=== PATIENT | female | born 1955 | race Caucasian/White ===

== ENCOUNTER → 2016-12-09 | Outpatient (REF) | payer MEDICARE, BC ==
[~2016-12-09] MED LIST: /FEXO18TA PO; ASPI81TA83 OR; ATARAX OR; ATIV0.5T OR; CIPR25SS OR; COLA100C2 OR; DRISDOL PO; FLEXERIL PO; KLON0.5T PO; LISI10TA4 OR; MELOPOW PO; MIRALEX; MIRALEX OR; OMEP20TA7 OR; SULFA TOP; Savella OR; TOPI100T OR; TRAM50TA2 OR; TRAM50TA2 PO; TRAZ100T PO; VITA500C PO; VITAMIN D50000 UNT OR; ZOLO50TA PO; [UNRECOGNIZED DRUG - OTHER] TOP; [UNRECOGNIZED DRUG - OTHER] TOP; dulcolax; pristiq; savella
[2016-12-10 11:16] LABS: BASO # 0.1 K/mm3 (0.0-0.2); BASO % 1.3 % (0.0-1.0); EOS # 0.1 K/mm3 (0.0-0.50); EOS % 1.5 % (0.0-3.0); LARGE UNSTAINED CELL # 0.1 K/mm3 (0.0-0.4); LARGE UNSTAINED CELL % 1.4 % (0.0-4.0); LYMPH # 1.3 K/mm3 (1.5-4.5); LYMPH % 20.2 % (24.0-44.0); MEAN CORPUSCULAR HEMOGLOBIN 29.4 pg (27.0-33.0); MEAN CORPUSCULAR HGB CONC 33.6 g/dl (32.0-36.5); MEAN CORPUSCULAR VOLUME 87.6 fl (80.0-96.0); MONO # 0.3 K/mm3 (0.0-0.8); MONO % 5.5 % (0.0-5.0); NEUTROPHILS # 4.3 K/mm3 (1.8-7.7); NEUTROPHILS % 70.2 % (36.0-66.0); PLATELET COUNT, AUTOMATED 147 k/mm3 (150-450); RED CELL DISTRIBUTION WIDTH 14.6 % (11.5-14.5); WHITE BLOOD COUNT 6.2 K/mm3 (4.0-10.0)
[2016-12-10 11:33] LABS: FOLATE > 24.0 NG/ML (>5.4); VITAMIN B12 LEVEL 574 PG/ML (247-911)
[2016-12-10 11:40] LABS: ALBUMIN 3.9 GM/DL (3.2-5.2); ALBUMIN/GLOBULIN RATIO 1.39 (1.00-1.93); ALKALINE PHOSPHATASE 45 U/L (45-117); ALT/SGPT 17 U/L (12-78); ANION GAP 3 MEQ/L (8-16); AST/SGOT 17 U/L (15-37); BILIRUBIN,TOTAL 0.4 MG/DL (0.2-1.0); BLOOD UREA NITROGEN 16 MG/DL (7-18); CALCIUM LEVEL 9.3 MG/DL (8.8-10.2); CARBON DIOXIDE LEVEL 29 MEQ/L (21-32); CHLORIDE LEVEL 105 MEQ/L (98-107); CHOLESTEROL LEVEL 266 MG/DL (<200); CREATININE FOR GFR 0.96 MG/DL (0.55-1.02); GLOMERULAR FILTRATION RATE > 60.0 (>45); GLUCOSE, FASTING 74 MG/DL (80-110); SODIUM LEVEL 137 MEQ/L (136-145); TOTAL PROTEIN 6.7 GM/DL (6.4-8.2); TRIGLYCERIDES LEVEL 334 MG/DL (<150)
== END ==
LOC: M SFHCCLAY 15:28
PROVIDERS: ATTEND Family Medicine
DX: D64.9 Anemia, unspecified (principal); E78.2 Mixed hyperlipidemia; E03.9 Hypothyroidism, unspecified
CPT/HCPCS: 80053; 80061; 82607; 82746; 83540; 84443; 85025; G0463

== ENCOUNTER → 2016-12-16 | Outpatient (REF) | payer MEDICARE, BC ==
[2016-12-16 14:39] LABS: TOTAL PROTEIN 6.9 GM/DL (6.4-8.2)
[2016-12-16 14:55] LABS: VITAMIN B12 LEVEL 652 PG/ML (247-911)
[2016-12-16 14:56] LABS: FOLATE > 24.0 NG/ML (>5.4)
[2016-12-20 12:55] LABS: ALBUMIN % 60.7 % (55.8-66.1)
[2016-12-20 12:56] LABS: ALBUMIN 4.19 GM/DL (3.29-5.55); GAMMA GLOBULIN % 16.3 % (11.1-18.8)
== END ==
LOC: M LABNEURO 10:58
PROVIDERS: ATTEND Psychiatry & Neurology Neurology
DX: E03.9 Hypothyroidism, unspecified (principal); Z13.88 Encounter for screening for disorder due to exposure to contaminants; Z13.0 Encounter for screening for diseases of the blood and blood-forming organs and certain disorders involving the immune mechanism; G62.9 Polyneuropathy, unspecified; Z79.899 Other long term (current) drug therapy; T56.894A Toxic effect of other metals, undetermined, initial encounter

== ENCOUNTER 2017-01-27 14:19 | Outpatient (CLI) | payer MEDICARE, BC ==
[~2017-01-27 14:19] MED LIST changes: +methylPREDNISolone 1,000 MG, VIAL MATE ADAPTER 1 EACH in D5W 250 ML IV ONE
[2017-01-27] MEDS ORDERED: D 50CAP PO (15:08)
[2017-01-27] MEDS ORDERED: LEVO50TA5 PO (15:08)
[2017-01-27] MEDS ORDERED: FISH1000 PO (15:08)
[2017-01-27] MEDS ORDERED: CENTTAB47 PO (15:09)
== END 2017-01-27 16:49 | disposition home or self-care (01) ==
LOC: M INFU 14:19
PROVIDERS: ATTEND Psychiatry & Neurology Neurology
DX: G35 Multiple sclerosis (principal); Z79.899 Other long term (current) drug therapy; M54.2 Cervicalgia; G89.29 Other chronic pain; F33.9 Major depressive disorder, recurrent, unspecified; F41.9 Anxiety disorder, unspecified; G47.00 Insomnia, unspecified
CPT/HCPCS: 96365; 96366; J2930

== ENCOUNTER 2017-01-28 13:50 | Outpatient (CLI) | payer MEDICARE, BC ==
[~2017-01-28 13:50] MED LIST changes: +CENTTAB47 PO; +D 50CAP PO; +FISH1000 PO; +LEVO50TA5 PO
== END 2017-01-28 15:55 | disposition home or self-care (01) ==
LOC: M INFU 13:50
PROVIDERS: ATTEND Psychiatry & Neurology Neurology
DX: G35 Multiple sclerosis (principal); Z79.899 Other long term (current) drug therapy; Z91.041 Radiographic dye allergy status
CPT/HCPCS: 96365; 96366; J2930

== ENCOUNTER 2017-01-29 12:29 | Outpatient (CLI) | payer MEDICARE, BC ==
[~2017-01-29 12:29] MED LIST changes: -methylPREDNISolone 1,000 MG, VIAL MATE ADAPTER 1 EACH in D5W 250 ML IV ONE
[2017-01-29] MEDS ORDERED: methylPREDNISolone 1,000 MG, VIAL MATE ADAPTER 1 EACH in D5W 250 ML IV ONE (13:00)
[2017-01-29 13:10] VITALS: BP 154/70
[2017-01-29] MEDS ORDERED: SLF 3 ML SYR IV PRN (13:30)
[2017-01-29] MEDS ORDERED: SLF 3 ML SYR IV SCH (14:00)
== END 2017-01-29 14:45 | disposition home or self-care (01) ==
LOC: M INFU 12:29 → M PED 12:50 → M INFU 14:45
PROVIDERS: ATTEND Psychiatry & Neurology Neurology
DX: G35 Multiple sclerosis (principal); Z79.899 Other long term (current) drug therapy; Z91.041 Radiographic dye allergy status; Z88.8 Allergy status to other drugs, medicaments and biological substances
CPT/HCPCS: 96374; J2930

== ENCOUNTER 2017-01-30 12:03 | Outpatient (CLI) | payer MEDICARE, BC ==
[2017-01-30 12:25] VITALS: BP 152/70
[2017-01-30] MEDS ORDERED: SLF 3 ML SYR IV PRN (12:45)
[2017-01-30] MEDS ORDERED: methylPREDNISolone 1,000 MG, VIAL MATE ADAPTER 1 EACH in D5W 250 ML IV ONE (13:00)
[2017-01-30] MEDS ORDERED: SLF 3 ML SYR IV SCH (14:00)
[2017-01-30 14:10] VITALS: BP 138/64
== END 2017-01-30 14:10 | disposition home or self-care (01) ==
LOC: M INFU 12:03 → M PED 12:07 → M INFU 14:10
PROVIDERS: ATTEND Psychiatry & Neurology Neurology
DX: G35 Multiple sclerosis (principal); Z79.899 Other long term (current) drug therapy; Z88.8 Allergy status to other drugs, medicaments and biological substances; Z91.041 Radiographic dye allergy status
CPT/HCPCS: 96365; J2930

== ENCOUNTER 2017-01-31 12:41 | Outpatient (CLI) | payer MEDICARE, BC ==
[~2017-01-31] VITALS: Ht 167.6 cm; Wt 71.4 kg
[~2017-01-31 12:41] MED LIST changes: +methylPREDNISolone 1,000 MG, VIAL MATE ADAPTER 1 EACH in D5W 250 ML IV ONE
== END 2017-01-31 14:30 | disposition home or self-care (01) ==
LOC: M INFU 12:41
PROVIDERS: ATTEND Psychiatry & Neurology Neurology
DX: G35 Multiple sclerosis (principal); Z79.899 Other long term (current) drug therapy; Z91.041 Radiographic dye allergy status
CPT/HCPCS: 96365; J2930

== ENCOUNTER → 2017-02-07 | Outpatient (REF) | payer MEDICARE, BC ==
[~2017-02-07] MED LIST changes: -methylPREDNISolone 1,000 MG, VIAL MATE ADAPTER 1 EACH in D5W 250 ML IV ONE
[2017-02-07 20:27] LABS: IMMUNOGLOBULIN A 67.1 MG/DL (70-400); IMMUNOGLOBULIN G 986 MG/DL (681-1648); IMMUNOGLOBULIN M 112 MG/DL (40-230); TOTAL PROTEIN 7.3 GM/DL (6.4-8.2)
[2017-02-09 11:36] LABS: ALBUMIN 4.35 GM/DL (3.29-5.55); ALBUMIN % 59.6 % (55.8-66.1); GAMMA GLOBULIN % 15.2 % (11.1-18.8)
[2017-02-10 00:08] LABS: BETA 2 MICROGLOBULIN 1.9 mg/L (0.6-2.4); FREE KAPPA LIGHT CHAINS SERUM 14.5 mg/L (3.3-19.4); FREE LAMBDA LIGHT CHAINS SERUM 15.7 mg/L (5.7-26.3); KAPPA/LAMBDA RATIO SERUM 0.92 (0.26-1.65)
== END ==
LOC: M LAB REF 13:33
PROVIDERS: ATTEND Internal Medicine Medical Oncology
DX: D47.2 Monoclonal gammopathy (principal)

== ENCOUNTER → 2017-04-11 | Outpatient (REF) | payer MEDICARE, BC ==
[2017-04-11 14:07] LABS: INR 1.14
[2017-04-11 15:08] LABS: COLLAGEN ADP > 300 SECONDS (56-103)
== END ==
LOC: M LAB REF 13:47
PROVIDERS: ATTEND Internal Medicine Medical Oncology
DX: D47.2 Monoclonal gammopathy (principal)

== ENCOUNTER → 2017-04-20 | Outpatient (REF) | payer MEDICARE, BC ==
[2017-04-20 18:02] LABS: COLLAGEN ADP 228 SECONDS (56-103)
== END ==
LOC: M LAB REF 13:28
PROVIDERS: ATTEND Internal Medicine Medical Oncology
DX: D47.2 Monoclonal gammopathy (principal)

== ENCOUNTER → 2017-05-03 | Outpatient (REF) | payer MEDICARE, BC ==
[2017-05-03 10:19] LABS: INR 1.07
[2017-05-03 10:31] LABS: COLLAGEN ADP > 300 SECONDS (56-103)
== END ==
LOC: M LAB REF 08:38
PROVIDERS: ATTEND Internal Medicine Medical Oncology
DX: D47.2 Monoclonal gammopathy (principal)

== ENCOUNTER → 2017-05-04 | Outpatient (REF) | payer MEDICARE, BC ==
[2017-05-10 10:13] LABS: COAGULATION FACTOR XI ACTIVITY 77 % (60-150); F8 ACTIVITY FOR F8 PANEL 91 % (57-163); F8 ACTIVITY vWB FOR F8 PANEL 86 % (50-200); F8 ANTIGEN FOR F8 PANEL 115 % (50-200); INTERPRETATION: Note (.)
== END ==
LOC: M LAB REF 12:44
PROVIDERS: ATTEND Internal Medicine Medical Oncology
DX: D68.0 Von Willebrand disease (principal)

== ENCOUNTER → 2017-09-20 | Outpatient (CLI) | payer MEDICARE, BC | LOC: M CLY 15:16 | DX: M25.551 Pain in right hip (principal); M77.8 Other enthesopathies, not elsewhere classified | CPT/HCPCS: 73502; G0463 ==

== ENCOUNTER → 2018-04-10 | Outpatient (REF) | payer MEDICARE, BC ==
[2018-04-11 12:08] LABS: ALBUMIN 3.7 GM/DL (3.2-5.2); ALBUMIN/GLOBULIN RATIO 1.12 (1.00-1.93); ALKALINE PHOSPHATASE 49 U/L (45-117); ALT/SGPT 18 U/L (12-78); ANION GAP 7 MEQ/L (8-16); AST/SGOT 17 U/L (7-37); BILIRUBIN,TOTAL 0.6 MG/DL (0.2-1.0); BLOOD UREA NITROGEN 14 MG/DL (7-18); CALCIUM LEVEL 9.3 MG/DL (8.8-10.2); CARBON DIOXIDE LEVEL 31 MEQ/L (21-32); CHLORIDE LEVEL 104 MEQ/L (98-107); CHOLESTEROL LEVEL 226 MG/DL (<200); CHOLESTEROL RISK RATIO 4.185 (<5); CREATININE FOR GFR 1.28 MG/DL (0.55-1.30); GLOMERULAR FILTRATION RATE 44.7 (>45); GLUCOSE, FASTING 94 MG/DL (70-100); HDL CHOLESTEROL 54 MG/DL (>40); LDL CHOLESTEROL 127.2 MG/DL (<100); NON-HDL-C 172 MG/DL; SODIUM LEVEL 142 MEQ/L (136-145); THYROID STIMULATING HORMONE 0.532 uIU/ML (0.358-3.740); TRIGLYCERIDES LEVEL 224 MG/DL (<150)
== END ==
LOC: M SFHCCLAY 14:19
DX: E78.2 Mixed hyperlipidemia (principal); E03.9 Hypothyroidism, unspecified
CPT/HCPCS: 84443

== ENCOUNTER 2018-08-28 15:58 | Inpatient (IN) | payer OTHER, MEDICARE, BC ==
[~2018-08-28] VITALS: Ht 167.6 cm; Wt 79.2 kg
[2018-08-28 17:11] LABS: HEMATOCRIT 42.6 % (36.0-47.0); HEMOGLOBIN 14.3 g/dl (12.0-15.5); MEAN CORPUSCULAR HEMOGLOBIN 29.9 pg (27.0-33.0); MEAN CORPUSCULAR HGB CONC 33.6 g/dl (32.0-36.5); MEAN CORPUSCULAR VOLUME 89.1 fl (80.0-96.0); PLATELET COUNT, AUTOMATED 111 10^3/uL (150-450); RED BLOOD COUNT 4.78 10^6/uL (4.00-5.40); WHITE BLOOD COUNT 5.1 10^3/uL (4.0-10.0)
[2018-08-28 17:27] LABS: AMPHETAMINES LEVEL URINE NEGATIVE (NEGATIVE); BARBITURATES URINE NEGATIVE (NEGATIVE); BENZODIAZEPINES URINE NEGATIVE (NEGATIVE); CANNABINOIDS URINE NEGATIVE (NEGATIVE); COCAINE METABOLITE URINE NEGATIVE (NEGATIVE); METHADONE URINE NEGATIVE (NEGATIVE); OPIATES URINE NEGATIVE (NEGATIVE); PHENCYCLIDINE URINE NEGATIVE (NEGATIVE)
[2018-08-28 18:02] LABS: ACETAMINOPHEN LEVEL < 2.0 UG/ML (10.0-30.0); ALBUMIN 4.2 GM/DL (3.2-5.2); ALT/SGPT 22 U/L (12-78); BILIRUBIN,DIRECT 0.2 MG/DL (0.0-0.2); BILIRUBIN,TOTAL 0.7 MG/DL (0.2-1.0); BLOOD UREA NITROGEN 16 MG/DL (7-18); CALCIUM LEVEL 9.5 MG/DL (8.8-10.2); CARBON DIOXIDE LEVEL 31 MEQ/L (21-32); CHLORIDE LEVEL 102 MEQ/L (98-107); CREATININE FOR GFR 1.26 MG/DL (0.55-1.30); ETHYL ALCOHOL (ETHANOL) < 0.003 % (0.000-0.010); GLOMERULAR FILTRATION RATE 45.5 (>45); GLUCOSE, FASTING 94 MG/DL (70-100); POTASSIUM SERUM 4.7 MEQ/L (3.5-5.1); SALICYLATE LEVEL < 1.7 MG/DL (5.0-30.0); SODIUM LEVEL 139 MEQ/L (136-145); THYROID STIMULATING HORMONE 0.845 uIU/ML (0.358-3.740); TOTAL PROTEIN 7.7 GM/DL (6.4-8.2)
[2018-08-28] MEDS ORDERED: BUSP10TA PO (18:40)
[2018-08-28] MEDS ORDERED: ACTI1TAB PO (18:40)
[2018-08-28] MEDS ORDERED: LEVO50TA5 PO (18:40)
[2018-08-28] MEDS ORDERED: PROP10TA56 PO (18:40)
[2018-08-28] MEDS ORDERED: VIIB10TA PO (18:40)
[2018-08-28] MEDS ORDERED: SPIR-10 PO (18:40)
[2018-08-28] MEDS ORDERED: BUPR150T3 PO (18:40)
[2018-08-28] MEDS ORDERED: [UNRECOGNIZED DRUG - CODE] PO (18:40)
[2018-08-28] MEDS ORDERED: TARTCAP PO (18:44)
[2018-08-28] MEDS ORDERED: [UNRECOGNIZED DRUG - OTHER] PO (18:44)
[2018-08-28] MEDS ORDERED: VITA500055 PO (18:44)
[2018-08-28] MEDS ORDERED: COPA1INJ SC (18:44)
[2018-08-28] MEDS ORDERED: MAALOX 30 ML SUSP *UDC PO PRN (19:15)
[2018-08-28] MEDS ORDERED: MOM 30ML SUSPENSION UDC PO PRN (19:15)
[2018-08-29 00:30] VITALS: BP 164/67
[2018-08-29 06:42] VITALS: BP 114/56
[2018-08-29] MEDS: SERTRALINE 100 MG TAB PO SCH (09:49)
[2018-08-29] MEDS: buPROPion **XL** TABLET 150MG (WELLBUTRIN XL) PO SCH (09:49)
[2018-08-29] MEDS: LEVOTHYROXINE 50MCG TABLET (0.05MG) PO SCH (09:49)
[2018-08-29] MEDS: busPIRone 10 MG TAB PO SCH ×2 (09:49→20:58)
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
[2018-08-29 18:00] VITALS: BP 143/66
[2018-08-29] MEDS: traZODone 50 MG TAB PO PRN (20:58)
[2018-08-29] MEDS: PRAZOSIN 1 MG CAP PO SCH (20:59)
[2018-08-30] MEDS: LEVOTHYROXINE 50MCG TABLET (0.05MG) PO SCH (06:30)
[2018-08-30 07:00] VITALS: BP 102/51
[2018-08-30] MEDS: busPIRone 10 MG TAB PO SCH ×2 (09:17→21:08)
[2018-08-30] MEDS: SERTRALINE 100 MG TAB PO SCH (09:17)
[2018-08-30] MEDS: buPROPion **XL** TABLET 150MG (WELLBUTRIN XL) PO SCH (09:17)
[2018-08-30] MEDS: ACETAMINOPHEN TAB 650MG DOSE (2X325MG) PO PRN ×2 (09:20→16:25)
--- NOTE | 2018-08-30 11:53 | MHIPNPDOC ---
[facility] Progress Note Progress Note DATE OF SERVICE: 08/30/18 HISTORY: The patient has history of major depressive disorder, post traumatic stress disorder (PTSD). She was admitted to [facility] in 2010. She moved to [place] with her . Two years back, she came back and started getting her treatment at [facility]. Her medication was changed very frequently. She reports on Zoloft she was stable. For some reason, her doctor changed her medication to Viibryd. Since then, she has been decompensating. She reports her sleep and appetite are poor. Her energy level is poor. She has some visual and auditory hallucinations which are minimal only for the last two days. She reported it to the police that people are coming to her house and sitting in her bed. The police watched her home and they said there was nothing. The patient came with a friend seeking help. She denies any history of manic episodes. She denied any history of drug or alcohol use. VITAL SIGNS: See below. NEW TEST RESULTS: See below. CURRENT MEDICATIONS: See below. MENTAL STATUS EXAMINATION: She is casually dressed. Personal hygiene is good. Psychomotor activity is mildly retarded. Made good eye contact. Speech rate, rhythm and volume are good. Mood is depressed, anxious. Thought process linear, goal directed. Thought content: Currently denies any delusions or any suicidal or homicidal ideas. She is alert, oriented to time, place, person and situation. Her memory, immediate, remote and recent are good. Insight and judgment are fair. DIAGNOSES: Major depressive disorder. Post traumatic stress disorder. ASSESSMENT:Pt seen and states continues to endorse occasional anxiety, worse when around a lot of people. Calls herself an anxious person. Discussed use of wellbutrin and risk of worsened anxiety and agrees to stop it. States she's tolerating zoloft and finding it beneficial for mood and anxiety. finding buspar, prazosin, and trazodone beneficial for anxiety and sleep. States she slept well last night. Feels she is tolerating her medications and they're beneficial. She is attending groups and finding them helpful. She denies insomnia, SI/HI, hallucinations, delusions. Pt feels safe here. MANAGEMENT PLAN: Continue current treatment. Start inderal 10mg tid prn anxiety Medications: Buspirone 10 mg BID Prazosin 2 mg QHS Sertraline 100 mg DAILY Trazodone 50 mg QHSP PRN PO INSOMNIA TIME SPENT: 30 minutes. Vital Signs Vital Signs Date Time Temp Pulse Resp B/P (MAP) Pulse Ox O2 Delivery O2 Flow Rate FiO2 08/30/18 07:00 96.1 78 16 102/51 (68) 08/29/18 00:30 98 Room Air Current Medications Current Medications Acetaminophen (Tylenol Tab) 650 mg Q6HP PRN PO HEADACHE or DISCOMFORT Last administered on 08/30/18 09:20; Start 08/28/18 at 19:15 Al Hydrox/Mg Hydrox/Simethicone (Mylanta) 30 ml Q4HP PRN PO HEARTBURN/INDIGESTION; Start 08/28/18 at 19:15 Bupropion HCl (Wellbutrin Xl) 150 mg DAILY PO Last administered on 08/30/18 09:17; Start 08/29/18 at 09:00 Buspirone HCl (Buspar) 10 mg BID PO Last administered on 08/30/18 09:17; Start 08/29/18 at 09:00 Home Med (Med Rec Complete!) ASDIRECTED XX ; Start 08/28/18 at 18:45; Stop 08/28/18 at 18:46; Status DC Levothyroxine Sodium (Synthroid) 50 mcg DAILY@06 PO Last administered on 08/30/18 06:30; Start 08/29/18 at 06:00 Magnesium Hydroxide (Milk Of Magnesia) 30 ml DAILYPRN PRN PO CONSTIPATION; Start 08/28/18 at 19:15 Prazosin HCl (Minipress) 2 mg QHS PO Last administered on 08/29/18 20:59; Start 08/29/18 at 21:00 Sertraline HCl (Zoloft) 100 mg DAILY PO Last administered on 08/30/18 09:17; Start 08/29/18 at 09:00 Trazodone HCl (Desyrel) 50 mg QHSP PRN PO INSOMNIA Last administered on 08/29/18 20:58; Start 08/28/18 at 19:15 Allergies Coded Allergies: Contrast Media (Verified Allergy, Intermediate, hives, 06/26/12) Rosuvastatin (Verified Allergy, Unknown, leg cramps, 01/29/17) AZALIA NOE DO Aug 30, 2018 11:53 am
--- NOTE | 2018-08-30 15:56 | HPE ---
DATE OF ADMISSION: 08/28/2018 HISTORY OF PRESENT ILLNESS: Please refer to psychiatric history and evaluation for further details on this admission. This examination and history is intended for medical issues, which may need treatment, followup or consultation on this 63-year-old female. PRIMARY CARE PROVIDER: Dr. Tom ALLERGIES: CONTRAST MEDIA, ROSUVASTATIN. PAST MEDICAL HISTORY: Depression, anxiety, posttraumatic stress disorder (PTSD), skin cancer removed from her arms and treated, migraine headaches. December 2017 she was diagnosed with multiple sclerosis, she follows with Dr. Oliva in [place], [place]. She takes Copaxone three times a week intramuscularly. PAST SURGICAL HISTORY: Cholecystectomy, hysterectomy, tonsillectomy. In December 2015 she had a bowel resection. FAMILY HISTORY: History of Down's syndrome. SOCIAL HISTORY: She is retired. She does not smoke cigarettes. She drinks occasionally one to two drinks per week. She does not use recreational drugs. LABORATORY STUDIES: Electrolytes are normal. BUN 16, creatinine 1.26. CK-MB 0.2, total CK 26, troponin is less than 0.04. HOME MEDICATIONS: - Tylenol 650 mg by mouth every 6 hours as needed for headache - bupropion 150 mg by mouth daily - BuSpar 10 mg by mouth twice a day - Synthroid 50 mcg by mouth daily - prazosin HCL 10 mg by mouth at night - sertraline 100 mg by mouth daily - trazodone 50 mg by mouth at night as needed for sleep - Copaxone one three times a week REVIEW OF SYSTEMS: Ten systems review was done and she is feeling fairly well. She had no complaints. PHYSICAL EXAMINATION: GENERAL: 63-year-old cooperative female in no acute distress. Height 66 inches, weight 79.2 kg, Body Mass Index (BMI) 28.2. The patient is alert and oriented times three. HEENT: Pupils are equal and reactive to light. Extraocular muscles intact. Sclerae clear. Conjunctivae normal. No facial asymmetry. Pharynx, gums and tongue pink and moist. Tongue is midline. NECK: Supple without lymphadenopathy, thyromegaly or goiter. Carotids are 2+ without bruit. CHEST: Clear to auscultation without wheeze or retraction. HEART: Regular. ABDOMEN: Benign. Bowel sounds positive. GENITOURINARY/RECTAL: Not done. EXTREMITIES: Equal strength, full range of motion. No clubbing, cyanosis, and edema. Peripheral pulses equal and palpable bilaterally. SKIN: Warm and dry. IMPRESSION/PLAN: 1. Psychiatric plan per psychiatry. 2. Multiple sclerosis. Her sister will bring in her Copaxone and then we will order it. No other acute medical issues.
[2018-08-30] MEDS: PROPRANOLOL 10 MG TAB PO SCH ×2 (16:25→21:08)
[2018-08-30 18:00] VITALS: BP 146/76
[2018-08-30] MEDS: PRAZOSIN 1 MG CAP PO SCH (21:09)
[2018-08-31] MEDS: LEVOTHYROXINE 50MCG TABLET (0.05MG) PO SCH (06:11)
[2018-08-31 06:23] VITALS: BP 112/52
[2018-08-31] MEDS: PROPRANOLOL 10 MG TAB PO SCH ×3 (09:00→20:53)
[2018-08-31] MEDS ORDERED: COPAXONE 40 MG/ML SC SCH (09:00)
[2018-08-31] MEDS: busPIRone 10 MG TAB PO SCH ×2 (09:15→20:52)
[2018-08-31] MEDS: buPROPion **XL** TABLET 150MG (WELLBUTRIN XL) PO SCH (09:15)
[2018-08-31] MEDS: SERTRALINE 100 MG TAB PO SCH (09:15)
--- NOTE | 2018-08-31 09:37 | MHIPNPDOC ---
[facility] Progress Note Progress Note DATE OF SERVICE: 08/31/18 HISTORY: The patient has history of major depressive disorder, post traumatic stress disorder (PTSD). She was admitted to [facility] in 2010. She moved to [place] with her . Two years back, she came back and started getting her treatment at [facility]. Her medication was changed very frequently. She reports on Zoloft she was stable. For some reason, her doctor changed her medication to Viibryd. Since then, she has been decompensating. She reports her sleep and appetite are poor. Her energy level is poor. She has some visual and auditory hallucinations which are minimal only for the last two days. She reported it to the police that people are coming to her house and sitting in her bed. The police watched her home and they said there was nothing. The patient came with a friend seeking help. She denies any history of manic episodes. She denied any history of drug or alcohol use. VITAL SIGNS: See below. NEW TEST RESULTS: See below. CURRENT MEDICATIONS: See below. MENTAL STATUS EXAMINATION: She is casually dressed. Personal hygiene is good. Psychomotor activity is improved and average. Made good eye contact. Speech rate, rhythm and volume are good. Mood is "better... less anxious." Affect is congruent, euthymic, and bright. Thought process linear, goal directed. Thought content: Currently denies any delusions or any suicidal or homicidal ideas. She is alert, oriented to time, place, person and situation. Her memory, immediate, remote and recent are good. Insight and judgment are fair. DIAGNOSES: Major depressive disorder. Post traumatic stress disorder. ASSESSMENT:Pt seen and states her anxiety is improved with the start of inderal that she took twice yesterday, tolerated, and found beneficial. States she's tolerating zoloft and finding it beneficial for mood and anxiety. Finding buspar, prazosin, and trazodone beneficial for anxiety and sleep. States she slept well last night. Feels she is tolerating her medications and they're beneficial. She is attending groups and finding them helpful. She denies insomnia, SI/HI, hallucinations, delusions. Pt feels safe here. MANAGEMENT PLAN: Continue current treatment. Medications: Buspirone 10 mg BID Prazosin 2 mg QHS Sertraline 100 mg DAILY Trazodone 50 mg QHSP PRN PO INSOMNIA inderal 10mg tid prn anxiety TIME SPENT: 30 minutes. Vital Signs Vital Signs Date Time Temp Pulse Resp B/P (MAP) Pulse Ox O2 Delivery O2 Flow Rate FiO2 08/31/18 09:00 67 115/54 08/31/18 06:23 98.8 14 Room Air 08/30/18 18:00 98 Current Medications Current Medications Acetaminophen (Tylenol Tab) 650 mg Q6HP PRN PO HEADACHE or DISCOMFORT Last administered on 08/30/18 16:25; Start 08/28/18 at 19:15 Al Hydrox/Mg Hydrox/Simethicone (Mylanta) 30 ml Q4HP PRN PO HEARTBURN/INDIGESTION; Start 08/28/18 at 19:15 Bupropion HCl (Wellbutrin Xl) 150 mg DAILY PO Last administered on 08/31/18 09:15; Start 08/29/18 at 09:00 Buspirone HCl (Buspar) 10 mg BID PO Last administered on 08/31/18 09:15; Start 08/29/18 at 09:00 Home Med (Med Rec Complete!) ASDIRECTED XX ; Start 08/28/18 at 18:45; Stop 08/28/18 at 18:46; Status DC Levothyroxine Sodium (Synthroid) 50 mcg DAILY@06 PO Last administered on 08/31/18 06:11; Start 08/29/18 at 06:00 Magnesium Hydroxide (Milk Of Magnesia) 30 ml DAILYPRN PRN PO CONSTIPATION; Start 08/28/18 at 19:15 Prazosin HCl (Minipress) 2 mg QHS PO Last administered on 08/30/18 21:09; Start 08/29/18 at 21:00 Propranolol HCl (Inderal) 10 mg TID PO Last administered on 08/30/18 21:08; Start 08/30/18 at 16:00 Sertraline HCl (Zoloft) 100 mg DAILY PO Last administered on 08/31/18 09:15; Start 08/29/18 at 09:00 Trazodone HCl (Desyrel) 50 mg QHSP PRN PO INSOMNIA Last administered on 08/29/18 20:58; Start 08/28/18 at 19:15 Allergies Coded Allergies: Contrast Media (Verified Allergy, Intermediate, hives, 06/26/12) Rosuvastatin (Verified Allergy, Unknown, leg cramps, 01/29/17) AZALIA NOE DO Aug 31, 2018 09:37
[2018-08-31 18:00] VITALS: BP 140/60
[2018-08-31] MEDS: PRAZOSIN 1 MG CAP PO SCH (20:53)
[2018-08-31] MEDS: traZODone 50 MG TAB PO PRN (21:25)
[2018-09-01] MEDS: LEVOTHYROXINE 50MCG TABLET (0.05MG) PO SCH (06:07)
[2018-09-01 06:19] VITALS: BP 107/54
[2018-09-01] MEDS: SERTRALINE 100 MG TAB PO SCH (08:39)
[2018-09-01] MEDS: busPIRone 10 MG TAB PO SCH (08:39)
[2018-09-01 08:40] VITALS: BP 135/58
[2018-09-01] MEDS: PROPRANOLOL 10 MG TAB PO SCH (08:40)
--- NOTE | 2018-09-01 08:52 | MHDSPDOC ---
[facility] Discharge Summary Discharge Summary DATE OF ADMISSION: Aug 28, 2018 at 19:08 DATE OF DISCHARGE: Sep 01, 2018 DISCHARGE DIAGNOSES: Major depressive disorder. Post traumatic stress disorder. REASON FOR ADMISSION: The patient has history of major depressive disorder, post traumatic stress disorder (PTSD). She was admitted to [facility] in 2010. She moved to [place] with her . Two years back, she came back and started getting her treatment at [facility]. Her medication was changed very frequently. She reports on Zoloft she was stable. For some reason, her doctor changed her medication to Viibryd. Since then, she has been decompensating. She reports her sleep and appetite are poor. Her energy level is poor. She has some visual and auditory hallucinations which are minimal only for the last two days. She reported it to the police that people are coming to her house and sitting in her bed. The police watched her home and they said there was nothing. The patient came with a friend seeking help. She denies any history of manic episodes. She denied any history of drug or alcohol use. CONSULTANTS INVOLVED: none TREATMENT AND PROGRESS ON THE UNIT : Pt was admitted to [facility], seen for psychiatric assessment and her outpatient wellbutrin xl was discontinued due to side effect of anxiety and she was continued on her zoloft increased to 100mg daily for mood and anxiety. She was continued on her buspar 10mg bid for anxiety. She was started on inderal 10mg tid for anxiety and prazosin 2mg qhs for nightmares/ptsd. She was provided trazodone 50mg qhs prn insomnia. Pt found her medications beneficial and tolerated them well. She attended groups daily during her stay. Her symptoms improved with treatment. On day of discharge she denied depression, anxiety, insomnia, SI/HI, hallucinations, delusions. She was discharged home with follow-up at [facility]. She felt safe for discharge. DISCHARGE ASSESSMENT: Pt seen and states her mood is improved to good and that her anxiety is greatly improved. States that inderal has been very beneficial for her anxiety and she's tolerating it well. States she's tolerating zoloft and finding it beneficial for mood and anxiety. Finding buspar, prazosin, and trazodone beneficial for anxiety and sleep. States she slept well last night. Feels she is tolerating her medications and they're beneficial. She is attending groups and finding them helpful. She denies depression, anxiety, insomnia, SI/HI, hallucinations, delusions. Pt feels safe to be discharged home. MENTAL STATUS EXAMINATION ON DISCHARGE: She is casually dressed. Personal hygiene is good. Psychomotor activity are average. Made good eye contact. Speech rate, rhythm and volume are good. Mood is "good" Affect is congruent, euthymic, and bright. Thought process linear, goal directed. Thought content: Currently denies any delusions or any suicidal or homicidal ideas. She is alert, oriented to time, place, person and situation. Her memory, immediate, remote and recent are good. Insight and judgment are good. MEDICATIONS ON DISCHARGE: Buspirone 10 mg BID Prazosin 2 mg QHS Sertraline 100 mg DAILY Trazodone 50 mg QHSP PRN PO INSOMNIA inderal 10mg tid prn anxiety PLAN/FOLLOWUP ARRANGEMENTS: d/c home with follow-up at [facility]. The amount of time spent in the coordination of care for this patient was approximately 30 minutes. Vital Signs/I&Os Vital Signs Date Time Temp Pulse Resp B/P (MAP) Pulse Ox O2 Delivery O2 Flow Rate FiO2 09/01/18 08:40 85 135/58 09/01/18 06:19 98.9 16 Room Air 08/30/18 18:00 98 Medications Scheduled (Viibryd) 10 Mg Tab, 10 MG PO DAILY, (Reported) (Quazepam) 15 Mg Tab, 7.5 MG PO QHS, (Reported) (Tart Romano Advanced) 1 Cap Cap, 1 CAP PO QHS, (Reported) Bupropion Hcl (Bupropion HCl Xl) 150 Mg Tab, 150 MG PO QAM, (Reported) Buspirone HCl (Buspirone HCl) 10 Mg Tab, 20 MG PO BID, (Reported) Cholecalciferol (Vitamin D3) 5,000 Unit Tab, 5,000 UNIT PO DAILY, (Reported) Glatiramer Acetate (Copaxone) 40 Mg/Ml Inj, 40 MG SC 3XW, (Reported) TAKES ON TUESDAY, TUESDAY AND TUESDAY Levothyroxine Sodium (Synthroid) 50 Mcg Tab, 50 MCG PO DAILY, (Reported) Spironolactone (Spironolactone) 25 Mg Tab, 25 MG PO DAILY, (Reported) [activite vitamins] , 2 TAB PO DAILY, (Reported) Scheduled PRN Propranolol HCl (Propranolol HCl) 10 Mg Tab, 5 MG PO DAILY PRN for ANXIETY, (Reported) Allergies Coded Allergies: Contrast Media (Verified Allergy, Intermediate, hives, 06/26/12) Rosuvastatin (Verified Allergy, Unknown, leg cramps, 01/29/17) AZALIA NOE DO Sep 01, 2018 08:52
[2018-09-01] MEDS ORDERED: PROP10TAB PO (08:57)
[2018-09-01] MEDS ORDERED: TRAZO50TA PO (08:57)
[2018-09-01] MEDS ORDERED: BUSP10TA PO (08:57)
[2018-09-01] MEDS ORDERED: MINI1CAP PO (08:57)
[2018-09-01] MEDS ORDERED: SERT-138 PO (08:57)
[2018-09-04] MEDS ORDERED: COPAXONE 40 MG/ML SC SCH (09:00)
== END 2018-09-01 12:30 | disposition home or self-care (01) | DRG 754 ==
LOC: M ED 15:58 → M ED INP 19:08 → M PSY 08-29 00:30
PROVIDERS: ADMIT Psychiatry & Neurology Psychiatry; ATTEND Psychiatry & Neurology Psychiatry
DX: F32.9 Major depressive disorder, single episode, unspecified (principal); G35 Multiple sclerosis; F43.10 Post-traumatic stress disorder, unspecified; Z79.899 Other long term (current) drug therapy; Z88.8 Allergy status to other drugs, medicaments and biological substances; Z91.041 Radiographic dye allergy status; G43.909 Migraine, unspecified, not intractable, without status migrainosus

== ENCOUNTER 2018-10-04 10:38 | Day surgery (SDC) | payer MEDICARE, BC ==
[~2018-10-04] VITALS: Ht 167.6 cm; Wt 70.8 kg
[~2018-10-04 10:38] MED LIST changes: +ACETAMINOPHEN 325 MG TAB PO PRN; +ACTI1TAB PO; +BUPR150T3 PO; +BUSP10TA PO; +COPA1INJ SC; +MINI1CAP PO; +PHENYLEPHRINE HCL 10 % OPHTH. SOL 5ML OD PRN; +PROP10TA56 PO; +PROP10TAB PO; +SERT-138 PO; +SPIR-10 PO; +TARTCAP PO; +TRAZO50TA PO; +VIIB10TA PO; +VITA500055 PO; +[UNRECOGNIZED DRUG - CODE] PO; +[UNRECOGNIZED DRUG - OTHER] PO
[2018-10-04] MEDS ORDERED: CYCLOPENTOLATE 2% OPHTH SOLN 2ML BTL As Ordered ONE (11:02)
[2018-10-04] MEDS ORDERED: TROPICAMIDE 1% OPHTH SOLN 2ML As Ordered ONE (11:02)
[2018-10-04] MEDS ORDERED: PHENYLEPHRINE 2.5% OPHTH SOL 2ML As Ordered ONE (11:02)
[2018-10-04] MEDS ORDERED: OFLOXACIN 0.3 % (OCUFLOX) OPTH SOL 5ML As Ordered ONE (11:02)
[2018-10-04] MEDS: OFLOXACIN 0.3 % (OCUFLOX) OPTH SOL 5ML OD ONE (11:30)
[2018-10-04] MEDS: PHENYLEPHRINE 2.5% OPHTH SOL 2ML OD ONE (11:30)
[2018-10-04] MEDS: CYCLOPENTOLATE 2% OPHTH SOLN 2ML BTL OD ONE (11:30)
[2018-10-04] MEDS: TROPICAMIDE 1% OPHTH SOLN 2ML OD ONE (11:30)
[2018-10-04] MEDS: LIDOCAINE 3.5 % 1ML OPHTH TOPICAL GEL OU ONE (11:30)
[2018-10-04] MEDS ORDERED: MIDAZOLAM INJ 2 MG/2 ML VIAL (J2250) As Ordered ONE (12:32)
[2018-10-04] MEDS ORDERED: fentaNYL 100 MCG/2 ML INJECTION (J3010) As Ordered ONE (12:32)
[2018-10-04] MEDS: POVIDONE-IODINE 5% OPHTH PREP SOL 30ML As Ordered ONE (12:55)
[2018-10-04] MEDS: LIDOCAINE 1% SDV 5 ML VIAL As Ordered ONE (12:58)
[2018-10-04] MEDS: BSS with VANC/TOB/EPI for EYE CASES IR ONE (13:00)
[2018-10-04] MEDS: HEALON DUET PRO(HEALON 10MG/ML 0.55ML & HEALON ENDOCOAT 30MG/ML 0.85ML) As Ordered ONE ×2 (13:06→13:07)
[2018-10-04] MEDS: MOXIFLOXACIN IN BSS 0.25MG/0.25ML INTRACAMERAL INJ (OR EYE ONLY)(J2280) As Ordered ONE (13:07)
[2018-10-04] MEDS: TRIAMCINOLONE PRES FR 40 MG/ML 1ML(TRIESENCE)(OR EYE ONLY)(J3300 PER 1MG) As Ordered ONE (13:07)
[2018-10-04] MEDS ORDERED: TRIMETHOBENZAMIDE 300 MG CAP PO PRN (13:30)
[2018-10-04] MEDS: AcetaZOLAMIDE 500 MG ER CAP PO ONE (13:35)
[2018-10-04 13:45] VITALS: BP 123/75
--- NOTE | 2018-10-04 16:24 | RO ---
DATE OF PROCEDURE: 10/04/2018 PREPROCEDURE DIAGNOSIS: Cataract of right eye. POSTPROCEDURE DIAGNOSIS: Cataract of right eye. PROCEDURE: Femtosecond laser and phacoemulsification of the intraocular lens with lens implantation right eye with the help of Optiwave refractory analysis (ORA). Intraocular lens power used was [id number], 16 diopter. SURGEON: Xenia Gale MD STREET DEPARTMENT DISPATCHER: None. ANESTHESIA: Local IV standby. FINDINGS: Cataract of right eye. COMPLICATIONS: None. DESCRIPTION OF PROCEDURE: The patient was brought to the operating room and laid in supine position. A lid speculum was placed, and patient was brought under the femtosecond laser. After the satisfactory placement of the patient interface, primary incision, secondary incision, and arcuate incisions with lens fragmentation was done without any complication per plan. The patients interface was then removed and lid speculum removed. Patient was placed under the microscope. The eye was prepped and draped in a sterile fashion for ophthalmic surgery. Lid speculum was placed. The secondary incision was opened, and EndoCoat was injected into the anterior chamber. The temporal clear corneal incision was then opened and capsulorrhexis removed, followed by hydrodissection. This was followed by phacoemulsification of the lens within the capsular bag. Cortical material was then aspirated, and Healon was injected into the capsular bag. Intraocular lens was then placed. Excess Healon was aspirated. Wound was hydrated. The lid speculum was removed, and patient was returned to the recovery room in stable condition. ADDENDUM: After the cortical cleanup, Healon was placed in the capsular bag in the anterior chamber. The pressure was checked. It was noted to be adequate. Multiple ORA calculations were then reviewed and intraocular lens power chosen.
== END 2018-10-04 13:45 | disposition home or self-care (01) ==
LOC: M SDC 10:38
PROVIDERS: ATTEND Ophthalmology
DX: H26.9 Unspecified cataract (principal); E03.9 Hypothyroidism, unspecified; I10 Essential (primary) hypertension; E78.2 Mixed hyperlipidemia; F41.9 Anxiety disorder, unspecified; G35 Multiple sclerosis; K59.00 Constipation, unspecified; D47.2 Monoclonal gammopathy; M12.9 Arthropathy, unspecified; F33.0 Major depressive disorder, recurrent, mild; R06.83 Snoring; R26.89 Other abnormalities of gait and mobility; F52.31 Female orgasmic disorder; Z91.041 Radiographic dye allergy status; Z88.8 Allergy status to other drugs, medicaments and biological substances; Z79.899 Other long term (current) drug therapy; Z85.820 Personal history of malignant melanoma of skin; Z90.710 Acquired absence of both cervix and uterus; Z78.0 Asymptomatic menopausal state; Z96.642 Presence of left artificial hip joint; Z98.42 Cataract extraction status, left eye
CPT/HCPCS: 66984; 92015; J2250; J2280; J3010; J3300; V2788

== ENCOUNTER → 2018-10-26 | Outpatient (REF) | payer MEDICARE, BC ==
[~2018-10-26] MED LIST changes: -ACETAMINOPHEN 325 MG TAB PO PRN; -PHENYLEPHRINE HCL 10 % OPHTH. SOL 5ML OD PRN
[2018-10-27 11:52] LABS: BASO # 0.1 10^3/uL (0.0-0.2); EOS % 0.2 % (0.0-3.0); HEMATOCRIT 38.3 % (36.0-47.0); HEMOGLOBIN 12.4 g/dl (12.0-15.5); LYMPH # 1.2 10^3/uL (1.5-4.5); LYMPH % 19.6 % (24.0-44.0); MEAN CORPUSCULAR HEMOGLOBIN 30.2 pg (27.0-33.0); MEAN CORPUSCULAR HGB CONC 32.4 g/dl (32.0-36.5); MEAN CORPUSCULAR VOLUME 93.2 fl (80.0-96.0); MONO # 0.4 10^3/uL (0.0-0.8); MONO % 6.9 % (0.0-5.0); NEUTROPHILS # 4.5 10^3/uL (1.8-7.7); NEUTROPHILS % 72.1 % (36.0-66.0); RED BLOOD COUNT 4.11 10^6/uL (4.00-5.40); WHITE BLOOD COUNT 6.2 10^3/uL (4.0-10.0)
[2018-10-27 12:35] LABS: PLATELET COUNT, AUTOMATED 84 10^3/uL (150-450)
[2018-10-27 12:52] LABS: THYROID STIMULATING HORMONE 1.23 uIU/ML (0.358-3.740)
[2018-10-27 13:07] LABS: FOLATE 23.2 NG/ML (>5.4)
== END ==
LOC: M SFHCCLAY 13:58
PROVIDERS: ATTEND Family Medicine
DX: D64.9 Anemia, unspecified (principal); E03.9 Hypothyroidism, unspecified
CPT/HCPCS: 82746; 83540; 84443; 85025; 85049; 85055; G0463

== ENCOUNTER → 2018-12-08 | Outpatient (REF) | payer MEDICARE, BC, OTHER ==
[~2018-12-08] MED LIST changes: +PROP10TA55 PO; -PROP10TAB PO
[2018-12-08 18:37] LABS: CALCIUM LEVEL 9.6 MG/DL (8.8-10.2); CREATININE FOR GFR 1.26 MG/DL (0.55-1.30); GLOMERULAR FILTRATION RATE 45.5 (>45); POTASSIUM SERUM 4.5 MEQ/L (3.5-5.1)
== END ==
LOC: M LABDRAWC 17:14
PROVIDERS: ATTEND Student in an Organized Health Care Education/Training Program
DX: G35 Multiple sclerosis (principal)

== ENCOUNTER → 2019-01-04 | Outpatient (REF) | payer MEDICARE, BC ==
[~2019-01-04] MED LIST changes: +CHOL50002 PO; +GABA-845 PO; +PRED20TA PO
[2019-01-04 16:59] LABS: BASO # 0.1 10^3/uL (0.0-0.2); BASO % 0.9 % (0.0-1.0); EOS % 0.2 % (0.0-3.0); HEMATOCRIT 37.4 % (36.0-47.0); HEMOGLOBIN 12.2 g/dl (12.0-15.5); LYMPH # 0.8 10^3/uL (1.5-4.5); LYMPH % 15.5 % (24.0-44.0); MEAN CORPUSCULAR HEMOGLOBIN 30.7 pg (27.0-33.0); MEAN CORPUSCULAR HGB CONC 32.6 g/dl (32.0-36.5); MONO # 0.4 10^3/uL (0.0-0.8); MONO % 7.6 % (0.0-5.0); NEUTROPHILS % 75.6 % (36.0-66.0); RED BLOOD COUNT 3.98 10^6/uL (4.00-5.40); WHITE BLOOD COUNT 5.3 10^3/uL (4.0-10.0)
[2019-01-04 17:04] LABS: PLATELET COUNT, AUTOMATED 82 10^3/uL (150-450)
== END ==
LOC: M SFHCCLAY 13:29
PROVIDERS: ATTEND Family Medicine
DX: D69.6 Thrombocytopenia, unspecified (principal)

== ENCOUNTER 2019-01-15 07:38 | Day surgery (SDC) | payer MEDICARE, BC ==
[~2019-01-15] VITALS: Ht 167.6 cm; Wt 68.0 kg
[~2019-01-15 07:38] MED LIST changes: +BSS with VANC/TOB/EPI for EYE CASES IR ONE; +CYCLOPENTOLATE 2% OPHTH SOLN 2ML BTL OD ONE; +HEALON DUET PRO(HEALON 10MG/ML 0.55ML & HEALON ENDOCOAT 30MG/ML 0.85ML) As Ordered ONE; +LIDOCAINE 1% SDV 5 ML VIAL As Ordered ONE; +LIDOCAINE 3.5 % 1ML OPHTH TOPICAL GEL OU ONE; +MIDAZOLAM INJ 2 MG/2 ML VIAL (J2250) As Ordered ONE; +MOXIFLOXACIN IN BSS 0.25MG/0.25ML INTRACAMERAL INJ (OR EYE ONLY)(J2280) As Ordered ONE; +OFLOXACIN 0.3 % (OCUFLOX) OPTH SOL 5ML OD ONE; +PHENYLEPHRINE 2.5% OPHTH SOL 2ML OD ONE; +PHENYLEPHRINE HCL 10 % OPHTH. SOL 5ML OD PRN; +POVIDONE-IODINE 5% OPHTH PREP SOL 30ML As Ordered ONE; +TRIAMCINOLONE PRES FR 40 MG/ML 1ML(TRIESENCE)(OR EYE ONLY)(J3300 PER 1MG) As Ordered ONE; +TROPICAMIDE 1% OPHTH SOLN 2ML OD ONE
[2019-01-15] MEDS ORDERED: LIDOCAINE 2% W/EPIN INJ 20ML **PRES FREE As Ordered ONE (10:22)
[2019-01-15] MEDS ORDERED: fentaNYL 100 MCG/2 ML INJECTION (J3010) As Ordered ONE (10:29)
[2019-01-15] MEDS ORDERED: HEALON DUET PRO(HEALON 10MG/ML 0.55ML & HEALON ENDOCOAT 30MG/ML 0.85ML) As Ordered ONE (10:32)
[2019-01-15] MEDS ORDERED: ACETYLCHOLINE OPHTH SOLN 1% 2ML (MIOCHOL-E) As Ordered ONE (10:51)
--- NOTE | 2019-01-15 11:15 | RO ---
DATE OF PROCEDURE: 01/15/2019 PREPROCEDURE DIAGNOSIS: Blurry vision. POSTPROCEDURE DIAGNOSIS: Blurry vision. PROCEDURE: Intraocular lens exchange, IOL power used was [id number] 15.5 along with Optiwave refractory analysis (ORA). SURGEON: Dr. Xenia Gale. POLITICAL RESEARCHER: None. ANESTHESIA: COMPLICATIONS: None. DESCRIPTION OF PROCEDURE: Patient was brought to the operating room and laid supine. The eye was prepped and draped in a sterile fashion for ophthalmic surgery. Following this, a lid speculum was placed. A sideport incision was made and EndoCoat was injected into the anterior chamber. A temporal clear corneal incision was made with a 2.5 rigid keratome. The incision was extended slightly by 0.1 mm. Following this, the Healon was placed in the capsular bag in and around the intraocular lens to tease it out of the bag and the previous adhesions slowly released. Once the lens was prolapsed into the anterior chamber, lens cutters were used from two separate incisions to cut the lens into two equal parts, which were then cut further to free the lens particles from the temporal clear corneal incision. Healon was then placed in the capsular bag. Images were taken and calculation reviewed on ORA. IOL power chosen and then implanted following which excess viscoelastic was aspirated. Wound was hydrated, Miochol was injected, intracameral moxifloxacin was given and sub-Tenon injection of triamcinolone was also given. At the end of the case, discharge instructions were given and the patient was returned to the recovery room in stable condition.
[2019-01-15 11:30] VITALS: BP 115/71
== END 2019-01-15 11:50 | disposition home or self-care (01) ==
LOC: M SDC 07:38
PROVIDERS: ATTEND Ophthalmology
DX: H25.9 Unspecified age-related cataract (principal); I10 Essential (primary) hypertension; E03.9 Hypothyroidism, unspecified; G35 Multiple sclerosis; F32.9 Major depressive disorder, single episode, unspecified; F41.9 Anxiety disorder, unspecified; Z85.038 Personal history of other malignant neoplasm of large intestine; Z79.52 Long term (current) use of systemic steroids; Z79.899 Other long term (current) drug therapy; Z88.8 Allergy status to other drugs, medicaments and biological substances; Z91.041 Radiographic dye allergy status
CPT/HCPCS: 66984; J2250; J2280; J3010; J3300; V2632

== ENCOUNTER 2019-01-31 15:30 | Day surgery (SDC) | payer MEDICARE, BC ==
[~2019-01-31] VITALS: Ht 165.1 cm; Wt 69.9 kg
[~2019-01-31 15:30] MED LIST changes: -BSS with VANC/TOB/EPI for EYE CASES IR ONE; -CYCLOPENTOLATE 2% OPHTH SOLN 2ML BTL OD ONE; -HEALON DUET PRO(HEALON 10MG/ML 0.55ML & HEALON ENDOCOAT 30MG/ML 0.85ML) As Ordered ONE; -LIDOCAINE 1% SDV 5 ML VIAL As Ordered ONE; +LIDOCAINE 1% SDV INJ 30 ML VIAL As Ordered ONE; -LIDOCAINE 3.5 % 1ML OPHTH TOPICAL GEL OU ONE; -MIDAZOLAM INJ 2 MG/2 ML VIAL (J2250) As Ordered ONE; -MOXIFLOXACIN IN BSS 0.25MG/0.25ML INTRACAMERAL INJ (OR EYE ONLY)(J2280) As Ordered ONE; -OFLOXACIN 0.3 % (OCUFLOX) OPTH SOL 5ML OD ONE; -PHENYLEPHRINE 2.5% OPHTH SOL 2ML OD ONE; -PHENYLEPHRINE HCL 10 % OPHTH. SOL 5ML OD PRN; -POVIDONE-IODINE 5% OPHTH PREP SOL 30ML As Ordered ONE; +TRAZ1TAB10 PO; -TRAZO50TA PO; -TRIAMCINOLONE PRES FR 40 MG/ML 1ML(TRIESENCE)(OR EYE ONLY)(J3300 PER 1MG) As Ordered ONE; -TROPICAMIDE 1% OPHTH SOLN 2ML OD ONE
[2019-01-31] MEDS ORDERED: PROPOFOL 200 MG/20 ML VIAL As Ordered ONE (15:53)
[2019-01-31] MEDS ORDERED: MIDAZOLAM INJ 2 MG/2 ML VIAL (J2250) As Ordered ONE (15:53)
[2019-01-31] MEDS ORDERED: LIDOCAINE 2% INJ 100 MG/5 ML SDV (FOR ANES.) As Ordered ONE (15:54)
[2019-01-31] MEDS ORDERED: fentaNYL 100 MCG/2 ML INJECTION (J3010) As Ordered ONE (15:54)
[2019-01-31] MEDS ORDERED: KETOROLAC 60 MG/2 ML VIAL (J1885) As Ordered ONE (16:33)
[2019-01-31] MEDS ORDERED: ONDANSETRON 4MG/2ML VIAL (J2405) As Ordered ONE (16:33)
[2019-01-31 17:25] VITALS: BP 127/60
[2019-01-31] MEDS ORDERED: fentaNYL 100 MCG/2 ML INJECTION (J3010) IV PRN (17:45)
[2019-01-31] MEDS ORDERED: ONDANSETRON 4MG/2ML VIAL (J2405) IV PRN (17:45)
[2019-01-31] MEDS ORDERED: LR 1,000 ML IV SCH (17:45)
[2019-01-31] MEDS ORDERED: PERCOCET 5MG/325MG TAB PO PRN (17:45)
--- NOTE | 2019-01-31 18:25 | RO ---
DATE OF PROCEDURE: 01/31/2019 PREOPERATIVE DIAGNOSES 1. Depleted implantable loop recorder. 2. Noncardiogenic syncope. POSTOPERATIVE DIAGNOSIS 1. Depleted implantable loop recorder. 2. Noncardiogenic syncope. PROCEDURE: Explantation of implantable loop recorder. SURGEON: Claude Bobo MD ANESTHESIOLOGIST: Dr. Darden TYPE OF ANESTHESIA: Monitored local anesthesia. In light of the patient's prior psychiatric history and severe anxiety performed in the operating room. CLINICAL SUMMARY: This 63-year-old , retired resident of [place] was referred to my cardiology service because of a history of palpitations, dizziness and recurrent collapse. Other significant medical health includes multiple sclerosis, hypothyroidism, anxiety and depression. In light of recurrent collapses the patient had an implantable loop recorder placed in 2013. Recent noninvasive cardiac testing showed normal appearing heart size and pulmonary vasculature radiographically. EKG showed sinus bradycardia at 53 bpm on low-dose propranolol, otherwise normal tracing. Treadmill December 18, 2018 performed because of chest discomfort and dyspnea showed fairly good exercise tolerance limited by dyspnea and leg fatigue with no chest pain, EKG change or arrhythmia. Holter monitor December 20, 2018 performed because of palpitations and dizziness showed underlying sinus rhythm with physiological rates and no significant bradyarrhythmia or tachyarrhythmia. Eight symptomatic diary entries including palpitations, shortness of breath, dizziness and falling down did not correlate with any rhythm change; sinus with rates 47 - 61 bpm. Echocardiogram January 18, 2019 showed normal left ventricular size, wall thickness and wall motion. Her left atrium was moderately dilated with a degree of impaired LV diastolic function and only slightly elevated mean left atrial pressure. Right heart chamber sizes and pulmonary arterial pressure was normal. Normal aortic root dimensions. Moderate aortic valvular sclerosis with moderate insufficiency with mild mitral annular calcification and moderate insufficiency. No pericardial effusion. At this point, in light of her recent Holter monitor findings and the absence of significant arrhythmia recorded on her recorder implanted 2013, instead of replacing her loop recorder it was elected to remove this. On examination, she appears healthy and well developed, lying comfortably on the examination table. Heart rate 56 beats per minute, blood pressure 120/50 sitting with 142/58 supine, respiratory rate 16, BMI 24.5. Normal oral moisture. No central cyanosis. Trachea midline. Thyroid not enlarged. Jugular veins at the level of the sternal angle. Normal chest configuration and expansion with implanted loop recorder just on the left parasternal region at the level of the mid sternum. Good air entry over both lung chavez with no abnormal adventitious sounds. Apical impulse normal in position with normal S1, slightly accentuated S2. Normal respiratory splitting with S4 gallop. Has a systolic murmur grade 3/6 at the apex radiating toward the left axilla and left sternal border but not to the base. No diastolic murmur. Normal carotid upstrokes and volume. Abdomen is soft. Peripheral pulses were symmetrical and normal. No dependent edema. EKG as mentioned sinus bradycardia at 53 bpm but was within normal limits. No sign of cardiac chamber enlargement, prior infarction, pre-excitation or prolonged QT interval. Blood work January 04, 2019 showed a hemoglobin of 12.2. Normal white blood cell count and low platelet count as previously documented of 82,000. Chemistry December 08, 2018 showed electrolyte balance with BUN 20, creatinine 1.26, random glucose 87. DESCRIPTION OF PROCEDURE With the patient in the fasting state having received Ancef 2 grams IV premedication and having signed informed consent, she was taken to the operating theater. Numerous skin electrodes were applied to facilitate continuous echocardiographic monitoring. The left parasternal region, the site of her implantable loop recorder was prepped and draped in the usual fashion. The skin over one end of her loop recorder was infiltrated with 1% Xylocaine and a 2 cm incision was made over the same site. Careful dissection was then performed down to the level of the recorder. This was removed using a Sofia clamp without difficulty. Because of the location of the incision and slight gaping the subcutaneous tissues were approximated using a running chromic suture and the skin was closed with piero. A Telfa dressing was placed with Op-Site and the patient was returned to the recovery room in good condition. No apparent complications. Estimated blood loss less than 1 mL. L. She will be able to be discharged home once she is in advanced recovery. FINAL DIAGNOSIS 1. Depleted implantable loop recorder. 2. Recurrent near syncope / syncope due to orthostatic hypotension not cardiac arrhythmia. 3. Essential hypertension / hypertensive heart disease (benign without heart failure). 4. 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 DISCHARGE MEDICATIONS AND RECOMMENDATIONS: The patient was requested to continue with her modest salt intake restriction. Activity was to be as tolerated. We have requested that she avoid getting her incision wet and leave her current dressing in place until she is seen in our office for a wound check and staple removal March 10 at 02:15 p.m. She was to resume her customary medications including and Propranolol 10 mg by mouth three times a day, prazosin 1 - 2 mg at bedtime for nightmares, spirolactone 25 mg daily, Ativan 0.5 mg by mouth three times a day as needed anxiety, trazodone 50 mg by mouth at bedtime, gabapentin 400 mg by mouth three times a day, levothyroxine 50 mcg daily, Zoloft 150 mg daily, Copaxone 40 mg/mL subcu three times weekly, vitamin D3 5,000 units daily, BuSpar 10 mg by mouth twice a day. She has been encouraged to contact us promptly for any abnormal erythema, swelling or discharge. [facility]
== END 2019-01-31 17:42 | disposition home or self-care (01) ==
LOC: M SDC 15:30
PROVIDERS: ATTEND Internal Medicine Cardiovascular Disease
DX: Z45.89 Encounter for adjustment and management of other implanted devices (principal); R55 Syncope and collapse; I10 Essential (primary) hypertension; E03.9 Hypothyroidism, unspecified; Z79.899 Other long term (current) drug therapy
CPT/HCPCS: 33286; J0690; J1885; J2250; J2405; J3010

== ENCOUNTER → 2019-02-15 | Outpatient (CLI) | payer MEDICARE, BC ==
[~2019-02-15] MED LIST changes: -LIDOCAINE 1% SDV INJ 30 ML VIAL As Ordered ONE
--- NOTE | 2019-02-15 17:12 | REP ---
Right hip two views: Comparison is 09/20/2017. Mineralization is normal. There is no joint space narrowing. There is minimal osteophytic formation of the femoral head compatible with early osteoarthritis. This is unchanged. There is no femoral head flattening or deformity. There are no calcifications or foreign bodies. Impression: Minimal osteoarthritis. No interval change. Electronically Signed by Gato Jensen MD 02/15/2019 05:04 P
--- NOTE | 2019-02-15 17:38 | REP ---
Lumbar spine series: Five views. History: Lumbar back pain right hip pain. Comparison lumbar spine radiographs April 11, 2012. Findings: There are clips in right upper quadrant of the abdomen. A prosthetic left hip has been installed. Lumbar vertebral body heights are preserved. There is narrowing of the L3-4 L2-3 and L4-5 disc spaces with anterior osteophyte formation. The L4-5 disc space is a little more narrowed than it was in 2012. There is a subtle 3 mm degenerative grade 1 spondylolisthesis at the L4-5 on today's radiographs as a new finding. Moderate osteoarthritic facet disease is seen bilaterally at 4-5 and to some degree at 5-1. Alignment is otherwise normal. Sacrum and SI joints are intact. Psoas margins are symmetric. Impression: Progressive degenerative disc changes at L4-5 as above with grade 1 3 mm degenerative L4-5 spondylolisthesis.
== END ==
LOC: M CLY 16:03
PROVIDERS: ATTEND Family Medicine
DX: M51.36 Other intervertebral disc degeneration, lumbar region (principal); M43.16 Spondylolisthesis, lumbar region; M16.11 Unilateral primary osteoarthritis, right hip; M54.31 Sciatica, right side; M25.551 Pain in right hip
CPT/HCPCS: 72110; 73502; G0463

== ENCOUNTER → 2019-03-26 | Outpatient (CLI) | payer MEDICARE, BC ==
--- NOTE | 2019-04-03 15:45 | REPMRS ---
Patient History The patient states she has not had a clinical breast exam in over a year. Patient is postmenopausal, has history of other cancer at age 49, and is nulliparous. No known family history of cancer. No Hormone Replacement Therapy 3D TOMOSYNTHESIS WAS PERFORMED. The [facility] lifetime risk for breast cancer is 6.1%. Digital Woman Screen Mammo: March 26, 2019 - Exam #: [id number] Bilateral CC and MLO view(s) were taken. Technologist: Annika Espinoza, Technologist Prior study comparison: 2015, bilateral digital mammo screening bilat, performed at [facility]. FINDINGS: The breast tissue is heterogeneously dense. This may lower the sensitivity of mammography. There has been no change in the appearance of the mammogram from the prior studies. There is a moderate amount of residual fibroglandular tissue which is fairly symmetric. There is no interval development of dominant mass, areas of architectural distortion, or clustered microcalcification typical of malignancy. Assessment: BI-RADS/ACR category 1 mammogram. Negative Mammogram. Recommendation Routine screening mammogram in 1 year (for women over age 40). This mammogram was interpreted with the aid of an FDA-approved computer-aided dectection system. Electronically Signed By: Gato Koehler MD 04/03/19 [id number]
== END ==
LOC: M WHC 15:22
PROVIDERS: ATTEND Family Medicine
DX: Z12.31 Encounter for screening mammogram for malignant neoplasm of breast (principal)

== ENCOUNTER → 2019-10-02 | Outpatient (REF) | payer MEDICARE, BC ==
[2019-10-02 18:14] LABS: ALBUMIN 3.7 GM/DL (3.2-5.2); BILIRUBIN,TOTAL 0.3 MG/DL (0.2-1.0); CALCIUM LEVEL 9.3 MG/DL (8.8-10.2); CREATININE FOR GFR 1.3 MG/DL (0.55-1.30); GLOMERULAR FILTRATION RATE 43.8 (>45); POTASSIUM SERUM 3.7 MEQ/L (3.5-5.1); TOTAL PROTEIN 6.7 GM/DL (6.4-8.2)
[2019-10-02 18:29] LABS: BASO # 0.1 10^3/uL (0.0-0.2); BASO % 1.4 % (0.0-1.0); EOS % 0.2 % (0.0-3.0); HEMATOCRIT 38.8 % (36.0-47.0); HEMOGLOBIN 12.5 g/dl (12.0-15.5); LYMPH # 1.2 10^3/uL (1.5-5.0); LYMPH % 25.2 % (24.0-44.0); MEAN CORPUSCULAR HEMOGLOBIN 29.8 pg (27.0-33.0); MEAN CORPUSCULAR HGB CONC 32.2 g/dl (32.0-36.5); MEAN CORPUSCULAR VOLUME 92.4 fl (80.0-96.0); MONO # 0.5 10^3/uL (0.0-0.8); MONO % 9.3 % (0.0-5.0); NEUTROPHILS # 3.1 10^3/uL (1.5-8.5); NEUTROPHILS % 63.5 % (36.0-66.0); PLATELET COUNT, AUTOMATED 101 10^3/uL (150-450); WHITE BLOOD COUNT 4.9 10^3/uL (4.0-10.0)
== END ==
LOC: M LABDRAWC 17:28
PROVIDERS: ATTEND Physician Assistant Medical
DX: Z01.419 Encounter for gynecological examination (general) (routine) without abnormal findings (principal); R90.82 White matter disease, unspecified; Z12.31 Encounter for screening mammogram for malignant neoplasm of breast; N95.9 Unspecified menopausal and perimenopausal disorder; Z12.12 Encounter for screening for malignant neoplasm of rectum
CPT/HCPCS: 36415; 77080; 80053; 82270; 85025; 86480; G0101

== ENCOUNTER → 2019-10-02 | Outpatient (CLI) | payer MEDICARE, BC | LOC: M WHC 13:30 | PROVIDERS: ATTEND Nurse Practitioner Family | DX: Z12.31 Encounter for screening mammogram for malignant neoplasm of breast (principal); N95.9 Unspecified menopausal and perimenopausal disorder ==

== ENCOUNTER → 2020-02-08 | Outpatient (REF) | payer MEDICARE, BC, OTHER ==
[2020-02-08 16:30] LABS: BASO # 0.1 10^3/uL (0.0-0.2); BASO % 1.5 % (0.0-1.0); EOS % 0.3 % (0.0-3.0); HEMOGLOBIN 11.6 g/dl (12.0-15.5); LYMPH % 29.9 % (24.0-44.0); MEAN CORPUSCULAR HEMOGLOBIN 28.4 pg (27.0-33.0); MEAN CORPUSCULAR HGB CONC 32.2 g/dl (32.0-36.5); MEAN CORPUSCULAR VOLUME 88.2 fl (80.0-96.0); MONO # 0.4 10^3/uL (0.0-0.8); RED BLOOD COUNT 4.08 10^6/uL (4.00-5.40); WHITE BLOOD COUNT 3.4 10^3/uL (4.0-10.0)
[2020-02-08 16:33] LABS: ALBUMIN 3.4 GM/DL (3.2-5.2); BILIRUBIN,DIRECT 0.1 MG/DL (0.0-0.2); BILIRUBIN,TOTAL 0.6 MG/DL (0.2-1.0); TOTAL PROTEIN 6.7 GM/DL (6.4-8.2)
[2020-02-08 17:15] LABS: PLATELET COUNT, AUTOMATED 91 10^3/uL (150-450)
== END ==
LOC: M LABDRAWC 16:08
PROVIDERS: ATTEND Student in an Organized Health Care Education/Training Program
DX: G35 Multiple sclerosis (principal); D69.6 Thrombocytopenia, unspecified

== ENCOUNTER → 2020-03-11 | Outpatient (CLI) | payer MEDICARE, BC ==
[~2020-03-11] MED LIST changes: +AUBA14TA PO; +BUSP15TA47 PO; +SERT-141 PO; +TRAM1CAP15 PO
--- NOTE | 2020-03-12 03:17 | REP ---
REASON: Anterior knee pain. There is tricompartmental marginal osteophytosis. There is a smoothly marginated well-corticated triangular shaped ossific density seen lateral to the lateral facet, possibly a minimal bipartite patella versus old healed injury. There is no acute fracture, dislocation, or subluxation. IMPRESSION: Chronic changes. Electronically Signed by Leland Bloom DO 03/12/2020 12:40 P
== END ==
LOC: M CLY 15:54
PROVIDERS: ATTEND Family Medicine
DX: M25.762 Osteophyte, left knee (principal); M25.562 Pain in left knee; G35 Multiple sclerosis; D69.6 Thrombocytopenia, unspecified; E03.9 Hypothyroidism, unspecified
CPT/HCPCS: 73564; 80053; 84443; 85025; 85049; 85055; G0463

== ENCOUNTER → 2020-03-11 | Outpatient (REF) | payer MEDICARE, BC ==
[~2020-03-11] MED LIST changes: -AUBA14TA PO; -BUSP15TA47 PO; -SERT-141 PO; -TRAM1CAP15 PO
[2020-03-12 12:15] LABS: BASO # 0.1 10^3/uL (0.0-0.2); BASO % 1.5 % (0.0-1.0); EOS % 0.5 % (0.0-3.0); HEMATOCRIT 36.1 % (36.0-47.0); HEMOGLOBIN 11.5 g/dl (12.0-15.5); LYMPH # 1.1 10^3/uL (1.5-5.0); LYMPH % 26.8 % (24.0-44.0); MEAN CORPUSCULAR HEMOGLOBIN 28.7 pg (27.0-33.0); MEAN CORPUSCULAR HGB CONC 31.9 g/dl (32.0-36.5); MONO # 0.3 10^3/uL (0.0-0.8); MONO % 7.8 % (0.0-5.0); NEUTROPHILS # 2.5 10^3/uL (1.5-8.5); NEUTROPHILS % 63.1 % (36.0-66.0); RED BLOOD COUNT 4.01 10^6/uL (4.00-5.40)
[2020-03-12 12:41] LABS: PLATELET COUNT, AUTOMATED 81 10^3/uL (150-450)
[2020-03-12 12:49] LABS: ALBUMIN 3.4 GM/DL (3.2-5.2); BILIRUBIN,TOTAL 0.5 MG/DL (0.2-1.0); CALCIUM LEVEL 8.9 MG/DL (8.8-10.2); CREATININE FOR GFR 1.47 MG/DL (0.55-1.30); POTASSIUM SERUM 4.4 MEQ/L (3.5-5.1); THYROID STIMULATING HORMONE 0.616 uIU/ML (0.358-3.740); TOTAL PROTEIN 6.6 GM/DL (6.4-8.2)
== END ==
LOC: M SFHCCLAY 15:38
PROVIDERS: ATTEND Family Medicine
DX: G35 Multiple sclerosis (principal); D69.6 Thrombocytopenia, unspecified; E03.9 Hypothyroidism, unspecified

== ENCOUNTER → 2020-04-26 | Outpatient (CLI) | payer MEDICARE, BC ==
[~2020-04-26] MED LIST changes: +AUBA14TA PO; +BUSP15TA47 PO; +SERT-141 PO; +TRAM1CAP15 PO
== END ==
LOC: M LABSMTC 10:56
PROVIDERS: ATTEND Anesthesiology
DX: Z01.812 Encounter for preprocedural laboratory examination (principal); Z20.828 Contact with and (suspected) exposure to other viral communicable diseases
CPT/HCPCS: C9803; U0003

== ENCOUNTER 2020-05-01 09:45 | Day surgery (SDC) | payer MEDICARE, BC ==
[~2020-05-01] VITALS: Ht 167.6 cm; Wt 68.0 kg
[~2020-05-01 09:45] MED LIST changes: +ACETAMINOPHEN 325 MG TAB PO PRN; +OFLOXACIN 0.3 % (OCUFLOX) OPTH SOL 5ML OD ONE; +PROPARACAINE 0.5% OPHTH SOL 15ML OD ONE
[2020-05-01] MEDS ORDERED: PILOCARPINE 1% OPHTH SOLN 15 ML OD SCH (11:00)
[2020-05-01] MEDS ORDERED: DUOVISC (0.50ML VISCOAT/0.55ML PROVISC) OPHTH KIT As Ordered ONE (11:30)
[2020-05-01] MEDS ORDERED: BALANCED SALT IRRIGATION SOLUTION 500ML BAG (FOR OR EYE MACHINE) As Ordered ONE (11:30)
[2020-05-01] MEDS ORDERED: LIDOCAINE 1% MDV 20ML VIAL As Ordered ONE (11:30)
[2020-05-01] MEDS ORDERED: TRYPAN BLUE 0.06 % 2.25 ML OPHTH SYR (VISIONBLUE) As Ordered ONE (11:30)
[2020-05-01] MEDS ORDERED: POVIDONE-IODINE 5% OPHTH PREP SOL 30ML As Ordered ONE ×2 (11:30→11:57)
[2020-05-01] MEDS ORDERED: ACETYLCHOLINE OPHTH SOLN 1% 2ML (MIOCHOL-E) As Ordered ONE (11:30)
[2020-05-01] MEDS ORDERED: fentaNYL 250 MCG/5 ML INJECTION (J3010) As Ordered ONE (11:57)
[2020-05-01] MEDS ORDERED: MIDAZOLAM INJ 2MG/2ML VIAL (J2250 PER 1MG) As Ordered ONE (11:57)
[2020-05-01] MEDS ORDERED: ACETAMINOPHEN 325 MG TAB As Ordered ONE (13:46)
[2020-05-01] MEDS ORDERED: acetaZOLAMIDE 500 MG ER CAP As Ordered ONE (13:48)
[2020-05-01] MEDS ORDERED: acetaZOLAMIDE 500 MG ER CAP PO ONE (14:15)
[2020-05-01] MEDS ORDERED: TRIMETHOBENZAMIDE 300 MG CAP PO PRN (14:15)
[2020-05-01] MEDS ORDERED: TOBRADEX OPHTH OINT 3.5 GM As Ordered ONE (14:27)
[2020-05-01 14:40] VITALS: BP 111/51
[2020-05-01] MEDS ORDERED: TOBRAMYCIN 0.3% OPHTH OINT 3.5 GM XX ONE (14:45)
[2020-05-01] MEDS ORDERED: TOBRADEX OPHTH OINT 3.5 GM XX ONE (15:00)
[2020-05-01] MEDS ORDERED: PROPARACAINE 0.5% OPHTH SOL 15ML OD PRN (15:15)
== END 2020-05-01 14:50 | disposition home or self-care (01) ==
LOC: M SDC 09:45
PROVIDERS: ATTEND Ophthalmology
DX: H18.51 Endothelial corneal dystrophy (principal); Z88.8 Allergy status to other drugs, medicaments and biological substances; Z91.041 Radiographic dye allergy status; J45.909 Unspecified asthma, uncomplicated; I10 Essential (primary) hypertension; E03.9 Hypothyroidism, unspecified; Z79.899 Other long term (current) drug therapy; Z85.038 Personal history of other malignant neoplasm of large intestine; F41.9 Anxiety disorder, unspecified
CPT/HCPCS: 65756; 65757; 87070; 87075; 87102; 87205; 88302; J2250; J3010; V2785

== ENCOUNTER → 2020-05-13 | Outpatient (REF) | payer MEDICARE, BC ==
[~2020-05-13] MED LIST changes: -ACETAMINOPHEN 325 MG TAB PO PRN; -OFLOXACIN 0.3 % (OCUFLOX) OPTH SOL 5ML OD ONE; -PROPARACAINE 0.5% OPHTH SOL 15ML OD ONE
[2020-05-13 17:55] LABS: BASO # 0.1 10^3/uL (0.0-0.2); BASO % 1.4 % (0.0-1.0); EOS % 1.1 % (0.0-3.0); HEMATOCRIT 35.8 % (36.0-47.0); HEMOGLOBIN 11.5 g/dl (12.0-15.5); LYMPH % 27.5 % (24.0-44.0); MEAN CORPUSCULAR HEMOGLOBIN 29.4 pg (27.0-33.0); MEAN CORPUSCULAR HGB CONC 32.1 g/dl (32.0-36.5); MEAN CORPUSCULAR VOLUME 91.6 fl (80.0-96.0); MONO # 0.3 10^3/uL (0.0-0.8); MONO % 9.2 % (0.0-5.0); NEUTROPHILS # 2.2 10^3/uL (1.5-8.5); NEUTROPHILS % 60.5 % (36.0-66.0); RED BLOOD COUNT 3.91 10^6/uL (4.00-5.40); WHITE BLOOD COUNT 3.6 10^3/uL (4.0-10.0)
[2020-05-13 17:58] LABS: ALBUMIN 3.6 GM/DL (3.2-5.2); BILIRUBIN,DIRECT 0.1 MG/DL (0.0-0.2); BILIRUBIN,TOTAL 0.6 MG/DL (0.2-1.0); PLATELET COUNT, AUTOMATED 87 10^3/uL (150-450); TOTAL PROTEIN 6.9 GM/DL (6.4-8.2)
== END ==
LOC: M LABDRAWC 16:40
PROVIDERS: ATTEND Student in an Organized Health Care Education/Training Program
DX: G35 Multiple sclerosis (principal)

== ENCOUNTER → 2020-06-16 | Outpatient (REF) | payer MEDICARE, BC, OTHER ==
[2020-06-16 16:30] LABS: BASO # 0.1 10^3/uL (0.0-0.2); BASO % 1.3 % (0.0-1.0); EOS # 0.1 10^3/uL (0.0-0.5); EOS % 1.6 % (0.0-3.0); HEMATOCRIT 37.6 % (36.0-47.0); HEMOGLOBIN 11.8 g/dl (12.0-15.5); LYMPH # 0.9 10^3/uL (1.5-5.0); LYMPH % 24.9 % (24.0-44.0); MEAN CORPUSCULAR HEMOGLOBIN 28.6 pg (27.0-33.0); MEAN CORPUSCULAR HGB CONC 31.4 g/dl (32.0-36.5); MONO # 0.4 10^3/uL (0.0-0.8); MONO % 11.8 % (0.0-5.0); NEUTROPHILS # 2.3 10^3/uL (1.5-8.5); NEUTROPHILS % 60.1 % (36.0-66.0); RED BLOOD COUNT 4.13 10^6/uL (4.00-5.40); WHITE BLOOD COUNT 3.7 10^3/uL (4.0-10.0)
[2020-06-16 16:32] LABS: ALBUMIN 3.6 GM/DL (3.2-5.2); BILIRUBIN,DIRECT 0.1 MG/DL (0.0-0.2); BILIRUBIN,TOTAL 0.7 MG/DL (0.2-1.0)
[2020-06-16 16:37] LABS: PLATELET COUNT, AUTOMATED 98 10^3/uL (150-450)
== END ==
LOC: M LABDRAWC 15:51
PROVIDERS: ATTEND Student in an Organized Health Care Education/Training Program
DX: G35 Multiple sclerosis (principal); Z23 Encounter for immunization
CPT/HCPCS: 36415; 80076; 85025; 85049; 85055; 90682; 90732; G0008; G0009; G0463

== ENCOUNTER → 2020-08-14 | Outpatient (REF) | payer MEDICARE, BC, OTHER ==
[2020-08-14 17:50] LABS: CALCIUM LEVEL 8.7 MG/DL (8.8-10.2); CREATININE FOR GFR 1.37 MG/DL (0.55-1.30); GLOMERULAR FILTRATION RATE 41.1 (>45); POTASSIUM SERUM 4.1 MEQ/L (3.5-5.1)
== END ==
LOC: M LABDRAWC 15:50
DX: G35 Multiple sclerosis (principal); F33.1 Major depressive disorder, recurrent, moderate; F41.1 Generalized anxiety disorder; F43.10 Post-traumatic stress disorder, unspecified; Z62.810 Personal history of physical and sexual abuse in childhood

== ENCOUNTER → 2020-09-09 | Outpatient (CLI) | payer MEDICARE, BC ==
[~2020-09-09] MED LIST changes: -BUPR150T3 PO; +BUPR150T4 PO; +PROHANCE 279.3MG/ML 5ML VIAL As Ordered ONE
--- NOTE | 2020-09-09 15:10 | REPVR ---
PROCEDURE INFORMATION: Exam: MR Head Without and With Contrast Exam date and time: 09/09/2020 2:04 PM Age: 65 years old Clinical indication: Condition or disease; Multiple sclerosis; Additional info: Ms TECHNIQUE: Imaging protocol: MR of the head without and with intravenous contrast. 3D rendering (Not supervised by radiologist): MIP and/or 3D reconstructed images were created by the technologist. Contrast material: PROHANCE; Contrast volume: 7 ml; Contrast route: INTRAVENOUS (IV); COMPARISON: No relevant prior studies available. FINDINGS: Brain: Small area of right parietal cortical true diffusion restriction. A punctate focus of true diffusion restriction in the posterior right gutierrez radiata white matter. There is no correlative enhancement. The brain demonstrates [id number] generalized volume loss. The T2 weighted imaging demonstrates T2 hyperintense lesions in deep white matter some of which appeared elongated in morphology and perivenular distribution in keeping with the provided history of multiple sclerosis. There are callosal and pericallosal deep white matter lesions. Several deep white matter lesions are associated with T1 hypointensity in keeping with severe focal gliosis. There are focal areas of occipital pole cortical gliosis bilaterally, perhaps the sequelae of remote ischemia. No abnormal enhancement. Cerebral ventricles: Mildly enlarged in keeping with volume loss. Bones/joints: Unremarkable. Paranasal sinuses: Retention cyst or polyp in the left maxillary sinus. Mastoid air cells: Normal as visualized. No mastoid effusion. Orbits: Prior right lens surgery. Soft tissues: Unremarkable. IMPRESSION: 1. Small area of right parietal cortical diffusion restriction more likely represents an area of acute infarction rather than active demyelination. 2. A punctate, subacute infarct is likely in the posterior right gutierrez radiata. A focus of active demyelination is in the differential diagnosis. Electronically signed by: Annika Brooke On 09/09/2020 15:10:40 PM
== END ==
LOC: M RAD 12:50
PROVIDERS: ATTEND Student in an Organized Health Care Education/Training Program
DX: G35 Multiple sclerosis (principal)
CPT/HCPCS: 70553; A9576

== ENCOUNTER → 2020-09-17 | Outpatient (REF) | payer MEDICARE, BC ==
[~2020-09-17] MED LIST changes: -PROHANCE 279.3MG/ML 5ML VIAL As Ordered ONE
[2020-09-17 16:49] LABS: CHOLESTEROL RISK RATIO 5.659 (<5)
== END ==
LOC: M SFHCCLAY 11:32
PROVIDERS: ATTEND Family Medicine
DX: E78.5 Hyperlipidemia, unspecified (principal)

== ENCOUNTER → 2020-09-17 | Outpatient (REF) | payer MEDICARE, BC ==
[2020-09-17 16:17] LABS: APPEARANCE, URINE CLEAR (CLEAR); BACTERIA, URINE AUTO NEGATIVE (NEGATIVE); BILIRUBIN, URINE AUTO NEGATIVE (NEGATIVE); BLOOD, URINE BLOOD NEGATIVE (NEGATIVE); COLOR, URINE YELLOW (YELLOW); GLUCOSE, URINE (UA) AUTO NEGATIVE (NEGATIVE); KETONE, URINE AUTO NEGATIVE (NEGATIVE); LEUKOCYTE ESTERASE, URINE AUTO NEGATIVE (NEGATIVE); MUCUS, URINE SMALL (NEGATIVE); NITRITE, URINE AUTO NEGATIVE (NEGATIVE); PROTEIN, URINE AUTO NEGATIVE (NEGATIVE); RBC, URINE AUTO 0 /HPF (0-3); SPECIFIC GRAVITY URINE AUTO 1.009 (1.002-1.035); SQUAMOUS EPITHELIAL CELL UR AU 0 /HPF (0-6); UROBILINOGEN, URINE AUTO 0.2 mg/dL (0.0-2.0); WBC, URINE AUTO 1 /HPF (0-3)
[2020-09-17 16:18] LABS: BASO # 0.1 10^3/uL (0.0-0.2); BASO % 1.9 % (0.0-1.0); EOS % 0.7 % (0.0-3.0); HEMATOCRIT 37.9 % (36.0-47.0); HEMOGLOBIN 12.3 g/dl (12.0-15.5); LYMPH # 1.1 10^3/uL (1.5-5.0); LYMPH % 26.7 % (24.0-44.0); MEAN CORPUSCULAR HEMOGLOBIN 28.9 pg (27.0-33.0); MEAN CORPUSCULAR HGB CONC 32.5 g/dl (32.0-36.5); MONO # 0.5 10^3/uL (0.0-0.8); MONO % 11.5 % (0.0-5.0); NEUTROPHILS # 2.5 10^3/uL (1.5-8.5); RED BLOOD COUNT 4.26 10^6/uL (4.00-5.40); WHITE BLOOD COUNT 4.2 10^3/uL (4.0-10.0)
[2020-09-17 16:19] LABS: PLATELET COUNT, AUTOMATED 92 10^3/uL (150-450)
[2020-09-17 16:55] LABS: ALBUMIN 3.6 GM/DL (3.2-5.2); BILIRUBIN,TOTAL 0.7 MG/DL (0.2-1.0); CALCIUM LEVEL 9.6 MG/DL (8.8-10.2); CREATININE FOR GFR 1.49 MG/DL (0.55-1.30); GLOMERULAR FILTRATION RATE 37.3 (>45); THYROID STIMULATING HORMONE 0.452 uIU/ML (0.358-3.740); TOTAL PROTEIN 6.6 GM/DL (6.4-8.2)
== END ==
LOC: M LABDRAWC 15:53
PROVIDERS: ATTEND Nurse Practitioner Adult Health
DX: G35 Multiple sclerosis (principal); E78.5 Hyperlipidemia, unspecified; Z79.899 Other long term (current) drug therapy

== ENCOUNTER → 2020-09-22 | Outpatient (CLI) | payer MEDICARE, BC | LOC: M RAD 10:07 | PROVIDERS: ATTEND Family Medicine | DX: Z86.73 Personal history of transient ischemic attack (TIA), and cerebral infarction without residual deficits (principal); Z53.9 Procedure and treatment not carried out, unspecified reason ==

== ENCOUNTER → 2020-09-26 | Outpatient (CLI) | payer MEDICARE, BC ==
[~2020-09-26] MED LIST changes: +ISOVUE-370 76% 100ML VIAL As Ordered ONE
--- NOTE | 2020-09-26 11:11 | REPVR ---
PROCEDURE INFORMATION: Exam: CT Angiography Neck With Contrast Exam date and time: 09/26/2020 10:31 AM Age: 65 years old Clinical indication: Condition or disease; Cerebrovascular disease; Additional info: HX of CVA TECHNIQUE: Imaging protocol: Computed tomography angiography of the neck with intravenous contrast. 3D rendering (Not supervised by radiologist): MIP and/or 3D reconstructed images were created by the technologist. Radiation optimization: All CT scans at this facility use at least one of these dose optimization techniques: automated exposure control; mA and/or kV adjustment per patient size (includes targeted exams where dose is matched to clinical indication); or iterative reconstruction. Contrast material: ISOVUE 370; Contrast volume: 75 ml; Contrast route: INTRAVENOUS (IV); COMPARISON: MRI-Brain W/O FOLL BY WITH 09/09/2020 1:09:31 PM FINDINGS: Right common carotid artery: No stenosis. No dissection or occlusion. Right internal carotid artery: Trace right carotid bulb calcified atherosclerosis does not contribute to stenosis. Right external carotid artery: No occlusion or stenosis of the origin. Right vertebral artery: The right vertebral artery is developmentally hypoplastic. Patent. Left common carotid artery: Trace distal left common carotid artery noncalcified plaque does not contribute to stenosis. Left internal carotid artery: Proximal left ICA noncalcified and calcified plaque causing mild, approximate 10% stenosis. Left external carotid artery: No occlusion or stenosis of the origin. Left vertebral artery: The left vertebral artery is dominant. Patent. Orbital cavity: Prior right lens surgery. Paranasal sinuses: Mild polypoid mucosal disease in the inferior left maxillary sinus. Bones/joints: No acute fracture. [id number] cervical degenerative disc disease. Soft tissues: Normal. No significant soft tissue swelling. IMPRESSION: 1. No acute vascular findings in the neck. 2. 0% right ICA stenosis. 3. Mild, 10% left ICA stenosis. 4. The vertebral arteries are patent without stenoses. REFERENCES: NASCET CRITERIA. The degree of internal carotid artery stenosis is based on NASCET criteria. Normal is no stenosis. Mild is less than 50% stenosis. Moderate is 50-69% stenosis. Severe is 70% to 99% stenosis. Total occlusion is no detectable patent lumen. Electronically signed by: Annika Brooke On 09/26/2020 11:10:43 AM
== END ==
LOC: M RAD 09:40
PROVIDERS: ATTEND Family Medicine
DX: Z86.73 Personal history of transient ischemic attack (TIA), and cerebral infarction without residual deficits (principal)
CPT/HCPCS: 70498; Q9967

== ENCOUNTER → 2020-10-03 | Outpatient (CLI) | payer MEDICARE, BC ==
[~2020-10-03] MED LIST changes: -ISOVUE-370 76% 100ML VIAL As Ordered ONE
--- NOTE | 2020-10-03 15:12 | REPMRS ---
Patient History The patient states she had a clinical breast exam in September 2020. No known family history of cancer. No Hormone Replacement Therapy Digital Woman Screen Mammo: October 03, 2020 - Exam #: [id number] Bilateral CC and MLO view(s) were taken. Technologist: Josselyn Rodriguez, Technologist Prior study comparison: March 26, 2019, bilateral digital woman screen mammo performed at [facility]. 2014, bilateral digital mammo screening bilat, performed at [facility]. FINDINGS: The breast tissue is heterogeneously dense. This may lower the sensitivity of mammography. The Volpara volumetric breast density category is: C. There is a moderate amount of heterogeneously dense fibroglandular tissue which is fairly symmetric. There is no interval development of dominant mass, architectural distortion, or grouped microcalcification typical of malignancy. There has been no change in the appearance of the mammogram from the prior studies. 3-D tomosynthesis shows no additional findings. Assessment: BI-RADS/ACR category 1 mammogram. Negative Mammogram. Recommendation Routine screening mammogram of both breasts in 1 year (for women over age 40). This patient's [facility] Lifetime Breast Cancer RIsk is estimated at 5.6 %. This mammogram was interpreted with the aid of an FDA-approved computer-aided dectection system. Electronically Signed By: Edward Almanza MD 10/03/20 0503
== END ==
LOC: M WHC 13:20
PROVIDERS: ATTEND Nurse Practitioner Family
DX: Z01.419 Encounter for gynecological examination (general) (routine) without abnormal findings (principal); Z12.31 Encounter for screening mammogram for malignant neoplasm of breast
CPT/HCPCS: 77063; 77067; G0101

== ENCOUNTER → 2020-10-10 | Outpatient (CLI) | payer MEDICARE, BC | LOC: M LABSMTC 12:32 | PROVIDERS: ATTEND Anesthesiology | DX: Z01.812 Encounter for preprocedural laboratory examination (principal); Z20.822 Contact with and (suspected) exposure to COVID-19 ==

== ENCOUNTER 2020-10-15 12:46 | Day surgery (SDC) | payer MEDICARE, BC ==
[~2020-10-15] VITALS: Ht 167.6 cm; Wt 67.1 kg
[~2020-10-15 12:46] MED LIST changes: +NS 1,000 ML IV ONE
--- OUTSIDE RECORDS SUMMARY | 2020-10-15 12:51 | CCD ---
Author Author Teo Dave MD [facility] Organization Teo Dave MD [facility] Address [address] [address] Phone Care Team Providers Care Operations/Dispatch Name Role Phone Lindsaykira DO Markos Angelica PP [phone] Florin Mcnulty DO Unavailable [phone] Reason for Referral No Reason for Referral Recorded Problems Includes: Active, inactive, and resolved Problems All Visits Onset Date - Time Resolved Date - Time Provider Co ndition Status Corneal Transplant Status 05/06/2020 - 12:00AM Florin Mcnulty DO Active Conjunctivitis Chronic Allergic 01/14/2020 - 12:00AM Esperanza Mcnulty DO Active Note: of both eyes Posterior Capsule Opacification Eccentric Capsule Righ t Eye 08/28/2019 - 12:00AM 08/05/2020 - 2:04PM Florin Mcnulty DO Resolved 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 - 12:00AM Florin Mcnulty DO Inactive 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/2019 - 12:00AM Florin Mcnulty DO Active Corneal Dystrophy Endothelial Fuchs' 08/28/2019 - 12:00AM Florin Mcnulty DO Active Pseudophakia 08/28/2019 - 12:00AM Florin Mcnulty DO Active Borderline Glaucoma Ocular Hypertension Both Eyes 08/28/2019 - 1 2:00AM Florin Mcnulty DO Active Adhesions of Iris Posterior Synechiae 08/28/2019 - 12:00AM Floirn Mcnulty DO Active Cataract Senile Nuclear 08/28/2019 - 12:00AM Florin shepherd DO Active Dry Eye Syndrome 08/28/2019 - 12:00AM Florin carpenter DO Active Vitreous Disorders Degeneration 08/28/2019 - 12:00KEISHA Mcnulty DO Active Plan of Treatment Future Appointments Date Time Location Provider 4 Month Follow-Up 12/11/2020 1:10PM Teo INIGUEZ C Florin Mcnulty DO Assessments Includes: Assessments for all patient encounters Findings Encounter Date Corneal transplant status 2 Week Follow-Up with Florin peck DO 08/05/2020 Pseudophakia 2 Week Follow-Up with Florin Mcnulty DO 08/05/2020 Posterior capsule opacification of eccentric capsule i n the right eye Yag Laser Capsulotomy - Global: 90 DAY POST OP with Florin Mcnulty DO 07/18/2020 Corneal transplant status PACHYMETRY with Florin Mcnulty DO 06/23/2020 Posterior capsule opacification of eccentric capsule i n the right eye PACHYMETRY with Florin Mcnulty DO 06/23/2020 Pseudophakia PACHYMETRY with Florinjavi Mcnulty DO Squamous blepharitis right upper eyelid , right lower eyelid, left upper eyelid and left lower eyelid PACHYMETRY with Florin Mcnulty DO 06/23/2020 Corneal transplant status 2 Week Follow-Up with Florin peck DO 05/23/2020 Corneal transplant status 1 Week Post OP with Florin peterson DO 05/09/2020 Corneal transplant status 1 Day Post OP with Florin Suarez in DO 05/02/2020 Fuchs' endothelial corneal dystrophy Yag Laser Periphe ral Iridotomy - Global 10 DAY POST OP with Florin Mcnulty DO 04/28/2020 Fuchs' endothelial corneal dystrophy 1 WK PREOP FOR JORDAN RGERY with Florin Mcnulty DO 04/24/2020 Endothelial corneal dystrophy of both eyes 5 Month Fo llow-Up with Florin Mcnulty DO 01/14/2020 Other chronic allergic conjunctivitis of both eyes 5 Month Follow-Up with Florin Mcnulty DO 01/14/2020 Bilateral myopia 2 Week Follow-Up with Florin Mcnulty DO 09/14/2019 Borderline glaucoma ocular hypertension in both eyes 2 Week Follow-Up with Florin Mcnulty DO 09/14/2019 Fuchs' endothelial corneal dystrophy 2 Week Follow-Up with Esperanza Mcnulty DO 09/14/2019 Adhesions of the posterior synechiae of the iris NEW P ATIENT WITH REFERRAL with Florin Mcnulty DO 08/28/2019 Benign neoplasm of left choroid NEW PATIENT WITH REFER RAL with Florin Mcnulty DO 08/28/2019 Borderline glaucoma ocular hypertension in both eyes N EW PATIENT WITH REFERRAL with Florin Mcnulty DO 08/28/2019 Dry eye syndrome NEW PATIENT WITH REFERRAL with Florin shepherd DO 08/28/2019 Fuchs' endothelial corneal dystrophy NEW PATIENT WITH REFERRAL with Florin Mcnulty DO 08/28/2019 Nuclear senile cataract NEW PATIENT WITH REFERRAL with Dimitris Mcnulty DO 08/28/2019 Posterior capsule opacification of eccentric capsule i n the right eye NEW PATIENT WITH REFERRAL with Florin Mcnulty DO 08/28/2019 Pseudophakia NEW PATIENT WITH REFERRAL with Florin shepherd DO 08/28/2019 Vitreous degeneration NEW PATIENT WITH REFERRAL with Florin Mcnulty DO 08/28/2019 Instructions Instructions not supported for this document typeNo Instructions Recorded Medical Equipment - Implanted Devices Includes: Current and historical DevicesNo Medical Equipment Recorded Medications Includes: Current and historical Medications Current Medications (continue as prescribed) Pred Forte 1% Ophthalmic Suspension 04/24/2020 Prov ider: Florin Mcnulty DO Diagnosis: Endothelial corneal dystrophy Day after surgery remove patch start one drop four times a day in the right eye Pazeo 0.7% Ophthalmic Solution 01/14/2020 Provider: Florin Mcnulty DO Diagnosis: Other chronic allerg ic conjunctivitis One drop in each eye in the morning Propanolol 10 mg Oral Tablet 08/28/2019 Provider: Diagnosis: LORazepam 0.5 MG Oral Tablet 08/28/2019 Provider: Diagnosis: Oxybutynin 5 mg Oral Tablet 08/28/2019 Provider: Diagnosis: Prazosin HCl 2 MG Oral Capsule 08/28/2019 Provider: Diagnosis: Spironolactone 100 MG Oral Tablet 08/28/2019 Provid er: Diagnosis: Buspar 15 MG Oral Tablet 08/28/2019 Provider: Diagnosis: Zoloft 150 MG Oral Tablet 08/28/2019 Provider: Diagnosis: Trazadone 50 mg Oral Tablet 08/28/2019 Provider: Diagnosis: Tramadol 50 mg Oral Tablet 08/28/2019 Provider: Diagnosis: Levothyroxine Sodium 50 MCG Oral Capsule 08/28/2019 Provider: Diagnosis: Past Medications on file Besivance 0.6% Ophthalmic Suspension 04/24/2020 - 05/09/2020 Provider: Florin Mcnulty DO Diagnosis: Endothelial corneal dystrophy Day after surgery remove patch start one drop three times a day in the right eye Alphagan P 0.1% Ophthalmic Solution 12/19/2019 - 05/23/2020 Provider: Florin Mcnulty DO Diagnosis: One drop twice a day in both eyes Johnie 128 5% Ophthalmic Ointment 10/29/2019 - 05/23/2020 Prov ider: Florin Mcnulty DO Diagnosis: Endothelial corneal dystrophy Apply thin bead to the right eye twice a day Alphagan P 0.1% Ophthalmic Solution 08/28/2019 - 12/19/2019 Provider: Diagnosis: Medications Administered Includes: Administered Medications in patient's chartNo Administered Medications Recorded Vital Signs Includes: Vital Signs from 10/14/2019 through 10/14/2020No Vital Signs Recorded For Specified Dates Results Includes: Results from 10/14/2019 through 10/14/2020No Results Recorded For Specified Dates History of Present Illness History of Present Illness not supported for this document typeNo History of Present Illness Recorded Social History Description Last Updated No tobacco use 08/05/2020 Smoking status : Never smoker 08/05/2020 Alcohol use 2 to 3 a week 08/28/2019 Using marijuana 1 to 2 joints a month 08/28/2019 Procedures and Surgical History Includes: Procedures from 10/14/2019 through 10/14/2020 Procedures Code Diagnosis Performing Provider Service Location Service Date Yag Laser Capulotomy (Right Side) 70334 Other secondary cataract, right eye, Presence of intraocular lens Florin Hoskins MD [facility] 07/18/2020 Laser Iridotomy (Right Side) 44332 Endothelial corneal dystrophy Florin Hoskins MD [facility] 04/28/2020 Intermediate Eye Exam Established Patient 31520 Endoth elial corneal dystrophy Florin Hoskins MD [facility] 04/24/2020 Intermediate Eye Exam Established Patient 73239 Endoth elial corneal dystrophy Florin Hoskins MD [facility] 01/14/2020 Surgical History Last Updated History of discission of secondary membr anous cataract of right eye by laser by Dr. Mcnulty on 07/18/2020 08/05/2020 History of extracapsular cataract extrac tion Right Eye September 2018, Lens Exchange November [address] Gale 08/05/2020 History of transplant of the right cornea -[facility] by Dr Marcela Mcnulty 05/01/2020 08/05/2020 Surgical / procedural history Tonsillec nadia 1971, Gallbladder Removed 1979, Left Hip Replacement 2012, Total Hysterectomy 1984, Total Cholectomy 201408/28/2019 Medical History Includes: Medical History in patient's chart Description Last Updated Recent change in medical history YAG Ca psulotomy OD by Dr. Mcnulty 07/18/2020 08/05/2020 Currently wearing eyeglasses 08/28/2019 History of arthritis 08/28/2019 History of hypothyroidism 08/28/2019 Reported medical history Anxiety, Depression, PTSD, I nsomnia 08/28/2019 Family History Includes: Family History in patient's chart Description Last Updated Family medical history was unknown 08/05/2020 Fraternal history of arthritis 08/28/2019 Fraternal history of hypertension 08/28/2019 Maternal history of arthritis 08/28/2019 Maternal history of cataract 08/28/2019 Maternal history of family history of cancer 9 Maternal history of thyroid disorder 08/28/2019 Paternal history of arthritis 08/28/2019 Paternal history of heart disease 08/28/2019 Paternal history of hypertension 08/28/2019 Paternal history of stroke/cerebrovascular accident Sororal history of arthritis 08/28/2019 Sororal history of hypertension 08/28/2019 Sororal history of strabismus 08/28/2019 Sororal history of thyroid disorder 08/28/2019 Review of Systems Review of Systems not supported for this document typeNo Review of Systems Recorded Mental Status Mental Status not supported for this document type Description Oriented to time, place, and person Anxiety Functional Status Functional Status not supported for this document typeNo Functional Status Recorded Physical Exam Physical Exam not supported for this document typeNo Physical Exam Recorded Immunizations Includes: Immunizations in patient's chartNo Immunizations Recorded Allergies Includes: Active, inactive, and resolved Allergies Substance Type Reaction Onset Date - Time Resolved Date - Ti me Status Latex Allergy 08/28/2019 - 12:00AM Acti ve Iodine Tincture Allergy 08/28/2019 - 12:00AM Active Crestor Allergy 08/28/2019 - 12:00AM Acti ve Encounters Includes: Encounters from 10/14/2019 through 10/14/2020 Encounter Provider Location Date Check-In Time Check-Out Time D iagnosis 2 Week Follow-Up Florin Hoskins MD [facility] 03/2020 10:07AM 11:16AM Pseudophakia, Corneal Transp lant Status Yag Laser Capsulotomy - Global: 90 DAY POST OP Florin Boyer MD [facility] 07/18/2020 2:24PM 3:10PM Posterior Capsul e Opacification Eccentric Capsule Right Eye PACHYMETRY Florin Hoskins MD [facility] 06/23/2020 2 :24PM 3:59PM Pseudophakia, Posterior Capsule Opacific ation Eccentric Capsule Right Eye, Corneal Transplant Status, Blepharitis Squamous 2 Week Follow-Up Florin Hoskins MD [facility] 04/30 2:48PM 3:27PM Corneal Transplant Status 1 Week Post OP Florin Hoskins MD [facility] 05/09/20 20 2:14PM 3:21PM Corneal Transplant Status 1 Day Post OP Florin Hoskins MD [facility] 0 2:56PM 3:57PM Corneal Transplant Status Corneal Transplant Florin Mcnulty DO [facility] 7:04AM 7:04AM Yag Laser Peripheral Iridotomy - Global 10 DAY POST OP Dimitris Hoskins MD [facility] 04/28/2020 11:56AM 1:35PM Corneal Dystrophy Endothelial Fuchs' 1 WK PREOP FOR SURGERY Florin Hoskins MD [facility] 04/24/2020 3:13PM 4:19PM Corneal Dystrophy Endothelia l Fuchs' 5 Month Follow-Up Florin Hoskins MD [facility] 2:55PM 3:34PM Conjunctivitis Chronic Aller gic, Corneal Dystrophy Endothelial Fuchs' Rx Refills/Changes Florin Mcnulty DO 12/19/2019 020 1:06PM 09/14/2019 11:59PM Rx Refills/Changes Florin Mcnulty DO 10/29/2019 020 2:37PM 09/14/2019 11:59PM Insurance Includes: Active Insurance Policies Plan Name Member ID Group # Subscriber Relationship Effective Da domenica 1 - Medicare Part B [facility] ([facility]) [id number] Koki Torres Self 2 - [facility] [id number] Koki Monte Advance Directives Includes: Current Advance DirectivesNo Advance Directives Recorded Health Concerns Includes: Active Health ConcernsNo Active Health Concerns Recorded Goals Includes: Active GoalsNo Active Goals Recorded Interventions Includes: Interventions for active GoalsNo Interventions Recorded Evaluations & Outcomes Includes: Evaluations & Outcomes for active GoalsNo Outcomes Recorded
--- OUTSIDE RECORDS SUMMARY | 2020-10-15 12:51 | CCD ---
Author Author [facility] Organization [facility] Address Unknown Phone Unavailable Care Team Providers Care Cyber Incident Responder Name Role Phone Maggie Gonzalez Unavailable PROBLEMS Type Condition ICD9-CM Code [id number] Code Onset Dates Condition S tatus W/U Status Risk SNOMED Code Notes Problem Back Pain - Lumbar 724.2 Active confirmed 2 91595231 Problem Anxiety F41.9 Active confirmed 61022038 Problem Mixed hyperlipidemia E78.2 Active confirmed 571484884 Problem Hot flashes due to surgical menopause E89.41 Ac tive confirmed 379084556 Problem History of melanoma Z85.820 Active confirmed 555462474 Problem Sciatica of right side M54.31 Active confirmed 28327365 Problem Other age-related incipient cataract of both eyes H25.093 Active confirmed 295684491 Problem Balance disorder R26.89 Active confirmed 387 668905 Problem Scapular dyskinesis G25.89 Active confirmed 802263546 Problem Abnormality of left breast on screening mammogram R92.8 Active confirmed 838058438 Problem Memory disturbance R41.3 Active confirmed 3 92061887 Problem Status post placement of implantable loop recorder Z95.818 Active confirmed 656951719 Problem MGUS (monoclonal gammopathy of unknown significance) D47.2 Active confirmed 201843934 Problem Anorgasmia of female F52.31 Active confirmed 87994122 Problem Multiple sclerosis G35 Active confirmed 2 1449358 Problem Thrombocytopenia D69.6 Active confirmed 415 806787 Problem Menopausal disorder N95.9 Active confirmed 804249034 Problem Acquired absence of ovaries, 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 A ctive confirmed 715878858 Problem Hyperlipidemia, unspecified hyperlipidemia type E7 8.5 Active confirmed 14024116 Problem Mild episode of recurrent major depressive disorder F33.0 Active confirmed 476534197 Problem Contrast media allergy Z91.041 Active confirmed 508688080 Problem Hypothyroidism, unspecified type E03.9 Active conf irmed 64549288 Problem Menopausal vaginal dryness N95.1 Active confirmed 81564704 Problem Acquired absence of both cervix and uterus Z90.710 Active confirmed 898325293 Problem Leg paresthesia R20.2 Active confirmed 4297 50934 Problem Hearing loss, unspecified hearing loss type, uns pecified laterality H91.90 Active confirmed 33328011 Problem Stage 3 chronic kidney disease N18.3 Active confir med 870357819 ALLERGIES Allergen (clinical drug ingredient) Drug/Non Drug Allergy do cumented on EMR Reaction Allergy Type Onset Date Status rosuvastatin Crestor([facility] Code:[address]-79) myalgia Drug Allergy Active ivp dye Hives/tongue swelling Non Drug Allergy Active ENCOUNTERS from 1955 to 2020-10-08 Encounter Location Date Provider Diagnosis [facility] [address] [place] [id number] 05 Sep, 2020 Maggie Gonzalez Encounter for screen ing mammogram for malignant neoplasm of breast Z12.31 ; Encounter for other screening for malignant neoplasm of breast Z12.39 ; Encounter for gynecological examination without abnormal finding Z01.419 ; Acquired absence of both cervix and uterus Z90.710 and Acquired absence of ovaries, 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 IMMUNIZATIONS Vaccine Route Administration Date Status Influenza (Pharmacy Given) Unknown Aug 06, 2019 Admin istered Influenza (18 yrs & older) Flublok IM Intramuscular Jun 16, 2020 Administered Influenza (18 yrs & older) Flublok Unknown May 16, 2018 Administered Pneumococcal Adult 0.5mL (Pneumovax 23) IM Intramuscular Jun 16, 2020 Administered SOCIAL HISTORY Tobacco Use: Social History Observation Description Date Details (start date - stop date) Never Smoker Sex Assigned At : Social History Observation Description Sex Assigned At Unknown Audit Question Answer Notes Interpretation: Alcohol Education Total Score: 1 Sexual Hx: Question Answer Notes Had sex in the last 12 months (vaginal, oral, or anal)? Yes Have you ever had an STD? No with Men only Use protection? No Drug and Alcohol Question Answer Notes Interpretation: No problems reported Total Score: 0 Alcohol Screening: Question Answer Notes Did you have a drink containing alcohol in the past year? Ye s Points 2 Interpretation Negative How often did you have six or more drinks on one occas ion in the past year? Never (0 points) How many drinks did you have on a typica l day when you were drinking in the past year? 1 or 2 (0 points) How often did you have a drink containing alcohol in t he past year? Two to four times a month (2 points) BMI Care Goal Follow-Up Question Answer Notes Above Normal BMI Follow-Up Giving encouragement to exercise Tobacco Use: Question Answer Notes Are you a: never smoker never smoker REASON FOR REFERRAL No Information VITAL SIGNS Weight 151 lbs Sep, Weight-kg 68.49 kg Sep, Height 66 in Sep, BMI 24.37 kg/m2 Sep, Blood pressure systolic 118 mm Hg Sep, Blood pressure diastolic 68 mm Hg Sep, MEDICATIONS Medication SIG (Take, Route, Frequency, Duration) Notes Start Da te End Date Status Levothyroxine Sodium 50 MCG TAKE ONE TABLET BY MOUTH E VERY MORNING ON AN EMPTY STOMACH for 90 Active Nitroglycerin 0.4 MG 1 Sublingual as needed for chest pain Active Pred Forte 1 % 1 drop into affected eye Ophthalmic Twice a day Active BusPIRone HCl 15 MG 1 tablet Orally Three times a day Active Vitamin D3 Complete - 5000 units Orally Daily Active Gabapentin 300 MG 2 CAPSULES Orally THREE TIMES A DAY Active Prazosin HCl 2 MG 1 capsule at bedtime Orally Once a day for 30 day(s ) Active Aubagio 14 MG 1 tablet Orally Once a day for 30 day(s) Active PredniSONE 50 MG 1 tablet Orally 13 hours, 7 hours and [address] scan for 2 days Aug, Active Triamcinolone Acetonide 0.025 % 1 application to affec asiya area Externally Twice a day to antecubital fossa Mar, Activ e Tizanidine HCl 4 MG 1 tablet as needed Orally Three times a day for 30 days Active Tramadol HCl 50 MG 1 tablet as needed Orally ev ko 6 hrs MDD#4 Code D for 90 day(s) Active Zoloft 100 MG 1.5 tablets Orally Once a day Active Benadryl Allergy 25 MG 2 tablet Orally One hour prior to CT sca n for 1 days Aug, Active Transfer Bench - Transfer bench for shower Daily for 90 day(s) Nov, Active LORazepam 0.5 MG 1 tablet as needed Orally every 6 hrs Active Propranolol HCl 10 MG 1 tablet Orally TID Active Spironolactone 25 MG TAKE ONE TABLET BY MOUTH EVERY DAY for 90 Active PROCEDURES No Information RESULTS No Results REASON FOR VISIT ANNUAL/MAMMO MEDICAL (GENERAL) HISTORY Type Description Date Medical History Depression anxiety Medical History Asthma Medical History Hypothyroid Medical History HTN Medical History SCC/melanoma- right arm Medical History Chronic constipation Medical History Implanted heart monitoring d evice upper left chest-2013- removed in 2018 Medical History Multiple sclerosis Medical History Antiphospholipid syndrome Medical History Hyperlipidemia Surgical History hysterectomy for fibroids 1990 Surgical History tonsilectomy 1972 Surgical History gallbladder 1992 Surgical History Left DERECK 2012 Surgical History Colectomy- Chronic constipation 2015 Surgical History Colonoscopy 03/2016 Surgical History left breast biopsy Surgical History skin cancer removed on left shoulder are a 03/2018 Surgical History Right eye cataract extraction Surgical History eye transplant 05/18 Hospitalization History [facility] 2010 Hospitalization History Bowel obstruction 2015 Hospitalization History [facility] Inpatient 08/2018 Goals Section No Information Health Concerns No Information MEDICAL EQUIPMENT No Information MENTAL STATUS No Information FUNCTIONAL STATUS No Information ASSESSMENTS Encounter Date Diagnosis Assessment Notes Treatment Notes Treatm ent Clinical Notes Sep, Encounter for screening mamm ogram for malignant neoplasm of breast (ICD-10 - Z12.31) Sep, Encounter for other screenin g for malignant neoplasm of breast (ICD-10 - Z12.39) Sep, Encounter for gynecological examination without abnormal finding (ICD-10 - Z01.419) Sep, Acquired absence of both cervix and uterus (ICD- 10 - Z90.710) Sep, Acquired absence of ovaries, bilateral (ICD-10 - Z90.722) PLAN OF TREATMENT Treatment Notes Test Name Order Date [facility] Donald Screening Bilateral (Ultrasound if Indicated ) (3D Mammo) 2020-10-03 Next Appt Details 1 Year Reason:annual and mammo Provider Name:Markos Tom, 03:30:00 PM, [address] [place], [address], Follow Up:1 Yearannual and mammo Insurance Providers Payer Name Payer Address Payer Phone Insured Name Patient Relati onship to Insured Coverage Start Date Coverage End Date MEDICARE Part A and B [address] [facility] [phone] ROLANDO HURLEY [address] [place] [id number] [address] [facility] [id number] ROLANDO HURLEY self
--- OUTSIDE RECORDS SUMMARY | 2020-10-15 12:51 | CCD ---
Author Author [facility] Organization [facility] Address Unknown Phone Unavailable Care Team Providers Care Saturator Operator Name Role Phone Markos Tom Unavailable PROBLEMS Type Condition ICD9-CM Code XAS70-XL Code Onset Dates Condition S tatus SNOMED Code Notes Problem Back Pain - Lumbar 724.2 Active 827065017 Problem Anxiety F41.9 Active 48091277 Problem Mixed hyperlipidemia E78.2 Active 983271496 Problem Anorgasmia of female F52.31 Active 31454139 Problem Multiple sclerosis G35 Active 14971973 Problem Menopausal vaginal dryness N95.1 Active 21748 003 Problem Hypothyroidism, unspecified type E03.9 Active 76971443 Problem Balance disorder R26.89 Active 323747601 Problem Scapular dyskinesis G25.89 Active 628732598 Problem Abnormality of left breast on screening mammogram R92.8 Active 407444635 Problem Memory disturbance R41.3 Active 510675633 Problem Status post placement of implantable loop recorder Z95.818 Active 495708986 Problem MGUS (monoclonal gammopathy of unknown significance) D47.2 Active 023168923 Problem Other age-related incipient cataract of both eyes H25.093 Active 148493505 Problem Sciatica of right side M54.31 Active 61006740 Problem Thrombocytopenia D69.6 Active 817940228 Problem Hyperlipidemia, unspecified hyperlipidemia type E7 8.5 Active 40276188 Problem Hot flashes due to surgical menopause E89.41 Ac tive 145521803 Problem Contrast media allergy Z91.041 Active 764568598 Problem History of melanoma Z85.820 Active 399989529 Problem Mild episode of recurrent major depressive disorder F33.0 Active 320891040 Problem Menopausal disorder N95.9 Active 352801741 Problem Leg paresthesia R20.2 Active 918596788 Problem Hearing loss, unspecified hearing loss type, uns pecified laterality H91.90 Active 50565755 Problem Stage 3 chronic kidney disease N18.3 Active 4 27921182 ALLERGIES Allergen (clinical drug ingredient) Drug/Non Drug Allergy do cumented on EMR Reaction Allergy Type Onset Date Status rosuvastatin Crestor([facility] Code:[address]-23) myalgia Drug Allergy Active ivp dye Hives/tongue swelling Non Drug Allergy Active ENCOUNTERS from 1955 to 2020-09-25 Encounter Location Date Provider Diagnosis [facility] [address] [place] [address] Aug Markos Negro History of CVA (cerebrovascular accident ) Z86.73 IMMUNIZATIONS Vaccine Route Administration Date Status Influenza [...] REASON FOR REFERRAL No Information VITAL SIGNS No information MEDICATIONS Medication SIG (Take, Route, Frequency, Duration) Notes Start Da te End Date Status PredniSONE 50 MG 1 tablet Orally 13 hours, 7 hours and [address] scan for 2 days Aug, Active Levothyroxine Sodium 50 MCG TAKE ONE TABLET BY MOUTH E VERY MORNING ON AN EMPTY STOMACH for 90 Active Spironolactone 25 MG TAKE ONE TABLET BY MOUTH EVERY DAY for 90 Active Tramadol HCl 50 MG 1 tablet as needed Orally ev ko 6 hrs MDD#4 Code D for 90 day(s) Active Vitamin D3 Complete - 5000 units Orally Daily Active Pred Forte 1 % 1 drop into affected eye Ophthalmic Twice a day Active Aubagio 14 MG 1 tablet Orally Once a day for 30 day(s) Active Propranolol HCl 10 MG 1 tablet Orally TID Active LORazepam 0.5 MG 1 tablet as needed Orally every 6 hrs Active Transfer Bench - Transfer bench for shower Daily for 90 day(s) Nov, Active Nitroglycerin 0.4 MG 1 Sublingual as needed for chest pain Active Tizanidine HCl 4 MG 1 tablet as needed Orally Three times a day for 30 days Active Gabapentin 300 MG 2 CAPSULES Orally THREE TIMES A DAY Active Triamcinolone Acetonide 0.025 % 1 application to affec asiya area Externally Twice a day to antecubital fossa Mar, Activ e Zoloft 100 MG 1.5 tablets Orally Once a day Active Prazosin HCl 2 MG 1 capsule at bedtime Orally Once a day for 30 day(s ) Active Benadryl Allergy 25 MG 2 tablet Orally One hour prior to CT sca n for 1 days Aug, Active BusPIRone HCl 15 MG 1 tablet Orally Three times a day Active PROCEDURES No Information RESULTS No Results REASON FOR VISIT CT order MEDICAL (GENERAL) HISTORY Type Description Date Medical [...] 03/2018 Surgical History Right eye cataract extraction Hospitalization History [facility] sep 2010 Hospitalization History Bowel obstruction 2016 Hospitalization History [facility] Inpatient 08/2018 Goals Section No Information Health Concerns No Information MEDICAL EQUIPMENT No Information MENTAL STATUS No Information FUNCTIONAL STATUS No Information ASSESSMENTS Encounter Date Diagnosis Assessment Notes Treatment Notes Treatm ent Clinical Notes Aug, History of CVA (cerebrovascular accident) (ICD-1 0 - Z86.73) PLAN OF TREATMENT Medication Medication Name Sig Start Date Stop Date Benadryl Allergy 25 MG 2 tablet Orally One hour prior to CT scan for 1 days Aug, Tizanidine HCl 4 MG 1 tablet as needed Orally Three times a day for 30 days PredniSONE 50 MG 1 tablet Orally 13 hours, 7 hours and [address] scan for 2 days Aug, Tramadol HCl 50 MG 1 tablet as needed Orally ev ko 6 hrs MDD#4 Code D for 90 day(s) Treatment Notes Test Name Order Date [facility] CT ANGIO NECK 2020-09-25 Next Appt Details Provider Name:Maggie Gonzalez, 2020-10-03 01:00:00 PM, [address] [place], [address], Provider Name:Markos Tom, 03:30:00 PM, [address] [place] [address], [phone], Insurance Providers Payer Name Payer Address Payer Phone Insured Name Patient Relati onship to Insured Coverage Start Date Coverage End Date BS [place] [facility] [address] [facility] [address] ROLANDO HURLEY self MEDICARE Part A and B [address] [facility] [id number] ROLANDO HURLEY 2016
--- OUTSIDE RECORDS SUMMARY | 2020-10-15 12:51 | CCD ---
Author Author [facility] Organization [facility] Address Unknown Phone Unavailable Care Team Providers Care Ground Nuclear Weapons Assembly Officer Name Role Phone Markos Tom Unavailable PROBLEMS Type Condition ICD9-CM Code DRG64-WQ Code Onset Dates Condition S tatus W/U Status Risk SNOMED Code Notes Problem Back Pain - Lumbar 724.2 Active confirmed 2 28176851 Problem Anxiety F41.9 Active confirmed 59844449 Problem Mixed hyperlipidemia E78.2 Active confirmed 559437395 Problem Anorgasmia of female F52.31 Active confirmed 91207020 Problem Multiple sclerosis G35 Active confirmed 2 9247679 Problem Menopausal vaginal dryness N95.1 Active confirmed 68651314 Problem Hypothyroidism, unspecified type E03.9 Active conf irmed 73481548 Problem Balance disorder R26.89 Active confirmed 387 641621 Problem Scapular dyskinesis G25.89 Active confirmed 023893064 Problem Abnormality of left breast on screening mammogram R92.8 Active confirmed 009521185 Problem Memory disturbance R41.3 Active confirmed 3 68647829 Problem Status post placement of implantable loop recorder Z95.818 Active confirmed 445005212 Problem MGUS (monoclonal gammopathy of unknown significance) D47.2 Active confirmed 003058976 Problem Other age-related incipient cataract of both eyes H25.093 Active confirmed 989318441 Problem Sciatica of right side M54.31 Active confirmed 10725166 Problem Thrombocytopenia D69.6 Active confirmed 415 366343 Problem Hyperlipidemia, unspecified hyperlipidemia type E7 8.5 Active confirmed 56890210 Problem Hot flashes due to surgical menopause E89.41 Ac tive confirmed 046178506 Problem Contrast media allergy Z91.041 Active confirmed 929398377 Problem History of melanoma Z85.820 Active confirmed 319713205 Problem Mild episode of recurrent major depressive disorder F33.0 Active confirmed 138694361 Problem Menopausal disorder N95.9 Active confirmed 722484244 Problem Leg paresthesia R20.2 Active confirmed 4297 79565 Problem Hearing loss, unspecified hearing loss type, uns pecified laterality H91.90 Active confirmed 18500135 Problem Stage 3 chronic kidney disease N18.3 Active confir med 009532502 ALLERGIES Allergen (clinical drug ingredient) Drug/Non Drug Allergy do cumented on EMR Reaction Allergy Type Onset Date Status rosuvastatin Crestor([facility] Code:[address]-63) myalgia Drug Allergy Active ivp dye Hives/tongue swelling Non Drug Allergy Active ENCOUNTERS from 1955 to 2020-09-30 Encounter Location Date Provider Diagnosis [facility] [address] [place] [address] Aug Markos Tom IMMUNIZATIONS Vaccine Route Administration Date Status Influenza [...] Assigned At Unknown Audit Question Answer Notes Total Score: 1 Interpretation: Alcohol Education Sexual Hx: Question Answer Notes Had sex in the last 12 months (vaginal, oral, or anal)? Yes Have you ever had an STD? No with Men only Use protection? No Drug and Alcohol Question Answer Notes Total Score: 0 Interpretation: No problems reported Alcohol Screening: Question Answer Notes Did you [...] Information RESULTS No Results REASON FOR VISIT MRA MEDICAL (GENERAL) HISTORY Type Description Date Medical [...] History Right eye cataract extraction Hospitalization History [facility] sep 2010 Hospitalization History Bowel obstruction 2015 Hospitalization History [facility] Inpatient 08/2018 Goals Section No Information Health Concerns No Information MEDICAL EQUIPMENT No Information MENTAL STATUS No Information FUNCTIONAL STATUS No Information ASSESSMENTS No Information PLAN OF TREATMENT Medication Medication Name Sig [...] hrs MDD#4 Code D for 90 day(s) Next Appt Details Provider Name:Maggie Lisa, 2020-10-03 01:00:00 PM, [address] [place], [address], Provider Name:Markos Tom, 03:30:00 PM, [address] [place] [address], [phone], Insurance Providers Payer Name Payer Address Payer Phone Insured Name Patient Relati onship to Insured Coverage Start Date Coverage End Date MEDICARE Part A and B [address] [facility] [phone] ROLANDO HURLEY self 2016 [place] [facility] [address] [facility] [id number] ROLANDO HURLEY self
--- OUTSIDE RECORDS SUMMARY | 2020-10-15 12:51 | CCD | Continuity of Care Document ---
Author Author Koki METCALF MD Organization Unknown Address [address] [facility], [facility] [address] Phone [phone] Care Team Providers Care Rail Tractor Operator Name Role Phone Markos Tom DO AUTM [phone] Lakesha Donnelly MD AUTM [phone] Other Provider AUTM Unavailable Problems Active Problems Provider Date Precordial pain Claude Bobo MD Onset: 12/05/2018 Dyspnea Claude Bobo MD Onset: 12/05/2018 Palpitations Claude Bobo MD Onset: 12/05/2018 Syncope and collapse Claude Bobo MD Onset: 12/05/2018 Essential hypertension Claude Bobo MD Onset: 12/05/2018 Heart murmur Claude Bobo MD Onset: 12/05/2018 Chest pain Claude Bobo MD Onset: 01/30/2019 Mitral valve disorder Claude Bobo MD Onset: 01/30/2019 Aortic valve disorder Claude Bobo MD Onset: 01/30/2019 Presence of other cardiac implants and grafts MARCIA Martinez Onset: 02/08/2019 Cerebral artery occlusion Teo Metcalf MD Onset: 2020 Social History Type Date Description Comments Sex Unknown ETOH Use Occasionally consumes liquor Tobacco Use Start: Unknown Patient has never smoked Smoking Status Reviewed: 09/24/20 Patient has never smoked Exercise Type/Frequency Does housework daily Exercise Type/Frequency Walks sporadically Exercise Limitations Other Anxiety/Dep ression and MS Allergies, Adverse Reactions, Alerts Active Allergies Reaction Severity Comments Date Crestor unknown 12/05/2018 IVP Dye swelling/anaphlaxis 12/06/19 19 Medications Active Medications SIG Qnty Indications Ordering Provide r Date Propranolol HCL 10mg Tablets 0.5 tablet by mouth tid 135tabs I10 Teo Metcalf MD 09/24/2020 Prednisone 50mg Tablets as ne eded Unknown 09/23/2020 Buspirone HCL 15mg Tablets 1 by mouth three times a day Other Provider 02/21/2020 Aubagio 14mg Tablets 1 by karmen th daily Lakesha Donnelly MD 02/21/2020 Lorazepam 1mg Tablets 1 by mouth at bedtime as needed Unknown 02/21/2020 Gabapentin 300mg Capsules 2 by mouth two times a day and 3 by mouth at bedtime daily Lakesha Donnelly MD 02/21/2020 Flonase Allergy Relief 50mcg/Act Suspension 1 inhalation each nostril daily Markos Tom DO 02/21/2020 Tramadol HCL ER 100mg Caps ER 24HR 1 by mouth three times a day Unknown 07/12/20 19 Zoloft 100mg Tablets 1.5 by mouth every day Unknown 12/04/2018 Levothyroxine Sodium 50mcg Tablets 1 by mouth every day Unknown 12/04/2018 Spironolactone 25mg Tablets 1 by mouth every day Unknown 12/04/2018 Vitamin D3 5000Unit Capsules 1 by mouth every day Unknown 12/04/2018 Nitroglycerin 0.4mg Tablets Sub 1 tab sl every 5 min times 3 doses as needed chest disc U nknown 12/04/2018 Prazosin HCL 2mg Capsules 1 by mouth daily at bedtime Unknown Immunizations Description No Information Available Vital Signs Date Vital Result Comment 09/24/2020 10:25am Weight 149.00 lb Home Weight 146lb home weight Height 66 inches 5'6" BMI (Body Mass Index) 24.0 kg/m2 Heart Rate 58 /min BP Systolic Sitting 132 mmHg CBP, adult cuff/Ra BP Diastolic Sitting 59 mmHg CBP, adult cuff/Ra 02/22/2020 2:05pm Weight 152.00 lb Home Weight 152lb yesterday Height 66 inches 5'6" BMI (Body Mass Index) 24.5 kg/m2 Heart Rate 57 /min BP Systolic Sitting 130 mmHg adult cuff, Ra BP Diastolic Sitting 62 mmHg adult cuff, Ra Results Description No Information Available Procedures Date Code Description Status 09/24/2020 78383 Arterial Pressure Wa veform Analysis For Assessment Of Central Art Completed 09/24/2020 51835 ECG 12-Lead Completed Medical Devices Description No Information Available Encounters Type Date Location Provider Dx Diagnosis Office Visit 09/24/2020 10:00a Main Office Teo Metcalf MD I63.9 Cerebral infarction, unspecified I35.1 Nonrheumatic aortic (valve) insufficiency I34.0 Nonrheumatic mitral (valve) insufficiency I10 Essential (primary) hyperten chalo R00.2 Palpitations Office Visit 06/20/2020 11:07a Main Office Claude Bobo MD I10 Essential (primary) hypertension I34.0 Nonrheumatic mitral (valve) insufficiency I35.1 Nonrheumatic aortic (valve) insufficiency Office Visit 05/28/2020 8:12a Main Office Claude Bobo MD I10 Essential (primary) hypertension I34.0 Nonrheumatic mitral (valve) insufficiency I35.1 Nonrheumatic aortic (valve) insufficiency Office Visit 04/18/2020 2:53p Main Office Claude Bobo MD I10 Essential (primary) hypertension R00.2 Palpitations I34.0 Nonrheumatic mitral (valve) insufficiency I35.1 Nonrheumatic aortic (valve) insufficiency Assessments Date Code Description Provider 09/24/2020 I63.9 Cerebral infarction, unspecified Teo Metcalf MD 09/24/2020 I35.1 Nonrheumatic aortic (valve) insu fficiency Teo Metcalf MD 09/24/2020 I34.0 Nonrheumatic mitral (valve) insu fficiency Teo Metcalf MD 09/24/2020 I10 Essential (primary) hypertension Teo Metcalf MD 09/24/2020 R00.2 Palpitations Teo Metcalf MD 07/29/2020 I10 Essential (primary) hypertension Claude Bobo MD 07/29/2020 I34.0 Nonrheumatic mitral (valve) insu fficiency Claude Bobo MD 07/29/2020 I35.1 Nonrheumatic aortic (valve) insu fficiency Claude Bobo MD 06/20/2020 I10 Essential (primary) hypertension Claude Bobo MD 06/20/2020 I34.0 Nonrheumatic mitral (valve) insu fficiency Claude Bobo MD 06/20/2020 I35.1 Nonrheumatic aortic (valve) insu fficiency Claude Bobo MD 05/28/2020 I10 Essential (primary) hypertension Claude Bobo MD 05/28/2020 I34.0 Nonrheumatic mitral (valve) insu fficiency Claude Bobo MD 05/28/2020 I35.1 Nonrheumatic aortic (valve) insu fficiency Claude Bobo MD 04/18/2020 I10 Essential (primary) hypertension Claude Bobo MD 04/18/2020 R00.2 Palpitations Claude Bobo MD 04/18/2020 I34.0 Nonrheumatic mitral (valve) insu fficiency Claude Bobo MD 04/18/2020 I35.1 Nonrheumatic aortic (valve) insu fficiency Claude Bobo MD Plan of Treatment Future Appointment(s):* 02/24/2021 1:00 pm - MARCIA Max at Main Office 09/24/2020 - Teo Metcalf MD* I63.9 Cerebral infarction, unspecified * I35.1 Nonrheumatic aortic (valve) insufficiency * I34.0 Nonrheumatic mitral (valve) insufficiency * I10 Essential (primary) hypertension* New Medication:* Propranolol HCL 10 mg - 0.5 tablet by mouth tid * R00.2 Palpitations * All * Follow up:* Schedule RHINA with bubble study by Dr. Metcalf at [facility] outpatient procedure (OPP). Functional Status Functional Condition Comment Date Status Independent with all ADL's Activ e Mental Status Description No Information Available Referrals Description No Information Available
--- OUTSIDE RECORDS SUMMARY | 2020-10-15 12:52 | CCD ---
Author Author [facility] Organization [facility] Address Unknown Phone Unavailable Care Team Providers Care Environmental Protection Inspector Name Role Phone Markos Tom Unavailable PROBLEMS Type Condition ICD9-CM Code RLH64-UB Code Onset Dates Condition S tatus SNOMED Code Notes Problem Hypothyroidism, unspecified type E03.9 Active 13417223 Problem Mild episode of recurrent major depressive disorder F33.0 Active 336219686 Problem Scapular dyskinesis G25.89 Active 242330937 Problem Menopausal vaginal dryness N95.1 Active 03123 003 Problem Memory disturbance R41.3 Active 443184390 Problem Balance disorder R26.89 Active 424239084 Problem MGUS (monoclonal gammopathy of unknown significance) D47.2 Active 939177365 Problem Mixed hyperlipidemia E78.2 Active 097275944 Problem Abnormality of left breast on screening mammogram R92.8 Active 177872332 Problem Back Pain - Lumbar 724.2 Active 220265334 Problem Anorgasmia of female F52.31 Active 33809410 Problem Other age-related incipient cataract of both eyes H25.093 Active 676311833 Problem Sciatica of right side M54.31 Active 93020659 Problem Stage 3 chronic kidney disease N18.3 Active 4 98622674 Problem Multiple sclerosis G35 Active 50707506 Problem History of melanoma Z85.820 Active 259940680 Problem Hyperlipidemia, unspecified hyperlipidemia type E7 8.5 Active 45143906 Problem Status post placement of implantable loop recorder Z95.818 Active 855951780 Problem Anxiety F41.9 Active 03139449 Problem Hot flashes due to surgical menopause E89.41 Ac tive 184976937 Problem Thrombocytopenia D69.6 Active 326797607 Problem Menopausal disorder N95.9 Active 468209660 Problem Leg paresthesia R20.2 Active 120025178 Problem Hearing loss, unspecified hearing loss type, uns pecified laterality H91.90 Active 73320233 ALLERGIES Allergen (clinical drug ingredient) Drug/Non Drug Allergy do cumented on EMR Reaction Allergy Type Onset Date Status rosuvastatin Crestor([facility] Code:[address]-56) myalgia Drug Allergy Active ivp dye Hives/tongue swelling Non Drug Allergy Active ENCOUNTERS from 1955 to 2020-09-21 Encounter Location Date Provider Diagnosis [facility] [place] [address] Aug Markos Tom IMMUNIZATIONS Vaccine Route Administration [...] Notes Start Da te End Date Status Spironolactone 25 MG TAKE ONE TABLET BY MOUTH EVERY DAY for 90 Active Vitamin D3 Complete - 5000 units Orally Daily Active Nitroglycerin 0.4 MG 1 Sublingual as needed for chest pain Active Pred Forte 1 % 1 drop into affected eye Ophthalmic Twice a day Active Aubagio 14 MG 1 tablet Orally Once a day for 30 day(s) Active Propranolol HCl 10 MG 1 tablet Orally TID Active LORazepam 0.5 MG 1 tablet as needed Orally every 6 hrs Active Zoloft 100 MG 1.5 tablets Orally Once a day Active Transfer Bench - Transfer bench for shower Daily for 90 day(s) Nov, Active Tizanidine HCl 4 MG 1 tablet as needed Orally Three times a day for 30 days Active BusPIRone HCl 15 MG 1 tablet Orally Three times a day Active Tramadol HCl 50 MG 1 tablet as needed Orally ev ko 6 hrs MDD#4 Code D for 90 day(s) Active Gabapentin 300 MG 2 CAPSULES Orally THREE TIMES A DAY Active Prazosin HCl 2 MG 1 capsule at bedtime Orally Once a day for 30 day(s ) Active Triamcinolone Acetonide 0.025 % 1 application to affec asiya area Externally Twice a day to antecubital fossa Mar, Activ e Levothyroxine Sodium 50 MCG TAKE ONE TABLET BY MOUTH E VERY MORNING ON AN EMPTY STOMACH for 90 Active PROCEDURES No Information RESULTS No Results REASON FOR VISIT change CT angio neck order MEDICAL (GENERAL) HISTORY Type Description Date [...] History Right eye cataract extraction Hospitalization History [facility] sep 2010 Hospitalization History Bowel obstruction 2015 Hospitalization History [facility] Inpatient 08/2018 Goals Section No Information Health Concerns No Information MEDICAL EQUIPMENT No Information MENTAL STATUS No Information FUNCTIONAL STATUS No Information ASSESSMENTS No Information PLAN OF TREATMENT Medication Medication Name Sig Start Date Stop Date Tramadol HCl 50 MG 1 tablet as needed Orally ev ko 6 hrs MDD#4 Code D for 90 day(s) Tizanidine HCl 4 MG 1 tablet as needed Orally Three times a day for 30 days Next Appt Details Provider Name:Maggie Gonzalez, 2020-10-03 01:00:00 PM, [address] [place], [address], Provider Name:Markoswashington Tom, 03:30:00 PM, [address] [place] [address], [phone], Insurance Providers Payer Name Payer Address Payer Phone Insured Name Patient Relati onship to Insured Coverage Start Date Coverage End Date BS [place] [facility] [address] [facility] [id number] ROLANDO HUR[place] MEDICARE Part A and B [address] [facility] [phone] ROLANDO HURLEY 2016
--- OUTSIDE RECORDS SUMMARY | 2020-10-15 12:52 | CCD ---
Author Author [facility] Organization [facility] Address Unknown Phone Unavailable Care Team Providers Care Armature Rewinder Name Role Phone Markos Tom Unavailable PROBLEMS Type Condition ICD9-CM Code [id number] Code Onset Dates Condition S tatus SNOMED Code Notes Problem Back Pain - Lumbar 724.2 Active 083819769 Problem Anxiety F41.9 Active 94549260 Problem Mixed hyperlipidemia E78.2 Active 090830704 Problem Anorgasmia of female F52.31 Active 38771229 Problem Multiple sclerosis G35 Active 98293517 Problem Menopausal vaginal dryness N95.1 Active 57428 003 Problem Hypothyroidism, unspecified type E03.9 Active 81692954 Problem Balance disorder R26.89 Active 714721772 Problem Scapular dyskinesis G25.89 Active 643450757 Problem Abnormality of left breast on screening mammogram R92.8 Active 350220169 Problem Memory disturbance R41.3 Active 269782642 Problem Status post placement of implantable loop recorder Z95.818 Active 362724444 Problem MGUS (monoclonal gammopathy of unknown significance) D47.2 Active 644966094 Problem Other age-related incipient cataract of both eyes H25.093 Active 850464142 Problem Sciatica of right side M54.31 Active 53875103 Problem Thrombocytopenia D69.6 Active 656258942 Problem Hyperlipidemia, unspecified hyperlipidemia type E7 8.5 Active 62951977 Problem Hot flashes due to surgical menopause E89.41 Ac tive 855461465 Problem Contrast media allergy Z91.041 Active 277072865 Problem History of melanoma Z85.820 Active 709391206 Problem Mild episode of recurrent major depressive disorder F33.0 Active 101350204 Problem Menopausal disorder N95.9 Active 609928956 Problem Leg paresthesia R20.2 Active 622576253 Problem Hearing loss, unspecified hearing loss type, uns pecified laterality H91.90 Active 07637779 Problem Stage 3 chronic kidney disease N18.3 Active 4 65463498 ALLERGIES Allergen (clinical drug ingredient) Drug/Non Drug Allergy do cumented on EMR Reaction Allergy Type Onset Date Status rosuvastatin Crestor([facility] Code:[address]-70) myalgia Drug Allergy Active ivp dye Hives/tongue swelling Non Drug Allergy Active ENCOUNTERS from 1955 to 2020-09-22 Encounter Location Date Provider Diagnosis [facility] [address] [place] [address] Aug Markos Tom IMMUNIZATIONS Vaccine Route Administration [...] Information RESULTS No Results REASON FOR VISIT No Information MEDICAL (GENERAL) HISTORY Type Description Date Medical [...] History Right eye cataract extraction Hospitalization History [facility] sep 2010 Hospitalization History Bowel obstruction 2015 Hospitalization History [facility] Inpatient 08/2018 Goals Section No [...] 90 day(s) Next Appt Details Provider Name:Maggie Gonzalez, 2020-10-03 01:00:00 PM, [address] [place], [address], Provider Name:Markos Tom, 03:30:00 PM, [address] [place] [address], [phone], Insurance Providers Payer Name Payer Address Payer Phone Insured Name Patient Relati onship to Insured Coverage Start Date Coverage End Date BS [place] [facility] [address] [facility] [address] ROLANDO HURLEY self MEDICARE Part A and B [address] [facility] [address] ROLANDO HURLEY 2016
--- OUTSIDE RECORDS SUMMARY | 2020-10-15 12:52 | CCD ---
Author Author [facility] Organization [facility] Address Unknown Phone Unavailable Care Team Providers Care Transmission Rebuilder Name Role Phone Nadira Saldana Unavailable PROBLEMS Type Condition ICD9-CM Code [id number] Code Onset Dates Condition S tatus SNOMED Code Notes Problem Hypothyroidism, unspecified type E03.9 Active 83273697 Problem Hot flashes due to surgical menopause E89.41 Ac tive 996571072 Problem Menopausal vaginal dryness N95.1 Active 48974 003 Problem Mild episode of recurrent major depressive disorder F33.0 Active 189492906 Problem Memory disturbance R41.3 Active 167894864 Problem Scapular dyskinesis G25.89 Active 635060047 Problem Abnormality of left breast on screening mammogram R92.8 Active 695775361 Problem Back Pain - Lumbar 724.2 Active 306176476 Problem Balance disorder R26.89 Active 823170794 Problem Multiple sclerosis G35 Active 79599941 Problem Anorgasmia of female F52.31 Active 65942383 Problem Other age-related incipient cataract of both eyes H25.093 Active 594794971 Problem Hearing loss, unspecified hearing loss type, uns pecified laterality H91.90 Active 05789427 Problem Status post placement of implantable loop recorder Z95.818 Active 064924813 Problem Anxiety F41.9 Active 93934367 Problem Stage 3 chronic kidney disease N18.3 Active 4 54069822 Problem MGUS (monoclonal gammopathy of unknown significance) D47.2 Active 519778282 Problem Mixed hyperlipidemia E78.2 Active 917588348 Problem History of melanoma Z85.820 Active 659443118 Problem Sciatica of right side M54.31 Active 81815189 Problem Thrombocytopenia D69.6 Active 537307331 Problem Menopausal disorder N95.9 Active 145103379 Problem Leg paresthesia R20.2 Active 325112763 ALLERGIES Allergen (clinical drug ingredient) Drug/Non Drug Allergy do cumented on EMR Reaction Allergy Type Onset Date Status rosuvastatin Crestor([facility] Code:[address]-20) myalgia Drug Allergy Active ivp dye Hives/tongue swelling Non Drug Allergy Active ENCOUNTERS from 1955 to 2020-08-27 Encounter Location Date Provider Diagnosis [facility] [address] [place] [address] Jul Nadirawilliam Saldana IMMUNIZATIONS Vaccine Route Administration Date Status Influenza [...] Unknown Audit Question Answer Notes Total Score: 3 Interpretation: Alcohol Education Drug and Alcohol Question Answer Notes Total [...] Notes Start Da te End Date Status Propranolol HCl 10 MG 1 tablet Orally TID Active Levothyroxine Sodium 50 MCG TAKE ONE TABLET BY MOUTH E VERY MORNING ON AN EMPTY STOMACH for 90 Active Pred Forte 1 % 1 drop into affected eye Ophthalmic Twice a day Active Tizanidine HCl 4 MG 1 tablet as needed Orally Three times a day for 30 days Active TraZODone HCl 50 MG 1 tablet at bedtime Orally Once a day Active Gabapentin 300 MG 3 capsule Orally once at bedtime Active Spironolactone 25 MG TAKE ONE TABLET BY MOUTH EVERY DAY for 90 Active Erythromycin 5 MG/GM 1 application into the lower eyelid of affected eye Ophthalmic bid for 10 day(s) Jul, Act cathryn Zoloft 100 MG 1.5 tablets Orally Once a day Active Transfer Bench - Transfer bench for shower Daily for 90 day(s) Nov, Active Gabapentin 600 MG 1 capsule Orally twice a day Active Aubagio 14 MG 1 tablet Orally Once a day for 30 day(s) Active Vitamin D3 Complete - 5000 units Orally Daily Active Tramadol HCl 50 MG 1 tablet as needed Orally ev ko 6 hrs MDD#4 Code D for 90 day(s) Active LORazepam 0.5 MG 1 tablet as needed Orally every 6 hrs Active Triamcinolone Acetonide 0.025 % 1 application to affec asiya area Externally Twice a day to antecubital fossa Mar, Activ e Nitroglycerin 0.4 MG 1 Sublingual as needed for chest pain Active Prazosin HCl 2 MG 1 capsule at bedtime Orally Once a day for 30 day(s ) Active BusPIRone HCl 15 MG 1 tablet Orally Three times a day Active PROCEDURES No Information RESULTS No Results REASON FOR VISIT shelby eye irritation, redness/ drainage MEDICAL (GENERAL) HISTORY Type Description Date Medical History Depression anxiety Medical History Asthma Medical History Hypothyroid Medical History HTN Medical History SCC/melanoma- right arm Medical History Chronic constipation Medical History implanted heart monitoring device uper l eft chest-2013 Medical History Multiple sclerosis Medical History Antiphospholipid syndrome Medical History Hyperlipidemia Surgical History hysterectomy for fibroids 1990 Surgical History tonsilectomy 1972 Surgical History gallbladder 1992 Surgical History Left DERECK 2012 Surgical History Colectomy- Chronic constipation 2016 Surgical History Colonoscopy 03/2016 Surgical History left breast biopsy Surgical History skin cancer removed on left shoulder are a 03/2018 Surgical History Right eye cataract extraction Hospitalization History [facility] sep 2010 Hospitalization History Bowel obstruction 2016 Hospitalization History [facility] Inpatient 08/2018 Goals Section No Information Health Concerns No Information MEDICAL EQUIPMENT No Information MENTAL STATUS No Information FUNCTIONAL STATUS No Information ASSESSMENTS No Information PLAN OF TREATMENT Medication Medication Name Sig Start Date Stop Date Erythromycin 5 MG/GM 1 application into the lower eyelid of affected eye Ophthalmic bid for 10 day(s) Jul, Next Appt Details Provider Name:Markos Dominguez Stevesam, 03:30:00 PM, [address] [place] [address], [phone], Provider Name:Maggie Gonzalez, 2020-10-03 01:00:00 PM, [address] [place], [address], Insurance Providers Payer Name Payer Address Payer Phone Insured Name Patient Relati onship to Insured Coverage Start Date Coverage End Date BS [place] [facility] [address] [facility] [address] [phone] ROLANDO HURLEY self MEDICARE Part A and B [address] [facility] [address] [phone] ROLANDO HURLEY 2016
--- OUTSIDE RECORDS SUMMARY | 2020-10-15 12:52 | CCD ---
Author Author [facility] Organization [facility] Address Unknown Phone Unavailable Care Team Providers Care Stud Master/Mistress Name Role Phone Markos Tom Unavailable PROBLEMS Type Condition ICD9-CM Code [id number] Code Onset Dates Condition S tatus SNOMED Code Notes Problem Hypothyroidism, unspecified type E03.9 Active 35396277 Problem Mild episode of recurrent major depressive disorder F33.0 Active 885424920 Problem Scapular dyskinesis G25.89 Active 296278027 Problem Menopausal vaginal dryness N95.1 Active 84008 003 Problem Memory disturbance R41.3 Active 064163178 Problem Balance disorder R26.89 Active 630924077 Problem MGUS (monoclonal gammopathy of unknown significance) D47.2 Active 771341413 Problem Mixed hyperlipidemia E78.2 Active 527084382 Problem Abnormality of left breast on screening mammogram R92.8 Active 981114067 Problem Back Pain - Lumbar 724.2 Active 632848070 Problem Anorgasmia of female F52.31 Active 83015205 Problem Other age-related incipient cataract of both eyes H25.093 Active 006059599 Problem Sciatica of right side M54.31 Active 14403983 Problem Stage 3 chronic kidney disease N18.3 Active 4 93251398 Problem Multiple sclerosis G35 Active 71474582 Problem History of melanoma Z85.820 Active 311519979 Problem Hyperlipidemia, unspecified hyperlipidemia type E7 8.5 Active 28455040 Problem Status post placement of implantable loop recorder Z95.818 Active 275114265 Problem Anxiety F41.9 Active 37596658 Problem Hot flashes due to surgical menopause E89.41 Ac tive 024131568 Problem Thrombocytopenia D69.6 Active 160866315 Problem Menopausal disorder N95.9 Active 578668035 Problem Leg paresthesia R20.2 Active 210471290 Problem Hearing loss, unspecified hearing loss type, uns pecified laterality H91.90 Active 79242525 ALLERGIES Allergen (clinical drug ingredient) Drug/Non Drug Allergy do cumented on EMR Reaction Allergy Type Onset Date Status rosuvastatin Crestor([facility] Code:[address]-08) myalgia Drug Allergy Active ivp dye Hives/tongue swelling Non Drug Allergy Active ENCOUNTERS from 1955 to 2020-09-20 Encounter Location Date Provider Diagnosis [facility] [address] [place] [address] Aug Markos Tom IMMUNIZATIONS Vaccine Route Administration [...] Information RESULTS No Results REASON FOR VISIT order MEDICAL (GENERAL) HISTORY Type Description Date [...] History Right eye cataract extraction Hospitalization History [facility] sep 2010 Hospitalization History Bowel obstruction 2016 Hospitalization History [facility] Inpatient 08/2018 Goals Section No Information [...] Provider Name:Maggie Gonzalez, 2020-10-03 01:00:00 PM, [address] [place], [address], Provider Name:Markoswashington Tom, 03:30:00 PM, [address] [place] [address], [phone], Insurance Providers Payer Name Payer Address Payer Phone Insured Name Patient Relati onship to Insured Coverage Start Date Coverage End Date BS [place] [facility] [address] [facility] [address] ROLANDO HURLEY self MEDICARE Part A and B [address] [facility] [phone] ROLANDO HURLEY self 2016
--- OUTSIDE RECORDS SUMMARY | 2020-10-15 12:52 | CCD ---
Author Author [facility] Organization [facility] Address Unknown Phone Unavailable Care Team Providers Care Bolt Labeler Name Role Phone Markos Tom Unavailable PROBLEMS Type Condition ICD9-CM Code RGQ76-VC Code Onset Dates Condition S tatus SNOMED Code Notes Problem Hypothyroidism, unspecified type E03.9 Active 36035620 Problem Mild episode of recurrent major depressive disorder F33.0 Active 609855685 Problem Scapular dyskinesis G25.89 Active 946936440 Problem Menopausal vaginal dryness N95.1 Active 19271 003 Problem Memory disturbance R41.3 Active 677806799 Problem Balance disorder R26.89 Active 989366694 Problem MGUS (monoclonal gammopathy of unknown significance) D47.2 Active 899863088 Problem Mixed hyperlipidemia E78.2 Active 097111575 Problem Abnormality of left breast on screening mammogram R92.8 Active 663383719 Problem Back Pain - Lumbar 724.2 Active 012982903 Problem Anorgasmia of female F52.31 Active 08933660 Problem Other age-related incipient cataract of both eyes H25.093 Active 496606379 Problem Sciatica of right side M54.31 Active 75498495 Problem Stage 3 chronic kidney disease N18.3 Active 4 82530643 Problem Multiple sclerosis G35 Active 93438930 Problem History of melanoma Z85.820 Active 925279455 Problem Hyperlipidemia, unspecified hyperlipidemia type E7 8.5 Active 60687922 Problem Status post placement of implantable loop recorder Z95.818 Active 091352380 Problem Anxiety F41.9 Active 36049147 Problem Hot flashes due to surgical menopause E89.41 Ac tive 715484002 Problem Thrombocytopenia D69.6 Active 892320713 Problem Menopausal disorder N95.9 Active 933975001 Problem Leg paresthesia R20.2 Active 527914116 Problem Hearing loss, unspecified hearing loss type, uns pecified laterality H91.90 Active 62493179 ALLERGIES Allergen (clinical drug ingredient) Drug/Non Drug Allergy do cumented on EMR Reaction Allergy Type Onset Date Status rosuvastatin Crestor([facility] Code:[address]-74) myalgia Drug Allergy Active ivp dye Hives/tongue swelling Non Drug Allergy Active ENCOUNTERS from 1955 to 2020-09-20 Encounter Location Date Provider Diagnosis [facility] [address] [place] [address] Aug Markos Tom Hypothyroidism, unspecified type E03.9 ; History of CVA (cerebrovascular accident) Z86.73 ; Hyperlipidemia, unspecified hyperlipidemia type E78.5 ; Anxiety F41.9 ; Mild episode of recurrent major depressive disorder F33.0 ; Leg pain, left M79.605 ; Leg paresthesia R20.2 ; Multiple sclerosis G35 ; Myalgia M79.10 ; Thrombocytopenia D69.6 ; Balance disorder R26.89 ; Sciatica of right side M54.31 and Right hip pain M25.551 IMMUNIZATIONS Vaccine Route Administration Date Status Influenza [...] FOR REFERRAL No Information VITAL SIGNS Weight 149.8 lbs Aug, Height 66 in Aug, BMI 24.18 kg/m2 Aug, Heart Rate 84 /min Aug, Respiratory Rate 16 /min Aug, Temperature 98.0 degrees Fahrenheit Aug, Oximetry 97RA Aug, Blood pressure systolic 201 mm Hg Aug, Blood pressure diastolic 66 mm Hg Aug, MEDICATIONS Medication SIG (Take, Route, Frequency, Duration) [...] Information RESULTS No Results REASON FOR VISIT Patient seen Neurology last week, she had recent MRI and they think she may have had mild stroke. Patient does correlate possibly back in July when she was weak, however ER workup did not show that. MEDICAL (GENERAL) HISTORY Type Description Date Medical [...] History Right eye cataract extraction Hospitalization History [facility] sep 2010 Hospitalization History Bowel obstruction 2015 Hospitalization History [facility] Inpatient 08/2018 Goals Section No Information Health Concerns No Information MEDICAL EQUIPMENT No Information MENTAL STATUS No Information FUNCTIONAL STATUS No Information ASSESSMENTS Encounter Date Diagnosis Assessment Notes Treatment Notes Treatm ent Clinical Notes Aug, Hypothyroidism, unspecified type (ICD-10 - E03.9 ) Stable, labs okay. Pt agreeable to plan. Aug, History of CVA (cerebrovascular accident) (ICD-1 0 - Z86.73) Will get MRI results for our records and ask cardiology to help us get bubble study. Pt agreeable. Aug, Hyperlipidemia, unspecified hyperlipidemia type (ICD-10 - E78.5) Will update labs and very likely needs to retry a statin. Aug, Anxiety (ICD-10 - F41.9) Cont with [facility]- she is mostly stable given circumstances. Aug, Mild episode of recurrent ma haydee depressive disorder (ICD-10 - F33.0) Cont with [facility] as scheduled. Aug, Leg pain, left (ICD-10 - M79.605) Much improved, cont with Dr Vargas. Pt agreeable. Aug, Leg paresthesia (ICD-10 - R20.2) Seems more likely from back but discussed that could be multifactorial including MS so will f/u with neurology as well. Aug, Multiple sclerosis (ICD-10 - G35) Cont with neurology in [place]. Will cont gabapentin and Aubagio. Pt is agreeable. Aug, Myalgia (ICD-10 - M79.10) Likely related to MS. Aug, Thrombocytopenia (ICD-10 - D69.6) This is a known issue, will monitor closely. She did see Dr Parkinson in [place], MGUS was questionable. Aug, Balance disorder (ICD-10 - R26.89) Cont to f/u with neurology due to balance issues, memory issues and episdoes. Pt agreeable. Aug, Sciatica of right side (ICD-10 - M54.31) Cont tramadol and cont with Dr Vargas. She is using a back brace as well from Dr Vargas. Pt is agreeable. Aug, Right hip pain (ICD-10 - M25.551) Has know OA. PLAN OF TREATMENT Medication Medication Name Sig Start Date Stop Date Tramadol HCl 50 MG 1 tablet as needed Orally ev ko 6 hrs MDD#4 Code D for 90 day(s) Tizanidine HCl 4 MG 1 tablet as needed Orally Three times a day for 30 days Treatment Notes Assessment Notes Clinical Notes Hypothyroidism, unspecified type Stable, labs okay. Pt agreeable to plan. Right hip pain Has know OA. History of CVA (cerebrovascular accident) Will get MRI results for our records and ask cardiology to help us get bubble study. Pt agreeable. Hyperlipidemia, unspecified hyperlipidemia type Will update labs and very likely needs to retry a statin. Anxiety Cont with [facility]- she is mostly stable given circumstances. Mild episode of recurrent major depressive disorder Cont with [facility] as scheduled. Leg pain, left Much improved, cont with Dr Vargas. Pt agreeable. Leg paresthesia Seems more likely fr om back but discussed that could be multifactorial including MS so will f/u with neurology as well. Sciatica of right side Cont tramadol and cont with Dr Vargas. She is using a back brace as well from Dr Vargas. Pt is agreeable. Balance disorder Cont to f/u with [facility] due to balance issues, memory issues and episdoes. Pt agreeable. Multiple sclerosis Cont with neurology in [place]. Will cont gabapentin and Aubagio. Pt is agreeable. Myalgia Likely related to MS . Thrombocytopenia This is a known issu e, will monitor closely. She did see Dr Parkinson in [place], [place] was questionable. Treatment Notes Test Name Order Date [facility] ANGIO CAROTID CEREBRAL BILAT 2020-09-20 CT Scan : Angiogram 2020-09-20 Next Appt Details 3 Months Reason:30 minutes Provider Name:Maggie Gonzalez, 2020-10-03 01:00:00 PM, [address] [place], [address], Provider Name:Markos Tom, 03:30:00 PM, [address] [place] [address], [phone], Follow Up:3 [id number] minutes Insurance Providers Payer Name Payer Address Payer Phone Insured Name Patient Relati onship to Insured Coverage Start Date Coverage End Date MEDICARE Part A and B [address] [facility] [id number] ROLANDO HURLEY 2016 [facility] [address] [facility] [id number] ROLANDO HURLEY self
--- OUTSIDE RECORDS SUMMARY | 2020-10-15 12:52 | CCD ---
Author Author Teo Dave MD [facility] Organization Teo Dave MD [facility] Address [address] [address] Phone Care Team Providers Care Nuclear Powerplant Mechanic Name Role Phone Lindsaykira DO Markos Angelica PP [phone] Florin Mcnulty DO Unavailable [phone] Reason for Referral No Reason for Referral [...] of Iris Posterior Synechiae 08/28/2019 - 12:00AM Florin Mcnulty DO Active Cataract Senile Nuclear 08/28/2019 - 12:00AM Florin shepherd DO Active Dry Eye Syndrome 08/28/2019 - 12:00AM Florin carpenter DO Active Vitreous Disorders Degeneration 08/28/2019 - 12:00AM Esperanza Mcnulty DO Active Plan of Treatment Future Appointments Date Time Location Provider 4 Month Follow-Up 12/11/2020 1:10PM [facility] Florin Mcnulty DO Assessments Includes: Assessments [...] Florin Mcnulty DO 06/23/2020 Pseudophakia PACHYMETRY with Florinjaiv Mcnulty DO Squamous blepharitis right upper eyelid [...] Recorded Vital Signs Includes: Vital Signs from 08/05/2019 through 08/05/2020No Vital Signs Recorded For Specified Dates Results Includes: Results from 08/05/2019 through 08/05/2020No Results Recorded For Specified Dates History of Present Illness History of Present Illness not supported for this document typeNo History of Present Illness Recorded Social History Description Last Updated No tobacco use 08/05/2020 Smoking status : Never smoker 08/05/2020 Alcohol use 2 to 3 a week 08/28/2019 Using marijuana 1 to 2 joints a month 08/28/2019 Procedures and Surgical History Includes: Procedures from 08/05/2019 through 08/05/2020 Procedures Code Diagnosis Performing Provider Service Location Service Date Yag Laser Capulotomy (Right Side) 46287 Other secondary cataract, right eye, Presence of intraocular lens Florin Hoskins MD [facility] 07/18/2020 Laser Iridotomy (Right Side) 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 Endothelial corneal dystrophy Florin Hoskins MD [facility] 04/28/2020 Intermediate Eye Exam Established Patient 00706 Endoth elial corneal dystrophy Florin Hoskins MD [facility] 04/24/2020 Intermediate Eye Exam Established Patient 85288 Endoth elial corneal dystrophy Florin Hoskins MD [facility] 01/14/2020 Refraction (WAIVER OF LIABILITY ON FILE (ABN)) 87666 M yopia, bilateral Florin Hoskins MD [facility] 09/14/2019 Corneal Pachymetry (WAIVER OF LIABILITY ON FILE (ABN)) 49392 Endothelial corneal dystrophy Florin Hoskins MD [facility] 09/14/2019 Intermediate Eye Exam Established Patient (Signi/Sep Eval. & Man.) 48772 Endothelial corneal dystrophy Florin Hoskins MD [facility] 09/14/2019 Medical Eye Exam 87811 Endothelial corneal dystrophy, Age-related nuclear cataract, left eye, Ocular hypertension, bilateral, Benign neoplasm of left choroid Florin Hoskins MD [facility] 08/28/2019 Surgical History Last Updated History of discission of secondary membr anous cataract of right eye by laser by Dr. Mcnulty on 07/18/2020 08/05/2020 History of extracapsular cataract extrac tion Right Eye September 2018, Lens Exchange November [address] Gale 08/05/2020 History of transplant of the right cornea -[facility]MEK by Dr Marcela Mcnulty 05/01/2020 08/05/2020 Surgical / procedural history Tonsillec nadia 1972, Gallbladder Removed 1979, Left Hip Replacement 2012, [...] 12:00AM Acti ve Encounters Includes: Encounters from 08/05/2019 through 08/05/2020 Encounter Provider Location Date Check-In Time Check-Out Time D iagnosis 2 Week Follow-Up Florin Hoskins MD [facility] 03/2020 10:07AM 11:16AM Pseudophakia, Corneal Transp lant Status Yag Laser Capsulotomy - Global: 90 DAY POST OP Florin Boyer MD [facility] 07/18/2020 2:24PM 3:10PM Posterior Capsul e Opacification Eccentric Capsule Right Eye PACHYMETRY Florin Hoskins MD [facility] 06/23/2020 2 :24PM 3:59PM Pseudophakia, Posterior Capsule Opacific ation Eccentric Capsule Right Eye, Corneal Transplant Status, Blepharitis Squamous 2 Week Follow-Up Florin Hoskins MD [facility] 04/30 2:48PM 3:27PM Corneal Transplant Status 1 Week Post OP Florin Hoskins MD [facility] 05/09/20 20 2:14PM 3:21PM Corneal Transplant Status 1 Day Post OP Florin Hoskins MD [facility] 0 2:56PM 3:57PM Corneal Transplant Status SAME DAY POST OP Florin Mcnulty DO [facility] 10/2019 6:19AM 6:22AM Corneal Transplant Florin Mcnulty DO [facility] 7:04AM 7:04AM Yag Laser Peripheral Iridotomy - Global 10 DAY POST OP Dimitris Hoskins MD [facility] 04/28/2020 11:56AM 1:35PM Corneal Dystrophy Endothelial Fuchs' 1 WK PREOP FOR SURGERY Florin Hoskins MD [facility] 04/24/2020 3:13PM 4:19PM Corneal Dystrophy Endothelia l Fuchs' 5 Month Follow-Up Florin Hoskins MD [facility] 2:55PM 3:34PM Conjunctivitis Chronic Aller gic, Corneal Dystrophy Endothelial Fuchs' Rx Refills/Changes Florin Hamlet GIBBS 12/19/2019 020 1:06PM 09/14/2019 11:59PM Rx Refills/Changes Florin Mcnutly DO 10/29/2019 020 2:37PM 09/14/2019 11:59PM 2 Week Follow-Up Florin Hoskins MD [facility] 08/29 1:27PM 2:34PM Corneal Dystrophy Endothelia l Fuchs', Borderline Glaucoma Ocular Hypertension Both Eyes, Refractive Error - Myopia Bilateral NEW PATIENT WITH REFERRAL Florin Hoskins MD [facility] 08/28/2019 8:30AM 9:59AM Dry Eye Syndrome, Co rneal Dystrophy Endothelial Fuchs', Pseudophakia, Vitreous Disorders Degeneration, Cataract Senile Nuclear, Adhesions of Iris Posterior Synechiae, Posterior Capsule Opacification Eccentric Capsule Right Eye, Benign Choroid Eye Neoplasm Left, Borderline Glaucoma Ocular Hypertension Both Eyes Insurance Includes: Active Insurance Policies Plan Name Member ID Group # Subscriber Relationship Effective Da domenica 1 - Medicare Part B [facility] ([facility]) [id number] [employer] Self 2 - [facility] [id number] [place] Self Advance Directives Includes: Current Advance DirectivesNo Advance Directives Recorded Health Concerns Includes: Active Health ConcernsNo Active Health Concerns Recorded Goals Includes: Active GoalsNo Active Goals Recorded Interventions Includes: Interventions for active GoalsNo Interventions Recorded Evaluations & Outcomes Includes: Evaluations & Outcomes for active GoalsNo Outcomes Recorded
--- OUTSIDE RECORDS SUMMARY | 2020-10-15 12:52 | CCD ---
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 Name Role Phone Nadira Saldana Unavailable PROBLEMS Type Condition ICD9-CM Code [id number] Code Onset Dates Condition S tatus SNOMED Code Notes Problem Hypothyroidism, unspecified type E03.9 Active 93689668 Problem Hot flashes due to surgical menopause E89.41 Ac tive 990798839 Problem Menopausal vaginal dryness N95.1 Active 29417 003 Problem Mild episode of recurrent major depressive disorder F33.0 Active 987439693 Problem Memory disturbance R41.3 Active 832047344 Problem Scapular dyskinesis G25.89 Active 097438140 Problem Abnormality of left breast on screening mammogram R92.8 Active 879985531 Problem Back Pain - Lumbar 724.2 Active 592914069 Problem Balance disorder R26.89 Active 058395410 Problem Multiple sclerosis G35 Active 29404916 Problem Anorgasmia of female F52.31 Active 41107937 Problem Other age-related incipient cataract of both eyes H25.093 Active 915012305 Problem Hearing loss, unspecified hearing loss type, uns pecified laterality H91.90 Active 79968406 Problem Status post placement of implantable loop recorder Z95.818 Active 807441963 Problem Anxiety F41.9 Active 08613654 Problem Stage 3 chronic kidney disease N18.3 Active 4 33943914 Problem MGUS (monoclonal gammopathy of unknown significance) D47.2 Active 027324781 Problem Mixed hyperlipidemia E78.2 Active 416223312 Problem History of melanoma Z85.820 Active 571141694 Problem Sciatica of right side M54.31 Active 05135069 Problem Thrombocytopenia D69.6 Active 277413212 Problem Menopausal disorder N95.9 Active 546525247 Problem Leg paresthesia R20.2 Active 188578111 ALLERGIES Allergen (clinical drug ingredient) Drug/Non Drug Allergy do cumented on EMR Reaction Allergy Type Onset Date Status rosuvastatin Crestor([facility] Code:[address]-65) myalgia Drug Allergy Active ivp dye Hives/tongue swelling Non Drug Allergy Active ENCOUNTERS from 1955 to 2020-08-28 Encounter Location Date Provider Diagnosis [facility] [place] [address] [place] [address] Jul Nadira Saldana Acute viral conjunctivitis of both eyes B30.9 IMMUNIZATIONS Vaccine Route Administration Date Status Influenza [...] FOR REFERRAL No Information VITAL SIGNS Weight 150 lbs Jul, Height 66 in Jul, BMI 24.21 kg/m2 Jul, Heart Rate 66 /min Jul, Respiratory Rate 16 /min Jul, Temperature 98.2 degrees Fahrenheit Jul, Oximetry 94 Jul, Blood pressure systolic 116 mm Hg Jul, Blood pressure diastolic 60 mm Hg Jul, MEDICATIONS Medication SIG (Take, Route, Frequency, Duration) [...] Results REASON FOR VISIT [place] eye irritation, redness, drainage MEDICAL (GENERAL) HISTORY Type Description Date Medical History Depression anxiety Medical History Asthma Medical History Hypothyroid Medical History HTN Medical History SCC/melanoma- right arm Medical History Chronic constipation Medical History implanted heart monitoring device uper l eft chest-2013 Medical History Multiple sclerosis Medical History Antiphospholipid syndrome Medical History Hyperlipidemia Surgical History hysterectomy for fibroids 1990 Surgical History tonsilectomy 1973 Surgical History gallbladder 1992 Surgical History Left DERECK 2012 Surgical History Colectomy- Chronic constipation 2015 Surgical History Colonoscopy 03/2016 Surgical History left breast biopsy Surgical History skin cancer removed on left shoulder are a 03/2018 Surgical History Right eye cataract extraction Hospitalization History [facility] 2010 Hospitalization History Bowel obstruction 2016 Hospitalization History [facility] Inpatient 08/2018 Goals Section No Information Health Concerns No Information MEDICAL EQUIPMENT No Information MENTAL STATUS No Information FUNCTIONAL STATUS No Information ASSESSMENTS Encounter Date Diagnosis Assessment Notes Treatment Notes Treatm ent Clinical Notes Jul, Acute viral conjunctivitis of both eyes (ICD-10 - B30.9) Advised to take erythromycin ointment 4 hours separate from the prednisolone drops. Call office or contact eye doctor for further worsening symptoms. Patient verbalized understanding and agreement with plan PLAN OF TREATMENT Medication Medication Name Sig Start Date Stop Date Erythromycin 5 MG/GM 1 application into the lower eyelid of affected eye Ophthalmic bid for 10 day(s) Jul, Treatment Notes Assessment Notes Clinical Notes Acute viral conjunctivitis of both eyes Advised to take erythromycin ointment 4 hours separate from the prednisolone drops. Call office or contact eye doctor for further worsening symptoms. Patient verbalized understanding and agreement with plan Next Appt Details prn Reason: Provider Name:Markos Tom, 03:30:00 PM, [address] [place], [address], Provider Name:Maggie Gonzalez, 2020-10-03 01:00:00 PM, [address] [place], [address], Insurance Providers Payer Name Payer Address Payer Phone Insured Name Patient Relati onship to Insured Coverage Start Date Coverage End Date MEDICARE Part A and B [address] [facility] [address] [phone] ROLANDO HURLEY [address] [facility] [place] [address] [facility] [address] ROLANDO HURLEY
--- OUTSIDE RECORDS SUMMARY | 2020-10-15 12:53 | CCD | Continuity of Care Document ---
Author Author Koki BOBO MD Organization Unknown Address [place] [address] Phone [phone] Care Team Providers Care Teen Counselor Name Role Phone Markos Tom DO [facility] [phone] Lakesha Donnelly MD [facility] [phone] Other Provider [facility] Unavailable Problems Active Problems [...] implants and grafts MARCIA Martinez Onset: 02/08/2019 Social History Type Date Description Comments Sex Unknown ETOH Use Occasionally consumes liquor Tobacco Use Start: Unknown Patient has never smoked Smoking Status Reviewed: 02/22/20 Patient has never smoked Exercise Type/Frequency Does housework daily Exercise Type/Frequency Walks sporadically Exercise Limitations Other Anxiety/Dep ression and MS Allergies, Adverse Reactions, Alerts Active Allergies Reaction Severity Comments Date Crestor unknown 12/05/2018 IVP Dye swelling/anaphlaxis 12/06/19 19 Medications Active Medications SIG Qnty Indications Ordering Provide r Date Buspirone HCL 15mg Tablets 1 by mouth [...] three times a day Unknown 07/12/20 19 Propranolol HCL 10mg Tablets 1 by mouth tid Unknown 12/04/2018 Trazodone HCL 50mg Tablets 1 by mouth every night at bedtime Unknown 9 Zoloft 100mg Tablets 1.5 by mouth every [...] Available Vital Signs Date Vital Result Comment 02/22/2020 2:05pm Weight 152.00 lb Home Weight 152lb yesterday Height 66 inches 5'6" BMI (Body Mass Index) 24.5 kg/m2 Heart Rate 57 /min BP Systolic Sitting 130 mmHg adult cuff, Ra BP Diastolic Sitting 62 mmHg adult cuff, Ra 07/13/2019 12:47pm Weight 154.00 lb Home Weight 153lb Height 66 inches 5'6" BMI (Body Mass Index) 24.9 kg/m2 Heart Rate 52 /min BP Systolic Sitting 110 mmHg adult cuff, Ra BP Diastolic Sitting 50 mmHg adult cuff, Ra Results Test Acquired Date Facility Test Result H/L Range Note CBC without Differential 02/08/2020 [facility] - not inter faced (315)- - White Blood Count 3.4 Low 4.0-10.0 Red Blood Count 4.08 4.00-5.40 Platelets 91 Low 150-450 Hemoglobin 11.6 Hematocrit 36.0 Procedures Date Code Description Status 02/22/2020 79472 ECG 12-Lead Completed Medical Devices Description No Information Available Encounters Type Date Location Provider Dx Diagnosis Office Visit 06/20/2020 11:07a Main Office Claude [...] I35.1 Nonrheumatic aortic (valve) insufficiency Office Visit 03/13/2020 10:57a Main Office Claude Bobo MD I10 Essential (primary) hypertension R00.2 Palpitations I34.0 Nonrheumatic mitral (valve) insufficiency I35.1 Nonrheumatic aortic (valve) insufficiency Office Visit 02/22/2020 2:00p Main Office MARCIA Max I10 Essential (primary) hypertension R00.2 Palpitations I34.0 Nonrheumatic mitral (valve) insufficiency I35.1 Nonrheumatic aortic (valve) insufficiency Office Visit 02/12/2020 3:02p Main Office Claude Bobo MD I10 Essential (primary) hypertension R00.2 Palpitations I34.0 Nonrheumatic mitral (valve) insufficiency I35.1 Nonrheumatic aortic (valve) insufficiency Assessments Date Code Description Provider 06/20/2020 I10 Essential (primary) hypertension Claude Bobo [...] aortic (valve) insu fficiency Claude Bobo MD 03/13/2020 I10 Essential (primary) hypertension Claude Bobo MD 03/13/2020 R00.2 Palpitations Claude Bobo MD 03/13/2020 I34.0 Nonrheumatic mitral (valve) insu fficiency Claude Bobo MD 03/13/2020 I35.1 Nonrheumatic aortic (valve) insu fficiency Claude Bobo MD 02/22/2020 I10 Essential (primary) hypertension MARCIA Max 02/22/2020 R00.2 Palpitations MARCIA Max 02/22/2020 I34.0 Nonrheumatic mitral (valve) insu fficiency MARCIA Max 02/22/2020 I35.1 Nonrheumatic aortic (valve) insu fficiency MARCIA Max 02/12/2020 I10 Essential (primary) hypertension Claude Bobo MD 02/12/2020 R00.2 Palpitations Claude Bobo MD 02/12/2020 I34.0 Nonrheumatic mitral (valve) insu fficiency Claude Bobo MD 02/12/2020 I35.1 Nonrheumatic aortic (valve) insu fficiency Claude Bobo MD Plan of Treatment Future Appointment(s):* 02/24/2021 1:00 pm - MARCIA Max at Main Office 02/22/2020 - MARCIA Max* I10 Essential (primary) hypertension* Recommendations:* No medication changes were made today. * R00.2 Palpitations* Recommendations:* No further workup required at this time. Please call the office with any palpitations or sustained tachycardia (heart rate above 120 bpm at rest). * I34.0 Nonrheumatic mitral (valve) insufficiency * I35.1 Nonrheumatic aortic (valve) insufficiency * All * Follow up:* Follow up in 12 months. Functional Status Functional Condition Comment Date Status Independent with all ADL's Activ e Mental Status Description No Information Available Referrals Description No Information Available
--- OUTSIDE RECORDS SUMMARY | 2020-10-15 12:53 | CCD | Summary of Care ---
Demographics Preferred Language Unknown Marital Status Unknown Buddhist Affiliation Unknown Race Unknown Ethnic Group Unknown Author Author [facility] Address Unknown Phone Unavailable Care Team Providers Care Driver License Technician Name Role Phone PCP Unavailable Encounter Details Care Team Description Date Type Department 07/31/2020 [facility] TRANSFER CE NTER Encounter [address] [place] [address] Allergies Not on Filedocumented as of this encounter (statuses as of 08/15/2020) Medications Not on filedocumented as of this encounter (statuses as of 08/15/2020) Active Problems Not on filedocumented as of this encounter (statuses as of 08/15/2020) Social History Date Tobacco Use Types Packs/Day Years Used Never Assessed Sex Assigned at Date Recorded Not on file documented as of this encounter Last Filed Vital Signs Not on filedocumented in this encounter Plan of Treatment Health Maintenance Due Date Last Done Comments Hepatitis C Screening (B. 1955 [id number]) MMR Vaccines (1 of 1 - 1955 Standard series) Varicella Vaccines (1 of 1956 2 - 2-dose childhood series) DTaP,Tdap,and Td Vaccines 1961 (1 - Tdap) Breast Cancer Screening 2 2004 years Colon Cancer Screening 10 2004 yrs Zoster Vaccines (1 of 2) 2004 Osteoporosis Screening 2 2019 yr Pneumococcal Vaccine: 65+ 2019 Years (1 of 1 - PPSV23) Influenza Vaccine Completed 06/16/2020, 08/06/2019, 07/25/2019, Additional history exists HIB Vaccines Aged Out No longer eligible based on patient's age to complete this topic Hepatitis A Vaccines Aged Out No longer eligibl e based on patient's age to complete this topic Hepatitis B Vaccines Aged Out No longer eligibl e based on patient's age to complete this topic IPV Vaccines Aged Out No longer eligible based on patient's age to complete this topic Pneumococcal Vaccine: Aged Out No longer eligib le based on patient's age to Pediatrics (0 to 5 Years) complete this topic and At-Risk Patients (6 to 64 Years) documented as of this encounter Results Not on filedocumented in this encounter
--- OUTSIDE RECORDS SUMMARY | 2020-10-15 12:55 | CCD ---
Author Author [facility] Organization [facility] Address Unknown Phone Unavailable Care Team Providers Care Equalizer Operator Name Role Phone PETROFF, GREGORY PA Unavailable Unavailable PETROFF, GREGORY PA Unavailable Unavailable PETROFF, GREGORY PA Unavailable Unavailable PETROFF, GREGORY PA Unavailable Unavailable PETROFF, GREGORY PA Unavailable Unavailable PETROFF, GREGORY PA Unavailable Unavailable PETROFF, GREGORY PA Unavailable Unavailable PETROFF, GREGORY PA Unavailable Unavailable SYMENOW, G CHRISTOPHER PA Unavailable Unavailable SYMENOW, G CHRISTOPHER PA Unavailable Unavailable SYMENOW, G CHRISTOPHER PA Unavailable Unavailable SYMENOW, G CHRISTOPHER PA Unavailable Unavailable SYMENOW, G CHRISTOPHER PA Unavailable Unavailable SYMENOW, G CHRISTOPHER PA Unavailable Unavailable SYMENOW, G CHRISTOPHER PA Unavailable Unavailable SYMENOW, G CHRISTOPHER PA Unavailable Unavailable SYMENOW, G CHRISTOPHER PA Unavailable Unavailable SYMENOW, G CHRISTOPHER PA Unavailable Unavailable SYMENOW, G CHRISTOPHER PA Unavailable Unavailable SYMENOW, G CHRISTOPHER PA Unavailable Unavailable SYMENOW, G CHRISTOPHER PA Unavailable Unavailable SYMENOW, G CHRISTOPHER PA Unavailable Unavailable SYMENOW, G CHRISTOPHER PA Unavailable Unavailable SYMENOW, G CHRISTOPHER PA Unavailable Unavailable SYMENOW, G CHRISTOPHER PA Unavailable Unavailable Kamille FOWLER PA Unavailable Unavailable RACQUEL, L DEMARCUS PA Unavailable Unavailable RACQUEL, L DEMARCUS PA Unavailable Unavailable RACQUEL, L DEMARCUS PA Unavailable Unavailable RACQUEL, L DEMARCUS PA Unavailable Unavailable RACQUEL, L DEMARCUS PA Unavailable Unavailable RACQUEL, L DEMARCUS PA Unavailable Unavailable RACQUEL, L DEMARCUS PA Unavailable Unavailable RACQUEL, L DEMARCUS PA Unavailable Unavailable RACQUEL, L DEMARCUS PA Unavailable Unavailable RACQUEL, L DEMARCUS PA Unavailable Unavailable RACQUEL, L DEMARCUS PA Unavailable Unavailable RACQUEL, L DEMARCUS PA Unavailable Unavailable RACQUEL, L DEMARCUS PA Unavailable Unavailable RACQUEL, L DEMARCUS PA Unavailable Unavailable RACQUEL, L DEMARCUS PA Unavailable Unavailable RACQUEL, L DEMARCUS PA Unavailable Unavailable RACQUEL, L DEMARCUS PA Unavailable Unavailable RACQUEL, L DEMARCUS PA Unavailable Unavailable ANITA BLACKOWOD MD Unavailable Unavailable ANITA BLACKWOOD MD Unavailable Unavailable ANITA BLACKWOOD MD Unavailable Unavailable ANITA BLACKWOOD MD Unavailable Unavailable ANITA BLACKWOOD MD Unavailable Unavailable ANITA BLACKWOOD MD Unavailable Unavailable ANITA BLACKWOOD MD Unavailable Unavailable ANITA BLACKWOOD MD Unavailable Unavailable ANITA BLACKWOOD MD Unavailable Unavailable Davidson Vargas MD Unavailable Unavailable Davidson Vargas MD Unavailable Unavailable Davidson Vargas MD Unavailable Unavailable Davidson Vargas MD Unavailable Unavailable Davidson Vargas MD Unavailable Unavailable Davidson Vargas MD Unavailable Unavailable Davidson Vargas MD Unavailable Unavailable Davidson Vargas MD Unavailable Unavailable Davidson Vargas MD Unavailable Unavailable Davidson Vargas MD Unavailable Unavailable Davidson Vargas MD Unavailable Unavailable Davidson Vargas MD Unavailable Unavailable Davidson Vargas MD Unavailable Unavailable Davidson Vargas MD Unavailable Unavailable Davidson Vargas MD Unavailable Unavailable Davidson Vargas MD Unavailable Unavailable Davidson Vargas MD Unavailable Unavailable Davidson Vargas MD Unavailable Unavailable BolDavidson morales MD Unavailable Unavailable Davidson Vargas MD Unavailable Unavailable Davidson Vargas MD Unavailable Unavailable Davidson Vargas MD Unavailable Unavailable Davidson Vargas MD Unavailable Unavailable Davidson Vargas MD Unavailable Unavailable BolDavidson morales MD Unavailable Unavailable BolDavidson morales MD Unavailable Unavailable BolDavidson morales MD Unavailable Unavailable BolDavidson morales MD Unavailable Unavailable BolDavidson morales MD Unavailable Unavailable BolDavidson morales MD Unavailable Unavailable BolDavidson morales MD Unavailable Unavailable Bolcarmen S David REYES Unavailable Unavailable Bolcarmen S David REYES Unavailable Unavailable Bolcarmen S David REYES Unavailable Unavailable Bolcarmen S David REYES Unavailable Unavailable Bolla S aDvid REYES Unavailable Unavailable Bolla S David REYES Unavailable Unavailable Bolla S David REYES Unavailable Unavailable Bolcarmen S David REYES Unavailable Unavailable Bolla S David REYES Unavailable Unavailable Bolcarmen S David REYES Unavailable Unavailable Bolla S David REYES Unavailable Unavailable Bolla S David MD Unavailable Unavailable Bolla, S David MD Unavailable Unavailable Bolcarmen S David MD Unavailable Unavailable Bolcarmen, S David MD Unavailable Unavailable Bolcarmen S David REYES Unavailable Unavailable Bolla, S David MD Unavailable Unavailable Kb, L Katina PA Unavailable Unavailable Kb, L Katina PA Unavailable Unavailable Kb, L Katina PA Unavailable Unavailable Kb, L Katina PA Unavailable Unavailable Kb, L Katina PA Unavailable Unavailable Kb, L Katina PA Unavailable Unavailable Kb, L Katina PA Unavailable Unavailable Kb, L Katina PA Unavailable Unavailable Kb, L Katina PA Unavailable Unavailable Kb, L Katina PA Unavailable Unavailable Kb, L Katina PA Unavailable Unavailable Kb, L Katina PA Unavailable Unavailable Kb, L Katina PA Unavailable Unavailable Kb, L Katina PA Unavailable Unavailable Kb, L Katina PA Unavailable Unavailable Kb, L Katina PA Unavailable Unavailable Kb, L Katina PA Unavailable Unavailable Kb, L Katina PA Unavailable Unavailable Kb, L Katina PA Unavailable Unavailable Kb, L Katina PA Unavailable Unavailable Kb, L Katina PA Unavailable Unavailable Kb, L Katina PA Unavailable Unavailable Kb, L Katina PA Unavailable Unavailable Leonid, L Hafsa PA Unavailable Unavailable Leonid, L Hafsa PA Unavailable Unavailable Leonid, L Hafsa PA Unavailable Unavailable Leonid, L Hafsa PA Unavailable Unavailable Leonid, L Hafsa PA Unavailable Unavailable Leonid, L Hafsa PA Unavailable Unavailable Leonid, L Hafas PA Unavailable Unavailable Leonid, L Hafsa PA Unavailable Unavailable Leonid, L Hafsa PA Unavailable Unavailable Leonid, L Hafsa PA Unavailable Unavailable Leonid, L Hafsa PA Unavailable Unavailable Leonid, L Hafsa PA Unavailable Unavailable Leonid, L Hafsa PA Unavailable Unavailable Leonid, L Hafsa PA Unavailable Unavailable Leonid, L Hafsa PA Unavailable Unavailable Leonid, L Hafsa PA Unavailable Unavailable Leonid, L Hafsa PA Unavailable Unavailable Leonid, L Hafsa PA Unavailable Unavailable Leonid, L Hafsa PA Unavailable Unavailable Leonid, L Hafsa PA Unavailable Unavailable Leonid, L Hafsa PA Unavailable Unavailable Andrzej, F Lakesha Unavailable Unavailable Andrzej, F Lakesha Unavailable Unavailable Andrzej, F Lakesha Unavailable Unavailable Andrzej, F Lakesha REYES Unavailable Unavailable Andrzej, F Lakesha Unavailable Unavailable Andrzej, F Lakesha Unavailable Unavailable Andrzej, F Lakesha Unavailable Unavailable Andrzej, F Lakesha Unavailable Unavailable Andrzej, F Lakesha Unavailable Unavailable Andrzej, F Lakesha Unavailable Unavailable Andrzej, F Lakesha Unavailable Unavailable Andrzej, F Lakesha Unavailable Unavailable Andrzej, F Lakesha Unavailable Unavailable Andrzej, F Lakesha Unavailable Unavailable Andrzej, F Lakesha Unavailable Unavailable Andrzej, F Lakesha MD Unavailable Unavailable Andrzej, F Lakesha MD Unavailable Unavailable Andrzej, F Lakesha REYES Unavailable Unavailable Andrzej, F Lakesha Unavailable Unavailable Andrzej, F Lakesha Unavailable Unavailable Andrzej, F Lakesha Unavailable Unavailable Andrzej, F Lakesha Unavailable Unavailable Andrzej, F Lakesha REYES Unavailable Unavailable Andrzej, F Lakesha REYES Unavailable Unavailable Andrzej, F Lakesha REYES Unavailable Unavailable Andrzej, F Lakesha REYES Unavailable Unavailable Andrzej, F Lakesha REYES Unavailable Unavailable Andrzej, F Lakesha REYES Unavailable Unavailable Andrzej, F Lakesha REYES Unavailable Unavailable Andrzej, F Lakesha REYES Unavailable Unavailable Andrzej, F Lakesha REYES Unavailable Unavailable Andrzej, F Lakesha REYES Unavailable Unavailable Andrzej, F Lakesha REYES Unavailable Unavailable Andrzej, F Lakesha MD Unavailable Unavailable Andrzej, F Lakesha REYES Unavailable Unavailable Andrzej, F Lakesha REYES Unavailable Unavailable Andrzej, F Lakesha REYES Unavailable Unavailable Andrzej, F Lakesha REYES Unavailable Unavailable Andrzej, F Lakesha REYES Unavailable Unavailable Andrzej, F Lakesha REYES Unavailable Unavailable Mackenzie BOYER MD Unavailable Unavailable Mackenzie BOYER MD Unavailable Unavailable Mackenzie BOYER MD Unavailable Unavailable Mackenzie BOYER MD Unavailable Unavailable Mackenzie BOYER MD Unavailable Unavailable Mackenzie BOYER MD Unavailable Unavailable Mackenzie BOYER MD Unavailable Unavailable BOYERMackenzie Cedeño MD Unavailable Unavailable BOYERMackenzie MD Unavailable Unavailable BOYER E BRIANDA REYES Unavailable Unavailable BOYERMackenzie MD Unavailable Unavailable BOYER E BRIANDA REYES Unavailable Unavailable BOYER E BRIANDA REYES Unavailable Unavailable BOYER E BRIANDA REYES Unavailable Unavailable BOYER E BRIANDA REYES Unavailable Unavailable BOYER E BRIANDA REYES Unavailable Unavailable BOYER E BRIANDA REYES Unavailable Unavailable BOYER E BRIANDA REYES Unavailable Unavailable BOYER E BRIANDA REYES Unavailable Unavailable BOYER E BRIANDA REYES Unavailable Unavailable BOYER E BRIANDA REYES Unavailable Unavailable BOYERMackenzie MD Unavailable Unavailable BOYERMackenzie MD Unavailable Unavailable BOYERMackenzie MD Unavailable Unavailable BOYERMackenzie MD Unavailable Unavailable BOYER E BRIANDA REYES Unavailable Unavailable BOYER E BRIANDA REYES Unavailable Unavailable BOYER E BRIANDA REYES Unavailable Unavailable BOYER E BRIANDA REYES Unavailable Unavailable BOYER E BRIANDA REYES Unavailable Unavailable BOYER E BRIANDA REYES Unavailable Unavailable BOYERMackenzie MD Unavailable Unavailable BOYERMackenzie MD Unavailable Unavailable BOYERMackenzie MD Unavailable Unavailable BOYER E BRIANDA REYES Unavailable Unavailable BOYER E BRIANDA REYES Unavailable Unavailable BOYERMackenzie MD Unavailable Unavailable BOYERMackenzie MD Unavailable Unavailable BOYERMackenzie MD Unavailable Unavailable Mackenzie BOYER MD Unavailable Unavailable BOYER E BRIANDA REYES Unavailable Unavailable Mackenzie BOYER MD Unavailable Unavailable BOYER, E BRIANDA REYES Unavailable Unavailable BOYER, E BRIANDA REYES Unavailable Unavailable BOYERMackenzie Cedeño MD Unavailable Unavailable BOYERMackenzie Cedeño MD Unavailable Unavailable Mackenzie BOYER MD Unavailable Unavailable Mackenzie BOYER MD Unavailable Unavailable BOYERMackenzie Cedeño MD Unavailable Unavailable Mackenzie BOYER MD Unavailable Unavailable BOYERMackenzie Cedeño MD Unavailable Unavailable Mackenzie BOYER MD Unavailable Unavailable Mackenzie BOYER MD Unavailable Unavailable BOYERMackenzie Cedeño MD Unavailable Unavailable Mackenzie BOYER MD Unavailable Unavailable Mackenzie BOYER MD Unavailable Unavailable Mackenzie BOYER MD Unavailable Unavailable Angelica Mckee MD Unavailable Unavailable Angelica Mckee MD Unavailable Unavailable Angelica Mckee MD Unavailable Unavailable Angelica Mckee MD Unavailable Unavailable Angelica Mckee MD Unavailable Unavailable Angelica Mckee MD Unavailable Unavailable Angelica Mckee MD Unavailable Unavailable Angelica Mckee MD Unavailable Unavailable Angelica Mckee MD Unavailable Unavailable Angelica Mckee MD Unavailable Unavailable Angelica Mckee MD Unavailable Unavailable Angelica Mckee MD Unavailable Unavailable Angelica Mckee MD Unavailable Unavailable Angelica Mckee MD Unavailable Unavailable Angelica Mckee MD Unavailable Unavailable Angelica Mckee MD Unavailable Unavailable Angelica Mckee MD Unavailable Unavailable Angelica Mckee MD Unavailable Unavailable Angelica Mckee MD Unavailable Unavailable Angelica Mckee MD Unavailable Unavailable Angelica Mckee MD Unavailable Unavailable Angelica Mckee MD Unavailable Unavailable Angelica Mckee MD Unavailable Unavailable Angelica Mckee MD Unavailable Unavailable Angelica Mckee MD Unavailable Unavailable Angelica Mckee MD Unavailable Unavailable Angelica Mckee MD Unavailable Unavailable Angelica Mckee MD Unavailable Unavailable Angelica Mckee MD Unavailable Unavailable Angelica Mckee MD Unavailable Unavailable Angelica Mckee MD Unavailable Unavailable Angelica Mckee MD Unavailable Unavailable Angelica Mckee MD Unavailable Unavailable Angelica Mckee MD Unavailable Unavailable Angelica Mckee MD Unavailable Unavailable Angelica Mckee MD Unavailable Unavailable Angelica Mckee MD Unavailable Unavailable Angelica Mckee MD Unavailable Unavailable Angelica Mckee MD Unavailable Unavailable Angelica Mckee MD Unavailable Unavailable Angelica Mckee MD Unavailable Unavailable Angelica Mckee MD Unavailable Unavailable Angelica Mckee MD Unavailable Unavailable Angelica Mckee MD Unavailable Unavailable Angelica Mckee MD Unavailable Unavailable Angelica Mckee MD Unavailable Unavailable Angelica Mckee MD Unavailable Unavailable Angelica Mckee MD Unavailable Unavailable Angelica Mckee MD Unavailable Unavailable Angelica Mckee MD Unavailable Unavailable Angelica Mckee MD Unavailable Unavailable Angelica Mckee MD Unavailable Unavailable Angelica Mckee MD Unavailable Unavailable Angelica Mckee MD Unavailable Unavailable Angelica Mckee MD Unavailable Unavailable Angelica Mckee MD Unavailable Unavailable Angelica Mckee MD Unavailable Unavailable Angelica Mckee MD Unavailable Unavailable Angelica Mckee MD Unavailable Unavailable Angelica Mckee MD Unavailable Unavailable Angelica Mckee MD Unavailable Unavailable Angelica Mckee MD Unavailable Unavailable Angelica Mckee MD Unavailable Unavailable Angelica Mckee MD Unavailable Unavailable Angelica Mckee MD Unavailable Unavailable Angelica Mckee MD Unavailable Unavailable Angelica Mckee MD Unavailable Unavailable Angelica Mckee MD Unavailable Unavailable Angelica Mckee MD Unavailable Unavailable Angelica Mckee MD Unavailable Unavailable Angelica Mckee MD Unavailable Unavailable Angelica Mckee MD Unavailable Unavailable Man MCNULTY DO Unavailable [phone] AWILDA, A. CELIO DO Unavailable +[phone]) 79 Man MCNULTY CELIO DO Unavailable +011(315) 79 AWILDAMan CELIO DO Unavailable +011(315) 79 AWILDAMan CELIO DO Unavailable +011(315) 79 AWILDAMan CELIO DO Unavailable +011(315) 79 AWILDAManEW DO Unavailable +011(315) 79 AWILDAMan CELIO DO Unavailable +011(315) 79 AWILDAMan CELIO DO Unavailable +011(315) 79 AWILDAManEW DO Unavailable +011(315) 79 AWILDAMan CELIO DO Unavailable +011(315) 79 AWILDAManEW DO Unavailable +011(315) 79 AWILDA Man CELIO DO Unavailable +011(315) 79 AWILDA Man CELIO DO Unavailable +011(315) 79 AWILDAMan CELIO DO Unavailable +011(315) 79 AWILDAMan CELIO DO Unavailable +011(315) 79 AWILDAManEW DO Unavailable +011(315) 79 AWILDAManEW DO Unavailable +011(315) 79 AWILDAManEW DO Unavailable +011(315) 79 AWILDAManEW DO Unavailable +011(315) 79 AWILDAManEW DO Unavailable +011(315) 79 ANTECOL, Cody SHAVER MD Unavailable Unavailable ANTECOL, Cody SHAVER MD Unavailable Unavailable ANTECOL, Cody SHAVER MD Unavailable Unavailable ANTECOL, Cody SHAVER MD Unavailable Unavailable ANTECOL, Cody SHAVER MD Unavailable Unavailable ANTECOL, Cody SHAVER MD Unavailable Unavailable ANTECOL, Cody SHAVER MD Unavailable Unavailable ANTECOL, Cody SHAVER MD Unavailable Unavailable ANTECOL, Cody SHAVER MD Unavailable Unavailable ANTECOL, Cody SHAVER MD Unavailable Unavailable ANTECOL, Cody SHAVER MD Unavailable Unavailable ANTECOL, Cody SHAVER MD Unavailable Unavailable ANTECOL, Cody SHAVER MD Unavailable Unavailable ANTECOL, Cody SHAVER MD Unavailable Unavailable ANTECOL, Cody SHAVER MD Unavailable Unavailable ANTECOL, Cody SHAVER MD Unavailable Unavailable ANTECOL, Cody SHAVER MD Unavailable Unavailable ANTECOL, Cody SHAVER MD Unavailable Unavailable ANTECOL, Cody SHAVER MD Unavailable Unavailable ANTECOL, Cody SHAVER MD Unavailable Unavailable ANTECOL, Cody SHAVER MD Unavailable Unavailable ANTECOL, Cody SHAVER MD Unavailable Unavailable ANTECOL, Cody SHAVER MD Unavailable Unavailable ANTECOL, Cody SHAVER MD Unavailable Unavailable ANTECOL, Cody SHAVER MD Unavailable Unavailable ANTECOL, Cody SHAVER MD Unavailable Unavailable ANTECOL, Cody SHAVER MD Unavailable Unavailable ANTECOL, Cody SHAVER MD Unavailable Unavailable ANTECOL, Cody SHAVER MD Unavailable Unavailable ANTECOL, Cody SHAVER MD Unavailable Unavailable ANTECOL, Cody SHAVER MD Unavailable Unavailable ANTECOL, Cody SHAVER MD Unavailable Unavailable ANTECOL, Cody SHAVER MD Unavailable Unavailable ANTECOL, Cody SHAVER MD Unavailable Unavailable ANTECOL, Cody SHAVER MD Unavailable Unavailable ANTECOL, Cody SHAVER MD Unavailable Unavailable ANTECOL, Cody SHAVER MD Unavailable Unavailable ANTECOL, Cody SHAVER MD Unavailable Unavailable ANTECOL, Cody SHAVER MD Unavailable Unavailable ANTECOL, Cody SHAVER MD Unavailable Unavailable ANTECOL, Cody SHAVER MD Unavailable Unavailable ANTECOL, Cody SHAVER MD Unavailable Unavailable ANTECOL, Cody SHAVER MD Unavailable Unavailable ANTECOL, Cody SHAVER MD Unavailable Unavailable ANTECOL, Cody SHAVER MD Unavailable Unavailable ANTECOL, Cody SHAVER MD Unavailable Unavailable ANTECOL, Cody SHAVER MD Unavailable Unavailable ANTECOL, Cody SHAVER MD Unavailable Unavailable ANTECOL, Cody SHAVER MD Unavailable Unavailable ANTECOL, Cody SHAVER MD Unavailable Unavailable ANTECOL, Cody SHAVER MD Unavailable Unavailable ANTECOL, Cody SHAVER MD Unavailable Unavailable ANTECOL, Cody SHAVER MD Unavailable Unavailable ANTECOL, Cody SHAVER MD Unavailable Unavailable ANTECOL, Cody SHAVER MD Unavailable Unavailable Lisa, Maggie SCREEN MAKING SUPERVISOR Unavailable Unavailable Lisa, Maggie SCREEN MAKING SUPERVISOR Unavailable Unavailable Lisa, Maggie SCREEN MAKING SUPERVISOR Unavailable Unavailable Lisa, Maggie SCREEN MAKING SUPERVISOR Unavailable Unavailable Lisa, Maggie SCREEN MAKING SUPERVISOR Unavailable Unavailable Lisa, Maggie SCREEN MAKING SUPERVISOR Unavailable Unavailable Lisa, Maggie SCREEN MAKING SUPERVISOR Unavailable Unavailable Lisa, Maggie SCREEN MAKING SUPERVISOR Unavailable Unavailable Lisa, Maggie SCREEN MAKING SUPERVISOR Unavailable Unavailable Lisa, Maggie SCREEN MAKING SUPERVISOR Unavailable Unavailable Lisa, Maggie SCREEN MAKING SUPERVISOR Unavailable Unavailable Lisa, Maggie SCREEN MAKING SUPERVISOR Unavailable Unavailable Lisa, Maggie SCREEN MAKING SUPERVISOR Unavailable Unavailable Lisa, Maggie SCREEN MAKING SUPERVISOR Unavailable Unavailable Lisa, Maggie SCREEN MAKING SUPERVISOR Unavailable Unavailable Lisa, Maggie SCREEN MAKING SUPERVISOR Unavailable Unavailable Lisa, Maggie SCREEN MAKING SUPERVISOR Unavailable Unavailable Lisa, Maggie SCREEN MAKING SUPERVISOR Unavailable Unavailable Lisa, Maggie SCREEN MAKING SUPERVISOR Unavailable Unavailable Lisa, Maggie SCREEN MAKING SUPERVISOR Unavailable Unavailable Lisa, Maggie SCREEN MAKING SUPERVISOR Unavailable Unavailable Lisa, Maggie SCREEN MAKING SUPERVISOR Unavailable Unavailable Lisa, Maggie SCREEN MAKING SUPERVISOR Unavailable Unavailable Lisa, Maggie SCREEN MAKING SUPERVISOR Unavailable Unavailable Lisa, Maggie SCREEN MAKING SUPERVISOR Unavailable Unavailable Lisa, Maggie SCREEN MAKING SUPERVISOR Unavailable Unavailable Lisa, Maggie SCREEN MAKING SUPERVISOR Unavailable Unavailable Lisa, Maggie SCREEN MAKING SUPERVISOR Unavailable Unavailable Lisa, Maggie SCREEN MAKING SUPERVISOR Unavailable Unavailable Lisa, Maggie SCREEN MAKING SUPERVISOR Unavailable Unavailable Lisa, Maggie SCREEN MAKING SUPERVISOR Unavailable Unavailable Lisa, Maggie SCREEN MAKING SUPERVISOR Unavailable Unavailable Lisa, Maggie SCREEN MAKING SUPERVISOR Unavailable Unavailable Lisa, Maggie SCREEN MAKING SUPERVISOR Unavailable Unavailable Lisa, Maggie SCREEN MAKING SUPERVISOR Unavailable Unavailable Lisa, Maggie SCREEN MAKING SUPERVISOR Unavailable Unavailable Lisa, Maggie SCREEN MAKING SUPERVISOR Unavailable Unavailable Lisa, Maggie SCREEN MAKING SUPERVISOR Unavailable Unavailable Lisa, Maggie SCREEN MAKING SUPERVISOR Unavailable Unavailable Lisa, Maggie SCREEN MAKING SUPERVISOR Unavailable Unavailable ARNOLD, P CARLOS MD Unavailable Unavailable ARNOLD, P CARLOS MD Unavailable Unavailable ARNOLD, P CARLOS MD Unavailable Unavailable ARNOLD, P CARLOS MD Unavailable Unavailable ARNOLD, P CARLOS MD Unavailable Unavailable ARNOLD, P CARLOS MD Unavailable Unavailable ARNOLD, P CARLOS MD Unavailable Unavailable ARNOLD, P CARLOS MD Unavailable Unavailable ARNOLD, P CARLOS MD Unavailable Unavailable ARNOLD, P CARLOS MD Unavailable Unavailable ARNOLD, P CARLOS MD Unavailable Unavailable ARNOLD, P CARLOS MD Unavailable Unavailable ARNOLD, P CARLOS MD Unavailable Unavailable ARNOLD, P CARLOS MD Unavailable Unavailable ARNOLD, P CARLOS MD Unavailable Unavailable ARNOLD, P CARLOS MD Unavailable Unavailable ARNOLD, P CARLOS MD Unavailable Unavailable ARNOLD, P CARLOS MD Unavailable Unavailable ARNOLD, P CARLOS MD Unavailable Unavailable ARNOLD, P CARLOS MD Unavailable Unavailable ARNOLD, P CARLOS MD Unavailable Unavailable ARNOLD, P CARLOS MD Unavailable Unavailable ARNOLD, P CARLOS MD Unavailable Unavailable ARNOLD, P CARLOS MD Unavailable Unavailable ARNOLD, P CARLOS MD Unavailable Unavailable ARNOLD, P CARLOS MD Unavailable Unavailable ARNOLD, P CARLOS MD Unavailable Unavailable ARNOLD, P CARLOS MD Unavailable Unavailable ARNOLD, P CARLOS MD Unavailable Unavailable ARNOLD, P CARLOS MD Unavailable Unavailable ARNOLD, P CARLOS MD Unavailable Unavailable ARNOLD, P CARLOS MD Unavailable Unavailable ARNOLD, P CARLOS MD Unavailable Unavailable ARNOLD, P CARLOS MD Unavailable Unavailable Jumalon, M Shara FRONT END WEB DESIGNER Unavailable Unavailable Jumalon, M Shara FRONT END WEB DESIGNER Unavailable Unavailable Jumalon, M Shara FRONT END WEB DESIGNER Unavailable Unavailable Jumalon, M Shara FRONT END WEB DESIGNER Unavailable Unavailable Jumalon, M Shara FRONT END WEB DESIGNER Unavailable Unavailable Jumalon, M Shara FRONT END WEB DESIGNER Unavailable Unavailable Jumalon, M Shara FRONT END WEB DESIGNER Unavailable Unavailable Jumalon, M Shara FRONT END WEB DESIGNER Unavailable Unavailable Jumalon, M Shara FRONT END WEB DESIGNER Unavailable Unavailable Jumalon, M Shara FRONT END WEB DESIGNER Unavailable Unavailable Jumalon, M Shara FRONT END WEB DESIGNER Unavailable Unavailable Jumalon, M Shara FRONT END WEB DESIGNER Unavailable Unavailable Jumalon, M Shara FRONT END WEB DESIGNER Unavailable Unavailable Jumalon, M Shara FRONT END WEB DESIGNER Unavailable Unavailable Jumalon, M Shara FRONT END WEB DESIGNER Unavailable Unavailable Jumalon, M Shara FRONT END WEB DESIGNER Unavailable Unavailable Jumalon, M Shara FRONT END WEB DESIGNER Unavailable Unavailable Jumalon, M Shara FRONT END WEB DESIGNER Unavailable Unavailable Jumalon, M Shara FRONT END WEB DESIGNER Unavailable Unavailable Jumalon, M Shara FRONT END WEB DESIGNER Unavailable Unavailable Jumalon, M Shara FRONT END WEB DESIGNER Unavailable Unavailable Jumalon, M Shara FRONT END WEB DESIGNER Unavailable Unavailable Jumalon, M Shara FRONT END WEB DESIGNER Unavailable Unavailable Jumalon, M Shara FRONT END WEB DESIGNER Unavailable Unavailable Jumalon, M Shara FRONT END WEB DESIGNER Unavailable Unavailable Jumalon, M Shara FRONT END WEB DESIGNER Unavailable Unavailable Jumalon, M Shara FRONT END WEB DESIGNER Unavailable Unavailable Jumalon, M Shara FRONT END WEB DESIGNER Unavailable Unavailable Shana RAGSDALE Unavailable [phone] Shana RAGSDALE Unavailable [phone] Shana RAGSDALE Unavailable [phone] Shana RAGSDALE Unavailable [phone] Shana RAGSDALE Unavailable [phone] Bartoszemarysol, Rivka Diop MS, RPA-C Unavailable Unav ailable Bartoszewsena, Rivka Calderonle MS, RPA-C Unavailable Unav ailable Bartoszemarysol, Rivka Calderonle MS, RPA-C Unavailable Unav ailable Bartoszewski, Rivka Calderonle MS, RPA-C Unavailable Unav ailable Bartoszewski, Rivka Calderonle MS, RPA-C Unavailable Unav ailable Bartoszemarysol, Rivka Calderonle MS, RPA-C Unavailable Unav ailable Bartoszewski, Rivka Chikis MS, RPA-C Unavailable Unav ailable Bartoszewski, Rivka Chikis MS, RPA-C Unavailable Unav ailable Bartoszewski, Rivka Chikis MS, RPA-C Unavailable Unav ailable Bartoszewski, Rivka Chikis MS, RPA-C Unavailable Unav ailable Bartoszewski, Rivka Chikis MS, RPA-C Unavailable Unav ailable Bartoszewski, Rivka Chikis MS, RPA-C Unavailable Unav ailable Bartoszewski, Rivka Chikis MS, RPA-C Unavailable Unav ailable Bartoszewski, Rivka Chikis MS, RPA-C Unavailable Unav ailable Bartoszewski, Rivka Chikis MS, RPA-C Unavailable Unav ailable Bartoszewski, Rivka Chikis MS, RPA-C Unavailable Unav ailable Bartoszewski, Rivka Chikis MS, RPA-C Unavailable Unav ailable Bartoszewski, Rivka Chikis MS, RPA-C Unavailable Unav ailable Bartoszewski, Rivka Chikis MS, RPA-C Unavailable Unav ailable Bartoszewski, Rivka Chikis MS, RPA-C Unavailable Unav ailable Bartoszewski, Rivka Chikis MS, RPA-C Unavailable Unav ailable Bartoszewski, Rivka Chikis MS, RPA-C Unavailable Unav ailable Bartoszewski, Rivka Chikis MS, RPA-C Unavailable Unav ailable Bartoszewski, Rivka Chikis MS, RPA-C Unavailable Unav ailable Bartoszewski, Rivka Chikis MS, RPA-C Unavailable Unav ailable Bartoszewski, Rivka Chikis MS, RPA-C Unavailable Unav ailable Bartoszewski, Rivka Chikis MS, RPA-C Unavailable Unav ailable Bartoszewski, Rivka Chikis MS, RPA-C Unavailable Unav ailable Bartoszewski, Rivka Chikis MS, RPA-C Unavailable Unav ailable Leonid, L Hafsa PA Unavailable Unavailable Leonid, Kamille Pereyra PA Unavailable Unavailable LeonidKamille PA Unavailable Unavailable LeonidKamille PA Unavailable Unavailable Leonid, Kamille Pereyra PA Unavailable Unavailable Leonid, L Hafsa PA Unavailable Unavailable Leonid, L Hafsa PA Unavailable Unavailable Leonid, L Hafsa PA Unavailable Unavailable Leonid, L Hafsa PA Unavailable Unavailable Leonid, L Hafsa PA Unavailable Unavailable Leonid, L Hafsa PA Unavailable Unavailable Leonid, L Hafsa PA Unavailable Unavailable Leonid, L Hafsa PA Unavailable Unavailable Leonid, L Hafsa PA Unavailable Unavailable Leonid, L Hafsa PA Unavailable Unavailable Leonid, L Hafsa PA Unavailable Unavailable Leonid, L Hafsa PA Unavailable Unavailable Leonid, L Hafsa PA Unavailable Unavailable Leonid, L Hafsa PA Unavailable Unavailable Leonid, L Hafsa PA Unavailable Unavailable Leonid, L Hafsa PA Unavailable Unavailable HUIZENGA, Angelica BRANDON DO Unavailable Unavailable HUIZENGA, Angelcia HAHNON DO Unavailable Unavailable HUIZENGA, Angelica BRANDON DO Unavailable Unavailable HUIZENGA, Angelica BRANDON DO Unavailable Unavailable HUIZENGA, Angelica BRANDON DO Unavailable Unavailable HUIZENGA, Angelica BRANDON DO Unavailable Unavailable HUIZENGA, Angelica BRANDON DO Unavailable Unavailable HUIZENGA, Angelica BRANDON DO Unavailable Unavailable HUIZENGA, Angelica BRANDON DO Unavailable Unavailable HUIZENGA, Angelica BRANDON DO Unavailable Unavailable HUIZENGA, Angelica BRANDON DO Unavailable Unavailable HUIZENGA, Angelica BRANDON DO Unavailable Unavailable HUIZENGA, Angelica BRANDON DO Unavailable Unavailable HUIZENGA, Angelica BRANDON DO Unavailable Unavailable HUIZENGA, Angelica BRANDON DO Unavailable Unavailable HUIZENGA, Angelica BRANDON DO Unavailable Unavailable HUIZENGA, Angelica BRANDON DO Unavailable Unavailable HUIZENGA, Angelica BRANDON DO Unavailable Unavailable HUIZENGA, Angelica BRANDON DO Unavailable Unavailable HUIZENGA, Angelica BRANDON DO Unavailable Unavailable HUIZENGA, Angelica BRANDON DO Unavailable Unavailable HUIZENGA, Angelica BRANDON DO Unavailable Unavailable HUIZENGA, Angelica BRANDON DO Unavailable Unavailable HUIZENGA, Angelica BRANDON DO Unavailable Unavailable HUIZENGA, Angelica BRANDON DO Unavailable Unavailable HUIZENGA, Angelica BRANDON DO Unavailable Unavailable HUIZENGA, Angelica BRANDON DO Unavailable Unavailable HUIZENGA, Angelica BRANDON DO Unavailable Unavailable HUIZENGA, Angelica BRANDON DO Unavailable Unavailable HUIZENGA, Angelica BRANDON DO Unavailable Unavailable HUIZENGA, Angelica BRANDON DO Unavailable Unavailable HUIZENGA, Angelica BRANDON DO Unavailable Unavailable HUIZENGA, Angelica BRANDON DO Unavailable Unavailable HUIZENGA, Angelica BRANDON DO Unavailable Unavailable HUIZENGA, Angelica BRANDON DO Unavailable Unavailable HUIZENGA, Angelica BRANDON DO Unavailable Unavailable HUIZENGA, Angelica BRANDON DO Unavailable Unavailable HUIZENGA, Angelica BRANDON DO Unavailable Unavailable HUIZENGA, Angelica BRANDON DO Unavailable Unavailable HUIZENGA, Angelica BRANDON DO Unavailable Unavailable HUIZENGA, Angelica BRANDON DO Unavailable Unavailable HUIZENGA, Angelica BRANDON DO Unavailable Unavailable HUIZENGA, Angelica BRANDON DO Unavailable Unavailable HUIZENGA, Angelica BRANDON DO Unavailable Unavailable HUIZENGA, Angelica BRANDON DO Unavailable Unavailable HUIZENGA, Angelica BRANDON DO Unavailable Unavailable HUIZENGA, Angelica BRANDON DO Unavailable Unavailable HUIZENGA, Angelica BRANDON DO Unavailable Unavailable HUIZENGA, Angelica BRANDON DO Unavailable Unavailable HUIZENGA, Angelica BRANDON DO Unavailable Unavailable HUIZENGA, Angelica BRANDON DO Unavailable Unavailable HUIZENGA, Angelica BRANDON DO Unavailable Unavailable HUIZENGA, Angelica BRANDON DO Unavailable Unavailable HUIZENGA, Angelica BRANDON DO Unavailable Unavailable HUIZENGA, Angelica BRANDON DO Unavailable Unavailable HUIZENGA, Angelica BRANDON DO Unavailable Unavailable HUIZENGA, Angelica BRANDON DO Unavailable Unavailable HUIZENGA, Angelica BRANDON DO Unavailable Unavailable HUIZENGA, Angelica BRANDON DO Unavailable Unavailable HUIZENGA, Angelica BRANDON DO Unavailable Unavailable HUIZENGA, Angelica BRANDON DO Unavailable Unavailable HUIZENGA, Angelica BRANDON DO Unavailable Unavailable HUIZENGA, Angelica BRANDON DO Unavailable Unavailable HUIZENGA, Angelica BRANDON DO Unavailable Unavailable HUIZENGA, Angelica BRANDON DO Unavailable Unavailable HUIZENGA, Angelica BRANDON DO Unavailable Unavailable HUIZENGA, Angelica BRANDON DO Unavailable Unavailable HUIZENGA, Angelica BRANDON DO Unavailable Unavailable HUIZENGA, Angelica BRANDON DO Unavailable Unavailable HUIZENGA, Angelica BRANDON DO Unavailable Unavailable HUIZENGA, Angelica BRANDON DO Unavailable Unavailable HUIZENGA, Angelica BRANDON DO Unavailable Unavailable HUIZENGA, Angelica BRANDON DO Unavailable Unavailable Davidson Vargas MD Unavailable Unavailable Davidson Vargas MD Unavailable Unavailable Davidson Vargas MD Unavailable Unavailable Davidson Vargas MD Unavailable Unavailable Davidson Vargas MD Unavailable Unavailable Davidson Vargas MD Unavailable Unavailable Bolla, Davidson Hernandez MD Unavailable Unavailable Bolla, Davidson Hernandez MD Unavailable Unavailable Bolla, S David REYES Unavailable Unavailable Bolla, S David REYES Unavailable Unavailable Bolla, S David REYES Unavailable Unavailable Bolla, Davidson Hernandez MD Unavailable Unavailable Bolla, S David REYES Unavailable Unavailable Bolla, Davidson Hernandez MD Unavailable Unavailable Bolla, S David REYES Unavailable Unavailable Bolla, Davidson Hernandez MD Unavailable Unavailable Bolla, Davidson Hernandez MD Unavailable Unavailable Bolla, Davidson Hernandez MD Unavailable Unavailable Bolla, Davidson Hernandez MD Unavailable Unavailable Bolla, Davidson Hernandez MD Unavailable Unavailable Bolla, S David REYES Unavailable Unavailable Bolla, S David REYES Unavailable Unavailable Bolla, S David REYES Unavailable Unavailable Bolla, Davidson Hernandez MD Unavailable Unavailable Bolla, S David REYES Unavailable Unavailable Bolla, Davidson Hernandez MD Unavailable Unavailable Bolla, Davidson Hernandez MD Unavailable Unavailable Bolla, Davidson Hernandez MD Unavailable Unavailable Bolla, Davidson Hernandez MD Unavailable Unavailable Bolla, Davidson Hernandez MD Unavailable Unavailable Bolla, Davidson Hernandez MD Unavailable Unavailable Bolla, Davidson Hernandez MD Unavailable Unavailable Bolla, Davidson Hernandez MD Unavailable Unavailable Bolla, Davidson Hernandez MD Unavailable Unavailable Bolla, Davidson Hernandez MD Unavailable Unavailable Bolla, S David REYES Unavailable Unavailable Bolla, S David REYES Unavailable Unavailable Bolla, S David REYES Unavailable Unavailable Bolla, Davidson Hernandez MD Unavailable Unavailable Bolla, Davidson Hernandez MD Unavailable Unavailable Bolla, Davidson Hernandez MD Unavailable Unavailable Bolla, Davidson Hernandez MD Unavailable Unavailable Bolla, Davidson Hernandez MD Unavailable Unavailable Bolla, S David REYES Unavailable Unavailable Bolla, Davidson Hernandez MD Unavailable Unavailable Bolla, Davidson Hernandez MD Unavailable Unavailable Bolla, S David REYES Unavailable Unavailable Bolla, S David REYES Unavailable Unavailable Re-disclosure Warning The records that you are about to access may contain information from federally-assisted alcohol or drug abuse programs. If such information is present, then the following federally mandated warning applies: This information has been disclosed to you from records protected by federal confidentiality rules (42 CFR part 2). The federal rules prohibit you from making any further disclosure of this information unless further disclosure is expressly permitted by the written consent of the person to whom it pertains or as otherwise permitted by 42 CFR part 2. A general authorization for the release of medical or other information is NOT sufficient for this purpose. The Federal rules restrict any use of the information to criminally investigate or prosecute any alcohol or drug abuse patient.The records that you are about to access may contain highly sensitive health information, the redisclosure of which is protected by Article 27-F of the [facility] Public Health law. If you continue you may have access to information: Regarding HIV / AIDS; Provided by facilities licensed or operated by the [facility] Office of Mental Health; or Provided by the [facility] Office for People With Developmental Disabilities. If such information is present, then the following [facility] mandated warning applies: This information has been disclosed to you from confidential records which are protected by state law. State law prohibits you from making any further disclosure of this information without the specific written consent of the person to whom it pertains, or as otherwise permitted by law. Any unauthorized further disclosure in violation of state law may result in a fine or mcc sentence or both. A general authorization for the release of medical or other information is NOT sufficient authorization for further disc losure. Allergies and Adverse Reactions Type Description Substance Reaction Status Data Source(s ) IVP Dye - hives, tongue swelling IVP Dye - hives, tongue swe lling IVP Dye - hives, tongue swelling active NETSMART ([facility]) Crestor - myalgia - side effects Crestor - myalgia - side ef fects Crestor - myalgia - side effects active NETSMART ([facility]) Drug allergy MDX - Iopamidol MDX - Iopamidol ANAPHYLAXIS [facility] Drug allergy MDX - Iodine MDX - Iodine ANAPHYLAXIS [facility] Drug allergy rosuvastatin rosuvastatin HIVES [facility] Drug allergy Crestor rosuvastatin myalgia Active eCW1 ([facility]) ivp dye ivp dye ivp dye Hives/tongue swelling Active eC W1 ([facility]) ivp dye ivp dye ivp dye Hives/tongue swelling Active eC W1 ([facility]) Drug allergy Crestor Crestor Active [facility]NETT (Manish Heath MD [facility]) Drug allergy Iodine Tincture External Iodine Tincture Acti ve [facility] (Sivakumar Heath MD [facility]) Allergy to substance Active Latex Active [facility] [place] (Sivakumar Heath MD [facility]) Drug allergy Crestor Crestor Active [facility] (Manish Heath MD [facility]) Drug allergy Iodine Tincture External Iodine Tincture Acti ve [place] (Sivakumar Heath MD [facility]) Allergy to substance Active Latex Active [place] (Sivakumar Heath MD [facility]) Drug allergy Crestor 10 MG Oral Tablet Crestor 10 MG Oral Tablet Active [facility] (Sivakumar Heath MD [facility]) Drug allergy Iodine Tincture External Iodine Tincture External Active [facility] (Sivakumar Heath MD [facility]) Allergy to substance Active Latex Active [facility] [place] (Sivakumar Heath MD [facility]) Family History Family Member Name Family Member Gender Family Member Status Date o f Status Description Data Source(s) Unknown Male Problem MEDENT ([facility]) Unknown Male Problem MEDENT ([facility]) Encounters Encounter Providers Location Date Indications Data Source(s ) ( GYNANN) [facility] 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 Exam [address] [place] [address] 10/03/2020 12:00:00 AM EST eCW1 ([facility]) Unknown [address] [facility] [id number] 09/28/2020 12:00:00 AM EST eCW1 ([facility]) Unknown [address] [facility] [address] 09/25/2020 12:00:00 AM EST eCW1 ([facility]) Office Visit Attender: SIVAKUMAR TRENT MD Main Office 09/24/2020 09: 00:00 AM EST MEDENT ([facility]) Unknown [address] [facility] [id number] 09/22/2020 12:00:00 AM EST eCW1 ([facility]) Unknown [address] [facility] [id number] 09/19/2020 12:00:00 AM EST eCW1 ([facility]) Unknown [address] [facility] [id number] 09/18/2020 12:00:00 AM EST eCW1 ([facility]) [place] [address] [facility] [address] 09/16/2020 12:00:00 AM EST eCW1 ([facility]) [place] [address] [facility] [address] 08/27/2020 12:00:00 AM EST eCW1 ([facility]) Unknown [address] [facility] [address] 08/27/2020 12:00:00 AM EST eCW1 ([facility]) Outpatient<td ID="encounterTypeDescripti onID0">2 Week Follow-Up</td><td>Celio Mcnulty DO</td><td>Sivakumar Dave MD [facility]</td><td>08/05/2020</td><td>10:07AM</td><td>11:16AM</td><td><content ID="encounterDiagnosisID0-0">Pseudophakia</content>, <content ID="encounterDiagnosisID0-1">Corneal Transplant Status</content></td> Attender: CELIO Hoskins MD [facility] 08/05/2020 10:07:00 AM EST - 08/05/2020 11:16:00 AM EST Corneal Transplant StatusCorneal Transpl ant StatusPseudophakiaPseudophakia [place] (Sivakumar Heath MD [facility]) Corneal Transplant Status Corneal Transplant Status Pseudophakia Pseudophakia Outpatient 07/31/2020 08:47:00 PM EST stroke vs MS exacerbation [facility] stroke vs MS exacerbation Emergency Attender: GREGORY Muñoz: ROMA RUDOLPH DO EMERGENCY ROOM-ER 07/31/2020 05:43:00 PM EST - 07/31/2020 08:58:00 PM EST [facility] Patient discharged. Outpatient<td ID="encounterTypeDescripti onID1">Yag Laser Capsulotomy - Global: 90 DAY POST OP</td><td>Celio Mcnulty DO</td><td>[facility]</td><td>07/18/2020</td><td>2:24PM</td><td>3:10PM</td><td><content ID="encounterDiagnosisID1-0">Posterior Capsule Opacification Eccentric Capsule Right Eye</content></td> Attender: [facility] 07/18/2020 02:24:00 PM EST - 07/18/2020 03:10:00 PM ES T Posterior Capsule Opacification Eccentric Capsule Right EyePosterior Capsule Opacification Eccentric Capsule Right Eye [facility] ([facility]) Posterior Capsule Opacification Eccentri c Capsule Right Eye Posterior Capsule Opacification Eccentri c Capsule Right Eye Shara Ezekiel Zapata, SCREEN MAKING SUPERVISOR: [id number] [facility] [address], [place] [address], Ph. Attender: Shara Zapata [facility] 07/10/2020 12:00:00 AM EST ATHE NA ([facility]) David Vargas MD: [id number] [facility] [address], [place] [address], Ph. Attender: David Vargas MD [facility] 06/26/2020 12:00:00 AM EDT DANTE ([facility]) David Vargas MD: [id number] [facility] [address], [facility] [place] [address], Ph. Attender: David Vargas MD [facility] 06/26/2020 12:00:00 AM EDT DANTE ([facility]) Outpatient<td ID="encounterTypeDescripti onID2">PACHYMETRY</td><td>Celio Mcnulty DO</td><td>[facility]</td><td>06/23/2020</td><td>2:24PM</td><td>3:59PM</td><td><content ID="encounterDiagnosisID2-0">Pseudophakia</content>, <content ID="encounterDiagnosisID2-1">Posterior Capsule Opacification Eccentric Capsule Right Eye</content>, <content ID="encounterDiagnosisID2-2">Corneal Transplant Status</content>, <content ID="encounterDiagnosisID2-3">Blepharitis Squamous</content></td> Attender: CELIO Hoskins MD [facility] 06/23/2020 02:24:00 PM EDT - 06/23/2020 03:59:00 PM EDT Blepharitis SquamousPosterior Capsule Opacification Eccentric Capsule Right EyeBlepharitis SquamousPosterior Capsule Opacification Eccentric Capsule Right EyeCorneal Transplant StatusCorneal Transplant StatusPseudophakiaPseudophakia [place] (Sivakumar Heath MD [facility]) Blepharitis Squamous Posterior Capsule Opacification Eccentri c Capsule Right Eye Blepharitis Squamous Posterior Capsule Opacification Eccentri c Capsule Right Eye Corneal Transplant Status Corneal Transplant Status Pseudophakia Pseudophakia David Vargas MD: [id number] [facility] [address], [facility] [address], Ph. [phone] Attender: David Vargas MD MD - [facility] - Main Office 06/23/2020 12:00:00 AM EDT DANTE ([facility]) David Vargas MD: [address], [facility] [place] [address], Ph. [phone] Attender: David POPE [facility] 06/23/2020 12:00:00 AM EDT DANTE ([facility]) David Vargas MD: [address], [facility] [place] [id number], Ph. [phone] Attender: David Vargas MD [facility] - Main Office 06/23/2020 12:00:00 AM EDT DANTE ([facility]) Office Visit Attender: BRIANDA BOYER MD Main Office 06/20/2020 11:07:0 0 AM EDT MEDPRIYA ([facility]) Shara Zapata, SCREEN MAKING SUPERVISOR: [address], [place] [address], Ph. Attender: Shara Zapata [facility] - [facility] 06/18/2020 12:00:00 AM EDT ATHMackenzie NA ([facility]) Shara Zapata, SCREEN MAKING SUPERVISOR: [address], [place] [address], Ph. Attender: Shara Zapata [facility] - [facility] 06/18/2020 12:00:00 AM EDT ATHMackenzie NA ([facility]) Shara Zapata, SCREEN MAKING SUPERVISOR: [address], [place] [address], Ph. Attender: Shara Zapata [facility] 06/18/2020 12:00:00 AM EDT ATHMackenzie NA ([facility]) Shara Zapata, SCREEN MAKING SUPERVISOR: [address], [place] [address], Ph. Attender: Shara Zapata [facility] 06/18/2020 12:00:00 AM EDT ATHMackenzie NA ([facility]) Outpatient [address] [facility], [facility] [address] 06/16/2020 12:00:00 AM EDT eCW1 ([facility]) David Vargas MD: [address], [place] [address], Ph. Attender: David Vargas MD MD - [facility] 05/30/2020 12:00:00 AM EDT DANTE ([facility]) David Vargas MD: [address], [place] [address], Ph. Attender: David Vargas MD MD - [facility] 05/30/2020 12:00:00 AM EDT DANTE ([facility]) David Vargas MD: [address], [address], [place] [address], Ph. Attender: David POPE - [facility] 05/30/2020 12:00:00 AM EDT DANTE ([facility]) David Vargas MD: [address], [address], [place] [address], Ph. Attender: David POPE - [facility] 05/30/2020 12:00:00 AM EDT DANTE ([facility]) David Vargas MD: [address], [place] [address], Ph. Attender: David POPE - [facility] 05/30/2020 12:00:00 AM EDT DANTE ([facility]) Office Visit Attender: BRIANDA BOYER MD Main Office 05/28/2020 08:12:0 0 AM EDT MEDPRIYA ([facility]) David Vargas MD: [address], [place] [address], Ph. [phone] Attender: David POPE - [facility] Office 05/26/2020 12:00:00 AM EDT DANTE ([facility]) David Vargas MD: [address] [address], [place] [address], Ph. [phone] Attender: David POPE - [facility] 05/26/2020 12:00:00 AM EDT DNATE ([facility]) David Vargas MD: [address] [address], [place] [address], Ph. [phone] Attender: David POPE - [facility] 05/26/2020 12:00:00 AM EDT DANTE ([facility]) David Vargas MD: [address], [address], [place] [address], Ph. [phone] Attender: David POPE - [facility] 05/26/2020 12:00:00 AM EDT DANTE ([facility]) David Vargas MD: [address], [address], [place] [address], Ph. [phone] Attender: David POPE - [facility] 05/26/2020 12:00:00 AM EDT DANTE ([facility]) David Vargas MD: [address] [address], [place] [address], Ph. [phone] Attender: David POEP - [facility] 05/26/2020 12:00:00 AM EDT DANTE ([facility]) Outpatient<td ID="encounterTypeDescripti onID3">2 Week Follow-Up</td><td>Celio Mcnulty DO</td><td>Sivakumar Dave MD [facility]</td><td>05/23/2020</td><td>2:48PM</td><td>3:27PM</td><td><content ID="encounterDiagnosisID3-0">Corneal Transplant Status</content></td> Attender: CELIO oHskins MD [facility] 05/23/2020 02:48:00 PM EDT - 05/23/2020 03:27:00 PM EDT Corneal Transplant StatusCorneal Transplant Status [place] (Sivakumar Heath MD [facility]) Corneal Transplant Status Corneal Transplant Status David Vargas MD: [address], [place] [address], Ph. Attender: David Vargas MD MD - [facility] 05/16/2020 12:00:00 AM EDT DANTE ([facility]) David Vargas MD: [address], [place] [address], Ph. Attender: David Vargas MD MD - [facility] 05/16/2020 12:00:00 AM EDT DANTE ([facility]) David Vargas MD: [address], [address], [place] [address], Ph. Attender: David Vargas MD MD - [facility] 05/16/2020 12:00:00 AM EDT DANTE ([facility]) David Vargas MD: [address], [address], [place] [address], Ph. Attender: David POPE - [facility] 05/16/2020 12:00:00 AM EDT DANTE ([facility]) David Vargas MD: [address], [address], [place] [address], Ph. Attender: David Vargas MD MD - [facility] 05/16/2020 12:00:00 AM EDT DANTE ([facility]) David Vargas MD: [address], [address], [place] [address], Ph. Attender: David POPE - [facility] 05/16/2020 12:00:00 AM EDT DANTE ([facility]) David Vargas MD: [address], [address], [place] [address], Ph. Attender: David Vargas MD MD - [facility] 05/16/2020 12:00:00 AM EDT DANTE ([facility]) David Vargas MD: [address], [address], [place] [address], Ph. [phone] Attender: David Vargas MD MD - [facility] 05/12/2020 12:00:00 AM EDT DANTE ([facility]) David Vargas MD: [address], [address], [place] [address], Ph. [phone] Attender: David Vragas MD MD - [facility] 05/12/2020 12:00:00 AM EDT DANTE ([facility]) David Vargas MD: [address], [address], [place] [address], Ph. [phone] Attender: David Vargas MD MD - [facility] 05/12/2020 12:00:00 AM EDT DANTE ([facility]) David Vargas MD: [address], [address], [place] [address], Ph. [phone] Attender: David Vargas MD MD - [facility] 05/12/2020 12:00:00 AM EDT DANTE ([facility]) David Vargas MD: [address], [address], [place] [address], Ph. [phone] Attender: David Vargas MD MD - [facility] 05/12/2020 12:00:00 AM EDT DANTE ([facility]) David Vargas MD: [address], [address] [place], [place] [address], Ph. [phone] Attender: David Vargas MD MD - [facility] 05/12/2020 12:00:00 AM EDT DANTE ([facility]) David Vargas MD: [address] [facility] [address], [facility] [place] [address], Ph. [phone] Attender: David Vargas MD MD - [facility] - [facility] 05/12/2020 12:00:00 AM EDT DANTE ([facility]) David Vargas MD: [address] [facility] [address], [facility] [place] [address], Ph. [phone] Attender: David Vargas MD MD - [facility] 05/12/2020 12:00:00 AM EDT DANTE ([facility]) Outpatient<td ID="encounterTypeDescripti onID4">1 Week Post OP</td><td>Celio Mcnulty DO</td><td>Sivakumar Dave MD [facility]</td><td>05/09/2020</td><td>2:14PM</td><td>3:21PM</td><td><content ID="encounterDiagnosisID4-0">Corneal Transplant Status</content></td> Attender: CELIO Hoskins MD [facility] 05/09/2020 02:14:00 PM EDT - 05/09/2020 03:21:00 PM EDT Corneal Transplant StatusCorneal Transplant Status [place] (Sivakumar Heath MD [facility]) Corneal Transplant Status Corneal Transplant Status Outpatient<td ID="encounterTypeDescripti onID5">1 Day Post OP</td><td>Celio Mcnulty DO</td><td>Sivakumar Dave MD [facility]</td><td>05/02/2020</td><td>2:56PM</td><td>3:57PM</td><td><content ID="encounterDiagnosisID5-0">Corneal Transplant Status</content></td> Attender: CELIO Hoskins MD [facility] 05/02/2020 02:56:00 PM EDT - 05/02/2020 03:57:00 PM EDT Corneal Transplant StatusCorneal Transplant Status [place] (Sivakumar Heath MD [facility]) Corneal Transplant Status Corneal Transplant Status Outpatient<td ID="encounterTypeDescripti onID6">Corneal Transplant</td><td>Celio Mcnulty DO</td><td>[facility]</td><td>05/01/2020</td><td>7:04AM</td><td>7:04AM</td><td></td> Attender: CELIO MCNULTY DO [facility] 05/01/2020 07:04:00 AM EDT - 05/01/2020 07:04:00 AM EDT [place] (Sivakumar jerry MD [facility]) Outpatient<td ID="encounterTypeDescripti onID6">SAME DAY POST OP</td><td>Celio Mcnulty DO</td><td>[facility]</td><td>05/01/2020</td><td>6:19AM</td><td>6:22AM</td><td></td> Attender: CELIO MCNULTY DO [facility] 05/01/2020 06:19:00 AM EDT - 05/01/2020 06:22:00 AM EDT [place] (Sivakumar jerry MD [facility]) Outpatient<td ID="encounterTypeDescripti onID7">Yag Laser Peripheral Iridotomy - Global 10 DAY POST OP</td><td>Celio Mcnulty DO</td><td>Sivakumar Dave MD [facility]</td><td>04/28/2020</td><td>11:56AM</td><td>1:35PM</td><td><content ID="encounterDiagnosisID7-0">Corneal Dystrophy Endothelial Fuchs'</content></td> Attender: CELIO Hoskins MD [facility] 03/31 11:56:00 AM EDT - 04/28/2020 01:35:00 PM EDT Corneal Dystrophy Endothelial Fuchs'Branch eal Dystrophy Endothelial Fuchs' [place] (Sivakumar Heath MD [facility]) 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' Outpatient<td ID="encounterTypeDescripti onID8">1 WK PREOP FOR SURGERY</td><td>Celio Mcnulty DO</td><td>Sivakumar Dave MD [facility]</td><td>04/24/2020</td><td>3:13PM</td><td>4:19PM</td><td><content ID="encounterDiagnosisID8-0">Corneal Dystrophy Endothelial Fuchs'</content></td> Attender: CELIO Hoskins MD [facility] 03/30 03:13:00 PM EDT - 04/24/2020 04:19:00 PM EDT Corneal Dystrophy Endothelial Fuchs'Branch eal Dystrophy Endothelial Fuchs' [place] (Sivakumar Heath MD [facility]) 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 David Vargas MD: [address] [facility] [address] , [place] [address], Ph. Attender: David POPE - [facility] - Main Office 04/23/2020 12:00:00 AM EDT DANTE ([facility]) David Vargas MD: [address] [facility] [address], [facility] [place] [address], Ph. Attender: David POPE - [facility] - Main Office 04/23/2020 12:00:00 AM EDT DANTE ([facility]) David Vargas MD: [address], [address], [place] [address], Ph. Attender: David Vargas MD MD - [facility] 04/23/2020 12:00:00 AM EDT DANTE ([facility]) David Vargas MD: [address], [address], [place] [address], Ph. Attender: David POPE - [facility] 04/23/2020 12:00:00 AM EDT DANTE ([facility]) David Vargas MD: [address], [address], [place] [address], Ph. Attender: David POPE - [facility] 04/23/2020 12:00:00 AM EDT DANTE ([facility]) David Vargas MD: [address], [address], [place] [address], Ph. Attender: David POPE - [facility] 04/23/2020 12:00:00 AM EDT DANTE ([facility]) David Vargas MD: [address], [address], [place] [address], Ph. Attender: David POPE - [facility] 04/23/2020 12:00:00 AM EDT DANTE ([facility]) David Vargas MD: [address], [address], [place] [address], Ph. Attender: David POPE - [facility] 04/23/2020 12:00:00 AM EDT DANTE ([facility]) David Vargas MD: [address], [address], [place] [address], Ph. Attender: David Vargas MD MD - [facility] 04/23/2020 12:00:00 AM EDT DANTE ([facility]) Office Visit Attender: BRIANDA BOYER MD Main Office 04/18/2020 02:53:0 0 PM EDT MEDPRIYA ([facility]) David Vargas MD: [address], [address], [place] [address], Ph. [phone] Attender: David Vargas MD MD - [facility] 04/18/2020 12:00:00 AM EDT DANTE ([facility]) David Vargas MD: [address], [address], [place] [address], Ph. [phone] Attender: David Vargas MD MD - [facility] 04/18/2020 12:00:00 AM EDT DANTE ([facility]) David Vargas MD: [address], [address], [place] [address], Ph. [phone] Attender: David Vargas MD MD - [facility] 04/18/2020 12:00:00 AM EDT DANTE ([facility]) David Vargas MD: [address], [address], [place] [address], Ph. [phone] Attender: David POPE - [facility] Office 04/18/2020 12:00:00 AM EDT DANTE ([facility]) David Vargas MD: [address], [address], [place] [address], Ph. [phone] Attender: David POPE - [facility] Office 04/18/2020 12:00:00 AM EDT DANTE ([facility]) David Vargas MD: [address], [address], [place] [address], Ph. [phone] Attender: David Vargas MD MD - [facility] 04/18/2020 12:00:00 AM EDT DANTE ([facility]) David Vargas MD: [address], [place] [address], Ph. [phone] Attender: David Vargas MD MD - [facility] 04/18/2020 12:00:00 AM EDT DANTE ([facility]) David Vargas MD: [address], [facility] [place] [address], Ph. [phone] Attender: David Vargas MD MD - [facility] 04/18/2020 12:00:00 AM EDT DANTE ([facility]) David Vargas MD: [address], [address], [place] [address], Ph. [phone] Attender: David Vargas MD MD - [facility] 04/18/2020 12:00:00 AM EDT DANTE ([facility]) David Vargas MD: [address], [facility] [place] [address], Ph. [phone] Attender: David Vargas MD MD - [facility] 04/18/2020 12:00:00 AM EDT DANTE ([facility]) Shara Zapata, SCREEN MAKING SUPERVISOR: [address], [place] [address], Ph. Attender: [facility] - [facility] 04/17/2020 12:00:00 AM EDT ATHMackenzie TAPIA ([facility]) Shara Zapata SCREEN MAKING SUPERVISOR: [address], [address], [place] [address], Ph. Attender: Shara Zapata [facility] - [facility] 04/17/2020 12:00:00 AM EDT ATHE NA ([facility]) Shara Zapata, SCREEN MAKING SUPERVISOR: [address], [address], [place] [address], Ph. Attender: Shara Zapata [facility] - [facility] 04/17/2020 12:00:00 AM EDT ATHE NA ([facility]) Shara Zapata, SCREEN MAKING SUPERVISOR: [address], [place] [address], Ph. Attender: Shara Zapata [facility] - [facility] 04/17/2020 12:00:00 AM EDT ATHE NA ([facility]) Shara Zapata, SCREEN MAKING SUPERVISOR: [address], [place] [address], Ph. Attender: Shara Zapata [facility] - [facility] 04/17/2020 12:00:00 AM EDT ATHE NA ([facility]) Shara Zapata, SCREEN MAKING SUPERVISOR: [address], [address], [place] [address], Ph. Attender: Shara Zapata [facility] - [facility] 04/17/2020 12:00:00 AM EDT ATHE NA ([facility]) Shara Zapata, SCREEN MAKING SUPERVISOR: [address], [place] [address], Ph. Attender: Sharamackenzie Hartmannwashington [facility] - [facility] 04/17/2020 12:00:00 AM EDT ATHE NA ([facility]) Shara Zapata, SCREEN MAKING SUPERVISOR: [address], [place] [address], Ph. Attender: Shara Zapata [facility] - [facility] 04/17/2020 12:00:00 AM EDT ATHE NA ([facility]) Shara Zapata, SCREEN MAKING SUPERVISOR: [address], [address], [place] [address], Ph. Attender: Shara Zapata [facility] - [facility] 04/17/2020 12:00:00 AM EDT ATHMackenzie NA ([facility]) Shara Zapata, SCREEN MAKING SUPERVISOR: [address], [place] [address], Ph. Attender: Shara Zapata [facility] - [facility] 04/17/2020 12:00:00 AM EDT ATHMackenzie NA ([facility]) Shara Zapata, SCREEN MAKING SUPERVISOR: [address], [place] [address], Ph. Attender: Shara Zapata [facility] - [facility] 04/17/2020 12:00:00 AM EDT ATHE NA ([facility]) [facility] [address] [facility] [address] 03/21/2020 12:00:00 AM EDT eCW1 ([facility]) Office Visit Attender: BRIANDA BOYER MD [facility] 03/13/2020 10:57:0 0 AM EDT SHARAN ([facility]) Unknown [address] [facility] [address] 03/12/2020 12:00:00 AM EDT eCW1 ([facility]) Outpatient [address] [facility] [address] 03/11/2020 12:00:00 AM EDT eCW1 ([facility]) Outpatient Attender: Katina KENNEDY Main Office 02/22/2020 02:00:0 0 PM EDT MEDENT ([facility]) Office Visit Attender: BRIANDA BOYER MD Main Office 02/12/2020 03:02:0 0 PM EDT MEDENT ([facility]) Unknown [address] [facility] [address] 02/08/2020 12:00:00 AM EDT eCW1 ([facility]) [facility] [address] [facility] [address] 01/22/2020 12:00:00 AM EDT eCW1 ([facility]) Outpatient<td ID="encounterTypeDescripti onID9">5 Month Follow-Up</td><td>Celio Mcnulty DO</td><td>Sivakumar Dave MD [facility]</td><td>01/14/2020</td><td>2:55PM</td><td>3:34PM</td><td><content ID="encounterDiagnosisID9-0">Conjunctivitis Chronic Allergic</content>, <content ID="encounterDiagnosisID9-1">Corneal Dystrophy Endothelial Fuchs'</content></td> Attender: CELIO Hoskins MD [facility] 12/27 02:55:00 PM EDT - 01/14/2020 03:34:00 PM EDT Conjunctivitis Chronic AllergicConjuncti vitis Chronic AllergicCorneal Dystrophy Endothelial Fuchs'Corneal Dystrophy Endothelial Fuchs' [place] (Sivakumar Heath MD [facility]) Conjunctivitis Chronic Allergic 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' Office Visit Attender: BRIANDA BOYER MD Main Office 01/04/2020 01:57:0 0 PM EDT MEDENT ([facility]) Outpatient Attender: Hafsa Pichardoer: ROMA H UIZENGA DO EMERGENCY ROOM-LAB REFOTH 12/23/2019 01:36:00 PM EDT - 12/23/2019 [facility] Hafsa KENNEDY 12/19/2019 03:14:00 PM [facility] Outpatient Attender: ROMA RONNI Reyezer: SELMA EASON RONNI DO EMERGENCY ROOM-LABOTHPROV 12/19/2019 03:05:00 PM EDT - 12/19/2019 03:05:[facility] Attender: Lakesha SZYMANSKIeferrer: ROMA MARROQUINNORRIS DO EMERGENCY ROOM- LAB REFOTH 12/11/2019 12:25:00 PM EDT - 12/11/2019 12:25:00 PM EDT [facility] Admission cancelled. Disregard status an d admitted date. Outpatient 12/11/2019 12:20:00 PM [facility] Admission cancelled. Disregard status an d admitted date. Outpatient Attender: Hafsa KENNEDY 12/11/2019 12:15:00 PM [facility] Outpatient Attender: ROMA RONNI Reyezer: SELMA EASON CARAANIGOLDYLucina DO EMERGENCY ROOM-LAB REFOTH 12/11/2019 12:00:00 PM EDT - 12/11/2019 12:00:00 PM EDT [facility] 12/07/2019 01:00:00 AM EDT - 12:22:38 PM [facility]T [facility] [address] [address] 12/07/2019 12:00:00 AM EDT eCW1 ([facility]) [address] [address] 12/07/2019 12:00:00 AM EDT eCW1 ([facility]) TeleMedicine Est. Pt. Level [address] [place] [address] 12/04/2019 12:00:00 AM EDT eCW1 ([facility]) [address] [address] 11/30/2019 12:00:00 AM EDT eCW1 ([facility]) Outpatient Attender: CELIO MCNULTY DO 11/05/2019 08:20 :00 AM [facility] Outpatient Referrer: Hafsa KENNEDY 10/30/2019 10:27:00 AM EST [facility] Outpatient Referrer: Hafsa KENNEDY 10/30/2019 10:24:00 AM EST [facility] Outpatient Referrer: Hafsa KENNEDY 10/24/2019 05:18:00 PM EST [facility] Outpatient Referrer: Hafsa KENNEDY 10/16/2019 11:44:00 AM EST [facility] Emergency Attender: SALVADOR RIVAS PAReferrer : ROMA RUDOLPH DO EMERGENCY ROOM-ER 10/13/2019 11:31:00 AM EST - 10/13/2019 02:14:00 PM [facility] Patient discharged. Outpatient Referrer: David Vargas MD 10/10/2019 02:05:0 0 PM EST [facility] [address] [facility] [address] 10/09/2019 12:00:00 AM EST eCW1 ([facility]) [facility] [address] [place] [address] 10/02/2019 12:00:00 AM EST eCW1 ([facility]) David Vargas MD: [address], [facility] [place] [address], Ph. Attender: David Vargas MD MD - [facility] 09/26/2019 12:00:00 AM EST DANTE ([facility]) David Vargas MD: [address], [place] [address], Ph. Attender: David POPE - [facility] - Main Office 09/26/2019 12:00:00 AM EST DANTE ([facility]) David Vargas MD: [address], [address], [place] [address], Ph. Attender: David Vargas MD MD - [facility] 09/26/2019 12:00:00 AM EST DANTE ([facility]) David Vargas MD: [address], [address], [place] [address], Ph. Attender: David Vargas MD MD - [facility] 09/26/2019 12:00:00 AM EST DANTE ([facility]) David Vargas MD: [address], [place] [address], Ph. Attender: David Vargas MD MD - [facility] 09/26/2019 12:00:00 AM EST DANTE ([facility]) David Vargas MD: [address], [place] [address], Ph. Attender: David Vargas MD MD - [facility] 09/26/2019 12:00:00 AM EST DANTE ([facility]) David Vargas MD: [address], [place] [address], Ph. Attender: David POPE - [facility] 09/26/2019 12:00:00 AM EST DANTE ([facility]) David Vargas MD: [address], [place] [address], Ph. Attender: David Vargas MD MD - [facility] 09/26/2019 12:00:00 AM EST DANTE ([facility]) David Vargas MD: [address], [place] [address], Ph. Attender: Daivd Vargas MD MD - [facility] Office 09/26/2019 12:00:00 AM EST DANTE ([facility]) David Vargas MD: [address], [place] [address], Ph. Attender: David Vargas MD MD - [facility] Office 09/26/2019 12:00:00 AM EST DANTE ([facility]) David Vargas MD: [address], [place] [address], Ph. Attender: David Vargas MD MD - [facility] 09/26/2019 12:00:00 AM EST DANET ([facility]) David Vargas MD: [address], [place] [address], Ph. Attender: David Vargas MD MD - [facility] 09/26/2019 12:00:00 AM EST DANTE ([facility]) Outpatient<td ID="encounterTypeDescripti onID11">Rx Refills/Changes</td><td>Celio Mcnulty DO</td><td></td><td>10/29/2019</td><td>09/14/2019 2:37PM</td><td>09/14/2019 11:59PM</td><td></td> Attender: CELIO MCNULTY DO 020 02:37:00 PM EST - 09/14/2019 11:59:00 PM EST [place] (Sivakumar Heath MD [facility]) Outpatient<td ID="encounterTypeDescripti onID13">2 Week Follow-Up</td><td>Celio Mcnulty DO</td><td>Sivakumar Dave MD [facility]</td><td>09/14/2019</td><td>1:27PM</td><td>2:34PM</td><td><content ID="[id number]">Corneal Dystrophy Endothelial Fuchs'</content>, <content ID="[id number]">Borderline Glaucoma Ocular Hypertension Both Eyes</content>, <content ID="[id number]">Refractive Error - Myopia Bilateral</content></td> Attender: CELIO Hoskins MD [facility] 09/14/2019 01:27:00 PM EST - 09/14/2019 02:34:00 PM ES T Refractive Error - Myopia BilateralBorderline Glaucoma Ocular Hypertension Both EyesCorneal Dystrophy Endothelial Fuchs' [place] (Sivakumar Heath MD [facility]) Refractive Error - Myopia Bilateral 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 Attender: David POPE - [facility] - Main Office 09/05/2019 12:00:00 AM EST DANTE ([facility]) David Vargas MD: [id number] [facility] [address], [place] [address], Ph. Attender: David POPE - [facility] - Main Office 09/05/2019 12:00:00 AM EST DANTE ([facility]) David Vargas MD: [address], [address], [place] [address], Ph. Attender: David Vargas MD MD - [facility] 09/05/2019 12:00:00 AM EST DANTE ([facility]) David Vargas MD: [address], [place] [address], Ph. Attender: David Vargas MD MD - [facility] 09/05/2019 12:00:00 AM EST DANTE ([facility]) David Vargas MD: [address], [place] [address], Ph. Attender: David POPE - [facility] 09/05/2019 12:00:00 AM EST DANTE ([facility]) David Vargas MD: [address], [address], [place] [address], Ph. Attender: David POPE - [facility] 09/05/2019 12:00:00 AM EST DANTE ([facility]) David Vargas MD: [address], [place] [address], Ph. Attender: David POPE - [facility] 09/05/2019 12:00:00 AM EST DANTE ([facility]) David Vargas MD: [address], [place] [address], Ph. Attender: David POPE - [facility] 09/05/2019 12:00:00 AM EST DANTE ([facility]) David Vargas MD: [address], [address] [place], [place] [address], Ph. Attender: David Vargas MD MD - [facility] Office 09/05/2019 12:00:00 AM EST DANTE ([facility]) David Vargas MD: [address], [place] [address], Ph. Attender: David Vargas MD MD - [facility] 09/05/2019 12:00:00 AM EST DANTE ([facility]) David Vargas MD: [address], [place] [address], Ph. Attender: David Vargas MD MD - [facility] 09/05/2019 12:00:00 AM EST DANTE ([facility]) David Vargas MD: [address], [place] [address], Ph. Attender: David Vargas MD MD - [facility] 09/05/2019 12:00:00 AM EST DATNE ([facility]) David Vargas MD: [address], [place] [address], Ph. Attender: David Vargas MD MD - [facility] 09/05/2019 12:00:00 AM EST DANTE ([facility]) [facility] [address] [facility], [facility] [address] 08/31/2019 12:00:00 AM EST eCW1 ([facility]) Outpatient<td ID="[email or web address]">NEW PATIENT WITH REFERRAL</td><td>Celio Mcnulty DO</td><td>Sivakumar Dave MD [facility]</td><td>08/28/2019</td><td>8:30AM</td><td>9:59AM</td><td><content ID="[id number]">Dry Eye Syndrome</content>, <content ID="[id number]">Corneal Dystrophy Endothelial Fuchs'</content>, <content ID="[id number]">Pseudophakia</content>, <content ID="[id number]">Vitreous Disorders Degeneration</content>, <content ID="[id number]">Cataract Senile Nuclear</content>, <content ID="[id number]">Adhesions of Iris Posterior Synechiae</content>, <content ID="[id number]">Posterior Capsule Opacification Eccentric Capsule Right Eye</content>, <content ID="[id number]">Benign Choroid Eye Neoplasm Left</content>, <content ID="[id number]">Borderline Glaucoma Ocular Hypertension Both Eyes</content></td> Attender: CELIO Hoskins MD [facility] 08/28/2019 08:30:00 AM EST - 08/28/2019 09:59:00 AM ES T Borderline Glaucoma Ocular Hypertension Both EyesBenign Choroid Eye Neoplasm LeftPosterior Capsule Opacification Eccentric Capsule Right EyeAdhesions of Iris Posterior SynechiaeCataract Senile NuclearVitreous Disorders DegenerationPseudophakia Corneal Dystrophy Endothelial Fuchs'Dry Eye SyndromeBorderline Glaucoma Ocular Hypertension Both EyesBenign Choroid Eye Neoplasm LeftPosterior Capsule Opacification Eccentric Capsule Right Eye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Vitreous Disorders DegenerationPseudophakiaCorneal Dystrophy Endothelial Fuchs'Dry Eye Syndrome [place] (Sivakumar Heath MD [facility]) 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 Posterior Capsule Opacification Eccentri c Capsule Right Eye 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 Pseudophakia 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 Posterior Capsule Opacification Eccentri c Capsule Right Eye 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 Pseudophakia 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 Emergency Attender: ANITA Nesbitterrer: ROMA RONNI DO EMERGENCY ROOM-ER 01/15/2018 02:20:00 PM EDT - 01/15/2018 04:48:00 PM [facility] Emergency Attender: DEMARCUS RUIZeferrer: SELMA EASON RONNI DO EMERGENCY ROOM-ER 10/19/2017 10:24:00 AM EST - 10/17/2017 11:45:00 PM [facility] Outpatient Attender: ROMA RONNI TORREeferrer: ROMA KRISH DEAN DO 09/23/2017 02:00:00 PM [facility] Emergency Attender: ANITA Scotter: ROMA RONNI DO EMERGENCY ROOM-ER 05/17/2017 04:24:00 PM EDT - 05/18/2017 12:30:00 AM [facility] Outpatient Attender: Maggie Gonzalez NP 02/15/2017 10:00:00 AM [facility] Outpatient Attender: CARLOS BRADY MD 02/15/2017 09:43:0 0 AM [facility] Outpatient Attender: Maggie Gonzalez NP 02/11/2017 12:00:00 PM [facility] Emergency Attender: DAVID BLACKWOOD MD 2013 11:27:00 AM [facility] - 10/02/2013 01:15:00 PM [facility] Emergency Attender: Chikis Zheng MS, RPA-C EMERGENC Y ROOM-ER 08/14/2012 12:44:00 PM [facility] - 08/14/2012 02:58:00 PM [facility] pital Outpatient Attender: Rito Mckee MD EMERGENCY ROOM-RADOTHPROV 07/18/2012 12:51:00 PM [facility] - 07/18/2012 12:51:00 PM [facility] Emergency Attender: SALVADOR KENNEDY 02/13/2012 06:12:00 PM EDT - 02/13/2012 07:05:00 PM [facility] Immunizations Vaccine Date Status Description Data Source(s) pneumococcal polysaccharide PPV23 06/16/2020 04:14:[address] [facility] asiya eCW1 ([facility]) influenza, recombinant, quadrIvalent,injectable, prese rvative free 06/16/2020 04:14:00 PM EDT completed eCW1 ([facility]) pneumococcal polysaccharide PPV23 06/16/2020 04:14:00 PM EDT comple asiya eCW1 ([facility]) influenza, recombinant, quadrIvalent,injectable, prese rvative free 06/16/2020 04:14:00 PM EDT completed eCW1 ([facility]) pneumococcal polysaccharide PPV23 06/16/2020 04:14:00 PM EDT comple asiya eCW1 ([facility]) influenza, recombinant, quadrIvalent,injectable, prese rvative free 06/16/2020 04:14:00 PM EDT completed eCW1 ([facility]) pneumococcal polysaccharide PPV23 06/16/2020 04:14:00 PM EDT comple asiya eCW1 ([facility]) influenza, recombinant, quadrIvalent,injectable, prese rvative free 06/16/2020 04:14:00 PM EDT completed eCW1 ([facility]) pneumococcal polysaccharide PPV23 06/16/2020 04:14:00 PM EDT comple asiya eCW1 ([facility]) influenza, recombinant, quadrIvalent,injectable, prese rvative free 06/16/2020 04:14:00 PM EDT completed eCW1 ([facility]) pneumococcal polysaccharide PPV23 06/16/2020 04:14:00 PM EDT comple asiya eCW1 ([facility]) influenza, recombinant, quadrIvalent,injectable, prese rvative free 06/16/2020 04:14:00 PM EDT completed eCW1 ([facility]) pneumococcal polysaccharide PPV23 06/16/2020 04:14:00 PM EDT comple asiya eCW1 ([facility]) influenza, recombinant, quadrIvalent,injectable, prese rvative free 06/16/2020 04:14:00 PM EDT completed eCW1 ([facility]) pneumococcal polysaccharide PPV23 06/16/2020 04:14:00 PM EDT comple asiya eCW1 ([facility]) influenza, recombinant, quadrIvalent,injectable, prese rvative free 06/16/2020 04:14:00 PM EDT completed eCW1 ([facility]) pneumococcal polysaccharide PPV23 06/16/2020 04:14:00 PM EDT comple asiya eCW1 ([facility]) influenza, recombinant, quadrIvalent,injectable, prese rvative free 06/16/2020 04:14:00 PM EDT completed eCW1 ([facility]) pneumococcal polysaccharide PPV23 06/16/2020 04:14:00 PM EDT comple asiya eCW1 ([facility]) influenza, recombinant, quadrIvalent,injectable, prese rvative free 06/16/2020 04:14:00 PM EDT completed eCW1 ([facility]) Medications Medication Brand Name Start Date Product Form Dose Route Admi nistrative Instructions Pharmacy Instructions Status Indications Reaction Description Data Source(s) Propranolol Hydrochloride 10 MG Oral Tablet Propranolol HCL 09/24/2020 12:00:00 AM EST ORAL active MEDENT ([facility]) 10 mg 09/24/2020 12:00:00 AM EST tablet 135 TAKE ONE-HALF TABLET BY MOUTH THREE TIMES A DAY TAKE ONE-HALF TABLET BY MOUTH THREE TIMES A DAY SOLD: 09/24/2020 [facility] Prednisone 50 MG Oral Tablet Prednisone 09/23/2020 12:00:00 AM EST active MEDENT ([facility]) Prednisone 50 MG Oral Tablet PredniSONE 50 MG PredniSONE 50 MG 09/22/2020 12:00:00 AM EST 1.0 {tablet} active Pr edniSONE 50 MG eCW1 ([facility]) Prednisone 50 MG Oral Tablet PredniSONE 50 MG PredniSONE 50 MG 09/22/2020 12:00:00 AM EST 1.0 {tablet} active Pr edniSONE 50 MG eCW1 ([facility]) Prednisone 50 MG Oral Tablet PredniSONE 50 MG PredniSONE 50 MG 09/22/2020 12:00:00 AM EST 1.0 {tablet} active Pr edniSONE 50 MG eCW1 ([facility]) 25 mg 09/22/2020 12:00:00 AM EST capsule 2 TAKE TWO CAPSULES BY MOUTH ONE HOUR PRIOR TO CT SCAN TAKE TWO CAPSULES BY MOUTH ONE HOUR PRIOR TO CT SCAN S OLD: 09/22/2020 [facility] Benadryl Allergy 25 MG Benadryl Allergy 25 MG 09/22/2020 12:00:00 A M EST 2.0 {tablet} active Benadryl Allergy 25 MG eCW1 ([facility]) 50 mg 09/22/2020 12:00:00 AM EST tablet 3 TAKE ONE TABLET BY MOUTH 13 HOURS, 7 HOURS, AND 1HOUR PRIOR TO CT SCAN TAKE ONE TABLET BY MOUTH 13 HOURS, 7 MAICO RS, AND 1HOUR PRIOR TO CT SCAN SOLD: 09/22/2020 [facility] Benadryl Allergy 25 MG Benadryl Allergy 25 MG 09/22/2020 12:00:00 A M EST 2.0 {tablet} active Benadryl Allergy 25 MG eCW1 ([facility]) Benadryl Allergy 25 MG Benadryl Allergy 25 MG 09/22/2020 12:00:00 A M EST 2.0 {tablet} active Benadryl Allergy 25 MG eCW1 ([facility]) Prednisone 50 MG Oral Tablet PredniSONE 50 MG PredniSONE 50 MG 09/22/2020 12:00:00 AM EST 1.0 {tablet} active Pr edniSONE 50 MG eCW1 ([facility]) Benadryl Allergy 25 MG Benadryl Allergy 25 MG 09/22/2020 12:00:00 A M EST 2.0 {tablet} active Benadryl Allergy 25 MG eCW1 ([facility]) buspirone hydrochloride 15 MG Oral Tablet BUSPIRONE HCL 09/11/2020 12:00:00 AM EST tablet 90 TAKE ONE TABLET BY MOUTH THR EE TIMES A DAY TAKE ONE TABLET BY MOUTH THREE TIMES A DAY SOLD: 09/11/2020 [facility] 100 mg 09/11/2020 12:00:00 AM EST tablet 45 TAKE 1 & 1/2 TABLETS BY MOUTH ONCE DAILY TAKE 1 & 1/2 TABLETS BY MOUTH ONCE DAILY SOLD: 09/11/2020 [facility] 100 mg 09/11/2020 12:00:00 AM EST tablet 45 TAKE 1 & 1/2 TABLETS BY MOUTH ONCE DAILY TAKE 1 & 1/2 TABLETS BY MOUTH ONCE DAILY SOLD: 10/12/2020 [facility] 10 mg 09/11/2020 12:00:00 AM EST tablet 90 TAKE ONE TABLET BY MOUTH THREE TIMES A DAY FOR TREMORS TAKE ONE TABLET BY MOUTH THREE TIMES A DAY FOR TREMORS SOLD: 09/11/2020 [facility] 50 mg 09/11/2020 12:00:00 AM EST tablet 30 TAKE ONE TABLET BY MOUTH EVERY DAY NEEDED FOR SLEEP TAKE ONE TABLET BY MOUTH EVERY DAY NEEDED FOR SLEEP SOLD: 09/11/2020 [facility] 2 mg 09/11/2020 12:00:00 AM EST capsule 30 TAKE ONE CAPSULE BY MOUTH AT BEDTIME FOR NIGHTMARES TAKE ONE CAPSULE BY MOUTH AT BEDTIME FOR NIGHTMARES SO LD: 09/13/2020 [facility] Erythromycin 0.005 MG/MG Ophthalmic Ointment Erythromy paolo 5 MG/GM Erythromycin 5 MG/GM 08/27/2020 12:00:00 AM EST active Erythromycin 5 MG/GM eCW1 ([facility]) Erythromycin 0.005 MG/MG Ophthalmic Ointment Erythromy paolo 5 MG/GM Erythromycin 5 MG/GM 08/27/2020 12:00:00 AM EST active Erythromycin 5 MG/GM eCW1 ([facility]) 5 mg/gram (0.5 %) 08/27/2020 12:00:00 AM EST ointment 3 APPLY 1 APPLICATION INTO LOWER EYELID OF AFFECTED EYE TWO TIMES A DAY FOR 10 DAYS APPLY 1 APPLICATION INTO LOWER EYELID OF AFFECTED EYE TWO TIMES A DAY FOR 10 DAYS SOLD: 08/27/2020 [facility] 50 mg 08/15/2020 12:00:00 AM EST tablet 3 TAKE ONE TABLET BY MOUTH 13 HOURS PRIOR TO MRI, 1 TABLET 7 HOURS PRIOR TO MRI, AND 1 TABLET 1 HOUR PRIOR TO MRI WITH 50MG OF BENADRYL TAKE ONE TABLET BY MOUTH 13 HOURS PRIOR TO MRI, 1 TABLET 7 HOURS PRIOR TO MRI, AND 1 TABLET 1 HOUR PRIOR TO MRI WITH 50MG OF BENADRYL SOLD: 08/17/2020 [facility] 10 mg 08/14/2020 12:00:00 AM EST tablet 21 TAKE 6 TABLETS BY MOUTH IN THE MORNING ON DAY 1, 5 ON DAY 2, 4 ON DAY 3, 3 ON DAY 4, 2 ON DAY 5 AND 1 ON DAY 6 TAKE 6 TABLETS BY MOUTH IN THE MORNING ON DAY 1, 5 ON DAY 2, 4 ON DAY 3, 3 ON DAY 4, 2 ON DAY 5 AND 1 ON DAY 6 SOLD: 08/14/2020 [facility] 100 mg 08/06/2020 12:00:00 AM EST tablet 45 TAKE 1 & 1/2 TABLETS BY MOUTH ONCE DAILY TAKE 1 & 1/2 TABLETS BY MOUTH ONCE DAILY SOLD: 08/07/2020 [facility] buspirone hydrochloride 15 MG Oral Tablet BUSPIRONE HCL 08/06/2020 12:00:00 AM EST tablet 90 TAKE ONE TABLET BY MOUTH THR EE TIMES A DAY TAKE ONE TABLET BY MOUTH THREE TIMES A DAY SOLD: 08/07/2020 [facility] buspirone hydrochloride 15 MG Oral Tablet BUSPIRONE HCL 07/29/2020 12:00:00 AM EST tablet 90 TAKE ONE TABLET BY MOUTH THR EE TIMES A DAY TAKE ONE TABLET BY MOUTH THREE TIMES A DAY SOLD: 07/30/2020 [facility] 50 mg 07/18/2020 12:00:00 AM EST tablet 30 TAKE ONE TABLET BY MOUTH EVERY DAY NEEDED FOR SLEEP TAKE ONE TABLET BY MOUTH EVERY DAY NEEDED FOR SLEEP SOLD: 07/20/2020 [facility] 50 mg 07/18/2020 12:00:00 AM EST tablet 30 TAKE ONE TABLET BY MOUTH EVERY DAY NEEDED FOR SLEEP TAKE ONE TABLET BY MOUTH EVERY DAY NEEDED FOR SLEEP SOLD: 08/17/2020 [facility] 10 mg 07/18/2020 12:00:00 AM EST tablet 90 TAKE ONE TABLET BY MOUTH THREE TIMES A DAY TAKES FOR TREMORS TAKE ONE TABLET BY MOUTH THREE TIMES A D AY TAKES FOR TREMORS SOLD: 08/17/2020 [facility] 2 mg 07/18/2020 12:00:00 AM EST capsule 30 TAKE ONE CAPSULE BY MOUTH AT BEDTIME FOR NIGHTMARES TAKE ONE CAPSULE BY MOUTH AT BEDTIME FOR NIGHTMARES SO LD: 08/17/2020 [facility] 10 mg 07/18/2020 12:00:00 AM EST tablet 90 TAKE ONE TABLET BY MOUTH THREE TIMES A DAY TAKES FOR TREMORS TAKE ONE TABLET BY MOUTH THREE TIMES A D AY TAKES FOR TREMORS SOLD: 07/21/2020 [facility] 2 mg 07/18/2020 12:00:00 AM EST capsule 30 TAKE ONE CAPSULE BY MOUTH AT BEDTIME FOR NIGHTMARES TAKE ONE CAPSULE BY MOUTH AT BEDTIME FOR NIGHTMARES SO LD: 07/20/2020 [facility] 100 mg 07/02/2020 12:00:00 AM EST tablet 45 TAKE 1 & 1/2 TABLETS BY MOUTH ONCE DAILY TAKE 1 & 1/2 TABLETS BY MOUTH ONCE DAILY SOLD: 07/03/2020 [facility] buspirone hydrochloride 15 MG Oral Tablet BUSPIRONE HCL 07/01/2020 12:00:00 AM EST tablet 90 TAKE ONE TABLET BY MOUTH THR EE TIMES A DAY TAKE ONE TABLET BY MOUTH THREE TIMES A DAY SOLD: 07/03/2020 [facility] 50 mg 06/16/2020 12:00:00 AM EDT tablet 360 TAKE ONE TABLET BY MOUTH EVERY 6 HOURS NEEDED MAX=4TABS/DAY TAKE ONE TABLET BY MOUTH EVERY 6 HOURS A S NEEDED MAX=4TABS/DAY SOLD: 06/16/2020 [facility] 100 mg 06/14/2020 12:00:00 AM EDT tablet 45 TAKE 1 & 1/2 TABLET BY MOUTH ONCE DAILY TAKE 1 & 1/2 TABLET BY MOUTH ONCE DAILY SOLD: 06/16/2020 [facility] 50 mcg 06/09/2020 12:00:00 AM EDT tablet 90 TAKE ONE TABLET BY MOUTH EVERY MORNING ON AN EMPTY STOMACH TAKE ONE TABLET BY MOUTH EVERY MORNING O N AN EMPTY STOMACH SOLD: 09/15/2020 [facility] 50 mcg 06/09/2020 12:00:00 AM EDT tablet 90 TAKE ONE TABLET BY MOUTH EVERY MORNING ON AN EMPTY STOMACH TAKE ONE TABLET BY MOUTH EVERY MORNING O N AN EMPTY STOMACH SOLD: 06/12/2020 [facility] 50 mg 05/16/2020 12:00:00 AM EDT tablet 120 TAKE ONE TABLET BY MOUTH FOUR TIMES A DAY NEEDED FOR PAIN MAX=4TABS/DAY TAKE ONE TABLET BY MOUTH FOUR TIMES A DAY NEEDED FOR PAIN MAX=4TABS/DAY SOLD: 05/16/2020 [facility] 1 % 04/25/2020 12:00:00 AM EDT drops,suspension 10 ON THE DAY AFTER SURGERY REMOVE PATCH AND START ONE DROP FOUR TIMES A DAY IN THE RIGHT EYE ON THE DAY AFTER SURGERY REMOVE PATCH AND START ONE DROP FOUR TIMES A DAY IN THE RIGHT EYE SOLD: 06/26/2020 [facility] 1 % 04/25/2020 12:00:00 AM EDT drops,suspension 10 ON THE DAY AFTER SURGERY REMOVE PATCH AND START ONE DROP FOUR TIMES A DAY IN THE RIGHT EYE ON THE DAY AFTER SURGERY REMOVE PATCH AND START ONE DROP FOUR TIMES A DAY IN THE RIGHT EYE SOLD: 04/27/2020 [facility] 0.6 % 04/25/2020 12:00:00 AM EDT drops,suspension 5 ON DAY AFTER SURGERY REMOVE PATCH AND START ONE DROP THREE TIMES A DAY IN THE RIGHT EYE ON DAY AFTER SURGERY REMOVE PATCH AND START ONE DROP THREE TIMES A DAY IN THE RIGHT EYE SOLD: 04/27/2020 [facility] prednisolone acetate 10 MG/ML Ophthalmic Suspension [Pred Forte] Pred Forte 1% Ophthalmic Suspension Pred Forte 1% Ophthalmic Suspension 04/24/2020 12:00:0 0 AM EDT active predniso lone acetate 10 MG/ML Ophthalmic Suspension [Pred Forte] [place] (Sivakumar Heath MD [facility]) besifloxacin 6 MG/ML Ophthalmic Suspensi on [Besivance] Besivance 0.6% Ophthalmic Suspension Besivance 0.6% Ophthalmic Suspension 04/24/2020 12:00:00 AM EDT aborted besifloxacin 6 MG/ML Ophthalmic Suspension [Besivance] [place] (Sivakumar Heath MD [facility]) 50 mg 04/03/2020 12:00:00 AM EDT tablet 120 TAKE ONE TABLET BY MOUTH FOUR TIMES A DAY NEEDED FOR PAIN MAXIMUM DAILY DOSE = 4 TAKE ONE TABLET BY MOUTH FOUR TIMES A DAY NEEDED FOR PAIN MAXIMUM DAILY DOSE = 4 SOLD: 04/03/2020 [facility] buspirone hydrochloride 15 MG Oral Tablet BUSPIRONE HCL 04/03/2020 12:00:00 AM EDT tablet 90 TAKE ONE TABLET BY MOUTH THR EE TIMES A DAY TAKE ONE TABLET BY MOUTH THREE TIMES A DAY SOLD: 04/30/2020 [facility] buspirone hydrochloride 15 MG Oral Tablet BUSPIRONE HCL 04/03/2020 12:00:00 AM EDT tablet 90 TAKE ONE TABLET BY MOUTH THR EE TIMES A DAY TAKE ONE TABLET BY MOUTH THREE TIMES A DAY SOLD: 06/02/2020 [facility] buspirone hydrochloride 15 MG Oral Tablet BUSPIRONE HCL 04/03/2020 12:00:00 AM EDT tablet 90 TAKE ONE TABLET BY MOUTH THR EE TIMES A DAY TAKE ONE TABLET BY MOUTH THREE TIMES A DAY SOLD: 04/04/2020 [facility] 50 mcg 04/01/2020 12:00:00 AM EDT tablet 90 TAKE ONE TABLET BY MOUTH EVERY MORNING ON AN EMPTY STOMACH TAKE ONE TABLET BY MOUTH EVERY MORNING O N AN EMPTY STOMACH SOLD: 04/03/2020 [facility] 300 mg 03/24/2020 12:00:00 AM EDT capsule 180 TAKE ONE CAPSULE BY MOUTH EVERY MORNING, 2 CAPSULES IN AFTERNOON AND 3 CAPSULES AT BEDTIME TAKE ONE CAPSULE BY MOUTH EVERY MORNING, 2 CAPSULES IN AFTERNOON AND 3 CAPSULES AT BEDTIME SOLD: 06/18/2020 [facility] 300 mg 03/24/2020 12:00:00 AM EDT capsule 180 TAKE ONE CAPSULE BY MOUTH EVERY MORNING, 2 CAPSULES IN AFTERNOON AND 3 CAPSULES AT BEDTIME TAKE ONE CAPSULE BY MOUTH EVERY MORNING, 2 CAPSULES IN AFTERNOON AND 3 CAPSULES AT BEDTIME SOLD: 08/25/2020 [facility] 300 mg 03/24/2020 12:00:00 AM EDT capsule 180 TAKE ONE CAPSULE BY MOUTH EVERY MORNING, 2 CAPSULES IN AFTERNOON AND 3 CAPSULES AT BEDTIME TAKE ONE CAPSULE BY MOUTH EVERY MORNING, 2 CAPSULES IN AFTERNOON AND 3 CAPSULES AT BEDTIME SOLD: 04/24/2020 [facility] 300 mg 03/24/2020 12:00:00 AM EDT capsule 180 TAKE ONE CAPSULE BY MOUTH EVERY MORNING, 2 CAPSULES IN AFTERNOON AND 3 CAPSULES AT BEDTIME TAKE ONE CAPSULE BY MOUTH EVERY MORNING, 2 CAPSULES IN AFTERNOON AND 3 CAPSULES AT BEDTIME SOLD: 09/22/2020 [facility] 300 mg 03/24/2020 12:00:00 AM EDT capsule 180 TAKE ONE CAPSULE BY MOUTH EVERY MORNING, 2 CAPSULES IN AFTERNOON AND 3 CAPSULES AT BEDTIME TAKE ONE CAPSULE BY MOUTH EVERY MORNING, 2 CAPSULES IN AFTERNOON AND 3 CAPSULES AT BEDTIME SOLD: 07/28/2020 [facility] 300 mg 03/24/2020 12:00:00 AM EDT capsule 180 TAKE ONE CAPSULE BY MOUTH EVERY MORNING, 2 CAPSULES IN AFTERNOON AND 3 CAPSULES AT BEDTIME TAKE ONE CAPSULE BY MOUTH EVERY MORNING, 2 CAPSULES IN AFTERNOON AND 3 CAPSULES AT BEDTIME SOLD: 03/27/2020 [facility] 300 mg 03/24/2020 12:00:00 AM EDT capsule 180 TAKE ONE CAPSULE BY MOUTH EVERY MORNING, 2 CAPSULES IN AFTERNOON AND 3 CAPSULES AT BEDTIME TAKE ONE CAPSULE BY MOUTH EVERY MORNING, 2 CAPSULES IN AFTERNOON AND 3 CAPSULES AT BEDTIME SOLD: 05/22/2020 [facility] 50 mg 03/19/2020 12:00:00 AM EDT tablet 30 TAKE ONE TABLET BY MOUTH AT BEDTIME NEEDED FOR SLEEP TAKE ONE TABLET BY MOUTH AT BEDTIME N EEDED FOR SLEEP SOLD: 05/16/2020 [facility] 2 mg 03/19/2020 12:00:00 AM EDT capsule 30 TAKE ONE CAPSULE BY MOUTH AT BEDTIME FOR NIGHTMARES TAKE ONE CAPSULE BY MOUTH AT BEDTIME FOR NIGHTMARES SO LD: 03/19/2020 [facility] Prazosin 2 MG Oral Capsule PRAZOSIN HCL 03/19/2020 12:00:00 AM EDT cap jaswinder 30 TAKE ONE CAPSULE BY MOUTH AT BEDTIME FOR NIGHTMARES TAKE ONE CAPSULE BY MOUTH AT BEDTIME FOR NIGHTMARES SOLD: 04/14/2020 [facility] 50 mg 03/19/2020 12:00:00 AM EDT tablet 30 TAKE ONE TABLET BY MOUTH AT BEDTIME NEEDED FOR SLEEP TAKE ONE TABLET BY MOUTH AT BEDTIME N EEDED FOR SLEEP SOLD: 03/19/2020 [facility] Prazosin 2 MG Oral Capsule PRAZOSIN HCL 03/19/2020 12:00:00 AM EDT cap jaswinder 30 TAKE ONE CAPSULE BY MOUTH AT BEDTIME FOR NIGHTMARES TAKE ONE CAPSULE BY MOUTH AT BEDTIME FOR NIGHTMARES SOLD: 05/16/2020 [facility] 50 mg 03/19/2020 12:00:00 AM EDT tablet 30 TAKE ONE TABLET BY MOUTH AT BEDTIME NEEDED FOR SLEEP TAKE ONE TABLET BY MOUTH AT BEDTIME N EEDED FOR SLEEP SOLD: 04/21/2020 [facility] 10 mg 03/16/2020 12:00:00 AM EDT tablet 90 TAKE ONE TABLET BY MOUTH THREE TIMES A DAY FOR TREMORS TAKE ONE TABLET BY MOUTH THREE TIMES A DAY FOR TREMORS SOLD: 05/12/2020 [facility] 10 mg 03/16/2020 12:00:00 AM EDT tablet 90 TAKE ONE TABLET BY MOUTH THREE TIMES A DAY FOR TREMORS TAKE ONE TABLET BY MOUTH THREE TIMES A DAY FOR TREMORS SOLD: 03/17/2020 [facility] 10 mg 03/16/2020 12:00:00 AM EDT tablet 90 TAKE ONE TABLET BY MOUTH THREE TIMES A DAY FOR TREMORS TAKE ONE TABLET BY MOUTH THREE TIMES A DAY FOR TREMORS SOLD: 06/08/2020 [facility] buspirone hydrochloride 15 MG Oral Tablet Buspirone HCL 02/21/2020 12:00:00 AM EDT ORAL active [facility] ([facility] teriflunomide 14 MG Oral Tablet [Aubagio] Aubagio 02/21/2020 1 2:00:00 AM EDT ORAL active [facility] ([facility]) Lorazepam 1 MG Oral Tablet Lorazepam 02/21/2020 12:00:00 AM EDT ORAL [facility] Flonase Allergy Relief Flonase Allergy Relief 02/21/2020 12:00:00 AM E DT active [facility] ([facility]) gabapentin 300 MG Oral Capsule Gabapentin 02/21/2020 12:00:00 AM EDT ORAL active [facility] ([facility]) 50 mg 02/18/2020 12:00:00 AM EDT tablet 120 TAKE ONE TABLET BY MOUTH EVERY 6 HOURS NEEDED MAXIMUM DAILY DOSE = 4 TABLETS TAKE ONE TABLET BY MOUTH EVERY 6 HOURS NEEDED MAXIMUM DAILY DOSE = 4 TABLETS SOLD: 02/18/2020 [facility] 25 mg 02/16/2020 12:00:00 AM EDT tablet 90 TAKE ONE TABLET BY MOUTH EVERY DAY TAKE ONE TABLET BY MOUTH EVERY DAY SOLD: 02/18/2020 [facility] 25 mg 02/16/2020 12:00:00 AM EDT tablet 90 TAKE ONE TABLET BY MOUTH EVERY DAY TAKE ONE TABLET BY MOUTH EVERY DAY SOLD: 05/16/2020 [facility] 25 mg 02/16/2020 12:00:00 AM EDT tablet 90 TAKE ONE TABLET BY MOUTH EVERY DAY TAKE ONE TABLET BY MOUTH EVERY DAY SOLD: 08/17/2020 [facility] 100 mg 02/13/2020 12:00:00 AM EDT tablet 45 TAKE ONE AND ONE-HALF TABLET BY MOUTH ONCE DAILY TAKE ONE AND ONE-HALF TABLET BY MOUTH ONCE DAILY SOLD: 03/13/2020 [facility] 100 mg 02/13/2020 12:00:00 AM EDT tablet 45 TAKE ONE AND ONE-HALF TABLET BY MOUTH ONCE DAILY TAKE ONE AND ONE-HALF TABLET BY MOUTH ONCE DAILY SOLD: 02/14/2020 [facility] 100 mg 02/13/2020 12:00:00 AM EDT tablet 45 TAKE ONE AND ONE-HALF TABLET BY MOUTH ONCE DAILY TAKE ONE AND ONE-HALF TABLET BY MOUTH ONCE DAILY SOLD: 04/14/2020 [facility] buspirone hydrochloride 15 MG Oral Tablet BUSPIRONE HCL 02/13/2020 12:00:00 AM EDT tablet 90 TAKE ONE TABLET BY MOUTH THR EE TIMES A DAY TAKE ONE TABLET BY MOUTH THREE TIMES A DAY SOLD: 02/14/2020 [facility] buspirone hydrochloride 15 MG Oral Tablet BUSPIRONE HCL 02/04/2020 12:00:00 AM EDT tablet 90 TAKE ONE TABLET BY MOUTH THR EE TIMES A DAY TAKE ONE TABLET BY MOUTH THREE TIMES A DAY SOLD: 02/04/2020 [facility] 50 mg 01/24/2020 12:00:00 AM EDT tablet 30 TAKE ONE TABLET BY MOUTH EVERY DAY NEEDED FOR SLEEP TAKE ONE TABLET BY MOUTH EVERY DAY NEEDED FOR SLEEP SOLD: 06/16/2020 [facility] 50 mg 01/24/2020 12:00:00 AM EDT tablet 30 TAKE ONE TABLET BY MOUTH EVERY DAY NEEDED FOR SLEEP TAKE ONE TABLET BY MOUTH EVERY DAY NEEDED FOR SLEEP SOLD: 01/24/2020 [facility] 50 mg 01/24/2020 12:00:00 AM EDT tablet 30 TAKE ONE TABLET BY MOUTH EVERY DAY NEEDED FOR SLEEP TAKE ONE TABLET BY MOUTH EVERY DAY NEEDED FOR SLEEP SOLD: 02/18/2020 [facility] 0.7 % 01/15/2020 12:00:00 AM EDT drops 7 INSTILL 1 DROP IN EACH EYE IN THE MORNING INSTILL 1 DROP IN EACH EYE IN THE MORNING SOLD: 01/17/2020 [facility] 0.7 % 01/15/2020 12:00:00 AM EDT drops 7 INSTILL 1 DROP IN EACH EYE IN THE MORNING INSTILL 1 DROP IN EACH EYE IN THE MORNING SOLD: 03/27/2020 [facility] 0.7 % 01/15/2020 12:00:00 AM EDT drops 7 INSTILL 1 DROP IN EACH EYE IN THE MORNING INSTILL 1 DROP IN EACH EYE IN THE MORNING SOLD: 06/26/2020 [facility] 2 mg 01/14/2020 12:00:00 AM EDT capsule 30 TAKE ONE CAPSULE BY MOUTH AT BEDTIME FOR NIGHTMARES TAKE ONE CAPSULE BY MOUTH AT BEDTIME FOR NIGHTMARES SO LD: 01/14/2020 [facility] olopatadine 7 MG/ML Ophthalmic Solution [Pazeo] Pazeo 0.7% Ophthalmic Solution Pazeo 0.7% Ophthalmic Solution 01/14/2020 12:00:00 AM EDT 1 active olopatadine 7 MG/ML Ophthalmic Solution [Pazeo] BENNETT (Sivakumar Heath MD [facility]) 50 mg 01/14/2020 12:00:00 AM EDT tablet 120 TAKE ONE TABLET BY MOUTH EVERY 6 HOURS NEEDED MAXIMUM DAILY DOSE = 4 TABLETS TAKE ONE TABLET BY MOUTH EVERY 6 HOURS NEEDED MAXIMUM DAILY DOSE = 4 TABLETS SOLD: 01/14/2020 [facility] 2 mg 01/14/2020 12:00:00 AM EDT capsule 30 TAKE ONE CAPSULE BY MOUTH AT BEDTIME FOR NIGHTMARES TAKE ONE CAPSULE BY MOUTH AT BEDTIME FOR NIGHTMARES SO LD: 02/18/2020 [facility] 2 mg 01/14/2020 12:00:00 AM EDT capsule 30 TAKE ONE CAPSULE BY MOUTH AT BEDTIME FOR NIGHTMARES TAKE ONE CAPSULE BY MOUTH AT BEDTIME FOR NIGHTMARES SO LD: 06/16/2020 [facility] 10 mg 01/07/2020 12:00:00 AM EDT tablet 90 TAKE ONE TABLET BY MOUTH THREE TIMES A DAY TAKES FOR TREMORS TAKE ONE TABLET BY MOUTH THREE TIMES A D AY TAKES FOR TREMORS SOLD: 02/03/2020 [facility] 10 mg 01/07/2020 12:00:00 AM EDT tablet 90 TAKE ONE TABLET BY MOUTH THREE TIMES A DAY TAKES FOR TREMORS TAKE ONE TABLET BY MOUTH THREE TIMES A D AY TAKES FOR TREMORS SOLD: 01/07/2020 [facility] 10 mg 01/07/2020 12:00:00 AM EDT tablet 90 TAKE ONE TABLET BY MOUTH THREE TIMES A DAY TAKES FOR TREMORS TAKE ONE TABLET BY MOUTH THREE TIMES A D AY TAKES FOR TREMORS SOLD: 03/13/2020 [facility] 0.1 % 12/20/2019 12:00:00 AM EDT drops 15 INSTILL 1 DROP IN EACH EYE TWO TIMES A DAY INSTILL 1 DROP IN EACH EYE TWO TIMES A DAY SOLD: 12/20/2019 [facility] Brimonidine tartrate 1 MG/ML Ophthalmic Solution [Alphagan] Alphagan P 0.1% Ophthalmic Solution Alphagan P 0.1% Ophthalmic Solution 12/19/2019 12:00:0 0 AM EDT aborted brimonid ine tartrate 1 MG/ML Ophthalmic Solution [Alphagan] BENNETT (Sivakumar Heath MD [facility]) 100 mg 12/12/2019 12:00:00 AM EDT tablet 45 TAKE 1 & 1/2 TABLETS BY MOUTH ONCE DAILY TAKE 1 & 1/2 TABLETS BY MOUTH ONCE DAILY SOLD: 05/12/2020 [facility] 100 mg 12/12/2019 12:00:00 AM EDT tablet 45 TAKE 1 & 1/2 TABLETS BY MOUTH ONCE DAILY TAKE 1 & 1/2 TABLETS BY MOUTH ONCE DAILY SOLD: 01/14/2020 [facility] 100 mg 12/12/2019 12:00:00 AM EDT tablet 45 TAKE 1 & 1/2 TABLETS BY MOUTH ONCE DAILY TAKE 1 & 1/2 TABLETS BY MOUTH ONCE DAILY SOLD: 12/13/2019 [facility] traZODone HCl 50 MG traZODone HCl 12/07/2019 01:00:00 AM EDT completed NETSMART ([facility]) Aubagio 14 MG Aubagio 12/07/2019 01:00:00 AM EDT c ompleted [facility]SM[facility] ([facility]) TraMADol HCl 50 MG TraMADol HCl 12/07/2019 01:00:00 AM EDT completed [facility] ([facility]) Gabapentin 300 MG Gabapentin 12/07/2019 01:00:00 AM EDT completed [facility] ([facility] ) Lorazepam Lorazepam 12/07/2019 01:00:00 AM EDT 10.0 {mg} completed [facility] ([facility] ) Sertraline HCl 100 MG Sertraline HCl 12/07/2019 01:00:00 AM EDT completed [facility] ([facility]) Prazosin HCl 2 MG Prazosin HCl 12/07/2019 01:00:00 AM EDT completed [facility] ([facility]) Propranolol HCL Propranolol HCL 12/07/2019 01:00:00 AM EDT 25.0 {mg} completed [facility] ([facility]) busPIRone HCl 15 MG busPIRone HCl 12/07/2019 01:00:00 AM EDT completed [facility] ([facility]) Spironolactone 25 MG Spironolactone 12/07/2019 01:00:00 AM EDT completed [facility] ([facility]) Vitamin D3 5000 UNIT Vitamin D3 12/07/2019 01:00:00 AM EDT completed [facility]SM[facility] ([facility]) Levothyroxine Sodium 50 MCG Levothyroxine Sodium 12/07/2019 01:00:00 AM EDT completed [facility]SM[facility] ( [facility]) Transfer Bench - Transfer Bench - 12/07/2019 12:00:00 AM EDT active Transfer bench for shower eCW1 ([facility]) Transfer Bench - Transfer Bench - 12/07/2019 12:00:00 AM EDT active Transfer Bench - eCW1 ([facility]) Transfer Bench - Transfer Bench - 12/07/2019 12:00:00 AM EDT active Transfer Bench - eCW1 ([facility]) Transfer Bench - Transfer Bench - 12/07/2019 12:00:00 AM EDT active Transfer Bench - eCW1 ([facility]) Transfer Bench - Transfer Bench - 12/07/2019 12:00:00 AM EDT active Transfer Bench - eCW1 ([facility]) Transfer Bench - Transfer Bench - 12/07/2019 12:00:00 AM EDT active Transfer Bench - eCW1 ([facility]) Transfer Bench - Transfer Bench - 12/07/2019 12:00:00 AM EDT active Transfer Bench - eCW1 ([facility]) Transfer Bench - Transfer Bench - 12/07/2019 12:00:00 AM EDT active Transfer Bench - eCW1 ([facility]) Transfer Bench - Transfer Bench - 12/07/2019 12:00:00 AM EDT active Transfer Bench - eCW1 ([facility]) Transfer Bench - Transfer Bench - 12/07/2019 12:00:00 AM EDT active Transfer Bench - eCW1 ([facility]) Transfer Bench - Transfer Bench - 12/07/2019 12:00:00 AM EDT active Transfer Bench - eCW1 ([facility]) Transfer Bench - Transfer Bench - 12/07/2019 12:00:00 AM EDT active Transfer Bench - eCW1 ([facility]) Transfer Bench - Transfer Bench - 12/07/2019 12:00:00 AM EDT active Transfer Bench - eCW1 ([facility]) Transfer Bench - Transfer Bench - 12/07/2019 12:00:00 AM EDT active Transfer Bench - eCW1 ([facility]) tramadol hydrochloride 50 MG Oral Tablet TRAMADOL HCL 11/30/2019 12:00:00 AM EDT tablet 120 TAKE ONE TABLET BY MOUTH EVERY 6 HOURS NEEDED MAXIMUM DAILY DOSE = 4 TABLETS TAKE ONE TABLET BY MOUTH EVERY 6 HOURS A S NEEDED MAXIMUM DAILY DOSE = 4 TABLETS SOLD: 12/03/2019 [facility] 300 mg 11/27/2019 12:00:00 AM EDT capsule 210 TAKE TWO CAPSULES BY MOUTH EVERY MORNING AND TAKE TWO CAPSULES IN THE AFTERNOON, AND TAKE TAKE THREE CAPSULES BY MOUTH AT BEDTIME TAKE TWO CAPSULES BY MOUTH EVERY MORNING AND TAKE TWO CAPSULES IN THE AFTERNOON, AND TAKE TAKE THREE CAPSULES BY MOUTH AT BEDTIME SOLD: 02/28/2020 [facility] 300 mg 11/27/2019 12:00:00 AM EDT capsule 210 TAKE TWO CAPSULES BY MOUTH EVERY MORNING AND TAKE TWO CAPSULES IN THE AFTERNOON, AND TAKE TAKE THREE CAPSULES BY MOUTH AT BEDTIME TAKE TWO CAPSULES BY MOUTH EVERY MORNING AND TAKE TWO CAPSULES IN THE AFTERNOON, AND TAKE TAKE THREE CAPSULES BY MOUTH AT BEDTIME SOLD: 12/31/2019 [facility] 300 mg 11/27/2019 12:00:00 AM EDT capsule 210 TAKE TWO CAPSULES BY MOUTH EVERY MORNING AND TAKE TWO CAPSULES IN THE AFTERNOON, AND TAKE TAKE THREE CAPSULES BY MOUTH AT BEDTIME TAKE TWO CAPSULES BY MOUTH EVERY MORNING AND TAKE TWO CAPSULES IN THE AFTERNOON, AND TAKE TAKE THREE CAPSULES BY MOUTH AT BEDTIME SOLD: 02/03/2020 [facility] 300 mg 11/27/2019 12:00:00 AM EDT capsule 210 TAKE TWO CAPSULES BY MOUTH EVERY MORNING AND TAKE TWO CAPSULES IN THE AFTERNOON, AND TAKE TAKE THREE CAPSULES BY MOUTH AT BEDTIME TAKE TWO CAPSULES BY MOUTH EVERY MORNING AND TAKE TWO CAPSULES IN THE AFTERNOON, AND TAKE TAKE THREE CAPSULES BY MOUTH AT BEDTIME SOLD: 11/28/2019 [facility] buspirone hydrochloride 15 MG Oral Tablet BUSPIRONE HCL 11/06/2019 12:00:00 AM EDT tablet 90 TAKE ONE TABLET BY MOUTH THR EE TIMES A DAY TAKE ONE TABLET BY MOUTH THREE TIMES A DAY SOLD: 12/03/2019 [facility] buspirone hydrochloride 15 MG Oral Tablet BUSPIRONE HCL 11/06/2019 12:00:00 AM EDT tablet 90 TAKE ONE TABLET BY MOUTH THR EE TIMES A DAY TAKE ONE TABLET BY MOUTH THREE TIMES A DAY SOLD: 12/31/2019 [facility] buspirone hydrochloride 15 MG Oral Tablet BUSPIRONE HCL 11/06/2019 12:00:00 AM EDT tablet 90 TAKE ONE TABLET BY MOUTH THR EE TIMES A DAY TAKE ONE TABLET BY MOUTH THREE TIMES A DAY SOLD: 11/07/2019 [facility] 300 mg 11/02/2019 12:00:00 AM EST capsule 180 TAKE TWO CAPSULES BY MOUTH THREE TIMES A DAY TAKE TWO CAPSULES BY MOUTH THREE TIMES A DAY SOLD: 0 [facility] 5 % 10/30/2019 12:00:00 AM EST ointment 3 APPLY THIN BEAD IN THE RIGHT EYE TWO TIMES A DAY APPLY THIN BEAD IN THE RIGHT EYE TWO TIMES A DAY SOLD: 11/01/2019 [facility] Sodium Chloride 0.096147 MEQ/MG Ophthalm ic Ointment [Johnie 128] Johnie 128 5% Ophthalmic Ointment Johnie 128 5% Ophthalmic Ointment 10/29/2019 12:00:00 AM EST aborted sodium chloride 0.363466 MEQ/MG Ophthalmic Ointment [Johnie 128] BENNETT (Sivakumar Heath MD [facility]) 50 mg 10/29/2019 12:00:00 AM EST tablet 120 TAKE ONE TABLET BY MOUTH EVERY 6 HOURS NEEDED MAXIMUM DAILY DOSE = 4 TAKE ONE TABLET BY MOUTH EVERY 6 HOURS A S NEEDED MAXIMUM DAILY DOSE = 4 SOLD: 10/29/2019 [facility] 2 mg 10/24/2019 12:00:00 AM EST capsule 30 TAKE ONE CAPSULE BY MOUTH AT BEDTIME FOR NIGHTMARES TAKE ONE CAPSULE BY MOUTH AT BEDTIME FOR NIGHTMARES SO LD: 12/20/2019 [facility] 2 mg 10/24/2019 12:00:00 AM EST capsule 30 TAKE ONE CAPSULE BY MOUTH AT BEDTIME FOR NIGHTMARES TAKE ONE CAPSULE BY MOUTH AT BEDTIME FOR NIGHTMARES SO LD: 11/22/2019 [facility] 2 mg 10/24/2019 12:00:00 AM EST capsule 30 TAKE ONE CAPSULE BY MOUTH AT BEDTIME FOR NIGHTMARES TAKE ONE CAPSULE BY MOUTH AT BEDTIME FOR NIGHTMARES SO LD: 10/25/2019 [facility] 50 mg 10/15/2019 12:00:00 AM EST tablet 30 TAKE ONE TABLET BY MOUTH EVERY DAY NEEDED FOR SLEEP TAKE ONE TABLET BY MOUTH EVERY DAY NEEDED FOR SLEEP SOLD: 10/15/2019 [facility] 50 mg 10/15/2019 12:00:00 AM EST tablet 30 TAKE ONE TABLET BY MOUTH EVERY DAY NEEDED FOR SLEEP TAKE ONE TABLET BY MOUTH EVERY DAY NEEDED FOR SLEEP SOLD: 12/24/2019 [facility] 50 mg 10/15/2019 12:00:00 AM EST tablet 30 TAKE ONE TABLET BY MOUTH EVERY DAY NEEDED FOR SLEEP TAKE ONE TABLET BY MOUTH EVERY DAY NEEDED FOR SLEEP SOLD: 11/19/2019 [facility] 50 mg 10/10/2019 12:00:00 AM EST capsule 1 TAKE ONE CAPSULE BY MOUTH 1 HOUR BEFORE MRI TAKE ONE CAPSULE BY MOUTH 1 HOUR BEFORE MRI SOLD: 10/10/2019 [facility] 50 mg 10/10/2019 12:00:00 AM EST tablet 3 TAKE ONE TABLET BY MOUTH 13 HOURS BEFORE MRI, 1 TABLET 7 HOURS BEFORE MRI, 1 TABLET 1 HOUR BEFORE MRI TAKE ONE TABLET BY MOUTH 13 HOURS BEFORE MRI, 1 TABLET 7 HOURS BEFORE MRI, 1 TABLET 1 HOUR BEFORE MRI SOLD: 10/10/2019 [facility] 10 mg 10/05/2019 12:00:00 AM EST tablet 90 TAKE ONE TABLET BY MOUTH THREE TIMES A DAY TAKES FOR TREMORS TAKE ONE TABLET BY MOUTH THREE TIMES A D AY TAKES FOR TREMORS SOLD: 12/03/2019 [facility] 10 mg 10/05/2019 12:00:00 AM EST tablet 90 TAKE ONE TABLET BY MOUTH THREE TIMES A DAY TAKES FOR TREMORS TAKE ONE TABLET BY MOUTH THREE TIMES A D AY TAKES FOR TREMORS SOLD: 11/05/2019 [facility] 10 mg 10/05/2019 12:00:00 AM EST tablet 90 TAKE ONE TABLET BY MOUTH THREE TIMES A DAY TAKES FOR TREMORS TAKE ONE TABLET BY MOUTH THREE TIMES A D AY TAKES FOR TREMORS SOLD: 10/08/2019 [facility] 300 mg 09/21/2019 12:00:00 AM EST capsule 90 TAKE ONE CAPSULE BY MOUTH THREE TIMES A DAY TAKE ONE CAPSULE BY MOUTH THREE TIMES A DAY SOLD: 10/14/2019 [facility] 300 mg 09/21/2019 12:00:00 AM EST capsule 90 TAKE ONE CAPSULE BY MOUTH THREE TIMES A DAY TAKE ONE CAPSULE BY MOUTH THREE TIMES A DAY SOLD: 09/24/2019 [facility] 5 mg 09/20/2019 12:00:00 AM EST tablet extended release 24hr 30 TAKE ONE TABLET BY MOUTH EVERY DAY SWALLOW WHOLE. DO NOT CRUSH, BREAK, OR CHEW TAKE ONE TABLET BY MOUTH EVERY DAY SWALLOW WHOLE. DO NOT CRUSH, BREAK, OR CHEW SOLD: 09/24/2019 [facility] 50 mcg 09/17/2019 12:00:00 AM EST tablet 90 TAKE ONE TABLET BY MOUTH EVERY MORNING ON AN EMPTY STOMACH TAKE ONE TABLET BY MOUTH EVERY MORNING O N AN EMPTY STOMACH SOLD: 09/17/2019 [facility] 100 mg 09/17/2019 12:00:00 AM EST tablet 45 TAKE 1 & 1/2 TABLETS BY MOUTH ONCE DAILY TAKE 1 & 1/2 TABLETS BY MOUTH ONCE DAILY SOLD: 10/14/2019 [facility] 100 mg 09/17/2019 12:00:00 AM EST tablet 45 TAKE 1 & 1/2 TABLETS BY MOUTH ONCE DAILY TAKE 1 & 1/2 TABLETS BY MOUTH ONCE DAILY SOLD: 11/19/2019 [facility] 50 mcg 09/17/2019 12:00:00 AM EST tablet 90 TAKE ONE TABLET BY MOUTH EVERY MORNING ON AN EMPTY STOMACH TAKE ONE TABLET BY MOUTH EVERY MORNING O N AN EMPTY STOMACH SOLD: 12/24/2019 [facility] 100 mg 09/17/2019 12:00:00 AM EST tablet 45 TAKE 1 & 1/2 TABLETS BY MOUTH ONCE DAILY TAKE 1 & 1/2 TABLETS BY MOUTH ONCE DAILY SOLD: 09/17/2019 [facility] 50 mg 09/17/2019 12:00:00 AM EST tablet 120 TAKE ONE TABLET BY MOUTH EVERY 6 HOURS NEEDED MAXIMUM DAILY DOSE = 4 TAKE ONE TABLET BY MOUTH EVERY 6 HOURS A S NEEDED MAXIMUM DAILY DOSE = 4 SOLD: 09/17/2019 [facility] 4 mg 09/02/2019 12:00:00 AM EST tablet 90 TAKE ONE TABLET BY MOUTH THREE TIMES A DAY TAKE ONE TABLET BY MOUTH THREE TIMES A DAY SOLD: 09/02/2019 [facility] Spironolactone 100 MG Oral Tablet Spironolactone 100 MG Oral Tablet 08/28/2019 12:00:00 AM EST 1 active spironol actone 100 MG Oral Tablet [facility]ENNETT (Sivakumar Heath MD [facility]) Prazosin 2 MG Oral Capsule Prazosin HCl 2 MG Oral Caps ule Prazosin HCl 2 MG Oral Capsule 08/28/2019 12:00:00 AM EST 1 active prazosin 2 MG Oral Capsule [facility]NETT (Sivakumar Heath MD [facility]) Oxybutynin 5 mg Oral Tablet Oxybutynin 5 mg Oral Tablet 07/31 12:00:00 AM EST 1 active Oxybutynin GREENAshkan AY (Sivakumar Heath MD [facility]) Lorazepam 0.5 MG Oral Tablet LORazepam 0.5 MG Oral Tab let LORazepam 0.5 MG Oral Tablet 08/28/2019 12:00:00 AM EST 1 active lorazepam 0.5 MG Oral Tablet [facility]NETT (Sivakumar Heath MD [facility]) Brimonidine tartrate 1 MG/ML Ophthalmic Solution [Alphagan] Alphagan P 0.1% Ophthalmic Solution Alphagan P 0.1% Ophthalmic Solution 08/28/2019 12:00:0 0 AM EST aborted brimonid ine tartrate 1 MG/ML Ophthalmic Solution [Alphagan] [facility]NETT (Sivakumar Heath MD [facility]) Tramadol 50 mg Oral Tablet Tramadol 50 mg Oral Tablet 2018 12:00:00 AM EST 1 active Tramadol [address] E[address]WAY (Sivakumar Heath MD [facility]) Levothyroxine Sodium 0.05 MG Oral Capsul e Levothyroxine Sodium 50 MCG Oral Capsule Levothyroxine Sodium 50 MCG Oral Capsule 08/28/2019 12:00:00 AM EST 1 active levothyroxine sodium 0.05 MG Oral Capsule [facility]ENNETT (Sivakumar Heath MD [facility]) Zoloft 150 MG Oral Tablet Zoloft 150 MG Oral Tablet 08/28/2019 1 2:00:00 AM EST 1 active Zoloft BENNETT (Sivakumar Heath MD [facility]) Trazadone 50 mg Oral Tablet Trazadone 50 mg Oral Tablet 07/31 12:00:00 AM EST 1 active Trazadone JAILYN Y (Sivakumar Heath MD [facility]) Propanolol 10 mg Oral Tablet Propanolol 10 mg Oral Tablet 12:00:00 AM EST 1 active Propanolol GREENAshkan AY (Sivakumar Heath MD [facility]) Buspar 15 MG Oral Tablet Buspar 15 MG Oral Tablet 08/28/2019 12:00: 00 AM EST 1 active Buspar [facility]ENNETT (Sivakumar Heath MD [facility]) buspirone hydrochloride 15 MG Oral Tablet BUSPIRONE HCL 08/08/2019 12:00:00 AM EST tablet 90 TAKE ONE TABLET BY MOUTH THR EE TIMES A DAY TAKE ONE TABLET BY MOUTH THREE TIMES A DAY SOLD: 09/02/2019 [facility] buspirone hydrochloride 15 MG Oral Tablet BUSPIRONE HCL 08/08/2019 12:00:00 AM EST tablet 90 TAKE ONE TABLET BY MOUTH THR EE TIMES A DAY TAKE ONE TABLET BY MOUTH THREE TIMES A DAY SOLD: 09/30/2019 [facility] 50 mg 07/25/2019 12:00:00 AM EST tablet 30 TAKE ONE TABLET BY MOUTH EVERY DAY NEEDED FOR SLEEP TAKE ONE TABLET BY MOUTH EVERY DAY NEEDED FOR SLEEP SOLD: 09/24/2019 [facility] 50 mg 07/25/2019 12:00:00 AM EST tablet 30 TAKE ONE TABLET BY MOUTH EVERY DAY NEEDED FOR SLEEP TAKE ONE TABLET BY MOUTH EVERY DAY NEEDED FOR SLEEP SOLD: 08/27/2019 [facility] 2 mg 07/11/2019 12:00:00 AM EST capsule 30 TAKE ONE CAPSULE BY MOUTH AT BEDTIME FOR NIGHTMARES TAKE ONE CAPSULE BY MOUTH AT BEDTIME FOR NIGHTMARES SO LD: 09/16/2019 [facility] 10 mg 07/11/2019 12:00:00 AM EST tablet 90 TAKE ONE TABLET BY MOUTH THREE TIMES A DAY TAKES FOR TREMORS TAKE ONE TABLET BY MOUTH THREE TIMES A D AY TAKES FOR TREMORS SOLD: 09/02/2019 [facility] 100 mg 06/13/2019 12:00:00 AM EDT tablet 45 TAKE 1 & 1/2 TABLETS BY MOUTH ONCE DAILY TAKE 1 & 1/2 TABLETS BY MOUTH ONCE DAILY SOLD: 08/16/2019 [facility] 5 mg 03/15/2019 12:00:00 AM EDT tablet extended release 24hr 30 TAKE ONE TABLET BY MOUTH EVERY DAY SWALLOW WHOLE TAKE ONE TABLET BY MOUTH EVERY DAY SWALLOW WHOLE SOLD: 08/16/2019 [facility] 25 mg 02/19/2019 12:00:00 AM EDT tablet 90 TAKE ONE TABLET BY MOUTH EVERY DAY TAKE ONE TABLET BY MOUTH EVERY DAY SOLD: 11/19/2019 [facility] 0.1 % 02/12/2019 12:00:00 AM EDT drops 15 INSTILL 1 DROP IN EACH EYE TWO TIMES A DAY DIRECTED INSTILL 1 DROP IN EACH EYE TWO TIMES A DAY DIRECTED SOLD: 10/10/2019 [facility] tizanidine 4 MG Oral Tablet tizanidine 4 mg tablet TAKE ONE TABLET BY MOUTH THREE TIMES A DAY tizanidine 4 mg tablet TAKE ONE TABLET B Y MOUTH THREE TIMES A DAY completed tizanidine 4 MG Oral Tablet DANTE ([facility]) prednisolone acetate 10 MG/ML Ophthalmic Suspension prednisolone acetate 1 % eye drops,suspension prednisolone acetate 1 % eye drops,suspension completed prednisolone acetate 10 MG/ML Op hthalmic Suspension DANTE ([facility]) Diphenhydramine Hydrochloride 50 MG Oral Capsule [Banophen] Banophen 50 mg capsule TAKE ONE CAPSULE BY MOUTH 1 HOUR BEFORE MRI Banophen 50 mg capsule TAKE ONE CAPSULE BY MOUTH 1 HOUR BEFORE MRI completed diphenhydramine hydrochloride 50 MG Oral Capsule [Banophen] DANTE ([facility]) buspirone hydrochloride 10 MG Oral Table t buspirone 10 mg tablet TAKE ONE HALF TABLET BY MOUTH TWICE A DAY FOR ANXIETY buspirone 10 mg tablet TAKE ONE HALF TABLET BY MOUTH TWICE A DAY FOR ANXIETY completed buspirone hydrochloride 10 MG Oral Tablet DANTE ([facility]) Prednisone 50 MG Oral Tablet prednisone 50 mg tablet prednisone 50 mg tablet completed prednisone 50 MG Oral Tablet DANTE ([facility]) 24 HR Oxybutynin chloride 5 MG Extended Release Oral Tablet oxybutynin chloride ER 5 mg tablet,extended release 24 hr oxybutynin chloride ER 5 mg tablet,extended release 24 hr complete d 24 HR oxybutynin chloride 5 MG Extended Release Oral Tablet DANTE ([facility]) 1 ML glatiramer acetate 40 MG/ML Prefill ed Syringe [Copaxone] Copaxone 40 mg/mL subcutaneous syringe Copaxone 40 mg/mL subcutaneous syringe completed 1 ML glatiramer acetate 40 MG/ML Prefilled Syringe [Copaxone] DANTE ([facility]) Insurance Providers Payer name Policy type / Coverage type Policy ID Covered libertarian ID Covered libertarian's relationship to [place] Policy [place] Plan Information [employer] PRO[employer] [id number] SP [id number] MEDICARE [id number] SP [id number] [facility] Other 0 Self 0 Medicare Part B [facility] Other 0 Se lf 0 [employer] FED[employer]PL[employer]EE PROGRAM [id number] SP [id number] DEPT OF LABOR [id number] SP [id number] [facility] MEDICARE DIVISION [id number] S [id number] MEDICARE - [place] [id number] S [id number] BCBS OF [facility] [id number] S [id number] BC BS [place] [facility] [place][NOTE 3] B [id number] S [id number] MEDICARE [id number] S [id number] BCBS of [facility] Other 0 Self 0 Medicare Part B [facility] Other 0 Se lf 0 [place] [employer] [id number] S [id number] BCBS OF [facility] [id number] S [id number] MEDICARE - [place] [id number] S [id number] [facility] [id number] S [id number] [employer] [id number] S [id number] MEDICARE - [place] [id number] S [id number] [place] [employer] [id number] S [id number] [place]ICARE [place] [id number] S [id number] [place] [facility] [id number] S [id number] BCBS of [facility] Other 0 Self 0 Medicare Part B [facility] Other 0 Se lf 0 DEPT OF LABOR [id number] SP [id number] [employer]EE PROGRAM [id number] SP [id number] BCBS [facility] Part B [id number] Self [id number] Medicare (Part B) Medicare Primary [id number] Self [id number] [employer]EE PROGRAM [id number] SP [id number] MEDICARE [id number] SP [id number] ANSI-Commercial [id number] ANSI-Medicare Part B [id number] ANSI-Medicare Part B [id number] ANSI-Commercial [id number] [facility] Part B [id number] Self [id number] Medicare (Part B) Medicare Primary [id number] Self [id number] ANSI-Commercial [id number] ANSI-Medicare Part B [id number] ANSI-Medicare Part B [id number] ANSI-Commercial [id number]-ldil-[id number]-rmrr-[id number] ANSI-Commercial [id number] ANSI-Medicare Part B [id number]-[id number] ANSI-Medicare Part B [id number] ANSI-Commercial [id number]-g849-9j02-06gr-[id number]-m719-0n69-33vp-[id number] ANSI-Medicare Part B [id number]-[id number] ANSI-Commercial [id number]-[id number]-[id number]-44an-[id number] ANSI-Medicare Part B [id number] ANSI-Commercial [id number]-dg71-[id number] [id number] DEPT OF LABOR [id number] ANSI-Medicare Part B [id number] ANSI-Commercial [id number] MEDICARE - [place] [id number] ANSI-Medicare Part B [id number] ANSI-Commercial [id number] MEDICARE [id number] ANSI-Commercial [id number] ANSI-Medicare Part B [id number] WORKERS COMPENSATION OTHER [id number] S [id number] DEPARTMENT OF LABOR-[facility] [id number] S [id number] ANSI-Medicare Part B [id number] ANSI-Commercial [id number] DEPARTMENT OF LABOR-[facility] [id number] S [id number] SELF PAY SP UNAVAILABLE UNAVAILA BLE EXCELLUS BCBS FEDERAL [id number] SP [id number] DEPARTMENT OF LABOR-[facility] WC UNAVAILABLE S UNAVAILABLE DEPT. 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 Problem 10/03/2020 12:00:00 AM EST eCW1 ([facility]) Z90.722 [id number] Acquired absence of ovaries, bilateral Pr oblem 10/03/2020 12:00:00 AM EST eCW1 ([facility]) 53691333 Cerebral artery occlusion Cerebral artery occlusion Pr oblem 09/24/2020 12:00:00 AM EST MEDENT ([facility]) Z91.041 [id number] Contrast media allergy Problem 09/22/2020 12 :00:00 AM EST eCW1 ([facility]) E78.5 41821650 Hyperlipidemia, unspecified hyperlipidemi a type Problem 09/16/2020 12:00:00 AM EST eCW1 ([facility]) 40603883 Corneal Transplant Status Corneal Transplant Status Fi nding 05/06/2020 12:00:00 AM EDT [place] (Sivakumar Heath MD [facility]) 25287200 Corneal Transplant Status Corneal Transplant Status Fi nding 05/06/2020 12:00:00 AM EDT [place] (Sivakumar Heath MD [facility]) N18.3 [id number] Stage 3 chronic kidney disease Problem 03/13/2020 12:00:00 AM EDT eCW1 ([facility]) R20.2 [id number] Leg paresthesia Problem 03/11/2020 12:00:00 AM EDT eCW1 ([facility]) H91.90 20411164 Hearing loss, unspec ified hearing loss type, unspecified laterality Problem 02/08/2020 12:00:00 AM EDT eCW1 ([facility]) 372.14 Conjunctivitis Chronic Allergic Conjunctivitis Chronic Allergic Problem 01/14/2020 12:00:00 AM EDT [place] (Sivakumar Heath MD [facility]) 372.14 Conjunctivitis Chronic Allergic Conjunctivitis Chronic Allergic Problem 01/14/2020 12:00:00 AM EDT [place] ([facility]ivakumar Heath MD [facility]) E03.9 Hypothyroidism, unspecified Hypothyroidism, unspecifie d Problem 12/03/2019 01:00:00 AM EDT NETSMART ([facility] ) M54.31 Sciatica, right side Sciatica, right side Problem 12/03/2019 01:00:00 AM EDT NETSMART ([facility] ) G89.29 Other chronic pain Other chronic pain Problem 0 01:00:00 AM EDT NETSMART ([facility]) D68.61 Antiphospholipid syndrome Antiphospholipid syndrome Pr oblem 12/03/2019 01:00:00 AM EDT NETSMART ([facility] ) I10 Essential (primary) hypertension Essential (primary) h ypertension Problem 12/03/2019 01:00:00 AM EDT NETSMART ([facility] ) F33.0 Major depressive disorder, recurrent, mi ld Major depressive disorder, recurrent, mild Problem 12/03/2019 01:00:00 AM EDT NETSMART ([facility]) F41.9 Anxiety disorder, unspecified Anxiety disorder, unspec ified Problem 12/03/2019 01:00:00 AM EDT NETSMART ([facility] ) J45.909 Unspecified asthma, uncomplicated Unspecified as thma, uncomplicated Problem 12/03/2019 01:00:00 AM EDT NETSMART ([facility]) K59.04 Chronic idiopathic constipation Chronic idiopathic con stipation Problem 12/03/2019 01:00:00 AM EDT NETSMART ([facility] ) M16.11 Unilateral primary osteoarthritis, right hip Unilateral primary osteoarthritis, right hip Problem 12/03/2019 01:00:00 AM EDT NETSMAR T ([facility]) Z60.2 Problems related to living alone Problems related to l iving alone Problem 12/03/2019 01:00:00 AM EDT NETSMART ([facility] ) Z91.81 History of falling History of falling Problem 0 01:00:00 AM EDT NETSMART ([facility]) G35 Multiple sclerosis Multiple sclerosis Problem 0 01:00:00 AM EDT NETSMART ([facility]) N95.9 [id number] Menopausal disorder Problem 10/02/2019 12:00 :00 AM EST eCW1 ([facility]) N95.9 [id number] Menopausal disorder Problem 10/02/2019 12:00 :00 AM EST eCW1 ([facility]) 379.21 Vitreous Disorders Degeneration Vitreous Disorders Deg eneration Problem 08/28/2019 12:00:00 AM EST [place] (Sivakumar Heath MD [facility]) 375.15 Dry Eye Syndrome Dry Eye Syndrome Problem 08/28/2019 12 :00:00 AM EST [place] (Sivakumar Heath MD [facility]) 366.16 Cataract Senile Nuclear Cataract Senile Nuclear Proble m 08/28/2019 12:00:00 AM EST [place] ([facility]ivakumar Heath MD [facility]) 364.71 Adhesions of Iris Posterior Synechiae Ad hesions of Iris Posterior Synechiae Problem 08/28/2019 12:00:00 AM EST [place] (Kade Heath MD [facility]) 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 Problem 08/28/2019 12:00:00 AM EST [place] ([facility]ivakumar Heath MD [facility]) V43.1 Pseudophakia Pseudophakia Problem 08/28/2019 12:00:00 A M EST [place] ([facility]akumar Heath MD [facility]) 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' Cor adonay Dystrophy Endothelial Fuchs' Problem 08/28/2019 12:00:00 AM EST [place] (Kade Heath MD [facility]) 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 Problem 08/28/2019 12:00:00 AM EST [place] ([facility]ivakumar Heath MD [facility]) 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 Right Problem 08/28/2019 12:00:00 AM EST [place] (Sivakumar jerry MD [facility]) 11885062 Posterior Capsule Opacification Eccentri c Capsule Right Eye Posterior Capsule Opacification Eccentric Capsule Right Eye Problem 07/31 12:00:00 AM EST - 08/05/2020 12:00:00 AM EST [place] ([facility]ivakumar Heath MD [facility]) 379.21 Vitreous Disorders Degeneration Vitreous Disorders Deg eneration Problem 08/28/2019 12:00:00 AM EST [place] (Sivakumar Heath MD [facility]) 375.15 Dry Eye Syndrome Dry Eye Syndrome Problem 08/28/2019 12 :00:00 AM EST [place] ([facility]ivakumar Heath MD [facility]) 366.16 Cataract Senile Nuclear Cataract Senile Nuclear Proble m 08/28/2019 12:00:00 AM EST [place] ([facility]ivakumar Heath MD [facility]) 364.71 Adhesions of Iris Posterior Synechiae Ad hesions of Iris Posterior Synechiae Problem 08/28/2019 12:00:00 AM EST [place] (Kade Heath MD [facility]) [id number] 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 Problem 08/28/2019 12:00:00 AM EST [place] ([facility]ivakumar Heath MD [facility]) V43.1 Pseudophakia Pseudophakia Problem 08/28/2019 12:00:00 A M EST [place] ([facility]akumar Heath MD [facility]) 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' Cor adonay Dystrophy Endothelial Fuchs' Problem 08/28/2019 12:00:00 AM EST [place] (Kade Heath MD [facility]) 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 Problem 08/28/2019 12:00:00 AM EST [place] ([facility]ivakumar Heath MD [facility]) 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 Right Problem 08/28/2019 12:00:00 AM EST [place] (Sivakumar jerry MD [facility]) [id number] Posterior Capsule Opacification Eccentri c Capsule Right Eye Posterior Capsule Opacification Eccentric Capsule Right Eye Problem 07/31 12:00:00 AM EST - 08/05/2020 12:00:00 AM EST [place] ([facility]ivakumar Heath MD [facility]) 379.21 Vitreous Disorders Degeneration Vitreous Disorders Deg eneration Problem 08/28/2019 12:00:00 AM EST [place] ([facility]ivakumar Heath MD [facility]) 375.15 Dry Eye Syndrome Dry Eye Syndrome Problem 08/28/2019 12 :00:00 AM EST [place] (Sivakumar Heath MD [facility]) 366.16 Cataract Senile Nuclear Cataract Senile Nuclear Proble m 08/28/2019 12:00:00 AM EST [place] ([facility]ivakumar Heath MD [facility]) 364.71 Adhesions of Iris Posterior Synechiae Ad hesions of Iris Posterior Synechiae Problem 08/28/2019 12:00:00 AM EST [place] (Kade Heath MD [facility]) 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 Problem 08/28/2019 12:00:00 AM EST [place] ([facility]ivakumar Heath MD [facility]) V43.1 Pseudophakia Pseudophakia Problem 08/28/2019 12:00:00 A M EST [place] ([facility]ivakumar Heath MD [facility]) 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' Cor adonay Dystrophy Endothelial Fuchs' Problem 08/28/2019 12:00:00 AM EST [place] (Kade Heath MD [facility]) 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 Problem 08/28/2019 12:00:00 AM EST [place] ([facility]ivakumar Heath MD [facility]) 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 Right Problem 08/28/2019 12:00:00 AM [facility] (Sivakumar jerry MD [facility]) 366.53 Posterior Capsule Opacification Eccentri c Capsule Right Eye Posterior Capsule Opacification Eccentric Capsule Right Eye Problem 07/31 12:00:00 AM EST [place] (Sivakumar Heath MD [facility]) stroke vs MS exacerbation stroke vs MS exacerbation Di agnosis 07/31/2020 08:47:00 PM [facility] Z79.899 Other termination clerk (current) drug therapy O THER [facility] (CURRENT) DRUG THERAPY Diagnosis 07/31/2020 05:43:00 PM [facility] Z79.52 termination clerk (current) use of systemic ster oids HOSTED SERVICES ANALYST (CURRENT) USE OF SYSTEMIC STEROIDS Diagnosis 07/31/2020 05:43:00 PM [facility] G35 Multiple sclerosis MULTIPLE SCLEROSIS Diagnosis 0 05:43:00 PM [facility] R47.9 Unspecified speech disturbances UNSPECIFIED SPEECH DIS TURBANCES Diagnosis 07/31/2020 05:43:00 PM [facility] E03.4 Atrophy of thyroid (acquired) ATROPHY OF THYROID (ACQU IRED) Diagnosis 04/23/2020 08:39:00 PM [facility] E03.8 Other specified hypothyroidism OTHER SPECIFIED HYPOTHY ROIDISM Diagnosis 04/23/2020 08:39:00 PM [facility] R00.2 Palpitations PALPITATIONS Diagnosis 04/23/2020 08:39:00 P M [facility] R07.89 Other chest pain OTHER CHEST PAIN Diagnosis 04/23/2020 08 :39:00 PM [facility] R90.82 White matter disease, unspecified WHITE MATTER D ISEASE, UNSPECIFIED Diagnosis 12/19/2019 03:14:00 PM [facility] E78.2 Mixed hyperlipidemia MIXED HYPERLIPIDEMIA Diagnosis 12/19/2019 03:05:00 PM [facility] E03.9 Hypothyroidism, unspecified HYPOTHYROIDISM, UNSPECIFIE D Diagnosis 12/19/2019 03:05:00 PM [facility] D64.9 Anemia, unspecified ANEMIA, UNSPECIFIED Diagnosis 0 12/19/2019 03:05:00 PM [facility] D69.6 Thrombocytopenia, unspecified THROMBOCYTOPENIA, UNSPEC IFIED Diagnosis 12/19/2019 03:05:00 PM [facility] N39.0 Urinary tract infection, site not specif ied URINARY TRACT INFECTION, SITE NOT SPECIF Diagnosis 12/11/2019 12:00:00 AM [facility] R39.11 Hesitancy of micturition HESITANCY OF MICTURITION Diag nosis 10/13/2019 11:31:00 AM [facility] R53.1 Weakness WEAKNESS Diagnosis 10/13/2019 11:31:00 AM [facility] R33.9 Retention of urine, unspecified RETENTION OF URINE, UN SPECIFIED Diagnosis 10/13/2019 11:31:00 AM [facility] Surgeries/Procedures Procedure Description Date Indications Data Source(s) ECG ROUTINE ECG W/LEAST 12 LDS W/I&R 09/24/2020 12:00: 00 AM EST MEDENT ([facility]) Arterial Pressure Waveform Analysis For Assessment Of Centra l Art 09/24/2020 12:00:00 AM EST MEDENT ([facility] [employer] [facility]) Corneal transplant (procedure) History of transplant o f the right cornea -DMEK by Dr. Mcnulty 05/01/2020 08/05/2020 12:00:00 AM EST [place] ([facility]ivakumar Heath MD [facility]) Extracapsular extraction of lens (procedure) History o f extracapsular cataract extraction Right Eye September 2018, [facility] November [address] Gale 08/05/2020 12:00:00 AM EST [place] (Sivakumar jerry MD [facility]) Discission of membranous cataract, secondary (procedur e) History of discission of secondary membranous cataract of right eye by laser by Dr. Mcnulty on 07/18/2020 08/05/2020 12:00:00 AM EST [place] (Kade Heath MD [facility]) Yag Laser Capulotomy (Right Side) Yag Laser Capulotomy (Righ t Side) 07/18/2020 12:00:00 AM EST [place] (Sivakumar Heath MD [facility]) Immunization: Flublok Quadrivalent (18 years & older) 0.5mL IM (Influenza) 06/16/2020 12:00:00 AM EDT eCW1 ([facility]) PNEUMOCOCCAL POLYSAC VACCINE 23-V 2 />YR SUBQ/IM 06/16 12:00:00 AM EDT eCW1 ([facility]) Laser Iridotomy (Right Side) Laser Iridotomy (Right Side) 12:00:00 AM EDT [place] (Sivakumar Heath MD [facility]) Intermediate Eye Exam Established Patient Intermediate Eye Exam Established Patient 04/24/2020 12:00:00 AM EDT [place] (Kade Heath MD [facility]) ECG ROUTINE ECG W/LEAST 12 LDS W/I&R 02/22/2020 12:00: 00 AM EDT MEDENT ([facility]) Intermediate Eye Exam Established Patient Intermediate Eye Exam Established Patient 01/14/2020 12:00:00 AM EDT [place] (Kade Heath MD [facility]) Cervical or vaginal cancer screening; pelvic and clinical br east examination 10/02/2019 12:00:00 AM EST eCW1 ([facility]) TEST FOR BLOOD, FECES 10/02/2019 12:00:00 AM EST eCW1 ([facility]) Intermediate Eye Exam Established Patient (Signi/Sep E maria del rosario. & Man.) Intermediate Eye Exam Established Patient (Signi/Sep Eval. & Man.) 09/14/2019 12:00:00 AM EST [place] ([facility]ivakumar Heath MD [facility]) Corneal Pachymetry (WAIVER OF LIABILITY ON FILE (ABN)) Corneal Pachymetry (WAIVER OF LIABILITY ON FILE (ABN)) 09/14/2019 12:00:00 AM EST [place] (Sivakumar Heath MD [facility]) Refraction (WAIVER OF LIABILITY ON FILE (ABN)) Refract ion (WAIVER OF LIABILITY ON FILE (ABN)) 09/14/2019 12:00:00 AM EST [place] (Kade Heath MD [facility]) Office Visit, Est Pt., Level 3 FC 08/31/2019 12:00:00 AM EST eCW1 ([facility]) Office Visit, Est Pt., Level 4 PC 08/31/2019 12:00:00 AM EST eCW1 ([facility]) Surgical / procedural history Tonsillec nadia 1971, Gallbladder Removed 1979, Left Hip Replacement 2012, Total Hysterectomy 1984, Total Cholectomy 2014 Surgical / procedural history Tonsillectomy 1971, Gallbladder Removed 1979, Left Hip Replacement 2012, Total Hysterectomy 1984, Total Cholectomy 201408/28/2019 12:00:00 AM EST [place] (Sivakumar jerry MD [facility]) Medical Eye Exam Medical Eye Exam 08/28/2019 12:00:00 AM EST [place] (Sivakumar Heath MD [facility]) Reported medical history Anxiety, Depression, PTSD, I nsomnia Reported medical history Anxiety, Depression, PTSD, Insomnia 08/28/2019 12:00:00 AM EST [place] (Sivakumar Heath MD [facility]) History of hypothyroidism History of hypothyroidism 08/28/2019 1 2:00:00 AM EST [place] (Sivakumar Heath MD [facility]) History of arthritis History of arthritis 08/28/2019 12:00:00 AM ES T [place] (Sivakumar Heath MD [facility]) Currently wearing eyeglasses Currently wearing eyeglasses 12:00:00 AM EST [place] (Sivakumar Heath MD [facility]) History of extracapsular cataract extrac tion Right Eye September 2018, [facility] November 2018. By Dr. Gale History of extracapsular cataract extrac tion Right Eye September 2018, [facility] November 2018. By Dr[address] Gale 08/28/2019 12:00:00 AM EST [place] (Sivakumar Heath MD [facility]) Results ID Date Data Source [id number] 10/10/2020 10:45:00 AM EST [facility] Name Value Range Interpretation Code Description Data Olga Lidia rce(s) Supporting Document(s) SARS coronavirus [address] [facility] This lab was ordered by [facility] and reported by [facility]. ID Date Data Source [id number] 08/01/2020 07:20:00 AM EST [facility] Patient: ROLANDO HURLEY Lucina Virk R eport - [facility].VisitID: [id number] [place] [address] [phone], FRegistration Date/Time: 07/31/2020 16:41 Weight:68 kg (S). Height/Length:66 inches (S). BMI:24.2 (Electronically signed by Lois Mendes M.D. 07/31/2020 22:17) Weight:68 kg (S). Height/Length:66 inches (S). BMI:24.2 FAMILY HISTORYMother: Cancer. Father: Heart Disease. Sister(s): Hypertension. (Electronically signed by Gregory Bush P.A. 08/01/2020 07:07) Name Value Range Interpretation Code Description Data Olga Lidia rce(s) Supporting Document(s) ID Date Data Source [id number] 07/31/2020 07:22:00 PM EST [facility] TSYSORDER [id number] Name Value Range Interpretation Code Description Data Olga Lidia rce(s) Supporting Document(s) GLUCOSE 81 mg/dL 74-106 [facility] BLOOD UREA NITROGEN 14 mg/dL 7-18 [facility] ital CREATININE 1.5 mg/dL 0.6-1.0 H [facility] SODIUM 143 mmol/L 136-145 [facility] POTASSIUM 4.5 mmol/L 3.5-5.1 [facility] CHLORIDE 106 mmol/L 98-107 [facility] CO2 33 mmol/L 21-32 H [facility] CALCIUM 10.3 mg/dL 8.5-10.1 H [facility] ANION GAP 4.0 mmol/L 5-12 L [facility] GLOMERULAR FILTRATION RATE 35 mL/min [facility] GFR IS CALCULATED IN mL/min/1.73m2 ALEXANDRA L FUNCTION: >90MILDLY DECREASED: 60-89MILDY TO MODERATELY DECREASED: 45-59 MODERATELY TO SEVERELY DECREASED: 30-44SEVERELY DECREASED: 15-29RENAL FAILURE: <15 AST 33 U/L 15-37 [facility] ALT 31 U/L 12-78 [facility] ALKALINE PHOSPHATASE 43 U/L 46-116 L [facility] pital TOTAL BILIRUBIN 0.5 mg/dL 0.2-1.0 [facility] TOTAL PROTEIN 7.3 g/dl 6.4-8.2 [facility] ALBUMIN 3.6 gm/dL 3.4-5.0 [facility] ID Date Data Source [id number] 07/31/2020 07:22:00 PM EST [facility] TSYSORDER [id number] Name Value Range Interpretation Code Description Data Olga Lidia rce(s) Supporting Document(s) MAGNESIUM 2.0 mg/dL 1.8-2.4 [facility] ID Date Data Source [id number] 07/31/2020 07:19:00 PM [facility] TSYSORDER [id number] Name Value Range Interpretation Code Description Data Olga Lidia rce(s) Supporting Document(s) PROTHROMBIN TIME (PATIENT) 26.7 SECONDS 9.1-11.6 H [facility] INR 2.59 0.87-1.06 H [facility] ID Date Data Source [id number] 07/31/2020 07:19:00 PM [facility] l TSYSORDER [id number] Name Value Range Interpretation Code Description Data Olga Lidia rce(s) Supporting Document(s) PARTIAL THROMBOPLASTIN TIME 62.2 SECONDS 21.2-27.3 H [facility] ID Date Data Source [id number] 07/31/2020 07:01:00 PM [facility] l TSYSORDER [id number] Name Value Range Interpretation Code Description Data Olga Lidia rce(s) Supporting Document(s) WHITE BLOOD COUNT 4.1 K/mm3 4.0-10.0 [facility] al RED BLOOD COUNT 4.10 M/mm3 4.00-5.50 [facility] HEMOGLOBIN 11.9 gm/dL 12.0-16.0 L [facility] HEMATOCRIT 36.4 % 36.0-48.8 [facility] MEAN CELL VOLUME 88.8 fl 80-96 [facility] MEAN CORPUSCULAR HEMOGLOBIN 29.0 pg 27.0-31.0 [facility] MEAN CORPUSCULAR HGB CONC 32.7 g/dl 32.0-36.0 [facility] RED CELL DISTRIBUTION WIDTH 13.3 % 10.0-14.5 [facility] PLATELET COUNT 99 K/mm3 172-450 L [facility] MEAN PLATELET VOLUME 13.3 fl 9.0-13.0 H [facility] pital GRAN % 51.1 % 50-80.0 [facility] IG% 0.0 % 0.0-0.2 [facility] LYMPH % 32.1 % 25.0-50.0 [facility] MONO % 12.1 % 2.0-10.0 H [facility] EOS % 2.5 % 0-5.0 [facility] BASO % 2.2 % 0.0-2.0 H [facility] GRAN # 2.1 K/mm3 2.0-8.00 [facility] IG# 0.0 K/mm3 0.0-0.2 [facility] LYMPH # 1.3 K/mm3 1.0-5.0 [facility] MONO # 0.5 K/mm3 0.10-1.20 [facility] EOS # 0.1 K/mm3 0.0-0.5 [facility] BASO # 0.1 K/mm3 0.0-0.2 [facility] ID Date Data Source [id number] 07/31/2020 06:38:00 PM EST [facility] DATE OF EXAMINATION: 07/31/2020 17:55 EST BRAIN W/O CONTRAST INDICATION: Headache, weakness COMPARISON: 10/13/[address] exam was performed using the following dose reduction techniques:Automated exposure control, adjustment of mA and/or kV according to thepatient's size, and use of iterative reconstruction technique. TECHNIQUE: Axial images were obtained from the howell magnum to the vertex. FINDINGS: The basal cisterns cortical sulci and ventricles are prominentconsistent with age-related change. There the koehler-white matter differentiationis preserved. There is no mass effect or midline shift. No intracranial bleeds.No intra or extra-axial collections. The calvarium and extracranial soft tissuesare unremarkable. The visualized paranasal sinuses are well aerated. IMPRESSION: No acute intracranial abnormalities. Electronically signed in [id number] by: Anshu Lopez M.D. 07/31/2020 18:32 EST Name Value Range Interpretation Code Description Data [facility] rce(s) Supporting Document(s) ID Date Data Source [id number] 07/31/2020 06:26:00 PM [facility] ital TSYSORDER [id number] Name Value Range Interpretation Code Description Data [facility] rce(s) Supporting Document(s) URINE COLOR. YELLOW [facility] URINE APPEARANCE CLEAR [facility] l URINE GLUCOSE (UA) NEGATIVE mg/dL NEGATIVE [facility] URINE BILIRUBIN NEGATIVE NEGATIVE [facility] URINE KETONE NEGATIVE mg/dL NEGATIVE [facility] SPECIFIC GRAVITY,URINE 1.010 1.001-1.035 [facility] URINE BLOOD NEGATIVE NEGATIVE [facility] PH,URINE 6.0 5.0-9.0 [facility] URINE PROTEIN NEGATIVE mg/dL NEGATIVE [facility] URINE UROBILINOGEN NORMAL(0.2-1) mg/dL 0-1 R [facility] URINE NITRATE NEGATIVE NEGATIVE [facility] URINE LEUKOCYTE ESTERASE NEGATIVE NEGATIVE [facility] ID Date Data Source [id number] 06/23/2020 12:00:00 AM EDT DAN[facility] ([facility]) Name Value Range Interpretation Code Description Data Olga Lidia rce(s) Supporting Document(s) SARS coronavirus 2 RNA [Presence] in Res piratory specimen by VITA with probe detection negative negative normal Sars-cov-2 DANTE ([facility]) ID Date Data Source [id number] 06/23/2020 12:00:00 AM EDT DANTE ([facility]) Name Value Range Interpretation Code Description Data Olga Lidia rce(s) Supporting Document(s) ID Date Data Source [id number] 06/23/2020 12:00:00 AM EDT DANTE ([facility]) Name Value Range Interpretation Code Description Data Olga Lidia rce(s) Supporting Document(s) SARS coronavirus 2 RNA [Presence] in Res piratory specimen by VITA with probe detection negative negative normal Sars-cov-2 DANTE ([facility]) ID Date Data Source [id number] 06/23/2020 12:00:00 AM EDT DANTE ([facility]) Name Value Range Interpretation Code Description Data Olga Lidia rce(s) Supporting Document(s) ID Date Data Source [id number] 06/23/2020 12:00:00 AM EDT [facility] Name Value Range Interpretation Code Description Data Olga Lidia rce(s) Supporting Document(s) SARS-CoV-2 [facility] This lab was ordered by [employer] [facility]-C[facility] and reported by [facility]. ID Date Data Source [id number] 05/26/2020 12:00:00 AM EDT DANTE ([facility]) Name Value Range Interpretation Code Description Data Olga Lidia rce(s) Supporting Document(s) ID Date Data Source [id number] 05/26/2020 12:00:00 AM EDT DANTE ([facility]) Name Value Range Interpretation Code Description Data Olga Lidia rce(s) Supporting Document(s) ID Date Data Source [id number] 05/26/2020 12:00:00 AM EDT DANTE ([facility]) Name Value Range Interpretation Code Description Data Olga Lidia rce(s) Supporting Document(s) ID Date Data Source [id number] 05/26/2020 12:00:00 AM EDT DANTE ([facility]) Name Value Range Interpretation Code Description Data Olga Lidia rce(s) Supporting Document(s) ID Date Data Source [id number] 05/26/2020 12:00:00 AM EDT [facility]ANTE ([facility]) Name Value Range Interpretation Code Description Data Olga Lidia rce(s) Supporting Document(s) ID Date Data Source [id number] 05/26/2020 12:00:00 AM EDT [facility] Name Value Range Interpretation Code Description Data Olga Lidia rce(s) Supporting Document(s) SARS-CoV-2 [facility] This lab was ordered by [facility] [employer] [facility]-C[facility] and reported by [facility]. ID Date Data Source [id number] 05/12/2020 12:00:00 AM EDT DANTE ([facility]) Name Value Range Interpretation Code Description Data Olga Lidia rce(s) Supporting Document(s) ID Date Data Source [id number] 05/12/2020 12:00:00 AM EDT DANTE ([facility]) Name Value Range Interpretation Code Description Data Olga Lidia rce(s) Supporting Document(s) ID Date Data Source [id number] 05/12/2020 12:00:00 AM EDT DANTE ([facility]) Name Value Range Interpretation Code Description Data Olga Lidia rce(s) Supporting Document(s) ID Date Data Source [id number] 05/12/2020 12:00:00 AM EDT DANTE ([facility]) Name Value Range Interpretation Code Description Data Olga Lidia rce(s) Supporting Document(s) ID Date Data Source [id number] 05/12/2020 12:00:00 AM EDT DANTE ([facility]) Name Value Range Interpretation Code Description Data Olga Lidia rce(s) Supporting Document(s) ID Date Data Source [id number] 05/12/2020 12:00:00 AM EDT DANTE ([facility]) Name Value Range Interpretation Code Description Data Olga Lidia rce(s) Supporting Document(s) ID Date Data Source [id number] 05/12/2020 12:00:00 AM EDT DANTE ([facility]) Name Value Range Interpretation Code Description Data Olga Lidia rce(s) Supporting Document(s) ID Date Data Source [id number] 05/12/2020 12:00:00 AM EDT [facility] Name Value Range Interpretation Code Description Data Olga Lidia rce(s) Supporting Document(s) SARS-CoV-2 [facility] This lab was ordered by [facility] [employer] [facility] and reported by [facility]. ID Date Data Source [id number] 04/26/2020 12:00:00 PM EDT [facility] Name Value Range Interpretation Code Description Data Olga Lidia rce(s) Supporting Document(s) SARS coronavirus 2 RNA [facility] This lab was ordered by [facility] and reported by [facility]. ID Date Data Source [id number] 04/25/2020 10:47:00 AM EDT [facility] Patient: ROLANDO HURLEY [facility].VisitID: [id number] [place] [address] [phone], FRegistration Date/Time: 04/23/2020 17:35 Weight:68 kg (S). Height/Length:66 inches (S). BMI:24.2 PAST HISTORYProblems:Dizziness.Depression.Anxiety Reaction.Multiple Sclerosis. (Trying to dx for over a year)Thyroid Disease.Lupus anticoagulant disorder.Loop recorder.Low platelets. Additional Surgeries:Cataract Surgery.Cholecystectomy [1994].Colectomy [12/2015].Hysterectomy [1986].Left hip replacement [12/2012].Tonsillectomy & Adenoidectomy [1972]. Medications:Propranolol HCl ER Oral 15 mg , 3x a day, last dose today.BusPIRone HCl Oral (Tablet 15 mg) 1 tablet, 3x a day, last dose today.Gabapentin Oral (Tablet 600 mg) 1 tablet, 3x a day, last dose today.Gabapentin Oral (Capsule 300 mg) 2 capsules, 3x a day, last dose today.Levothyroxine Sodium Oral (Tablet 50 mcg) 1 tablet, daily, last dose today.LORazepam Oral 1 mg, 3x a day as needed, last dose unk.Prazosin HCl Oral (Capsule 2 mg) 1 capsule, daily at bedtime, last dose last night.prednisoLONE Sodium Phosphate Ophthalmic (Solution 1 %) 1 drop, 3x a day, last dose today.Spironolactone Oral (Tablet 25 mg) 1 tablet, daily, last dose today.Tramadol HCL Oral (Tablet 50 mg) 1 tablet, 3x a day as needed, last dose today.traZODone HCl Oral (Tablet 50 mg) 1 tablet, daily, last dose last night.Vitamin D3 Oral (Tablet 125 MCG (5000 UT)) 1 tablet, daily, last dose today.Zoloft Oral (Tablet 100 mg) 1-1/2 tablets, daily, last dose today. Allergies:Iodine.(Anaphylaxis)Iopamidol.(Anaphylaxis)Rosuvastatin.(hives). FAMILY HISTORYNegative. No significant family medical history. (Electronically signed by Demarcus Fowler PKareem 04/25/2020 10:27) Weight:68 kg (S). Height/Length:66 inches (S). BMI:24.2 (Electronically signed by Julian Pinzon PKareem 04/24/2020 00:04) Addenda for ROLANDO HURLEY VisitID: [id number] Date: 04/23/2020 04/24/2020 0:12Chart review : second EKG rate 64, NSR , normal EKG(Electronically signed by Julian Pinzon - 04/24/2020 0:12) Name Value Range Interpretation Code Description Data Olga Lidia rce(s) Supporting Document(s) ID Date Data Source [id number] 04/23/2020 11:04:00 PM EDT [facility] TSYSORDER [id number] Name Value Range Interpretation Code Description Data Olga Lidia rce(s) Supporting Document(s) TROPONIN I < 0.017 ng/mL 0.0-0.056 [facility] ID Date Data Source [id number] 04/23/2020 07:04:00 PM EDT [facility] DATE OF EXAMINATION: 04/23/2020 17:48 EDT CHEST 1 VIEW HISTORY: Chest pain TECHNIQUE: Single frontal radiograph of chest COMPARISON: 10/13/2019. FINDINGS: The lungs are clear. The heart is normal in size. The pulmonary vasculature isnormal in appearance. IMPRESSION: No acute disease. Electronically signed in PS360 by: Jorge Luis Rg M.D. 04/23/2020 18:58 EDT Name Value Range Interpretation Code Description Data Olga Lidia rce(s) Supporting Document(s) ID Date Data Source [id number] 04/23/2020 08:06:00 PM EDT [facility] TSYSORDER [id number] Name Value Range Interpretation Code Description Data Olga Lidia rce(s) Supporting Document(s) FREE T4 0.74 ng/dL 0.76-1.46 [facility] ID Date Data Source [id number] 04/23/2020 08:06:00 PM EDT [facility] TSYSORDER [id number] Name Value Range Interpretation Code Description Data Olga Lidia rce(s) Supporting Document(s) TSH 0.61 uIU/mL 0.36-3.74 [facility] ID Date Data Source [id number] 04/23/2020 06:59:00 PM EDT [facility] TSYSORDER [id number] Name Value Range Interpretation Code Description Data Olga Lidia rce(s) Supporting Document(s) TROPONIN I < 0.017 ng/mL 0.0-0.056 [facility] ID Date Data Source [id number] 04/23/2020 06:59:00 PM EDT [facility] TSYSORDER [id number] Name Value Range Interpretation Code Description Data Olga Lidia rce(s) Supporting Document(s) MAGNESIUM 1.9 mg/dL 1.8-2.4 [facility] ID Date Data Source [id number] 04/23/2020 06:59:00 PM EDT [facility] [id number] Name Value Range Interpretation Code Description Data Olga Lidia rce(s) Supporting Document(s) LIPASE 267 U/L 73-393 [facility] ID Date Data Source [id number] 04/23/2020 06:59:00 PM EDT [facility] [id number] Name Value Range Interpretation Code Description Data Olga Lidia rce(s) Supporting Document(s) GLUCOSE 120 mg/dL 74-106 H [facility] BLOOD UREA NITROGEN 17 mg/dL 7-18 [facility] ital CREATININE 1.6 mg/dL 0.6-1.0 H [facility] SODIUM 138 mmol/L 136-145 [facility] POTASSIUM 4.9 mmol/L 3.5-5.1 [facility] CHLORIDE 100 mmol/L 98-107 [facility] CO2 30 mmol/L 21-32 [facility] CALCIUM 10.3 mg/dL 8.5-10.1 H [facility] ANION GAP 8.0 mmol/L 5-12 [facility] GLOMERULAR FILTRATION RATE 32 mL/min [facility] GFR IS CALCULATED IN mL/min/1.73m2 ALEXANDRA L FUNCTION: >90MILDLY DECREASED: 60-89MILDY TO MODERATELY DECREASED: 45-59 MODERATELY TO SEVERELY DECREASED: 30-44SEVERELY DECREASED: 15-29RENAL FAILURE: <15 AST 45 U/L 15-37 H [facility] ALT 37 U/L 12-78 [facility] ALKALINE PHOSPHATASE 46 U/L 46-116 [facility] TOTAL BILIRUBIN 0.5 mg/dL 0.2-1.0 [facility] TOTAL PROTEIN 8.0 g/dl 6.4-8.2 [facility] ALBUMIN 3.8 gm/dL 3.4-5.0 [facility] ID Date Data Source [id number] 04/23/2020 06:57:00 PM EDT [facility] TSYSORDER [id number] Name Value Range Interpretation Code Description Data Olga Lidia rce(s) Supporting Document(s) PROTHROMBIN TIME (PATIENT) 24.1 SECONDS 9.2-11.6 H [facility] INR 2.38 0.87-1.06 H [facility] ID Date Data Source [id number] 04/23/2020 06:57:00 PM EDT [facility] TSYSORDER [id number] Name Value Range Interpretation Code Description Data Olga Lidia rce(s) Supporting Document(s) PARTIAL THROMBOPLASTIN TIME 42.5 SECONDS 21.4-30.2 H [facility] ID Date Data Source [id number] 04/23/2020 06:39:00 PM EDT [facility] TSYSORDER [id number] Name Value Range Interpretation Code Description Data Olga Lidia rce(s) Supporting Document(s) WHITE BLOOD COUNT 4.5 K/mm3 4.0-10.0 [facility] al RED BLOOD COUNT 4.35 M/mm3 4.00-5.50 [facility] HEMOGLOBIN 12.6 gm/dL 12.0-16.0 [facility] HEMATOCRIT 38.5 % 36.0-48.8 [facility] MEAN CELL VOLUME 88.5 fl 80-96 [facility] MEAN CORPUSCULAR HEMOGLOBIN 29.0 pg 27.0-31.0 [facility] MEAN CORPUSCULAR HGB CONC 32.7 g/dl 32.0-36.0 [facility] RED CELL DISTRIBUTION WIDTH 13.5 % 10.0-14.5 [facility] PLATELET COUNT 86 K/mm3 172-450 L [facility] MEAN PLATELET VOLUME 13.6 fl 9.0-13.0 H [facility] pital GRAN % 77.6 % 50-80.0 [facility] IG% 0.0 % 0.0-0.2 [facility] LYMPH % 14.5 % 25.0-50.0 L [facility] MONO % 5.9 % 2.0-10.0 [facility] EOS % 0.2 % 0-5.0 [facility] BASO % 1.8 % 0.0-2.0 [facility] GRAN # 3.5 K/mm3 2.0-8.00 [facility] IG# 0.0 K/mm3 0.0-0.2 [facility] LYMPH # 0.7 K/mm3 1.0-5.0 L [facility] MONO # 0.3 K/mm3 0.10-1.20 [facility] EOS # 0.0 K/mm3 0.0-0.5 [facility] BASO # 0.1 K/mm3 0.0-0.2 [facility] ID Date Data Source [id number] 04/18/2020 12:00:00 AM EDT DANTE ([facility]) Name Value Range Interpretation Code Description Data Olga Lidia rce(s) Supporting Document(s) ID Date Data Source [id number] 04/18/2020 12:00:00 AM EDT DANTE ([facility]) Name Value Range Interpretation Code Description Data Olga Lidia rce(s) Supporting Document(s) ID Date Data Source [id number] 04/18/2020 12:00:00 AM EDT DANTE ([facility]) Name Value Range Interpretation Code Description Data Olga Lidia rce(s) Supporting Document(s) ID Date Data Source [id number] 04/18/2020 12:00:00 AM EDT DANTE ([facility]) Name Value Range Interpretation Code Description Data Olga Lidia rce(s) Supporting Document(s) ID Date Data Source [id number] 04/18/2020 12:00:00 AM EDT DANTE ([facility]) Name Value Range Interpretation Code Description Data Olga Lidia rce(s) Supporting Document(s) ID Date Data Source [id number] 04/18/2020 12:00:00 AM EDT DANTE ([facility]) Name Value Range Interpretation Code Description Data Olga Lidia rce(s) Supporting Document(s) ID Date Data Source [id number] 04/18/2020 12:00:00 AM EDT DANTE ([facility]) Name Value Range Interpretation Code Description Data Olga Lidia rce(s) Supporting Document(s) ID Date Data Source [id number] 04/18/2020 12:00:00 AM EDT DANTE ([facility]) Name Value Range Interpretation Code Description Data Olga Lidia rce(s) Supporting Document(s) ID Date Data Source [id number] 04/18/2020 12:00:00 AM EDT [facility]ANTE ([facility]) Name Value Range Interpretation Code Description Data Olga Lidia rce(s) Supporting Document(s) ID Date Data Source [id number] 04/18/2020 12:00:00 AM EDT [facility] Name Value Range Interpretation Code Description Data Olga Lidia rce(s) Supporting Document(s) SARS-CoV-2 [facility] This lab was ordered by [facility] [facility]-COVID[facility] and reported by [facility]. ID Date Data Source [id number] 03/14/2020 12:00:00 AM EDT [facility] Name Value Range Interpretation Code Description Data Olga Lidia rce(s) Supporting Document(s) SARS-CoV-2 RNA XXX Ql VITA+probe [facility] This lab was ordered by [facility] and reported by [facility]. ID Date Data Source [id number] 03/12/2020 05:30:08 AM EDT eCW1 ([facility]) Name Value Range Interpretation Code Description Data Olga Lidia rce(s) Supporting Document(s) 0.616 THYROID STIMULATING HORMONE eC W1 ([facility]) ID Date Data Source Comprehensive Metabolic Profile (CMP) 03/12/2020 05:30:08 AM EDT eCW1 ([facility]) Name Value Range Interpretation Code Description Data Olga Lidia rce(s) Supporting Document(s) 99 GLUCOSE, FASTING eCW1 ([facility]) 1.47 CREATININE FOR GFR eCW1 ([facility]) 38.0 GLOMERULAR FILTRATION RATE eCW 1 ([facility]) 143 SODIUM LEVEL eCW1 ([facility]) 13 BLOOD UREA NITROGEN eCW1 ([facility]) 106 CHLORIDE LEVEL eCW1 ([facility]) 4.4 POTASSIUM SERUM eCW1 ([facility]) 8.9 CALCIUM LEVEL eCW1 ([facility]) 31 CARBON DIOXIDE LEVEL eCW1 ([facility]) 44 ALKALINE PHOSPHATASE eCW1 ([facility]) 30 ALT/SGPT eCW1 ([facility]) 0.5 BILIRUBIN,TOTAL eCW1 ([facility]) 28 AST/SGOT eCW1 ([facility]) 3.4 ALBUMIN eCW1 ([facility]) 1.1 ALBUMIN/GLOBULIN RATIO eCW1 ([facility]) 6.6 TOTAL PROTEIN eCW1 ([facility]) ID Date Data Source CBC with Differential 03/12/2020 05:30:08 AM EDT eCW1 ([facility]) Name Value Range Interpretation Code Description Data Olga Lidia rce(s) Supporting Document(s) 4.0 WHITE BLOOD COUNT eCW1 ([facility]) 4.01 RED BLOOD COUNT eCW1 ([facility]) 90.0 MEAN CORPUSCULAR VOLUME eCW1 ( [facility]) 36.1 HEMATOCRIT eCW1 ([facility]) 28.7 MEAN CORPUSCULAR HEMOGLOBIN eC W1 ([facility]) 11.5 HEMOGLOBIN eCW1 ([facility]) 14.3 RED CELL DISTRIBUTION WIDTH eC W1 ([facility]) 31.9 MEAN CORPUSCULAR HGB CONC eCW1 ([facility]) 81 PLATELET COUNT, AUTOMATED eCW1 ([facility]) 26.8 LYMPH % eCW1 ([facility]) 7.8 MONO % eCW1 ([facility]) 0.5 EOS % eCW1 ([facility]) 63.1 NEUTROPHILS % eCW1 ([facility]) 1.5 BASO % eCW1 ([facility]) 2.5 NEUTROPHILS # eCW1 ([facility]) 0.3 MONO # eCW1 ([facility]) 1.1 LYMPH # eCW1 ([facility]) 0.1 BASO # eCW1 ([facility]) 0.0 EOS # eCW1 ([facility]) ID Date Data Source DANA KNEE COMPLETE 03/12/2020 05:25:12 AM EDT eCW1 ([facility]) Name Value Range Interpretation Code Description Data Olga Lidia rce(s) Supporting Document(s) DANA KNEE COMPLETE eCW1 ([facility]) ID Date Data Source [id number] 02/08/2020 04:03:00 PM EDT [facility] ([facility] Name Value Range Interpretation Code Description Data Olga Lidia rce(s) Supporting Document(s) Red Blood Count 4.08 4.00-5.40 [facility] ([facility]) White Blood Count 3.4 4.0-10.0 [facility] ([facility]) Hemoglobin 11.6 [facility] ([facility]) Hematocrit 36.0 [facility] ([facility]) Platelets 91 150-450 [facility] ID Date Data Source [id number] 12/23/2019 02:07:00 PM EDT [facility] FAX TO [phone] AND [employer]ual Enter y of ALL Results have been RecheckedBy MIR on 12/23/19 @ 5818. Name Value Range Interpretation Code Description Data Olga Lidia rce(s) Supporting Document(s) URINE COLOR. [facility] URINE APPEARANCE CLEAR [facility] SPECIFIC GRAVITY,URINE 1.015 1.001-1.035 [facility] URINE LEUKOCYTE ESTERASE NEGATIVE NEGATIVE [facility] URINE NITRATE NEGATIVE NEGATIVE [facility] PH,URINE 5.5 5.0-9.0 [facility] URINE PROTEIN NEGATIVE mg/dL NEGATIVE [facility] URINE GLUCOSE (UA) NEGATIVE mg/dL NEGATIVE [facility] URINE KETONE NEGATIVE mg/dL NEGATIVE [facility] URINE UROBILINOGEN 0.2 mg/dL 0-1 [facility] URINE BILIRUBIN NEGATIVE NEGATIVE [facility] URINE BLOOD NEGATIVE NEGATIVE [facility] ID Date Data Source [id number] 12/24/2019 12:07:00 PM EDT [facility] Name Value Range Interpretation Code Description Data Olga Lidia rce(s) Supporting Document(s) QuantiFERON Incubation Incubation performed. [facility] ID Date Data Source [id number] 12/24/2019 12:07:00 PM EDT [facility] Name Value Range Interpretation Code Description Data Olga Lidia rce(s) Supporting Document(s) QuantiFERON Criteria [facility] The QuantiFERON-TB Gold Plus result is d etermined by subtractingthe Nil value from either TB antigen (Ag) tube. The mitogen tubeserves as a control for the test. QuantiFERON TB1 Ag Value 0.05 IU/mL [facility] QuantiFERON TB2 Ag Value 0.07 IU/mL [facility] QuantiFERON Nil Value 0.03 IU/mL [facility] QuantiFERON Mitogen Value [facility] ID Date Data Source [id number] 12/19/2019 04:36:00 PM EDT [facility] Name Value Range Interpretation Code Description Data Olga Lidia rce(s) Supporting Document(s) TSH 0.46 uIU/mL 0.36-3.74 [facility] ID Date Data Source [id number] 12/11/2019 01:00:00 PM EDT [facility] Name Value Range Interpretation Code Description Data Olga Lidia rce(s) Supporting Document(s) DIRECT BILIRUBIN 0.09 mg/dL 0-0.2 [facility] ID Date Data Source [id number] 12/11/2019 12:51:00 PM EDT [facility] Name Value Range Interpretation Code Description Data Olga Lidia rce(s) Supporting Document(s) TSH 0.61 uIU/mL 0.36-3.74 [facility] ID Date Data Source [id number] 12/11/2019 12:31:00 PM EDT [facility] [phone] Name Value Range Interpretation Code Description Data Olga Lidia rce(s) Supporting Document(s) IRON 84 ug/dL 50-170 [facility] TIBC 316 ug/dL 250-450 [facility] % SATURATION 27 % 20-50 [facility] ID Date Data Source [id number] 12/11/2019 12:31:00 PM EDT [facility] [phone] Name Value Range Interpretation Code Description Data Olga Lidia rce(s) Supporting Document(s) CHOLESTEROL 215 mg/dL 0-200 H [facility] TRIGLYCERIDES 285 mg/dL 0-150 H [facility] LDL CHOLESTEROL 113 mg/dL 0-100 H [facility] HDL CHOLESTEROL 45 mg/dL 40-60 [facility] CHOL/HDL RATIO 4.8 0.0-5.0 [facility] ID Date Data Source [id number] 12/11/2019 12:31:00 PM EDT [facility] [phone] Name Value Range Interpretation Code Description Data Olga Lidia rce(s) Supporting Document(s) GLUCOSE 95 mg/dL 74-106 [facility] BLOOD UREA NITROGEN 17 mg/dL 7-18 [facility] ital CREATININE 1.4 mg/dL 0.6-1.0 H [facility] SODIUM 141 mmol/L 136-145 [facility] POTASSIUM 4.1 mmol/L 3.5-5.1 [facility] CHLORIDE 103 mmol/L 98-107 [facility] CO2 27 mmol/L 21-32 [facility] CALCIUM 9.0 mg/dL 8.5-10.1 [facility] ANION GAP 11.0 mmol/L 5-12 [facility] GLOMERULAR FILTRATION RATE 38 mL/min [facility] GFR IS CALCULATED IN mL/min/1.73m2 ALEXANDRA L FUNCTION: >90MILDLY DECREASED: 60-89MILDY TO MODERATELY DECREASED: 45-59 MODERATELY TO SEVERELY DECREASED: 30-44SEVERELY DECREASED: 15-29RENAL FAILURE: <15 AST 26 U/L 15-37 [facility] ALT 33 U/L 12-78 [facility] ALKALINE PHOSPHATASE 42 U/L 46-116 L [facility] pital TOTAL BILIRUBIN 0.4 mg/dL 0.2-1.0 [facility] TOTAL PROTEIN 7.3 g/dl 6.4-8.2 [facility] ALBUMIN 3.6 gm/dL 3.4-5.0 [facility] ID Date Data Source [id number] 12/11/2019 12:22:00 PM EDT [facility] CC [phone] Name Value Range Interpretation Code Description Data Olga Lidia rce(s) Supporting Document(s) WHITE BLOOD COUNT 3.7 K/mm3 4.0-10.0 L [facility] RED BLOOD COUNT 4.47 M/mm3 4.00-5.50 [facility] l HEMOGLOBIN 12.9 gm/dL 12.0-16.0 [facility] HEMATOCRIT 39.1 % 36.0-48.8 [facility] MEAN CELL VOLUME 87.5 fl 80-96 [facility] MEAN CORPUSCULAR HEMOGLOBIN 28.9 pg 27.0-31.0 [facility] MEAN CORPUSCULAR HGB CONC 33.0 g/dl 32.0-36.0 [facility] RED CELL DISTRIBUTION WIDTH 12.6 % 10.0-14.5 [facility] PLATELET COUNT 76 K/mm3 172-450 L [facility] MEAN PLATELET VOLUME 14.1 fl 9.0-13.0 H [facility] pital GRAN % 63.1 % 50-80.0 [facility] IG% 0.0 % 0.0-0.2 [facility] LYMPH % 25.3 % 25.0-50.0 [facility] MONO % 10.2 % 2.0-10.0 H [facility] EOS % 0.3 % 0-5.0 [facility] BASO % 1.1 % 0.0-2.0 [facility] GRAN # 2.3 K/mm3 2.0-8.00 [facility] IG# 0.0 K/mm3 0.0-0.2 [facility] LYMPH # 0.9 K/mm3 1.0-5.0 L [facility] MONO # 0.4 K/mm3 0.10-1.20 [facility] EOS # 0.0 K/mm3 0.0-0.5 [facility] BASO # 0.0 K/mm3 0.0-0.2 [facility] ID Date Data Source [id number] 10/24/2019 12:00:00 AM EST [facility] MARCIA Shelton Patient Name: LENNY HURLEY Date of : 4[place] [address] Date of Exam: 10/24/2019#: Fax: [phone] EXAM: MRI CERVICAL SPINE WITHOUT&WITH CONTRASTPROCEDURE INFORMATION:Exam: MR Cervical Spine Without and With ContrastExam date and time: 10/24/2019 10:56 AM Age: 64 years oldClinical indication: Condition or disease; Other: MsTECHNIQUE: Imaging protocol: Multiplanar magnetic resonance images of thecervical spine without and with intravenous contrast. Contrast material:PROHANCE; Contrast volume: 7 ml; Contrast route: IV;COMPARISON: No r elevant prior studies available.FINDINGS:Vertebrae: Anatomic alignment. No acute fracture seen.Spinal cord: T2 hyperintense lesions within the cord consistent withplaques of demyelination in keeping with the provided history of multiplesclerosis: left lateral cord at the level of C2, posterior cord at thelevel of C2-C3, posterior cord at the level of C6, right posteriorparamedian cord at the level of upper T1. No enhancing cord lesions torepresent active demyelination. Disc height loss and spondylosis [id number] at C5-C6 and C6-C7, mild at C4-C5.C2-C3: The central spinal canal is patent. Moderate left facet arthropathycausing mild left neural foraminal stenosis.C3-C4: No stenosis.C4-C5: Disc desiccation throughout. Left eccentric disc osteophyte complexcausing mild central spinal canal stenosis. Uncovertebral and facetarthropathy probably causing moderate bilateral neural foraminal stenoses,some limitations assessing the foramina due to motion artifacts.C5-C6: Left eccentric disc osteophyte complex causes mild central spinalcanal stenosis. Uncovertebral and facet arthropathy causing mild bilateralneural foraminal stenoses.C6-C7: Disc osteophyte complex causing mild central spinal canal stenosis.Uncovertebral and facet arthropathy probably causing mild bilateral neuralforaminal stenoses, some limitations assessing the foramina due to motionartifacts.C7-T1: Subtle central disc protrusion does not contribute to central spinalcanal stenosis. Mild-tomoderate facet arthropathy without contribution toforaminal stenoses. Perineural cysts within the foramina at several levels,usually incidental.Vertebral arteries: Expected flow voids in the vertebral arteries.Soft tissues: Unremarkable.IMPRESSION:1. Images are mildly motion degraded.2. No evidence of active demyelination.3. A few T2 hyperintense lesions in the cord consistent with plaques ofprior demyelination.Thank you for allowing us to participate in the care of your patient.Dictated and Authenticated by: Annika Brooke MD 10/25/2019 11:05 AMEastern Time ([place] & [place])MichelineV/Franca you for referring ROLANDO HURLEY to our office. Electronically Signed - [facility] 10/25/19 11:19 Name Value Range Interpretation Code Description Data Olga Lidia rce(s) Supporting Document(s) ID Date Data Source [id number] 10/24/2019 12:00:00 AM [facility] MARCIA Shelton Patient Name: [place] [place] [facility] [place] [address] Date of Exam: 10/24/2019#: Fax: [phone] EXAM: MRI BRAIN WITHOUT&WITH CONTRASTPROCEDURE INFORMATION:Exam: MR Head Without and With ContrastExam date and time: 10/24/2019 10:18 AM Age: 64 years oldClinical indication: Condition or disease; Multiple sclerosisTECHNIQUE: Imaging protocol: MR of the head without and with intravenouscontrast. 3D rendering: MIP and/or 3D reconstructed images were created bythe technologist. Contrast material: PROHANCE; Contrast volume: 7 ml;Contrast route: IV;COMPARISON: No relevant prior studies available.FINDINGS:Brain: No restricted diffusion is seen to suggest acute infarction. Thereis no acute intracranial hemorrhage, cerebral edema, or midline shift.Age-related cerebral and cerebellar substance loss is present. Scatteredincreased T2 and FLAIR signal within the periventricular and subcorticalwhite matter is present. This is nonspecific but likely related to chronicdemyelinating disease and/or chronic microangiopathic ischemic changes. Noenhancing lesions were identified after the administration of contrast.Ventricles: No hydrocephalus.Bones/joints: Unremarkable.Soft tissues: Unremarkable.Sinuses: Mucosal thickening is present in the left maxillary sinus.Mastoid air cells: Normal as visualized. No mastoid effusion.Orbits: The patient is likely status post right cataract surgery.IMPRESSION:1. No acute intracranial abnormality.2. Chronic findings as discussed above.Thank you for allowing us to participate in the care of your patient.Dictated and Authenticated by: Alban Magaña MD 10/24/2019 3:21 PMEastern Time ([place] & [place])VradV/jmcThank you for referring ROLANDO HURLEY to our office. Electronically Signed - [facility] 10/24/19 15:28 Name Value Range Interpretation Code Description Data Olga Lidia rce(s) Supporting Document(s) ID Date Data Source [id number] 10/13/2019 05:19:00 PM [facility] Patient: ROLANDO HURLEY [facility].VisitID: [id number] [place] [address] [phone], [facility] Date/Time: 10/13/2019 09:51 Weight:68 kg. Height/Length:66 inches. BMI:24.2 PAST HISTORYProblems:Dizziness.Fall.Depression.Anxiety Reaction.Contusion.Head Injury.Multiple Sclerosis.Thyroid Disease.Lupus anticoagulant disorder.Loop recorder.Low platelets. Additional Surgeries:Cataract Surgery.Cholecystectomy [1994].Colectomy [12/2015].Hysterectomy [1986].Left hip replacement [12/2012].Tonsillectomy & Adenoidectomy [1972]. Medications:Oxybutynin Chloride Oral (Tablet 5 mg) 1 tablet, daily at bedtime, stopped 10/12/2019 ([place] doctor instructed pt to stop medication due to UTI symptoms).Brimonidine Tartrate Ophthalmic 1 drop, 2x a day, last dose today.prednisoLONE Sodium Phosphate Ophthalmic (Solution 1 %) 1 drop, 3x a day, last dose today.Activite Oral (Tablet 1 mg) 1 tablet, daily, last dose today.Zoloft Oral (Tablet 100 mg) 1- 1/2 tablets, daily, last dose today.Vitamin D3 Oral (Tablet 5000 unit) 1 tablet, daily, last dose today.Allergy Oral (Tablet 25 mg) 1 tablet, 3x a day, last dose today.Gabapentin Oral (Tablet 600 mg) 1 tablet, 3x a day, last dose today.Copaxone Subcutaneous (Solution Prefilled Syringe 40 mg/mL), 3x a week, last dose yesterday.Tramadol HCL Oral (Tablet 50 mg) 1 tablet, 3x a day as needed, last dose today.traZODone HCl Oral (Tablet 50 mg) 1 tablet, daily, last dose last night.Prazosin HCl Oral (Capsule 2 mg) 1 capsule, daily at bedtime, last dose last night.LORazepam Oral 1 mg, 3x a day as needed, last dose today.Spironolactone Oral (Tablet 25 mg) 1 tablet, daily, last dose today.Gabapentin Oral (Capsule 300 mg) 2 capsules, 3x a day, last dose today.BusPIRone HCl Oral (Tablet 15 mg) 1 tablet, 3x a day, last dose today.Levothyroxine Sodium Oral (Tablet 50 mcg) 1 tablet, daily, last dose today. Allergies:Crestor. (unknown)MDX - Iodine.(facial swelling, swelling). FAMILY HISTORYNegative - denies family medical history. INSTRUCTIONSYour Current Medications: Your current home medications have been reviewed. CONTINUE TAKING THE FOLLOWING MEDICATIONS:Activite Oral : Tablet 1 mg, 1 tablet daily, Last: today. Allergy Oral : Tablet 25 mg, 1 tablet 3x a day, Last: today. Brimonidine Tartrate Ophthalmic : 1 drop 2x a day, Last: today. BusPIRone HCl Oral : Tablet 15 mg, 1 tablet 3x a day, Last: today. Copaxone Subcutaneous : Solution Prefilled Syringe 40 mg/mL, 3x a week, Last: yesterday. Gabapentin Oral : Tablet 600 mg, 1 tablet 3x a day, Last: today. Gabapentin Oral : Capsule 300 mg, 2 capsules 3x a day, Last: today. Levothyroxine Sodium Oral : Tablet 50 mcg, 1 tablet daily, Last: today. LORazepam Oral : 1 mg 3x a day, Last: today, prn. Oxybutynin Chloride Oral : Tablet 5 mg, 1 tablet daily, Stopped: 10/12/2019, at bedtime, [place] doctor instructed pt to stop medication due to UTI symptoms. Prazosin HCl Oral : Capsule 2 mg, 1 capsule daily, Last: last night, at bedtime. prednisoLONE Sodium Phosphate Ophthalmic : Solution 1 %, 1 drop 3x a day, Last: today. Spironolactone Oral : Tablet 25 mg, 1 tablet daily, Last: today. Tramadol HCL Oral : Tablet 50 mg, 1 tablet 3x a day, Last: today, prn. traZODone HCl Oral : Tablet 50 mg, 1 tablet daily, Last: last night. Vitamin D3 Oral : Tablet 5000 unit, 1 tablet daily, Last: today. Zoloft Oral : Tablet 100 mg, 1-1/2 tablets daily, Last: today. (Electronically signed by Aurora Vasques 10/13/2019 17:17) Name Value Range Interpretation Code Description Data [facility](s) Supporting Document(s) ID Date Data Source [id number] 10/13/2019 12:30:00 PM EST [facility] TSYSORDER [id number] Name Value Range Interpretation Code Description Data [facility](s) Supporting Document(s) URINE COLOR. [facility] URINE APPEARANCE CLEAR [facility] SPECIFIC GRAVITY,URINE 1.015 1.001-1.035 [facility] URINE LEUKOCYTE ESTERASE NEGATIVE NEGATIVE [facility] URINE NITRATE NEGATIVE NEGATIVE [facility] PH,URINE 6.0 5.0-9.0 [facility] URINE PROTEIN NEGATIVE mg/dL NEGATIVE [facility] URINE GLUCOSE (UA) NEGATIVE mg/dL NEGATIVE [facility] URINE KETONE NEGATIVE mg/dL NEGATIVE [facility] URINE UROBILINOGEN 0.2 mg/dL 0-1 [facility] URINE BILIRUBIN NEGATIVE NEGATIVE [facility] URINE BLOOD NEGATIVE NEGATIVE [facility] ID Date Data Source [id number] 10/13/2019 12:19:00 PM EST [facility] DATE OF EXAMINATION: 10/13/2019 10:55 EST CHEST 2 VIEWS HISTORY: Weakness TECHNIQUE: PA and lateral radiographs of the chest COMPARISON: 01/15/2018 FINDINGS: Mediastinum and cardiac silhouette are stable. Lung chavez demonstrate chronicinterstitial changes without focal consolidation, effusion, or pneumothorax.Skeletal structures are intact. Evidence for prior cholecystectomy. IMPRESSION: Chronic stable interstitial changes.No focal consolidation or effusion. Electronically signed in PS360 by: Saman Pratt M.D. 10/13/2019 12:13 EST Name Value Range Interpretation Code Description Data Olga Lidia rce(s) Supporting Document(s) ID Date Data Source [id number] 10/13/2019 11:53:00 AM EST [facility] DATE OF EXAMINATION: 10/13/2019 10:55 ES T BRAIN W/O CONTRAST HISTORY: Weakness. COMPARISON: 01/15/2018 TECHNIQUE: This CT exam was performed using the following dose reduction techniques:automatic exposure control, adjustment of mA and/or kV according to thepatient's size, and use of iterative reconstruction technique. Standard contiguous axial spiral imaging was obtained from the skull basethrough the vertex without contrast administration and with coronalreformatting. FINDINGS: BRAIN: Age-related atrophy and microvascular ischemic changes are appreciated.Ventricles are symmetric. Koehler-white diff erentiation is maintained. No acuteintracranial hemorrhage, mass or mass effect. No extra-axial fluid collection.Calvarium is intact. Paranasal sinuses and mastoid air cells are clear. IMPRESSION: Age-related atrophy and microvascular ischemic changes.No acute intracranial pathology appreciated. Electronically signed in PS360 by: Saman Pratt M.D. 10/13/2019 11:47 EST Name Value Range Interpretation Code Description Data Olga Lidia rce(s) Supporting Document(s) ID Date Data Source [id number] 10/13/2019 10:55:00 AM EST [facility] TSYSORDER [id number] Name Value Range Interpretation Code Description Data Olga Lidia rce(s) Supporting Document(s) NEUTROPHILS 71 % 50-80 [facility] BAND 3 % 0-5 [facility] LYMPHOCYTE 16 % 25-50 L [facility] MONOCYTE 9 % 2.0-10.0 [facility] BASOPHIL 1 % 0-2 [facility] PLATELET ESTIMATE DECREASED NORMAL [facility] RBC MORPHOLOGY EXPECTED RESULTS:NORMAL= NORMOCHROMIC, NORMOCYTIC CELLSAbnormal Morphologic Findings > or = to 1+ are reported.Clinicopathologic correlation by the provider is required todetermine significance of finding. ID Date Data Source [id number] 10/13/2019 11:57:00 AM EST [facility] TSYS[facility] [id number] Name Value Range Interpretation Code Description Data Olga Lidia rce(s) Supporting Document(s) WHITE BLOOD COUNT 5.4 K/mm3 4.0-10.0 [facility] RED BLOOD COUNT 3.98 M/mm3 4.00-5.50 L [facility] HEMOGLOBIN 11.9 gm/dL 12.0-16.0 L [facility] HEMATOCRIT 36.4 % 36.0-48.8 [facility] MEAN CELL VOLUME 91.5 fl 80-96 [facility] MEAN CORPUSCULAR HEMOGLOBIN 29.9 pg 27.0-31.0 [facility] MEAN CORPUSCULAR HGB CONC 32.7 g/dl 32.0-36.0 [facility] RED CELL DISTRIBUTION WIDTH 13.1 % 10.0-14.5 [facility] PLATELET COUNT 79 K/mm3 172-450 L [facility] MEAN PLATELET VOLUME 12.7 fl 9.0-13.0 [facility] pital GRAN % 74.5 % 50-80.0 [facility] IG% 0.2 % 0.0-0.2 [facility] LYMPH % 16.0 % 25.0-50.0 L [facility] MONO % 8.4 % 2.0-10.0 [facility] EOS % 0.0 % 0-5.0 [facility] BASO % 0.9 % 0.0-2.0 [facility] GRAN # 4.0 K/mm3 2.0-8.00 [facility] IG# 0.0 K/mm3 0.0-0.2 [facility] LYMPH # 0.9 K/mm3 1.0-5.0 [facility] MONO # 0.5 K/mm3 0.10-1.20 [facility] EOS # 0.0 K/mm3 0.0-0.5 [facility] BASO # 0.1 K/mm3 0.0-0.2 [facility] ID Date Data Source [id number] 10/13/2019 11:56:00 AM EST [facility] TSYSORDER [id number] Name Value Range Interpretation Code Description Data Olga Lidia rce(s) Supporting Document(s) TSH 1.16 uIU/mL 0.36-3.74 [facility] ID Date Data Source [id number] 10/13/2019 11:56:00 AM EST [facility] TSYSORDER [id number] Name Value Range Interpretation Code Description Data Olga Lidia rce(s) Supporting Document(s) FREE T4 0.90 ng/dL 0.76-1.46 [facility] ID Date Data Source [id number] 10/13/2019 11:45:00 AM EST [facility] TSYSORDER [id number] Name Value Range Interpretation Code Description Data Olga Lidia rce(s) Supporting Document(s) TROPONIN I < 0.017 ng/mL 0.0-0.056 [facility] ID Date Data Source [id number] 10/13/2019 11:45:00 AM EST [facility] TSYSORDER [id number] Name Value Range Interpretation Code Description Data Olga Lidia rce(s) Supporting Document(s) MAGNESIUM 1.8 mg/dL 1.8-2.4 [facility] ID Date Data Source [id number] 10/13/2019 11:45:00 AM EST [facility] TSYSORDER [id number] Name Value Range Interpretation Code Description Data Olga Lidia rce(s) Supporting Document(s) LIPASE 180 U/L [id number] [facility] ID Date Data Source [id number] 10/13/2019 11:45:00 AM [facility] TSYSORDER [id number] Name Value Range Interpretation Code Description Data Olga Lidia rce(s) Supporting Document(s) GLUCOSE 86 mg/dL 74-106 [facility] BLOOD UREA NITROGEN 11 mg/dL 7-18 [facility] ital CREATININE 1.3 mg/dL 0.6-1.0 H [facility] SODIUM 145 mmol/L 136-145 [facility] POTASSIUM 4.1 mmol/L 3.5-5.1 [facility] CHLORIDE 104 mmol/L 98-107 [facility] CO2 32 mmol/L 21-32 [facility] CALCIUM 9.1 mg/dL 8.5-10.1 [facility] ANION GAP 9.0 mmol/L 5-12 [facility] GLOMERULAR FILTRATION RATE 41 mL/min [facility] GFR IS CALCULATED IN mL/min/1.73m2 ALEXANDRA L FUNCTION: >90MILDLY DECREASED: 60-89MILDY TO MODERATELY DECREASED: 45-59 MODERATELY TO SEVERELY DECREASED: 30-44SEVERELY DECREASED: 15-29RENAL FAILURE: <15 AST 25 U/L 15-37 [facility] ALT 28 U/L 12-78 [facility] ALKALINE PHOSPHATASE 47 U/L 46-116 [facility] pital TOTAL BILIRUBIN 0.3 mg/dL 0.2-1.0 [facility] TOTAL PROTEIN 6.7 g/dl 6.4-8.2 [facility] ALBUMIN 3.6 gm/dL 3.4-5.0 [facility] ID Date Data Source [id number] 10/13/2019 11:39:00 AM [facility] TSYSORDER [id number] Name Value Range Interpretation Code Description Data Olga Lidia rce(s) Supporting Document(s) PARTIAL THROMBOPLASTIN TIME 51.4 SECONDS 21.4-30.2 H [facility] ID Date Data Source [id number] 10/13/2019 11:39:00 AM [facility] l TSYSORDER [id number] Name Value Range Interpretation Code Description Data Olga Lidia rce(s) Supporting Document(s) PROTHROMBIN TIME (PATIENT) 22.1 SECONDS 9.2-11.6 H [facility] INR 2.18 0.87-1.06 H [facility] Procedure Social History Code Duration Value Status Description Data Source(s ) Smoking 10/03/2020 12:00:00 AM EST Never Smoker completed Never S moker eCW1 ([facility]) Smoking 09/24/2020 12:00:00 AM EST Patient has never smoked co mpleted Patient has never smoked MEDENT ([facility]) Smoking 09/16/2020 12:00:00 AM EST Never Smoker completed Never S moker eCW1 ([facility]) Smoking 09/16/2020 12:00:00 AM EST Never Smoker completed Never S moker eCW1 ([facility]) Smoking 09/16/2020 12:00:00 AM EST Never Smoker completed Never S moker eCW1 ([facility]) Smoking 09/16/2020 12:00:00 AM EST Never Smoker completed Never S moker eCW1 ([facility]) Smoking 09/16/2020 12:00:00 AM EST Never Smoker completed Never S moker eCW1 ([facility]) Smoking 09/16/2020 12:00:00 AM EST Never Smoker completed Never S moker eCW1 ([facility]) Smoking 08/27/2020 12:00:00 AM EST Never Smoker completed Never S moker eCW1 ([facility]) Smoking 08/27/2020 12:00:00 AM EST Never Smoker completed Never S moker eCW1 ([facility]) Smoking 08/05/2020 02:15:48 PM EST Never smoked tobacco (findi ng) completed Never smoked tobacco (finding) BENNETT (Sivakumar Heath [facility]) Smoking 06/16/2020 12:00:00 AM EDT Never Smoker completed Never S moker eCW1 ([facility]) Smoking 03/11/2020 12:00:00 AM EDT Never Smoker completed Never S moker eCW1 ([facility]) Smoking 03/11/2020 12:00:00 AM EDT Never Smoker completed Never S moker eCW1 ([facility]) Smoking 12/04/2019 12:00:00 AM EDT Never Smoker completed Never S moker eCW1 ([facility]) Smoking 08/28/2019 10:36:42 AM EST Never smoked tobacco (findi ng) completed Never smoked tobacco (finding) BENNETT (Sivakumar Heath MD [facility]) Vital Signs ID Date Data Source [id number] Name Value Range Interpretation Code Description Data Source(s) Diastolic blood pressure 68 mm[Hg] 68 mm[Hg] eCW1 ([facility]) Systolic blood pressure 118 mm[Hg] 118 mm[Hg] e CW1 ([facility]) Body mass index (BMI) [Ratio] 24.37 kg/m2 24.37 kg/m2 eCW1 ([facility]) Body height 66 [in_i] 66 [in_i] eCW1 ([facility]) Body weight 68.49 kg 68.49 kg W1 ([facility]) Body weight 151 [lb_av] 151 [lb_av] [facility] Diastolic blood pressure--sitting 59 mm[Hg] 59 mm[Hg] MEDENT ([facility]) CBP, adult cuff/Ra Systolic blood pressure--sitting 132 mm[Hg] 132 mm[Hg] MEDENT ([facility]) CBP, adult cuff/Ra Heart rate 58 /min 58 /min MEDENT ([facility]) Body mass index (BMI) [Ratio] 24.0 kg/m2 24.0 k g/m2 MEDENT ([facility]) Body height 66 [in_i] 66 [in_i] MEDENT ([facility]) 5'6" Body weight 149.00 [lb_av] 149.00 [lb_av] MEDEN T ([facility]) Diastolic blood pressure 66 mm[Hg] 66 mm[Hg] eCW1 ([facility]) Systolic blood pressure 201 mm[Hg] 201 mm[Hg] e CW1 ([facility]) Body temperature 98.0 [degF] 98.0 [degF] eCW1 ( [facility]) Respiratory rate 16 /min 16 /min eCW1 (Replaced by [facility]) Heart rate 84 /min 84 /min eCW1 ([facility]) Body mass index (BMI) [Ratio] 24.18 kg/m2 24.18 kg/m2 eCW1 ([facility]) Body height 66 [in_i] 66 [in_i] eCW1 ([facility]) Body weight 149.8 [lb_av] 149.8 [lb_av] eCW1 ([facility]) Diastolic blood pressure 60 mm[Hg] 60 mm[Hg] eCW1 ([facility]) Systolic blood pressure 116 mm[Hg] 116 mm[Hg] e CW1 ([facility]) Body temperature 98.2 [degF] 98.2 [degF] eCW1 ( [facility]) Respiratory rate 16 /min 16 /min eCW1 (Replaced by [facility]) Heart rate 66 /min 66 /min eCW1 ([facility]) Body mass index (BMI) [Ratio] 24.21 kg/m2 24.21 kg/m2 eCW1 ([facility]) Body height 66 [in_i] 66 [in_i] eCW1 ([facility]) Body weight 150 [lb_av] 150 [lb_av] eCW1 ([facility] Systolic blood pressure 128 mm[Hg] 128 mm[Hg] A THENA ([facility]) Body height 66 [in_i] 66 [in_i] DANTE ([facility]) Diastolic blood pressure 60 mm[Hg] 60 mm[Hg] DANTE ([facility]) Systolic blood pressure 137 mm[Hg] 137 mm[Hg] A THENA ([facility]) Body height 66 [in_i] 66 [in_i] DANTE ([facility]) Diastolic blood pressure 82 mm[Hg] 82 mm[Hg] DANTE ([facility]) Systolic blood pressure 137 mm[Hg] 137 mm[Hg] A THENA ([facility]) Body height 66 [in_i] 66 [in_i] DANTE ([facility]) Diastolic blood pressure 82 mm[Hg] 82 mm[Hg] DANTE ([facility]) Systolic blood pressure 137 mm[Hg] 137 mm[Hg] A THENA ([facility]) Body height 66 [in_i] 66 [in_i] DANTE ([facility]) Diastolic blood pressure 82 mm[Hg] 82 mm[Hg] DANTE ([facility]) Systolic blood pressure 137 mm[Hg] 137 mm[Hg] A THENA ([facility]) Body height 66 [in_i] 66 [in_i] DANTE ([facility]) Diastolic blood pressure 82 mm[Hg] 82 mm[Hg] DANTE ([facility]) Diastolic blood pressure 66 mm[Hg] 66 mm[Hg] eCW1 ([facility]) Systolic blood pressure 143 mm[Hg] 143 mm[Hg] e CW1 ([facility]) Body temperature 98.2 [degF] 98.2 [degF] eCW1 ( [facility]) Respiratory rate 16 /min 16 /min eCW1 (Replaced by [facility]) Heart rate 68 /min 68 /min eCW1 ([facility]) Body mass index (BMI) [Ratio] 24.50 kg/m2 24.50 kg/m2 eCW1 ([facility]) Body height 66 [in_i] 66 [in_i] eCW1 ([facility]) Body weight 151.8 [lb_av] 151.8 [lb_av] eCW1 ([facility]) Systolic blood pressure 147 mm[Hg] 147 mm[Hg] A THENA ([facility]) Body height 66 [in_i] 66 [in_i] DANTE ([facility]) Diastolic blood pressure 56 mm[Hg] 56 mm[Hg] DANTE ([facility]) Systolic blood pressure 147 mm[Hg] 147 mm[Hg] A THENA ([facility]) Body height 66 [in_i] 66 [in_i] DANTE ([facility]) Diastolic blood pressure 56 mm[Hg] 56 mm[Hg] DANTE ([facility]) Systolic blood pressure 147 mm[Hg] 147 mm[Hg] A THENA ([facility]) Body height 66 [in_i] 66 [in_i] DANTE ([facility]) Diastolic blood pressure 56 mm[Hg] 56 mm[Hg] DANTE ([facility]) Systolic blood pressure 147 mm[Hg] 147 mm[Hg] A THENA ([facility]) Body height 66 [in_i] 66 [in_i] DANTE ([facility]) Diastolic blood pressure 56 mm[Hg] 56 mm[Hg] DANTE ([facility]) Systolic blood pressure 147 mm[Hg] 147 mm[Hg] A THENA ([facility]) Body height 66 [in_i] 66 [in_i] DANTE ([facility]) Diastolic blood pressure 56 mm[Hg] 56 mm[Hg] DANTE ([facility]) Systolic blood pressure 147 mm[Hg] 147 mm[Hg] A THENA ([facility]) Body height 66 [in_i] 66 [in_i] DANTE ([facility]) Diastolic blood pressure 56 mm[Hg] 56 mm[Hg] DANTE ([facility]) Systolic blood pressure 147 mm[Hg] 147 mm[Hg] A THENA ([facility]) Body height 66 [in_i] 66 [in_i] DANTE ([facility]) Diastolic blood pressure 56 mm[Hg] 56 mm[Hg] DANTE ([facility]) Systolic blood pressure 147 mm[Hg] 147 mm[Hg] A THENA ([facility]) Body height 66 [in_i] 66 [in_i] DANTE ([facility]) Diastolic blood pressure 56 mm[Hg] 56 mm[Hg] DANTE ([facility]) Systolic blood pressure 147 mm[Hg] 147 mm[Hg] A THENA ([facility]) Body height 66 [in_i] 66 [in_i] DANTE ([facility]) Diastolic blood pressure 56 mm[Hg] 56 mm[Hg] DANTE ([facility]) Systolic blood pressure 147 mm[Hg] 147 mm[Hg] A THENA ([facility]) Body height 66 [in_i] 66 [in_i] DANTE ([facility]) Diastolic blood pressure 56 mm[Hg] 56 mm[Hg] DANTE ([facility]) Systolic blood pressure 147 mm[Hg] 147 mm[Hg] A THENA ([facility]) Body height 66 [in_i] 66 [in_i] DANTE ([facility]) Diastolic blood pressure 56 mm[Hg] 56 mm[Hg] DANTE ([facility]) Diastolic blood pressure 63 mm[Hg] 63 mm[Hg] eCW1 ([facility]) Systolic blood pressure 119 mm[Hg] 119 mm[Hg] e CW1 ([facility]) Body temperature 98.8 [degF] 98.8 [degF] eCW1 ( [facility]) Respiratory rate 16 /min 16 /min eCW1 (Replaced by [facility]) Heart rate 63 /min 63 /min eCW1 ([facility]) Body mass index (BMI) [Ratio] 24.82 kg/m2 24.82 kg/m2 eCW1 ([facility]) Body height 66 [in_i] 66 [in_i] eCW1 ([facility]) Body weight 153.8 [lb_av] 153.8 [lb_av] eCW1 ([facility]) Diastolic blood pressure--sitting 62 mm[Hg] 62 mm[Hg] MEDENT ([facility]) adult cuff, Ra Systolic blood pressure--sitting 130 mm[Hg] 130 mm[Hg] MEDENT ([facility]) adult cuff, Ra Heart rate 57 /min 57 /min MEDENT ([facility]) Body mass index (BMI) [Ratio] 24.5 kg/m2 24.5 k g/m2 MEDENT ([facility]) Body height 66 [in_i] 66 [in_i] MEDENT ([facility]) 5'6" Body weight 152.00 [lb_av] 152.00 [lb_av] MEDEN T ([facility]) Body mass index (BMI) [Ratio] 25.01 kg/m2 25.01 kg/m2 eCW1 ([facility]) Body height 66 [in_i] 66 [in_i] eCW1 ([facility]) Body weight 155 [lb_av] 155 [lb_av] eCW1 ([facility]) Diastolic blood pressure 68 mm[Hg] 68 mm[Hg] eCW1 ([facility]) Systolic blood pressure 134 mm[Hg] 134 mm[Hg] e CW1 ([facility]) Body mass index (BMI) [Ratio] 25.18 kg/m2 25.18 kg/m2 eCW1 ([facility]) Body height 66 [in_us] 66 [in_us] eCW1 ([facility]) Body weight Measured 156 [lb_av] 156 [lb_av] eC W1 ([facility]) Diastolic blood pressure 65 mm[Hg] 65 mm[Hg] eCW1 ([facility]) Systolic blood pressure 118 mm[Hg] 118 mm[Hg] e CW1 ([facility]) Body temperature 98.5 [degF] 98.5 [degF] eCW1 ( [facility]) Respiratory rate 18 /min 18 /min eCW1 (Replaced by [facility]) Heart rate 55 /min 55 /min eCW1 ([facility]) Body mass index (BMI) [Ratio] 24.87 kg/m2 24.87 kg/m2 eCW1 ([facility]) Body height [in_us] eCW1 ([facility]) Body weight Measured 154.12 [lb_av] 154.12 [lb_ av] eCW1 ([facility]) ID Date Data Source [id number] 07/31/2020 08:48:00 PM [facility] Name Value Range Interpretation Code Description Data Source(s) TRANSFER FROM [facility] ID Date Data Source [id number] 07/31/2020 05:44:00 PM [facility] Name Value Range Interpretation Code Description Data Source(s) WEIGHT 74.84 kilos 74.84 kilos [facility] HEIGHT 167.64 centimeters 167.64 centimeter [facility] WEIGHT 74.84 k[facility] centimeters 167.64 centimeter [facility] Patient Treatment Plan of Care Planned Activity Planned Date Details Description Data Source (s) Benadryl Allergy 25 MG 09/22/2020 12:00:00 AM EST eCW1 ([facility]) Prednisone 50 MG Oral Tablet 09/22/2020 12:00:00 AM EST eCW1 ([facility]) Prednisone 50 MG Oral Tablet 09/22/2020 12:00:00 AM EST eCW1 ([facility]) Benadryl Allergy 25 MG 09/22/2020 12:00:00 AM EST eCW1 ([facility]) Benadryl Allergy 25 MG 09/22/2020 12:00:00 AM EST eCW1 ([facility]) Prednisone 50 MG Oral Tablet 09/22/2020 12:00:00 AM EST eCW1 ([facility]) Erythromycin 0.005 MG/MG Ophthalmic Ointment 08/27/2020 12:00:00 AM EST eCW1 ([facility]) Erythromycin 0.005 MG/MG Ophthalmic Ointment 08/27/2020 12:00:00 AM EST eCW1 ([facility]) besifloxacin 6 MG/ML Ophthalmic Suspension [Besivance] 04/24/2020 12:00:00 AM EDT BENNETT ([facility]ak[facility] Heath [facility]) prednisolone acetate 10 MG/ML Ophthalmic Suspension [P red Forte] 04/24/2020 12:00:00 AM EDT BENNETT ([facility]) olopatadine 7 MG/ML Ophthalmic Solution [Pazeo] 01/14/2020 12:00:00 AM EDT BENNETT ([facility]) Brimonidine tartrate 1 MG/ML Ophthalmic Solution [Alph agan] 12/19/2019 12:00:00 AM EDT BENNETT ([facility]) busPIRone HCl 15 MG 12/07/2019 01:00:00 AM EDT NETSMART ([facility]) Spironolactone 25 MG 12/07/2019 01:00:00 AM EDT NETSMART ([facility]) Vitamin D3 5000 UNIT 12/07/2019 01:00:00 AM EDT NETSMART ([facility]) Levothyroxine Sodium 50 MCG 12/07/2019 01:00:00 AM EDT NETSMART ([facility]) Lorazepam 12/07/2019 01:00:00 AM EDT N ETSMART ([facility]) Sertraline HCl 100 MG 12/07/2019 01:00:00 AM EDT NETSMART ([facility]) Prazosin HCl 2 MG 12/07/2019 01:00:00 AM EDT NETSMART ([facility]) Propranolol HCL 12/07/2019 01:00:00 AM EDT NETSMART ([facility]) traZODone HCl 50 MG 12/07/2019 01:00:00 AM EDT NETSMART ([facility]) TraMADol HCl 50 MG 12/07/2019 01:00:00 AM EDT NETSMART ([facility]) Gabapentin 300 MG 12/07/2019 01:00:00 AM EDT NETSMART ([facility]) Aubagio 14 MG 12/07/2019 01:00:00 AM EDT NETSMART ([facility]) Transfer Bench - 12/07/2019 12:00:00 AM EDT eCW1 ([facility]) Transfer Bench - 12/07/2019 12:00:00 AM EDT eCW1 ([facility]) Sodium Chloride [id number] MEQ/MG Ophthalmic Ointment [M uro 128] 10/29/2019 12:00:00 AM EST BENNETT ([facility]) tizanidine 4 MG Oral Tablet DANTE ([facility]) Prednisone 50 MG Oral Tablet DANTE ([facility]) prednisolone acetate 10 MG/ML Ophthalmic Suspension DANTE ([facility]) 24 HR Oxybutynin chloride 5 MG Extended Release Oral Tablet DANTE ([facility]) 1 ML glatiramer acetate 40 MG/ML Prefilled Syringe [Copaxone] DANTE ([facility]) buspirone hydrochloride 10 MG Oral Tablet DANTE ([facility]) Diphenhydramine Hydrochloride 50 MG Oral Capsule [Banophen] ADNTE ([facility])
[2020-10-15] MEDS ORDERED: LIDOCAINE VISCOUS 2% SOLN 15ML UDC As Ordered ONE (13:55)
[2020-10-15] MEDS ORDERED: MIDAZOLAM INJ 2MG/2ML VIAL (J2250 PER 1MG) As Ordered ONE (13:56)
[2020-10-15 15:00] VITALS: BP 124/89
--- NOTE | 2020-10-15 15:10 | T-ECHO ---
TRANSESOPHAGEAL ECHO DATE: 10/15/2020 REFERRING PHYSICIAN: Teo Metcalf M.D. INDICATIONS: Stroke. PREPROCEDURE DIAGNOSIS: Stroke. POSTPROCEDURE DIAGNOSES: 1. Nonrheumatic aortic valve disease with moderate aortic regurgitation. 2. Nonrheumatic mitral valve disease with moderate mitral regurgitation. 3. Negative for atrial septal defect or patent foramen ovale (PFO). PROCEDURE PERFORMED BY: Teo Metcalf M.D. SURVEILLANCE MONITOR: None. PROCEDURE PERFORMED: Transesophageal echocardiogram with saline bubble study. SEDATION: Midazolam 4 mg IV. DESCRIPTION OF PROCEDURE: Rhythm was sinus. The patient received viscous Lidocaine to gargle and swallow. She received a total of 4 mg midazolam IV for IV sedation. The patient tolerated the procedure well without any immediate complications. rhythm was sinus. Esophageal intubation was carried out by Dr. Metcalf without difficulty using a Fermín two-dimensional Omnidirectional transesophageal echocardiogram probe. The atrial septum appeared anatomically and by color flow Doppler. Saline bubble study was performed with 1 mL of the patient's own blood withdrawn from her IV site combined with 8 mL of normal saline and 0.5 mL of air. This was agitated back and forth between two 10 mL syringes via a three-way stopcock. With Valsalva maneuver release, no bubbles were seen crossing from the right atrium to the left atrium. The left atrium appeared to be at least moderately enlarged. The left ventricle was normal in size and systolic function. No regional LV wall motion abnormalities. LV ejection fraction 75% by visual estimate. Right ventricle appeared normal in size and systolic function. No pericardial effusion. Aortic valve was 3-cuspid and displayed moderate focal thickening and focal calcific deposits. No aortic regurgitation. Moderate aortic regurgitation was present with vena contracta measuring between 4-7 mm consistent with moderate aortic regurgitation. The mitral valve appeared to have moderate age degenerative changes. No mitral valve prolapse. No mitral stenosis. Moderate mitral regurgitation was present. No mitral valve prolapse. Pulmonic valve was poorly visualized. Tricuspid leaflets appeared structurally normal. Trace tricuspid regurgitation was present. The distal aortic arch and descending thoracic aorta showed up to a mild amount of patchy atheroma. CONCLUSIONS: 1. No atrial septal defect or patent foramen ovale. 2. Degenerative, aortic valve disease (nonrheumatic) of a moderate degree. Moderate aortic regurgitation. No aortic stenosis. 3. Degenerative mitral valve disease with moderate mitral regurgitation. No mitral stenosis. 4. At least mild left atrial dilatation. Probably at least moderate left atrial dilatation. 5. Mild atheroma involving the distal aortic arch and descending thoracic aorta. 6. Normal left ventricle size and systolic function. No regional LV wall motion abnormalities. LVEF 75% by visual estimate.
== END 2020-10-15 15:19 | disposition home or self-care (01) ==
LOC: M OPP 12:46
PROVIDERS: ATTEND Internal Medicine Cardiovascular Disease
DX: I77.9 Disorder of arteries and arterioles, unspecified (principal); I05.9 Rheumatic mitral valve disease, unspecified
CPT/HCPCS: 93312; 93320; 93325; J2250

== ENCOUNTER → 2020-10-22 | Outpatient (REF) | payer MEDICARE, BC ==
[~2020-10-22] MED LIST changes: -NS 1,000 ML IV ONE
[2020-10-22 14:14] LABS: ALBUMIN 3.5 GM/DL (3.2-5.2); CALCIUM LEVEL 10.1 MG/DL (8.8-10.2); CHOLESTEROL RISK RATIO 4.529 (<5); CREATININE FOR GFR 1.21 MG/DL (0.55-1.30); GLOMERULAR FILTRATION RATE 47.4 (>45); PHOSPHORUS LEVEL 3.6 MG/DL (2.5-4.9); POTASSIUM SERUM 4.1 MEQ/L (3.5-5.1)
[2020-10-22 14:24] LABS: MALB URINE SIEMENS 23.8 MG/L; MAU/CREAT RATIO 8.6 MCG/MG (0.0-30.0)
== END ==
LOC: M LABDRAWC 11:55
PROVIDERS: ATTEND Internal Medicine Cardiovascular Disease
DX: E78.2 Mixed hyperlipidemia (principal); I10 Essential (primary) hypertension

== ENCOUNTER → 2020-12-16 | Outpatient (REF) | payer MEDICARE, BC, OTHER ==
[~2020-12-16] MED LIST changes: +BUPR150T12 PO; -BUPR150T4 PO
[2020-12-16 16:58] LABS: CALCIUM LEVEL 9.8 MG/DL (8.8-10.2); CREATININE FOR GFR 1.4 MG/DL (0.55-1.30); FREE T4 0.82 NG/DL (0.76-1.46); GLOMERULAR FILTRATION RATE 40.1 (>45); MAGNESIUM LEVEL 2.1 MG/DL (1.8-2.4); THYROID STIMULATING HORMONE 0.355 uIU/ML (0.358-3.740)
== END ==
LOC: M LABDRAWC 15:43
PROVIDERS: ATTEND Physician Assistant
DX: R00.2 Palpitations (principal)

== ENCOUNTER → 2021-02-02 | Outpatient (CLI) | payer MEDICARE, BC, OTHER ==
[~2021-02-02] MED LIST changes: +GABA-282 PO; +GABA-283 PO; -GABA-845 PO; +LISI10TA22 PO; +PRAZ1CAP PO
== END ==
LOC: M LABSMTC 11:18
PROVIDERS: ATTEND Anesthesiology
DX: Z01.812 Encounter for preprocedural laboratory examination (principal); Z20.822 Contact with and (suspected) exposure to COVID-19

== ENCOUNTER 2021-02-05 10:28 | Day surgery (SDC) | payer MEDICARE, BC ==
[~2021-02-05] VITALS: Ht 167.6 cm; Wt 65.7 kg
[~2021-02-05 10:28] MED LIST changes: +BSS IRR 500ML/OMIDRIA 4ML IRR BAG (OR ONLY) As Ordered ONE; +CEFUROXIME 1MG/0.1ML INTRACAMERAL INJ As Ordered ONE; +DUOVISC (0.50ML VISCOAT/0.55ML PROVISC) OPHTH KIT As Ordered ONE; +MIDAZOLAM INJ 2MG/2ML VIAL (J2250 PER 1MG) As Ordered ONE; +OFLOXACIN 0.3 % (OCUFLOX) OPTH SOL 5ML OS ONE; +PHENYLEPHRINE 2.5% OPHTH SOL 2ML OS ONE; +PROPARACAINE 0.5% OPHTH SOL 15ML OS ONE; +TROPICAMIDE 1% OPHTH SOLN 2ML OS ONE; +fentaNYL 100 MCG/2 ML INJECTION (J3010) As Ordered ONE
[2021-02-05] MEDS ORDERED: POVIDONE-IODINE 5% OPHTH PREP SOL 30ML As Ordered ONE (10:30)
[2021-02-05 13:09] VITALS: BP 119/58
--- NOTE | 2021-02-06 09:18 | RO ---
OPERATIVE NOTE DATE OF OPERATION: 02/05/2021 PREOPERATIVE DIAGNOSIS: 1. Visually significant nuclear sclerotic cataract, left eye. POSTOPERATIVE DIAGNOSIS: 1. Visually significant nuclear sclerotic cataract, left eye. PROCEDURE: 1. Cataract extraction with use of phacoemulsification, and placement of intraocular lens, [id number], 17.5 D, left eye. SURGEON: Florin Mcnulty DO ANESTHESIA: Local (Omidria with MAC) COMPLICATIONS: None POSTOPERATIVE CONDITION: Stable INDICATIONS FOR SURGERY: 1. Blurred vision affecting patient's activities of daily living. DESCRIPTION OF PROCEDURE: The patient was seen in the preoperative area and properly identified. The correct operative eye was identified and marked. The patient received topical anesthetic, antibiotics, and topical dilating drops. The patient was then transferred to the operating room. The correct side was re-identified and a time-out was performed. The eye was prepped and draped in a sterile fashion. The eyelids were isolated with Tegaderm tape and the lids were held open with an adjustable speculum. A 1.0mm paracentesis incision was made. Omidria was then injected into the anterior chamber. Viscoelastic was then injected into the anterior chamber through the paracentesis. Using a 2.4mm sharp-tipped keratome, the anterior chamber was entered via a temporal clear cornea incision. A continuous curvilinear capsulorrhexis was created with Utrata forceps. Hydrodissection was performed with BSS on a blunt cannula until the nucleus was able to rotate freely. The crystalline lens was phacoemulsified and aspirated. Irrigation/aspiration was used to remove the cortical material Cohesive viscoelastic was placed into the capsular bag to deepen it. The implant was placed into the capsular bag and allowed to unfold. Placement was confirmed by visualizing the anterior capsulorrhexis. Irrigation/aspiration was used to remove the viscoelastic. The clear corneal incision was hydrated with BSS on a blunt cannula. The lens was well positioned. Intracameral antibiotic was injected into the anterior chamber. The incisions were then tested for leaks and found to be negative. The eye was then palpated for appropriate pressure and adjusted accordingly with BSS. The eyelid speculum was then carefully removed. A shield was placed over the eye. The patient tolerated the procedure well and was discharge to the recovery unit in a stable condition.
== END 2021-02-05 13:39 | disposition home or self-care (01) ==
LOC: M SDC 10:28
PROVIDERS: ATTEND Ophthalmology
DX: H25.12 Age-related nuclear cataract, left eye (principal); R00.2 Palpitations; I12.9 Hypertensive chronic kidney disease with stage 1 through stage 4 chronic kidney disease, or unspecified chronic kidney disease; E78.00 Pure hypercholesterolemia, unspecified; I08.9 Rheumatic multiple valve disease, unspecified; E03.9 Hypothyroidism, unspecified; K59.00 Constipation, unspecified; Z90.49 Acquired absence of other specified parts of digestive tract; G35 Multiple sclerosis; F32.9 Major depressive disorder, single episode, unspecified; F41.9 Anxiety disorder, unspecified; I69.851 Hemiplegia and hemiparesis following other cerebrovascular disease affecting right dominant side; J45.909 Unspecified asthma, uncomplicated; N18.9 Chronic kidney disease, unspecified; Z88.8 Allergy status to other drugs, medicaments and biological substances; Z91.041 Radiographic dye allergy status; Z91.040 Latex allergy status; Z79.899 Other long term (current) drug therapy; Z79.891 Long term (current) use of opiate analgesic
CPT/HCPCS: 66984; J1097; J2250; J3010; V2632

== ENCOUNTER → 2021-03-31 | Outpatient (REF) | payer MEDICARE, BC ==
[~2021-03-31] MED LIST changes: -BSS IRR 500ML/OMIDRIA 4ML IRR BAG (OR ONLY) As Ordered ONE; -CEFUROXIME 1MG/0.1ML INTRACAMERAL INJ As Ordered ONE; -DUOVISC (0.50ML VISCOAT/0.55ML PROVISC) OPHTH KIT As Ordered ONE; -MIDAZOLAM INJ 2MG/2ML VIAL (J2250 PER 1MG) As Ordered ONE; -OFLOXACIN 0.3 % (OCUFLOX) OPTH SOL 5ML OS ONE; -PHENYLEPHRINE 2.5% OPHTH SOL 2ML OS ONE; -PROPARACAINE 0.5% OPHTH SOL 15ML OS ONE; -TROPICAMIDE 1% OPHTH SOLN 2ML OS ONE; -fentaNYL 100 MCG/2 ML INJECTION (J3010) As Ordered ONE
[2021-03-31 18:22] LABS: BASO # 0.1 10^3/uL (0.0-0.2); BASO % 1.6 % (0.0-1.0); EOS # 0.1 10^3/uL (0.0-0.5); EOS % 2.8 % (0.0-3.0); HEMATOCRIT 35.1 % (36.0-47.0); HEMOGLOBIN 10.9 g/dl (12.0-15.5); LYMPH % 22.3 % (24.0-44.0); MEAN CORPUSCULAR HEMOGLOBIN 29.4 pg (27.0-33.0); MEAN CORPUSCULAR HGB CONC 31.1 g/dl (32.0-36.5); MEAN CORPUSCULAR VOLUME 94.6 fl (80.0-96.0); MONO # 0.4 10^3/uL (0.0-0.8); MONO % 8.4 % (2.0-8.0); NEUTROPHILS # 2.8 10^3/uL (1.5-8.5); NEUTROPHILS % 64.7 % (36.0-66.0); PLATELET COUNT, AUTOMATED 115 10^3/uL (150-450); RED BLOOD COUNT 3.71 10^6/uL (4.00-5.40); WHITE BLOOD COUNT 4.3 10^3/uL (4.0-10.0)
[2021-03-31 18:53] LABS: ALBUMIN 3.7 GM/DL (3.2-5.2); BILIRUBIN,TOTAL 0.4 MG/DL (0.2-1.0); CALCIUM LEVEL 9.8 MG/DL (8.8-10.2); CREATININE FOR GFR 1.21 MG/DL (0.55-1.30); GLOMERULAR FILTRATION RATE 47.4 (>45); POTASSIUM SERUM 4.7 MEQ/L (3.5-5.1); THYROID STIMULATING HORMONE 0.922 uIU/ML (0.358-3.740); TOTAL PROTEIN 6.5 GM/DL (6.4-8.2)
== END ==
LOC: M SFHCCLAY 13:29
PROVIDERS: ATTEND Family Medicine
DX: E03.9 Hypothyroidism, unspecified (principal); I10 Essential (primary) hypertension
CPT/HCPCS: 80053; 84443; 85025; G0463

== ENCOUNTER → 2021-05-11 | Outpatient (REF) | payer MEDICARE, BC ==
[2021-05-11 12:04] LABS: BASO # 0.1 10^3/uL (0.0-0.2); BASO % 2.1 % (0.0-1.0); EOS % 0.7 % (0.0-3.0); HEMATOCRIT 37.3 % (36.0-47.0); HEMOGLOBIN 11.7 g/dl (12.0-15.5); LYMPH % 34.3 % (24.0-44.0); MEAN CORPUSCULAR HEMOGLOBIN 28.7 pg (27.0-33.0); MEAN CORPUSCULAR HGB CONC 31.4 g/dl (32.0-36.5); MEAN CORPUSCULAR VOLUME 91.4 fl (80.0-96.0); MONO # 0.3 10^3/uL (0.0-0.8); MONO % 9.9 % (2.0-8.0); NEUTROPHILS # 1.5 10^3/uL (1.5-8.5); NEUTROPHILS % 52.6 % (36.0-66.0); PLATELET COUNT, AUTOMATED 103 10^3/uL (150-450); RED BLOOD COUNT 4.08 10^6/uL (4.00-5.40); WHITE BLOOD COUNT 2.8 10^3/uL (4.0-10.0)
[2021-05-11 16:25] LABS: IRON (FE) 67 UG/DL (50-170); TOTAL PROTEIN 6.7 GM/DL (6.4-8.2)
[2021-05-11 16:36] LABS: FOLATE > 24.0 NG/ML (>5.4); VITAMIN B12 LEVEL 788 PG/ML (247-911)
[2021-05-13 11:14] LABS: ALBUMIN 4.27 GM/DL (3.29-5.55); ALBUMIN % 63.7 % (55.8-66.1); ALPHA-1-GLOBULIN % 3.9 % (2.9-4.9); ALPHA-1-GLOBULINS 0.26 GM/DL (0.17-0.41); ALPHA-2-GLOBULINS 0.67 GM/DL (0.42-0.99); BETA-1-GLOBULINS 0.39 GM/DL (0.28-0.60); BETA-1-GLOBULINS % 5.8 % (4.7-7.2); BETA-2-GLOBULINS 0.28 GM/DL (0.19-0.55); BETA-2-GLOBULINS % 4.2 % (3.2-6.5); GAMMA GLOBULIN % 12.4 % (11.1-18.8); GAMMA GLOBULINS 0.83 GM/DL (0.65-1.58)
== END ==
LOC: M SFHCCLAY 07:45
PROVIDERS: ATTEND Family Medicine
DX: D69.6 Thrombocytopenia, unspecified (principal); D64.9 Anemia, unspecified
CPT/HCPCS: 82607; 82746; 83540; 84165; 85025; G0463

== ENCOUNTER → 2021-05-15 | Outpatient (CLI) | payer MEDICARE, BC | LOC: M PLARAD 09:29 | PROVIDERS: ATTEND Student in an Organized Health Care Education/Training Program | DX: G35 Multiple sclerosis (principal) ==

== ENCOUNTER → 2021-06-25 | Outpatient (REF) | payer MEDICARE, BC ==
[2021-06-25 16:42] LABS: HEMATOCRIT 35.6 % (36.0-47.0); HEMOGLOBIN 11.2 g/dl (12.0-15.5); MEAN CORPUSCULAR HEMOGLOBIN 28.6 pg (27.0-33.0); MEAN CORPUSCULAR HGB CONC 31.5 g/dl (32.0-36.5); MEAN CORPUSCULAR VOLUME 90.8 fl (80.0-96.0); PLATELET COUNT, AUTOMATED 130 10^3/uL (150-450); RED BLOOD COUNT 3.92 10^6/uL (4.00-5.40); WHITE BLOOD COUNT 5.5 10^3/uL (4.0-10.0)
[2021-06-25 17:11] LABS: ALBUMIN 3.4 GM/DL (3.2-5.2); BILIRUBIN,TOTAL 0.5 MG/DL (0.2-1.0); CALCIUM LEVEL 9.9 MG/DL (8.8-10.2); CREATININE FOR GFR 1.42 MG/DL (0.55-1.30); FREE T4 0.86 NG/DL (0.76-1.46); GLOMERULAR FILTRATION RATE 39.3 (>45); MAGNESIUM LEVEL 1.9 MG/DL (1.8-2.4); THYROID STIMULATING HORMONE 0.659 uIU/ML (0.358-3.740); TOTAL PROTEIN 6.8 GM/DL (6.4-8.2)
== END ==
LOC: M LABDRAWC 15:46
PROVIDERS: ATTEND Physician Assistant
DX: R00.2 Palpitations (principal)
CPT/HCPCS: 36415; 80053; 83735; 84439; 84443; 85027; G0463

== ENCOUNTER → 2021-07-30 | Outpatient (REF) | payer MEDICARE, BC ==
[2021-07-30 16:02] LABS: BASO # 0.1 10^3/uL (0.0-0.2); BASO % 1.5 % (0.0-1.0); EOS # 0.1 10^3/uL (0.0-0.5); HEMATOCRIT 35.3 % (36.0-47.0); HEMOGLOBIN 10.9 g/dl (12.0-15.5); LYMPH % 30.4 % (24.0-44.0); MEAN CORPUSCULAR HEMOGLOBIN 28.6 pg (27.0-33.0); MEAN CORPUSCULAR HGB CONC 30.9 g/dl (32.0-36.5); MEAN CORPUSCULAR VOLUME 92.7 fl (80.0-96.0); MONO # 0.3 10^3/uL (0.0-0.8); MONO % 9.6 % (2.0-8.0); NEUTROPHILS # 1.9 10^3/uL (1.5-8.5); NEUTROPHILS % 56.2 % (36.0-66.0); RED BLOOD COUNT 3.81 10^6/uL (4.00-5.40); WHITE BLOOD COUNT 3.4 10^3/uL (4.0-10.0)
[2021-07-30 16:41] LABS: ALBUMIN 3.5 GM/DL (3.2-5.2); BILIRUBIN,TOTAL 0.5 MG/DL (0.2-1.0); CALCIUM LEVEL 9.5 MG/DL (8.8-10.2); CREATININE FOR GFR 1.22 MG/DL (0.55-1.30); FREE T4 0.74 NG/DL (0.76-1.46); GLOMERULAR FILTRATION RATE 46.8 (>45); POTASSIUM SERUM 4.3 MEQ/L (3.5-5.1); THYROID STIMULATING HORMONE 0.5 uIU/ML (0.358-3.740); TOTAL PROTEIN 6.4 GM/DL (6.4-8.2)
[2021-07-30 18:01] LABS: PLATELET COUNT, AUTOMATED 92 10^3/uL (150-450)
[2021-08-08 18:10] LABS: Methylmalonic Acid 196 nmol/L (0-378)
== END ==
LOC: M SFHCCLAY 13:18
PROVIDERS: ATTEND Family Medicine
DX: E03.9 Hypothyroidism, unspecified (principal); I10 Essential (primary) hypertension; D64.9 Anemia, unspecified
CPT/HCPCS: 80053; 82607; 83921; 84439; 84443; 85025; 85049; 85055; G0463

== ENCOUNTER → 2021-09-28 | Outpatient (REF) | payer MEDICARE, BC | LOC: M LAB REF 17:07 | PROVIDERS: ATTEND Physician Assistant | DX: C44.311 Basal cell carcinoma of skin of nose (principal); C44.612 Basal cell carcinoma of skin of right upper limb, including shoulder | CPT/HCPCS: 11102; 11103; 17000; 17003; 88305; G0463 ==

== ENCOUNTER → 2021-10-02 | Outpatient (REF) | payer MEDICARE, BC ==
[2021-10-02 17:43] LABS: FERRITIN 106 NG/ML (8-252); IRON (FE) 86 UG/DL (50-170); PERCENT SATURATION 27.3 % (13.2-45.0); TOTAL IRON BINDING CAPACITY 315 UG/DL (250-450)
[2021-10-06 10:59] LABS: ALBUMIN 4.51 GM/DL (3.29-5.55); ALBUMIN % 64.4 % (55.8-66.1); ALPHA-1-GLOBULIN % 4.5 % (2.9-4.9); ALPHA-1-GLOBULINS 0.32 GM/DL (0.17-0.41); ALPHA-2-GLOBULINS 0.66 GM/DL (0.42-0.99); ALPHA-2-GLOBULINS % 9.4 % (7.1-11.8); BETA-1-GLOBULINS 0.42 GM/DL (0.28-0.60); BETA-2-GLOBULINS 0.23 GM/DL (0.19-0.55); BETA-2-GLOBULINS % 3.3 % (3.2-6.5); GAMMA GLOBULIN % 12.4 % (11.1-18.8); GAMMA GLOBULINS 0.87 GM/DL (0.65-1.58)
[2021-10-06 11:42] LABS: IMMUNOTYPING SERUM IGG ABNORMAL (NORMAL); IMMUNOTYPING SERUM LAMBDA ABNORMAL (NORMAL)
== END ==
LOC: M LAB REF 16:34
PROVIDERS: ATTEND Internal Medicine Nephrology
DX: N18.30 Chronic kidney disease, stage 3 unspecified (principal); D63.1 Anemia in chronic kidney disease

== ENCOUNTER → 2021-11-05 | Outpatient (REF) | payer MEDICARE, BC, OTHER | LOC: M SFHCDERM 16:43 | PROVIDERS: ATTEND Dermatology | DX: C44.612 Basal cell carcinoma of skin of right upper limb, including shoulder (principal); L57.8 Other skin changes due to chronic exposure to nonionizing radiation; L82.1 Other seborrheic keratosis ==

== ENCOUNTER → 2021-11-19 | Outpatient (CLI) | payer MEDICARE, BC | LOC: M WHC 13:52 | PROVIDERS: ATTEND Family Medicine | DX: Z12.31 Encounter for screening mammogram for malignant neoplasm of breast (principal) ==

== ENCOUNTER → 2021-11-30 | Outpatient (REF) | payer MEDICARE, BC ==
[2021-11-30 16:26] LABS: BASO # 0.1 10^3/uL (0.0-0.2); BASO % 1.6 % (0.0-1.0); EOS % 0.2 % (0.0-3.0); HEMATOCRIT 35.8 % (36.0-47.0); HEMOGLOBIN 11.6 g/dl (12.0-15.5); LYMPH # 0.9 10^3/uL (1.5-5.0); LYMPH % 18.2 % (24.0-44.0); MEAN CORPUSCULAR HEMOGLOBIN 29.1 pg (27.0-33.0); MEAN CORPUSCULAR HGB CONC 32.4 g/dl (32.0-36.5); MEAN CORPUSCULAR VOLUME 89.9 fl (80.0-96.0); MONO # 0.4 10^3/uL (0.0-0.8); MONO % 8.5 % (2.0-8.0); NEUTROPHILS # 3.6 10^3/uL (1.5-8.5); NEUTROPHILS % 71.3 % (36.0-66.0); PLATELET COUNT, AUTOMATED 112 10^3/uL (150-450); RED BLOOD COUNT 3.98 10^6/uL (4.00-5.40); WHITE BLOOD COUNT 5.1 10^3/uL (4.0-10.0)
[2021-11-30 16:32] LABS: ALBUMIN 3.7 GM/DL (3.2-5.2); BILIRUBIN,TOTAL 0.4 MG/DL (0.2-1.0); CALCIUM LEVEL 9.4 MG/DL (8.8-10.2); CHOLESTEROL RISK RATIO 4.732 (<5); CREATININE FOR GFR 1.25 MG/DL (0.55-1.30); GLOMERULAR FILTRATION RATE 45.5 (>45); POTASSIUM SERUM 3.7 MEQ/L (3.5-5.1); THYROID STIMULATING HORMONE 2.18 uIU/ML (0.358-3.740); TOTAL PROTEIN 6.9 GM/DL (6.4-8.2)
== END ==
LOC: M SFHCCLAY 09:36
PROVIDERS: ATTEND Family Medicine
DX: E03.9 Hypothyroidism, unspecified (principal); D69.6 Thrombocytopenia, unspecified; D64.9 Anemia, unspecified; E78.5 Hyperlipidemia, unspecified

== ENCOUNTER → 2022-01-29 | Outpatient (REF) | payer MEDICARE, BC ==
[~2022-01-29] MED LIST changes: -AUBA14TA PO; +TAMS1CAP17; +TERI14TA PO; +TOLT4CAP3
== END ==
LOC: M LAB REF 18:32
PROVIDERS: ATTEND Internal Medicine Medical Oncology
DX: R77.9 Abnormality of plasma protein, unspecified (principal)

== ENCOUNTER → 2022-02-05 | Outpatient (CLI) | payer MEDICARE, BC | LOC: M RAD 16:10 | PROVIDERS: ATTEND Internal Medicine Hematology & Oncology | DX: J32.9 Chronic sinusitis, unspecified (principal); D80.3 Selective deficiency of immunoglobulin G [IgG] subclasses; Z96.642 Presence of left artificial hip joint ==

== ENCOUNTER → 2022-02-11 | Outpatient (CLI) | payer MEDICARE, BC ==
[~2022-02-11] MED LIST changes: +ASPI81TA26 PO; +CLIN-250; +LIDOCAINE 1% MDV 20ML VIAL As Ordered ONE
[2022-02-11 09:05] LABS: BASO # 0.1 10^3/uL (0.0-0.2); BASO % 2.1 % (0.0-1.0); EOS % 0.6 % (0.0-3.0); HEMATOCRIT 37.4 % (36.0-47.0); HEMOGLOBIN 12.1 g/dl (12.0-15.5); LYMPH # 0.9 10^3/uL (1.5-5.0); LYMPH % 26.7 % (24.0-44.0); MEAN CORPUSCULAR HGB CONC 32.4 g/dl (32.0-36.5); MEAN CORPUSCULAR VOLUME 89.7 fl (80.0-96.0); MONO # 0.4 10^3/uL (0.0-0.8); NEUTROPHILS % 58.3 % (36.0-66.0); RED BLOOD COUNT 4.17 10^6/uL (4.00-5.40); WHITE BLOOD COUNT 3.4 10^3/uL (4.0-10.0)
[2022-02-11 09:24] VITALS: BP 168/84
[2022-02-11 09:26] LABS: PLATELET COUNT, AUTOMATED 98 10^3/uL (150-450)
== END ==
LOC: M IRPRO 07:59
PROVIDERS: ATTEND Internal Medicine Hematology & Oncology
DX: D80.3 Selective deficiency of immunoglobulin G [IgG] subclasses (principal)

== ENCOUNTER → 2022-05-18 | Outpatient (REF) | payer MEDICARE, BC, OTHER ==
[~2022-05-18] MED LIST changes: -LIDOCAINE 1% MDV 20ML VIAL As Ordered ONE
[2022-05-18 18:03] LABS: BASO # 0.1 10^3/uL (0.0-0.2); BASO % 1.6 % (0.0-1.0); EOS % 0.3 % (0.0-3.0); HEMATOCRIT 40.9 % (36.0-47.0); HEMOGLOBIN 12.9 g/dl (12.0-15.5); LYMPH # 0.9 10^3/uL (1.5-5.0); LYMPH % 22.5 % (24.0-44.0); MEAN CORPUSCULAR HGB CONC 31.5 g/dl (32.0-36.5); MEAN CORPUSCULAR VOLUME 91.9 fl (80.0-96.0); MONO # 0.4 10^3/uL (0.0-0.8); MONO % 10.9 % (2.0-8.0); NEUTROPHILS # 2.5 10^3/uL (1.5-8.5); NEUTROPHILS % 64.7 % (36.0-66.0); RED BLOOD COUNT 4.45 10^6/uL (4.00-5.40); WHITE BLOOD COUNT 3.9 10^3/uL (4.0-10.0)
[2022-05-18 18:05] LABS: PLATELET COUNT, AUTOMATED 93 10^3/uL (150-450)
[2022-05-18 19:02] LABS: ALBUMIN 3.8 GM/DL (3.2-5.2); BILIRUBIN,DIRECT 0.2 MG/DL (0.0-0.2); BILIRUBIN,TOTAL 0.6 MG/DL (0.2-1.0)
== END ==
LOC: M LABDRAWC 17:24
PROVIDERS: ATTEND Student in an Organized Health Care Education/Training Program
DX: G35 Multiple sclerosis (principal)

== ENCOUNTER 2022-05-30 12:47 | Observation (INO) | payer MEDICARE, BC ==
[~2022-05-30] VITALS: Ht 167.6 cm; Wt 62.4 kg
[2022-05-30 15:23] LABS: BASO # 0.1 10^3/uL (0.0-0.2); LYMPH # 0.9 10^3/uL (1.5-5.0); LYMPH % 18.4 % (24.0-44.0); MEAN CORPUSCULAR HGB CONC 32.5 g/dl (32.0-36.5); MEAN CORPUSCULAR VOLUME 89.1 fl (80.0-96.0); MONO # 0.5 10^3/uL (0.0-0.8); NEUTROPHILS # 3.4 10^3/uL (1.5-8.5); NEUTROPHILS % 70.4 % (36.0-66.0); RED BLOOD COUNT 4.49 10^6/uL (4.00-5.40); WHITE BLOOD COUNT 4.8 10^3/uL (4.0-10.0)
[2022-05-30 15:24] LABS: PLATELET COUNT, AUTOMATED 80 10^3/uL (150-450)
[2022-05-30 15:55] LABS: CK-MB VALUE MASS < 1.0 NG/ML (<3.6); CPK CREATINE PHOSPHOKINASE 56 U/L (26-192); MB/CK RELATIVE INDEX 1.79 (< OR =4)
[2022-05-30 16:04] LABS: ALBUMIN 3.6 GM/DL (3.2-5.2); BILIRUBIN,DIRECT 0.1 MG/DL (0.0-0.2); BILIRUBIN,TOTAL 0.6 MG/DL (0.2-1.0); CALCIUM LEVEL 9.7 MG/DL (8.8-10.2); CREATININE FOR GFR 1.17 MG/DL (0.55-1.30); POTASSIUM SERUM 3.6 MEQ/L (3.5-5.1); THYROID STIMULATING HORMONE 0.714 uIU/ML (0.358-3.740); TOTAL PROTEIN 6.8 GM/DL (6.4-8.2)
[2022-05-30] MEDS ORDERED: LORazepam 2 MG/ML VIAL IV STA ×2 (16:05→19:45)
[2022-05-30] MEDS ORDERED: diphenhydrAMINE 50MG/ML VIAL (J1200) IV STA (16:05)
[2022-05-30] MEDS ORDERED: methylPREDNISolone 125MG 2ML VIAL IV ONE (16:05)
[2022-05-30] MEDS ORDERED: ZOLO100T PO (22:36)
[2022-05-30] MEDS ORDERED: MYRB25TA PO (22:36)
[2022-05-30] MEDS ORDERED: LORA1TAB4 PO (22:36)
[2022-05-30] MEDS ORDERED: GABA-282 PO ×2 (22:36→22:40)
[2022-05-30] MEDS ORDERED: med rec comment (22:38)
[2022-05-30] MEDS ORDERED: HOME MED LIST COMPLETE! XX SCH (22:45)
[2022-05-30] MEDS ORDERED: LORazepam 0.5 MG TAB PO PRN (23:15)
[2022-05-30] MEDS ORDERED: traZODone 100 MG TAB PO PRN (23:15)
[2022-05-30] MEDS ORDERED: ACETAMINOPHEN TAB 650MG DOSE (2X325MG) PO PRN (23:15)
[2022-05-31] MEDS: LEVOTHYROXINE 50MCG TABLET (0.05MG) PO SCH (06:37)
[2022-05-31 06:55] LABS: HEMATOCRIT 40.7 % (36.0-47.0); HEMOGLOBIN 13.2 g/dl (12.0-15.5); MEAN CORPUSCULAR HGB CONC 32.4 g/dl (32.0-36.5); MEAN CORPUSCULAR VOLUME 89.5 fl (80.0-96.0); RED BLOOD COUNT 4.55 10^6/uL (4.00-5.40); WHITE BLOOD COUNT 5.1 10^3/uL (4.0-10.0)
[2022-05-31 07:03] LABS: PLATELET COUNT, AUTOMATED 87 10^3/uL (150-450)
[2022-05-31 07:12] LABS: INR 1.31; PROTHROMBIN TIME 16.7 SECONDS (12.7-14.5)
[2022-05-31 07:13] LABS: PARTIAL THROMBOPLASTIN TIME 56.8 SECONDS (25.9-37.0)
[2022-05-31 07:34] LABS: CALCIUM LEVEL 9.7 MG/DL (8.8-10.2); CREATININE FOR GFR 1.17 MG/DL (0.55-1.30); POTASSIUM SERUM 4.8 MEQ/L (3.5-5.1)
[2022-05-31] MEDS ORDERED: diphenhydrAMINE 25MG CAP PO ONE ×2 (08:55→14:55)
[2022-05-31] MEDS ORDERED: predniSONE 20 MG TAB PO ONE (08:55)
[2022-05-31] MEDS ORDERED: SERTRALINE HCL 50 MG TAB PO SCH (09:00)
[2022-05-31] MEDS: GABAPENTIN 300 MG CAP PO SCH (09:22)
[2022-05-31] MEDS: ASPIRIN 81MG ENTERIC TABLET PO SCH (09:22)
[2022-05-31] MEDS: SPIRONOLACTONE 25 MG TAB PO SCH (09:22)
[2022-05-31] MEDS: busPIRone 5 MG TAB PO SCH ×3 (09:23→22:55)
[2022-05-31] MEDS: ENOXAPARIN 40MG/0.4ML SYRINGE (J1650 PER 10MG) SC SCH (09:28)
[2022-05-31 10:23] VITALS: BP 149/66
[2022-05-31] MEDS ORDERED: GABAPENTIN 300 MG CAP PO SCH ×2 (15:00→21:00)
[2022-05-31 22:53] VITALS: BP 153/69
[2022-06-01] MEDS: LEVOTHYROXINE 50MCG TABLET (0.05MG) PO SCH (05:41)
[2022-06-01 06:00] VITALS: BP 170/70
[2022-06-01 06:41] LABS: CALCIUM LEVEL 9.3 MG/DL (8.8-10.2); CREATININE FOR GFR 1.13 MG/DL (0.55-1.30); POTASSIUM SERUM 3.6 MEQ/L (3.5-5.1)
[2022-06-01] MEDS: busPIRone 5 MG TAB PO SCH (08:24)
[2022-06-01] MEDS: ASPIRIN 81MG ENTERIC TABLET PO SCH (08:24)
[2022-06-01] MEDS: SPIRONOLACTONE 25 MG TAB PO SCH (08:25)
[2022-06-01] MEDS: GABAPENTIN 300 MG CAP PO SCH (08:25)
[2022-06-01] MEDS: ENOXAPARIN 40MG/0.4ML SYRINGE (J1650 PER 10MG) SC SCH (08:26)
[2022-06-01 08:27] VITALS: BP 163/68
[2022-06-01] MEDS ORDERED: SERTRALINE 100 MG TAB PO SCH (09:00)
[2022-06-01 10:12] VITALS: BP 139/63
[2022-06-01 11:07] LABS: APPEARANCE, URINE MANUAL CLEAR (CLEAR); COLOR, URINE MANUAL YELLOW (YELLOW); PH,URINE MAN 5.5 UNITS (5.0 - 7.0); PROTEIN, URINE MANUAL 1+ mg/dL (NEGATIVE)
[2022-06-01 11:08] LABS: BILIRUBIN, URINE MANUAL NEGATIVE (NEGATIVE); BLOOD URINE MANUAL NEGATIVE (NEGATIVE); GLUCOSE, URINE (UA) MANUAL NEGATIVE (NEGATIVE); KETONE, URINE MANUAL NEGATIVE (NEGATIVE); LEUKOCYTE ESTERASE, URINE MAN POSITIVE (NEGATIVE); NITRITE, URINE MANUAL NEGATIVE (NEGATIVE); UROBILINOGEN, URINE MANUAL NORMAL (NORMAL)
[2022-06-01 11:16] LABS: BACTERIA, URINE SMALL AMOUNT; CALCIUM OXALATE CRYSTALS,URINE MOD AMOUNT /hpf; HYALINE CAST, URINE NONE SEEN /lpf (0-1); RBC, URINE NONE SEEN /hpf (0-3); SQUAMOUS EPITHELIAL CELL URINE MOD AMOUNT /hpf (SMALL AMT); WBC, URINE 20-30 /hpf (0-3)
[2022-06-01] MEDS ORDERED: ZOLO100T PO (11:53)
[2022-06-01] MEDS ORDERED: ASPI-551 PO (11:53)
[2022-06-01] MEDS ORDERED: PANT40TA29 PO (12:04)
[2022-06-01] MEDS ORDERED: ASPI325T57 PO (12:04)
[2022-06-01] MEDS ORDERED: AUGM500T34 PO (12:06)
[2022-06-01] MEDS ORDERED: FLUBLOK(EGG FREE)(QUAD)INFLUENZA VACC 0.5ML SYRINGE 18YRS & OLDER IM.IMMUN ONE (12:45)
== END 2022-06-01 13:05 | disposition home or self-care (01) ==
LOC: M ED 12:47 → M ED INP 12:48 → ENRESERV 05-31 05:00 → M MSPAV 05-31 09:57
PROVIDERS: ADMIT Internal Medicine; ATTEND Internal Medicine
DX: G35 Multiple sclerosis (principal); R53.1 Weakness; I69.351 Hemiplegia and hemiparesis following cerebral infarction affecting right dominant side; G47.00 Insomnia, unspecified; G62.9 Polyneuropathy, unspecified; R93.0 Abnormal findings on diagnostic imaging of skull and head, not elsewhere classified; I10 Essential (primary) hypertension; E03.9 Hypothyroidism, unspecified; F41.9 Anxiety disorder, unspecified; F32.A Depression, unspecified; Z85.038 Personal history of other malignant neoplasm of large intestine; Z90.49 Acquired absence of other specified parts of digestive tract; R26.81 Unsteadiness on feet; M51.27 Other intervertebral disc displacement, lumbosacral region; J45.909 Unspecified asthma, uncomplicated; Z79.899 Other long term (current) drug therapy; Z79.82 Long term (current) use of aspirin; Z79.890 Hormone replacement therapy; Z91.041 Radiographic dye allergy status; Z91.040 Latex allergy status; Z88.8 Allergy status to other drugs, medicaments and biological substances
CPT/HCPCS: 36415; 70544; 70551; 71046; 72141; 72146; 72148; 80048; 80076; 81000; 82550; 82553; 83735; 84443; 84484; 85025; 85027; 85049; 85055; 85610; 85730; 87486; 87581; 87633; 87798; 90682; 93005; 93880; 96374; 96375; 96376; 97161; 97165; 97530; 99285; G0008; G0378; J1200; J2060; J2930; J7512

== ENCOUNTER → 2022-09-03 | Outpatient (CLI) | payer MEDICARE, BC ==
[~2022-09-03] MED LIST changes: +ASPI-551 PO; +ASPI325T57 PO; +AUGM500T34 PO; +BENZ200C70 PO; +LORA1TAB4 PO; +MYRB25TA PO; +PANT40TA29 PO; +TRAZ-252 PO; +ZOLO100T PO; +med rec comment
== END ==
LOC: M RAD 16:14
PROVIDERS: ATTEND Internal Medicine Medical Oncology
DX: D47.2 Monoclonal gammopathy (principal)

== ENCOUNTER → 2022-09-30 | Outpatient (REF) | payer MEDICARE, BC ==
[2022-09-30 17:44] LABS: APPEARANCE, URINE MANUAL CLOUDY (CLEAR); BILIRUBIN, URINE MANUAL NEGATIVE (NEGATIVE); BLOOD URINE MANUAL POSITIVE (NEGATIVE); COLOR, URINE MANUAL YELLOW (YELLOW); GLUCOSE, URINE (UA) MANUAL NEGATIVE (NEGATIVE); KETONE, URINE MANUAL NEGATIVE (NEGATIVE); LEUKOCYTE ESTERASE, URINE MAN POSITIVE (NEGATIVE); NITRITE, URINE MANUAL POSITIVE (NEGATIVE); PROTEIN, URINE MANUAL 1+ mg/dL (NEGATIVE); UROBILINOGEN, URINE MANUAL NORMAL (NORMAL)
[2022-09-30 17:46] LABS: BASO # 0.1 10^3/uL (0.0-0.2); BASO % 2.1 % (0.0-1.0); EOS % 0.3 % (0.0-3.0); HEMATOCRIT 39.5 % (36.0-47.0); HEMOGLOBIN 12.6 g/dl (12.0-15.5); LYMPH # 0.9 10^3/uL (1.5-5.0); LYMPH % 26.3 % (24.0-44.0); MEAN CORPUSCULAR HEMOGLOBIN 29.3 pg (27.0-33.0); MEAN CORPUSCULAR HGB CONC 31.9 g/dl (32.0-36.5); MEAN CORPUSCULAR VOLUME 91.9 fl (80.0-96.0); MONO # 0.4 10^3/uL (0.0-0.8); MONO % 10.6 % (2.0-8.0); NEUTROPHILS # 2.1 10^3/uL (1.5-8.5); NEUTROPHILS % 60.4 % (36.0-66.0); WHITE BLOOD COUNT 3.4 10^3/uL (4.0-10.0)
[2022-09-30 17:49] LABS: PLATELET COUNT, AUTOMATED 83 10^3/uL (150-450)
[2022-09-30 18:00] LABS: BACTERIA, URINE LARGE AMOUNT; HYALINE CAST, URINE NONE SEEN /lpf (0-1); MUCUS, URINE SMALL AMOUNT (NEGATIVE); RENAL EPITHELIAL CELLS, URINE MOD AMOUNT /hpf; SQUAMOUS EPITHELIAL CELL URINE SMALL AMOUNT /hpf (SMALL AMT); WBC, URINE TNTC /hpf (0-3)
[2022-09-30 18:44] LABS: ALBUMIN 3.6 G/DL (3.2-5.2); BILIRUBIN,TOTAL 0.5 MG/DL (0.3-1.2); CALCIUM LEVEL 9.6 MG/DL (8.3-10.6); CREATININE FOR GFR 1.07 MG/DL (0.55-1.30); GLOMERULAR FILTRATION RATE 54.3 (>45); POTASSIUM SERUM 4.4 MMOL/L (3.5-5.1); TOTAL PROTEIN 6.7 G/DL (5.7-8.2)
== END ==
LOC: M SFHCCLAY 10:04
PROVIDERS: ATTEND Family Medicine
DX: R30.0 Dysuria (principal); R19.7 Diarrhea, unspecified; K92.1 Melena

== ENCOUNTER → 2022-11-22 | Outpatient (CLI) | payer MEDICARE, BC ==
[~2022-11-22] MED LIST changes: +[UNRECOGNIZED DRUG - CODE] PO; -[UNRECOGNIZED DRUG - CODE] PO
== END ==
LOC: M WHC 14:18
PROVIDERS: ATTEND Family Medicine
DX: Z12.31 Encounter for screening mammogram for malignant neoplasm of breast (principal)

== ENCOUNTER → 2022-11-24 | Outpatient (CLI) | payer MEDICARE, BC, OTHER | LOC: M CLY 13:06 | PROVIDERS: ATTEND Family Medicine | DX: M16.11 Unilateral primary osteoarthritis, right hip (principal) ==

== ENCOUNTER → 2022-12-13 | Outpatient (REF) | payer MEDICARE, BC ==
[~2022-12-13] MED LIST changes: +CEFD300C41; +LOTE5DRO9; +PROP20TA72
== END ==
LOC: M SFHCCAPE 12-01 13:39
PROVIDERS: ATTEND Physician Assistant
DX: R19.7 Diarrhea, unspecified (principal)

== ENCOUNTER 2023-01-01 20:02 | Inpatient (IN) | payer MEDICARE, BC ==
[~2023-01-01] VITALS: Ht 167.6 cm; Wt 63.5 kg
[~2023-01-01 20:02] MED LIST changes: +LORA1TAB23 PO; -LORA1TAB4 PO; -LOTE5DRO9; +LOTE5DRO9 OU; -PROP20TA72; +PROP20TA72 PO
[2023-01-01] MEDS ORDERED: ONDANSETRON 4MG 2ML VIAL IV ONE (23:30)
[2023-01-01] MEDS ORDERED: MORPHINE 4 MG/ML 1ML VIAL IV PRN (23:30)
[2023-01-02] MEDS ORDERED: ASPI325T57 PO (00:20)
[2023-01-02] MEDS ORDERED: HOME MED LIST COMPLETE! XX SCH (00:20)
[2023-01-02] MEDS ORDERED: MYRB50TA PO (00:20)
[2023-01-02] MEDS ORDERED: ZOLO100T PO (00:20)
[2023-01-02 00:30] LABS: BASO # 0.1 10^3/uL (0.0-0.2); BASO % 0.8 % (0.0-1.0); HEMATOCRIT 41.9 % (36.0-47.0); HEMOGLOBIN 13.1 g/dl (12.0-15.5); LYMPH % 11.7 % (24.0-44.0); MEAN CORPUSCULAR HGB CONC 31.3 g/dl (32.0-36.5); MEAN CORPUSCULAR VOLUME 92.9 fl (80.0-96.0); MONO # 0.7 10^3/uL (0.0-0.8); MONO % 7.5 % (2.0-8.0); NEUTROPHILS % 79.7 % (36.0-66.0); RED BLOOD COUNT 4.51 10^6/uL (4.00-5.40); WHITE BLOOD COUNT 8.8 10^3/uL (4.0-10.0)
[2023-01-02 00:39] LABS: CALCIUM LEVEL 9.8 MG/DL (8.3-10.6); CREATININE FOR GFR 1.22 MG/DL (0.55-1.30); GLOMERULAR FILTRATION RATE 46.7 (>45); INR 1.23; POTASSIUM SERUM 4.6 MMOL/L (3.5-5.1); PROTHROMBIN TIME 15.8 SECONDS (12.5-14.5)
[2023-01-02 00:40] LABS: PARTIAL THROMBOPLASTIN TIME 65.6 SECONDS (24.8-34.2)
[2023-01-02 01:22] LABS: PLATELET COUNT, AUTOMATED 87 10^3/uL (150-450)
[2023-01-02] MEDS ORDERED: NS 1,000 ML IV SCH (03:25)
[2023-01-02] MEDS ORDERED: LORazepam 0.5 MG TAB PO PRN (03:25)
[2023-01-02 05:28] VITALS: BP 156/60
[2023-01-02] MEDS: LEVOTHYROXINE 50MCG TABLET (0.05MG) PO SCH (05:43)
[2023-01-02] MEDS: HYDROMORPHONE HCL 0.5 MG/ 0.5 ML SYRINGE IV PRN ×4 (05:44→20:27)
[2023-01-02 08:30] LABS: ALBUMIN 3.4 G/DL (3.2-5.2); BILIRUBIN,TOTAL 1.3 MG/DL (0.3-1.2); CALCIUM LEVEL 8.9 MG/DL (8.3-10.6); CREATININE FOR GFR 1.2 MG/DL (0.55-1.30); GLOMERULAR FILTRATION RATE 47.6 (>45); POTASSIUM SERUM 4.4 MMOL/L (3.5-5.1); TOTAL PROTEIN 6.3 G/DL (5.7-8.2)
[2023-01-02] MEDS: SERTRALINE HCL 50 MG TAB PO SCH (08:55)
[2023-01-02] MEDS: PROPRANOLOL 20 MG TAB PO SCH ×3 (08:55→20:21)
[2023-01-02] MEDS: busPIRone 5 MG TAB PO SCH ×3 (08:55→20:20)
[2023-01-02] MEDS: SPIRONOLACTONE 25 MG TAB PO SCH (08:56)
[2023-01-02] MEDS: GABAPENTIN 100 MG CAP PO SCH ×2 (08:56→13:08)
[2023-01-02] MEDS ORDERED: GABAPENTIN 300 MG CAP PO SCH ×2 (09:00)
[2023-01-02 14:00] VITALS: BP 138/53
[2023-01-02] MEDS ORDERED: HEPARIN SOD (PORCINE) 5000UNITS/ML 1ML VIAL/SYRINGE SC SCH (18:00)
[2023-01-02] MEDS: GABAPENTIN 300 MG CAP PO SCH (20:21)
[2023-01-02 22:00] VITALS: BP 158/53
[2023-01-03] MEDS: HYDROMORPHONE HCL 0.5 MG/ 0.5 ML SYRINGE IV PRN ×2 (02:17→05:54)
[2023-01-03 05:37] VITALS: BP 149/55
[2023-01-03 05:42] LABS: HEMATOCRIT 34.3 % (36.0-47.0); MEAN CORPUSCULAR HEMOGLOBIN 29.1 pg (27.0-33.0); MEAN CORPUSCULAR HGB CONC 31.2 g/dl (32.0-36.5); MEAN CORPUSCULAR VOLUME 93.2 fl (80.0-96.0); RED BLOOD COUNT 3.68 10^6/uL (4.00-5.40); WHITE BLOOD COUNT 3.8 10^3/uL (4.0-10.0)
[2023-01-03 05:45] LABS: HEMOGLOBIN 10.7 g/dl (12.0-15.5); PLATELET COUNT, AUTOMATED 60 10^3/uL (150-450)
[2023-01-03] MEDS: LEVOTHYROXINE 50MCG TABLET (0.05MG) PO SCH (05:53)
[2023-01-03 06:18] LABS: CREATININE FOR GFR 1.08 MG/DL (0.55-1.30); GLOMERULAR FILTRATION RATE 53.7 (>45); POTASSIUM SERUM 4.2 MMOL/L (3.5-5.1)
[2023-01-03] MEDS: GABAPENTIN 100 MG CAP PO SCH ×2 (09:00→13:12)
[2023-01-03] MEDS: SERTRALINE HCL 50 MG TAB PO SCH (09:00)
[2023-01-03] MEDS: busPIRone 5 MG TAB PO SCH ×3 (09:00→21:05)
[2023-01-03] MEDS ORDERED: PREVNAR-20 VACCINE 0.5ML SYRINGE IM.IMMUN ONE (09:00)
[2023-01-03] MEDS: PROPRANOLOL 20 MG TAB PO SCH ×3 (09:00→21:05)
[2023-01-03] MEDS: SPIRONOLACTONE 25 MG TAB PO SCH (09:00)
[2023-01-03] MEDS ORDERED: ACETAMINOPHEN 500 MG TAB PO PRN (10:10)
[2023-01-03] MEDS: NORCO, ANEXSIA 5/325MG TABLET (HYDROcodone/ACETAMINOPHEN) PO PRN ×3 (10:16→23:42)
[2023-01-03 10:22] VITALS: BP 148/68
[2023-01-03 14:00] VITALS: BP 104/43
[2023-01-03] MEDS: GABAPENTIN 300 MG CAP PO SCH (21:04)
[2023-01-03 22:00] VITALS: BP 130/44
[2023-01-04] VITALS (8 sets, daily range): BP systolic 118–153; BP diastolic 47–62
[2023-01-04] MEDS: LEVOTHYROXINE 50MCG TABLET (0.05MG) PO SCH (05:15)
[2023-01-04 05:33] LABS: HEMATOCRIT 33.7 % (36.0-47.0); HEMOGLOBIN 10.8 g/dl (12.0-15.5); MEAN CORPUSCULAR HEMOGLOBIN 29.6 pg (27.0-33.0); MEAN CORPUSCULAR VOLUME 92.3 fl (80.0-96.0); RED BLOOD COUNT 3.65 10^6/uL (4.00-5.40); WHITE BLOOD COUNT 3.5 10^3/uL (4.0-10.0)
[2023-01-04 05:51] LABS: CALCIUM LEVEL 8.7 MG/DL (8.3-10.6); CREATININE FOR GFR 1.11 MG/DL (0.55-1.30); POTASSIUM SERUM 4.4 MMOL/L (3.5-5.1)
[2023-01-04 06:08] LABS: PLATELET COUNT, AUTOMATED 64 10^3/uL (150-450)
[2023-01-04] MEDS ORDERED: D5W/0.45% SODIUM CHLORIDE 1,000 ML IV SCH (07:15)
[2023-01-04] MEDS: NORCO, ANEXSIA 5/325MG TABLET (HYDROcodone/ACETAMINOPHEN) PO PRN ×2 (07:51→22:35)
[2023-01-04] MEDS: SERTRALINE HCL 50 MG TAB PO SCH (08:54)
[2023-01-04] MEDS: GABAPENTIN 100 MG CAP PO SCH ×2 (08:55→12:42)
[2023-01-04] MEDS: busPIRone 5 MG TAB PO SCH ×3 (08:55→20:28)
[2023-01-04] MEDS: SPIRONOLACTONE 25 MG TAB PO SCH (09:00)
[2023-01-04] MEDS: PROPRANOLOL 20 MG TAB PO SCH ×3 (09:00→20:32)
[2023-01-04] MEDS ORDERED: MIDAZOLAM INJ 2MG/2ML VIAL As Ordered ONE (12:55)
[2023-01-04] MEDS ORDERED: propofoL 200 MG/20 ML VIAL As Ordered ONE (12:55)
[2023-01-04] MEDS ORDERED: ONDANSETRON 4MG 2ML VIAL As Ordered ONE (12:55)
[2023-01-04] MEDS ORDERED: fentaNYL 100 MCG/2 ML INJECTION As Ordered ONE (12:55)
[2023-01-04] MEDS ORDERED: LIDOCAINE 2% 100MG/5ML SDV (FOR ANES.) As Ordered ONE (12:55)
[2023-01-04] MEDS ORDERED: ACETAMINOPHEN 1000MG 100ML IV BAG As Ordered ONE (12:55)
[2023-01-04] MEDS ORDERED: ROCURONIUM BROMIDE 50MG/5ML VIAL As Ordered ONE (13:05)
[2023-01-04] MEDS ORDERED: HYDROmorphone HCL 2MG/ML 1ML VIAL As Ordered ONE (13:08)
[2023-01-04] MEDS ORDERED: ceFAZolin 2 GM/D5W 50 ML IV BAG As Ordered ONE (13:56)
[2023-01-04] MEDS ORDERED: TRANEXAMIC ACID 100 MG/ML 10ML VIAL As Ordered ONE ×2 (14:01→14:02)
[2023-01-04] MEDS ORDERED: VANCOMYCIN 1000MG/20ML VIAL As Ordered ONE (14:09)
[2023-01-04] MEDS ORDERED: ROPIVA 125MG/EPINEPH 0.25MG/CLONID 40MCG/KETOR 15MG IN NS 50ML SYRINGE PA ONE (15:00)
[2023-01-04] MEDS ORDERED: ePHEDrine SULFATE 25 MG/5 ML(5MG/ML) SYRINGE As Ordered ONE (15:29)
[2023-01-04] MEDS ORDERED: SUGAMMADEX SODIUM 500 MG/5 ML VIAL (BRIDION) As Ordered ONE (16:12)
[2023-01-04] MEDS ORDERED: fentaNYL 100 MCG/2 ML INJECTION IV PRN (16:15)
[2023-01-04] MEDS ORDERED: ONDANSETRON 4MG 2ML VIAL IV PRN (16:15)
[2023-01-04] MEDS ORDERED: MORPHINE 2 MG/ML 1ML VIAL IV PRN (16:15)
[2023-01-04] MEDS ORDERED: oxyCODONE 5MG TAB PO PRN (16:15)
[2023-01-04] MEDS: GABAPENTIN 300 MG CAP PO SCH (20:29)
[2023-01-04] MEDS: ceFAZolin SOD 1 GM in D5W MINI-BAG PLUS 50 ML IV SCH (22:35)
[2023-01-05 01:50] VITALS: BP 132/56
[2023-01-05 05:36] LABS: HEMATOCRIT 26.8 % (36.0-47.0); MEAN CORPUSCULAR HEMOGLOBIN 29.6 pg (27.0-33.0); MEAN CORPUSCULAR HGB CONC 32.1 g/dl (32.0-36.5); MEAN CORPUSCULAR VOLUME 92.1 fl (80.0-96.0); RED BLOOD COUNT 2.91 10^6/uL (4.00-5.40); WHITE BLOOD COUNT 4.8 10^3/uL (4.0-10.0)
[2023-01-05 05:37] LABS: PLATELET COUNT, AUTOMATED 57 10^3/uL (150-450)
[2023-01-05 05:38] LABS: HEMOGLOBIN 8.6 g/dl (12.0-15.5)
[2023-01-05] MEDS: LEVOTHYROXINE 50MCG TABLET (0.05MG) PO SCH (05:51)
[2023-01-05] MEDS: ceFAZolin SOD 1 GM in D5W MINI-BAG PLUS 50 ML IV SCH ×2 (05:51→14:46)
[2023-01-05 05:55] VITALS: BP_SYST 108; BP_SYST 93; BP_DIAS 52; BP_DIAS 53
[2023-01-05 05:56] LABS: CALCIUM LEVEL 7.9 MG/DL (8.3-10.6); CREATININE FOR GFR 1.13 MG/DL (0.55-1.30); POTASSIUM SERUM 4.2 MMOL/L (3.5-5.1)
[2023-01-05] MEDS ORDERED: KETOROLAC 30 MG/ML 1ML VIAL IV ONE (07:10)
[2023-01-05] MEDS: PROPRANOLOL 20 MG TAB PO SCH ×2 (07:44→15:00)
[2023-01-05] MEDS: SPIRONOLACTONE 25 MG TAB PO SCH (07:44)
[2023-01-05] MEDS: busPIRone 5 MG TAB PO SCH ×2 (08:02→15:02)
[2023-01-05] MEDS: SERTRALINE HCL 50 MG TAB PO SCH (08:03)
[2023-01-05] MEDS: GABAPENTIN 100 MG CAP PO SCH ×2 (08:03→14:46)
[2023-01-05] MEDS ORDERED: ACET-683 PO (12:00)
[2023-01-05] MEDS ORDERED: HYDR-3715 PO (12:00)
[2023-01-05 14:00] VITALS: BP 134/48
[2023-01-05 15:00] VITALS: BP 128/56
[2023-01-05] MEDS ORDERED: RIVAROXABAN 10MG TAB (XARELTO) PO SCH (18:00)
== END 2023-01-05 15:20 | DRG 522 ==
LOC: M ED 20:02 → M ED INP 01-02 03:22 → M MS5PR 01-02 05:28
PROVIDERS: ADMIT Internal Medicine; ATTEND General Practice
PROC: 0SR90JZ Replacement of Right Hip Joint with Synthetic Substitute, Open Approach (ICD-10-PCS; principal; 2023-01-04 10:35)
PROC: BQ10ZZZ Fluoroscopy of Right Hip (ICD-10-PCS; 2023-01-05)
DX: S72.091A Other fracture of head and neck of right femur, initial encounter for closed fracture (principal); D68.61 Antiphospholipid syndrome; E03.9 Hypothyroidism, unspecified; F32.A Depression, unspecified; G35 Multiple sclerosis; D47.2 Monoclonal gammopathy; F41.9 Anxiety disorder, unspecified; M16.11 Unilateral primary osteoarthritis, right hip; Z90.79 Acquired absence of other genital organ(s); Z90.49 Acquired absence of other specified parts of digestive tract; Z79.82 Long term (current) use of aspirin; Z79.890 Hormone replacement therapy; I10 Essential (primary) hypertension; Z79.899 Other long term (current) drug therapy; D64.9 Anemia, unspecified; E78.5 Hyperlipidemia, unspecified; J45.909 Unspecified asthma, uncomplicated; D69.6 Thrombocytopenia, unspecified; Z91.040 Latex allergy status; Z91.041 Radiographic dye allergy status; Z88.8 Allergy status to other drugs, medicaments and biological substances; W01.0XXA Fall on same level from slipping, tripping and stumbling without subsequent striking against object, initial encounter; Y92.009 Unspecified place in unspecified non-institutional (private) residence as the place of occurrence of the external cause; Z20.822 Contact with and (suspected) exposure to COVID-19; Z85.828 Personal history of other malignant neoplasm of skin; Z86.73 Personal history of transient ischemic attack (TIA), and cerebral infarction without residual deficits; Z96.642 Presence of left artificial hip joint

== ENCOUNTER 2023-01-05 11:18 | Inpatient (IN) | payer MEDICARE, BC ==
[~2023-01-05] VITALS: Ht 167.6 cm; Wt 61.3 kg
[~2023-01-05 11:18] MED LIST changes: +MYRB50TA PO
[2023-01-05] MEDS ORDERED: HYDR-3715 PO (12:00)
[2023-01-05] MEDS ORDERED: ACET-683 PO (12:00)
[2023-01-05 15:30] VITALS: BP 131/60
[2023-01-05] MEDS ORDERED: BISACODYL 10MG SUPP PR PRN (15:50)
[2023-01-05] MEDS ORDERED: oxyCODONE 5MG TAB PO PRN (15:50)
[2023-01-05] MEDS: PROPRANOLOL 20 MG TAB PO SCH ×2 (16:00→20:15)
[2023-01-05] MEDS: RIVAROXABAN 10MG TAB (XARELTO) PO SCH (17:00)
[2023-01-05] MEDS: ACETAMINOPHEN 500 MG TAB PO SCH ×2 (17:00→20:29)
[2023-01-05] MEDS: busPIRone 5 MG TAB PO SCH ×2 (17:00→20:29)
[2023-01-05 20:00] VITALS: BP 116/54
[2023-01-05] MEDS: DOCUSATE SODIUM 100MG CAPSULE PO SCH (20:19)
[2023-01-05] MEDS: GABAPENTIN 300 MG CAP PO SCH (20:29)
[2023-01-05] MEDS ORDERED: SENNA 8.6 MG TAB (SENOKOT) PO SCH (21:00)
[2023-01-06] VITALS (7 sets, daily range): BP systolic 135–167; BP diastolic 45–72
[2023-01-06] MEDS: LEVOTHYROXINE 50MCG TABLET (0.05MG) PO SCH (06:00)
[2023-01-06 07:40] LABS: BASO # 0.1 10^3/uL (0.0-0.2); BASO % 1.1 % (0.0-1.0); HEMATOCRIT 25.4 % (36.0-47.0); LYMPH # 0.5 10^3/uL (1.5-5.0); LYMPH % 11.3 % (24.0-44.0); MEAN CORPUSCULAR HEMOGLOBIN 29.4 pg (27.0-33.0); MEAN CORPUSCULAR HGB CONC 31.5 g/dl (32.0-36.5); MEAN CORPUSCULAR VOLUME 93.4 fl (80.0-96.0); MONO # 0.4 10^3/uL (0.0-0.8); MONO % 7.9 % (2.0-8.0); NEUTROPHILS # 3.5 10^3/uL (1.5-8.5); NEUTROPHILS % 79.2 % (36.0-66.0); RED BLOOD COUNT 2.72 10^6/uL (4.00-5.40); WHITE BLOOD COUNT 4.4 10^3/uL (4.0-10.0)
[2023-01-06 08:04] LABS: PLATELET COUNT, AUTOMATED 71 10^3/uL (150-450)
[2023-01-06 08:05] LABS: ALBUMIN 2.8 G/DL (3.2-5.2); BILIRUBIN,TOTAL 0.4 MG/DL (0.3-1.2); CALCIUM LEVEL 8.4 MG/DL (8.3-10.6); GLOMERULAR FILTRATION RATE 58.7 (>45); POTASSIUM SERUM 3.9 MMOL/L (3.5-5.1); TOTAL PROTEIN 5.4 G/DL (5.7-8.2)
[2023-01-06] MEDS: GABAPENTIN 100 MG CAP PO SCH ×2 (08:15→12:07)
[2023-01-06] MEDS: SERTRALINE HCL 50 MG TAB PO SCH (08:15)
[2023-01-06] MEDS: PROPRANOLOL 20 MG TAB PO SCH ×3 (08:16→20:51)
[2023-01-06] MEDS: SPIRONOLACTONE 25 MG TAB PO SCH (08:16)
[2023-01-06] MEDS: ACETAMINOPHEN 500 MG TAB PO SCH ×3 (08:16→20:52)
[2023-01-06] MEDS: busPIRone 5 MG TAB PO SCH ×3 (08:16→20:51)
[2023-01-06] MEDS: DOCUSATE SODIUM 100MG CAPSULE PO SCH (08:17)
[2023-01-06] MEDS ORDERED: PANTOPRAZOLE 40MG TAB (PROTONIX) PO SCH (09:00)
[2023-01-06] MEDS: LIDOCAINE 5% (LIDODERM) PATCH TD SCH (09:00)
[2023-01-06] MEDS ORDERED: ACETAMINOPHEN TAB 650MG DOSE (2X325MG) PO ONE (10:40)
[2023-01-06] MEDS ORDERED: diphenhydrAMINE 25MG CAP PO ONE (10:40)
[2023-01-06] MEDS: SUCRALFATE 1 GM TAB PO SCH ×2 (12:07→17:28)
[2023-01-06] MEDS: RIVAROXABAN 10MG TAB (XARELTO) PO SCH (17:28)
[2023-01-06] MEDS: GABAPENTIN 300 MG CAP PO SCH (20:52)
[2023-01-07 06:00] VITALS: BP 150/67
[2023-01-07] MEDS: LEVOTHYROXINE 50MCG TABLET (0.05MG) PO SCH (06:02)
[2023-01-07] MEDS: SERTRALINE HCL 50 MG TAB PO SCH (08:38)
[2023-01-07] MEDS: SPIRONOLACTONE 25 MG TAB PO SCH (08:38)
[2023-01-07] MEDS: SUCRALFATE 1 GM TAB PO SCH ×3 (08:38→18:05)
[2023-01-07] MEDS: GABAPENTIN 100 MG CAP PO SCH ×2 (08:38→13:07)
[2023-01-07] MEDS: busPIRone 5 MG TAB PO SCH ×3 (08:38→20:12)
[2023-01-07] MEDS: ACETAMINOPHEN 500 MG TAB PO SCH ×3 (08:39→20:12)
[2023-01-07] MEDS: PROPRANOLOL 20 MG TAB PO SCH ×3 (08:39→20:12)
[2023-01-07] MEDS: LIDOCAINE 5% (LIDODERM) PATCH TD SCH (08:40)
[2023-01-07 10:12] LABS: BASO % 0.8 % (0.0-1.0); HEMATOCRIT 29.2 % (36.0-47.0); HEMOGLOBIN 9.4 g/dl (12.0-15.5); LYMPH # 0.5 10^3/uL (1.5-5.0); LYMPH % 13.7 % (24.0-44.0); MEAN CORPUSCULAR HEMOGLOBIN 29.8 pg (27.0-33.0); MEAN CORPUSCULAR HGB CONC 32.2 g/dl (32.0-36.5); MEAN CORPUSCULAR VOLUME 92.7 fl (80.0-96.0); MONO # 0.3 10^3/uL (0.0-0.8); MONO % 7.3 % (2.0-8.0); NEUTROPHILS % 77.9 % (36.0-66.0); RED BLOOD COUNT 3.15 10^6/uL (4.00-5.40); WHITE BLOOD COUNT 3.9 10^3/uL (4.0-10.0)
[2023-01-07 10:15] LABS: PLATELET COUNT, AUTOMATED 71 10^3/uL (150-450)
[2023-01-07 10:31] LABS: BLOOD UREA NITROGEN 20 MG/DL (9-23); CALCIUM LEVEL 8.4 MG/DL (8.3-10.6); CARBON DIOXIDE LEVEL 28 MMOL/L (20-31); CHLORIDE LEVEL 107 MMOL/L (98-107); CREATININE FOR GFR 0.96 MG/DL (0.55-1.30); GLOMERULAR FILTRATION RATE > 60.0 (>45); GLUCOSE, FASTING 112 MG/DL (74-106); POTASSIUM SERUM 3.6 MMOL/L (3.5-5.1); SODIUM LEVEL 143 MMOL/L (136-145)
[2023-01-07 14:00] VITALS: BP 128/59
[2023-01-07] MEDS: RIVAROXABAN 10MG TAB (XARELTO) PO SCH (18:05)
[2023-01-07 19:43] VITALS: BP 159/70
[2023-01-07] MEDS: GABAPENTIN 300 MG CAP PO SCH (20:12)
[2023-01-08 06:25] VITALS: BP 144/64
[2023-01-08] MEDS: LEVOTHYROXINE 50MCG TABLET (0.05MG) PO SCH (06:27)
[2023-01-08] MEDS ORDERED: SPIR-10 PO (07:10)
[2023-01-08] MEDS ORDERED: GABA-282 PO ×3 (07:10→07:11)
[2023-01-08] MEDS ORDERED: LEVO50TA5 PO (07:10)
[2023-01-08] MEDS ORDERED: BUSP15TA47 PO (07:10)
[2023-01-08] MEDS ORDERED: XARE10TA PO (07:11)
[2023-01-08] MEDS ORDERED: ZOLO100T PO (07:11)
[2023-01-08] MEDS ORDERED: PROP20TA72 PO (07:11)
[2023-01-08] MEDS: busPIRone 5 MG TAB PO SCH (08:34)
[2023-01-08] MEDS: SPIRONOLACTONE 25 MG TAB PO SCH (08:34)
[2023-01-08] MEDS: GABAPENTIN 100 MG CAP PO SCH ×2 (08:34→12:02)
[2023-01-08] MEDS: SERTRALINE HCL 50 MG TAB PO SCH (08:34)
[2023-01-08] MEDS: SUCRALFATE 1 GM TAB PO SCH ×2 (08:34→12:02)
[2023-01-08 08:35] VITALS: BP 123/58
[2023-01-08] MEDS: ACETAMINOPHEN 500 MG TAB PO SCH (08:35)
[2023-01-08] MEDS: PROPRANOLOL 20 MG TAB PO SCH (08:35)
[2023-01-08] MEDS: LIDOCAINE 5% (LIDODERM) PATCH TD SCH (08:35)
[2023-01-19] MEDS ORDERED: ASPIRIN 81MG ENTERIC TABLET PO SCH (09:00)
== END 2023-01-08 13:10 | disposition home or self-care (01) | DRG 561 ==
LOC: M PM&R 15:25
PROVIDERS: ADMIT Physical Medicine & Rehabilitation; ATTEND Physical Medicine & Rehabilitation
DX: S72.091D Other fracture of head and neck of right femur, subsequent encounter for closed fracture with routine healing (principal); Z96.641 Presence of right artificial hip joint; D69.6 Thrombocytopenia, unspecified; G35 Multiple sclerosis; R26.89 Other abnormalities of gait and mobility; F41.9 Anxiety disorder, unspecified; E03.9 Hypothyroidism, unspecified; I10 Essential (primary) hypertension; Z74.09 Other reduced mobility; Z74.1 Need for assistance with personal care; M25.561 Pain in right knee; D64.9 Anemia, unspecified; Z79.890 Hormone replacement therapy; Z79.899 Other long term (current) drug therapy; Z91.040 Latex allergy status; Z91.041 Radiographic dye allergy status; Z88.8 Allergy status to other drugs, medicaments and biological substances

== ENCOUNTER → 2023-01-28 | Outpatient (CLI) | payer MEDICARE, BC, OTHER ==
[~2023-01-28] MED LIST changes: +ACET-683 PO; +HYDR-3715 PO; +XARE10TA PO
== END ==
LOC: M SOG 08:12
PROVIDERS: ATTEND Orthopaedic Surgery
DX: Z47.89 Encounter for other orthopedic aftercare (principal); Z96.643 Presence of artificial hip joint, bilateral

== ENCOUNTER → 2023-03-11 | Outpatient (CLI) | payer MEDICARE, BC, OTHER | LOC: M SOG 08:18 | PROVIDERS: ATTEND Orthopaedic Surgery | DX: S72.001D Fracture of unspecified part of neck of right femur, subsequent encounter for closed fracture with routine healing (principal); Z96.641 Presence of right artificial hip joint; M25.561 Pain in right knee ==

== ENCOUNTER → 2023-05-20 | Outpatient (REF) | payer MEDICARE, BC, OTHER ==
[~2023-05-20] MED LIST changes: -GABA-283 PO; +GABA-284 PO
[2023-05-20 18:44] LABS: BASO # 0.1 10^3/uL (0.0-0.2); BASO % 0.9 % (0.0-1.0); HEMATOCRIT 39.5 % (36.0-47.0); HEMOGLOBIN 12.5 g/dl (12.0-15.5); LYMPH # 1.1 10^3/uL (1.5-5.0); LYMPH % 19.6 % (24.0-44.0); MEAN CORPUSCULAR HEMOGLOBIN 28.4 pg (27.0-33.0); MEAN CORPUSCULAR HGB CONC 31.6 g/dl (32.0-36.5); MEAN CORPUSCULAR VOLUME 89.8 fl (80.0-96.0); MONO # 0.3 10^3/uL (0.0-0.8); MONO % 5.6 % (2.0-8.0); NEUTROPHILS % 73.7 % (36.0-66.0); WHITE BLOOD COUNT 5.4 10^3/uL (4.0-10.0)
[2023-05-20 19:10] LABS: ALBUMIN 3.5 G/DL (3.2-5.2); BILIRUBIN,TOTAL 0.5 MG/DL (0.3-1.2); CALCIUM LEVEL 9.4 MG/DL (8.3-10.6); CREATININE FOR GFR 1.31 MG/DL (0.55-1.30); GLOMERULAR FILTRATION RATE 42.9 (>45); POTASSIUM SERUM 4.3 MMOL/L (3.5-5.1); TOTAL PROTEIN 6.6 G/DL (5.7-8.2)
[2023-05-20 19:14] LABS: PLATELET COUNT, AUTOMATED 90 10^3/uL (150-450)
== END ==
LOC: M LABDRAWC 16:57
PROVIDERS: ATTEND Nurse Practitioner Adult Health
DX: G35 Multiple sclerosis (principal)

== ENCOUNTER → 2023-06-13 | Outpatient (CLI) | payer MEDICARE, BC ==
[~2023-06-13] MED LIST changes: -CEFD300C41; +CEFD300C42
== END ==
LOC: M SOG 07:57
PROVIDERS: ATTEND Orthopaedic Surgery
DX: S72.001D Fracture of unspecified part of neck of right femur, subsequent encounter for closed fracture with routine healing (principal); Z96.641 Presence of right artificial hip joint; M25.561 Pain in right knee; M25.562 Pain in left knee

== ENCOUNTER → 2023-06-24 | Outpatient (CLI) | payer MEDICARE, BC, OTHER | LOC: M SOG 07:56 | PROVIDERS: ATTEND Orthopaedic Surgery | DX: S72.001D Fracture of unspecified part of neck of right femur, subsequent encounter for closed fracture with routine healing (principal); Z96.641 Presence of right artificial hip joint; M25.511 Pain in right shoulder; M17.0 Bilateral primary osteoarthritis of knee ==

== ENCOUNTER → 2023-07-29 | Outpatient (REF) | payer MEDICARE, BC ==
[2023-07-29 19:31] LABS: THYROID STIMULATING HORMONE 1.077 uIU/ML (0.55-4.78)
[2023-07-29 19:32] LABS: FREE T4 0.94 NG/DL (0.89-1.76)
== END ==
LOC: M SFHCCLAY 13:59
PROVIDERS: ATTEND Family Medicine
DX: E03.9 Hypothyroidism, unspecified (principal)

== ENCOUNTER → 2023-11-03 | Outpatient (REF) | payer MEDICARE, BC ==
[~2023-11-03] MED LIST changes: +CEFD1CAP9; -CEFD300C42
== END ==
LOC: M SFHCCLAY 13:36
PROVIDERS: ATTEND Physician Assistant
DX: R30.0 Dysuria (principal)

== ENCOUNTER → 2023-11-23 | Outpatient (CLI) | payer MEDICARE, BC | LOC: M CLY 13:43 | PROVIDERS: ATTEND Physician Assistant | DX: M25.511 Pain in right shoulder (principal) ==

== ENCOUNTER → 2023-11-24 | Outpatient (CLI) | payer MEDICARE, BC | LOC: M WHC 13:07 | PROVIDERS: ATTEND Family Medicine | DX: Z12.31 Encounter for screening mammogram for malignant neoplasm of breast (principal) ==

== ENCOUNTER → 2023-12-08 | Outpatient (REF) | payer MEDICARE, BC, OTHER ==
[~2023-12-08] MED LIST changes: +VIBE75TA
== END ==
LOC: M SFHCDERM 17:59
PROVIDERS: ATTEND Physician Assistant
DX: L57.0 Actinic keratosis (principal)

== ENCOUNTER → 2023-12-26 | Outpatient (CLI) | payer MEDICARE, BC | LOC: M SOG 14:04 | PROVIDERS: ATTEND Orthopaedic Surgery | DX: Z96.643 Presence of artificial hip joint, bilateral (principal) ==

== ENCOUNTER → 2024-01-02 | Outpatient (CLI) | payer MEDICARE, BC | LOC: M PLARAD 11:54 | PROVIDERS: ATTEND Physician Assistant | DX: C44.602 Unspecified malignant neoplasm of skin of right upper limb, including shoulder (principal) | CPT/HCPCS: 78816; A9552 ==

== ENCOUNTER → 2024-02-01 | Outpatient (CLI) | payer MEDICARE, BC ==
[~2024-02-01] MED LIST changes: +GASTROGRAFIN SOLUTION 30ML As Ordered ONE; +ISOVUE-370 76% 100ML VIAL As Ordered ONE
[2024-02-01 13:06] LABS: CALCIUM LEVEL 9.7 MG/DL (8.3-10.6); CREATININE FOR GFR 1.12 MG/DL (0.55-1.30); GLOMERULAR FILTRATION RATE 51.3 (>45); POTASSIUM SERUM 4.7 MMOL/L (3.5-5.1)
== END ==
LOC: M RAD 11:30
PROVIDERS: ATTEND Family Medicine
DX: K52.9 Noninfective gastroenteritis and colitis, unspecified (principal); R10.2 Pelvic and perineal pain; I10 Essential (primary) hypertension
CPT/HCPCS: 36415; 74176; 80048; Q9963

== ENCOUNTER → 2024-03-20 | Outpatient (CLI) | payer MEDICARE, BC, OTHER ==
[~2024-03-20] MED LIST changes: -GASTROGRAFIN SOLUTION 30ML As Ordered ONE; -ISOVUE-370 76% 100ML VIAL As Ordered ONE
== END ==
LOC: M SOG 07:57
PROVIDERS: ATTEND Orthopaedic Surgery
DX: M54.50 Low back pain, unspecified (principal); M50.30 Other cervical disc degeneration, unspecified cervical region

== ENCOUNTER → 2024-04-10 | Outpatient (REF) | payer MEDICARE, BC | LOC: M SFHCCLAY 07:29 | PROVIDERS: ATTEND Physician Assistant | DX: R30.0 Dysuria (principal) ==

== ENCOUNTER → 2024-04-26 | Outpatient (REF) | payer MEDICARE, BC | LOC: M SFHCCLAY 15:46 | PROVIDERS: ATTEND Family Medicine | DX: R33.9 Retention of urine, unspecified (principal) ==

== ENCOUNTER → 2024-05-15 | Outpatient (REF) | payer MEDICARE, BC ==
[2024-05-15 18:58] LABS: HEMOGLOBIN 12.6 g/dl (12.0-15.5); MEAN CORPUSCULAR HGB CONC 32.3 g/dl (32.0-36.5); MEAN CORPUSCULAR VOLUME 89.9 fl (80.0-96.0); RED BLOOD COUNT 4.34 10^6/uL (4.00-5.40); WHITE BLOOD COUNT 3.6 10^3/uL (4.0-10.0)
[2024-05-15 19:14] LABS: ALBUMIN 3.5 G/DL (3.2-5.2); BILIRUBIN,TOTAL 0.5 MG/DL (0.3-1.2); CALCIUM LEVEL 8.7 MG/DL (8.3-10.6); CHOLESTEROL RISK RATIO 4.04 (<5); CREATININE FOR GFR 0.98 MG/DL (0.55-1.30); GLOMERULAR FILTRATION RATE 59.7 (>39); HDL CHOLESTEROL 56.9 MG/DL (>40); LDL CHOLESTEROL 117.3 MG/DL (<100); NON-HDL-C 173.1 MG/DL; TOTAL PROTEIN 6.4 G/DL (5.7-8.2)
[2024-05-15 19:15] LABS: THYROID STIMULATING HORMONE 1.275 uIU/ML (0.55-4.78)
[2024-05-15 19:32] LABS: PLATELET COUNT, AUTOMATED 79 10^3/uL (150-450)
== END ==
LOC: M SFHCCLAY 13:19
PROVIDERS: ATTEND Family Medicine
DX: I10 Essential (primary) hypertension (principal); R39.15 Urgency of urination; E78.5 Hyperlipidemia, unspecified; D64.9 Anemia, unspecified; E03.9 Hypothyroidism, unspecified

== ENCOUNTER → 2024-05-23 | Outpatient (REF) | payer MEDICARE, BC, OTHER | LOC: M SFHCDERM 17:21 | PROVIDERS: ATTEND Physician Assistant | DX: C44.311 Basal cell carcinoma of skin of nose (principal) ==

== ENCOUNTER → 2024-08-07 | Outpatient (REF) | payer MEDICARE, BC, OTHER ==
[~2024-08-07] MED LIST changes: +GABA-1172 PO; -GABA-282 PO
[2024-08-07 19:16] LABS: BASO % 0.6 % (0.0-1.0); HEMATOCRIT 38.9 % (36.0-47.0); HEMOGLOBIN 12.8 g/dl (12.0-15.5); LYMPH % 28.9 % (24.0-44.0); MEAN CORPUSCULAR HEMOGLOBIN 29.4 pg (27.0-33.0); MEAN CORPUSCULAR HGB CONC 32.9 g/dl (32.0-36.5); MEAN CORPUSCULAR VOLUME 89.2 fl (80.0-96.0); MONO # 0.3 10^3/uL (0.0-0.8); MONO % 7.6 % (2.0-8.0); NEUTROPHILS # 2.1 10^3/uL (1.5-8.5); NEUTROPHILS % 62.3 % (36.0-66.0); RED BLOOD COUNT 4.36 10^6/uL (4.00-5.40); WHITE BLOOD COUNT 3.3 10^3/uL (4.0-10.0)
[2024-08-07 19:22] LABS: ALBUMIN 3.5 G/DL (3.2-5.2); ALKALINE PHOSPHATASE 73 U/L (35-104); ALT/SGPT 58 U/L (7.0-40); AST/SGOT 66 U/L (<34); BILIRUBIN,TOTAL 0.5 MG/DL (0.3-1.2); BLOOD UREA NITROGEN 17 MG/DL (9-23); CALCIUM LEVEL 9.2 MG/DL (8.3-10.6); CARBON DIOXIDE LEVEL 29 MMOL/L (20-31); CHLORIDE LEVEL 106 MMOL/L (98-107); CREATININE FOR GFR 0.97 MG/DL (0.55-1.30); GLOMERULAR FILTRATION RATE > 60.0 (>39); GLUCOSE, FASTING 84 MG/DL (74-106); POTASSIUM SERUM 4.1 MMOL/L (3.5-5.1); SODIUM LEVEL 141 MMOL/L (136-145); THYROID STIMULATING HORMONE 1.248 uIU/ML (0.55-4.78); TOTAL PROTEIN 6.5 G/DL (5.7-8.2)
[2024-08-07 20:43] LABS: PLATELET COUNT, AUTOMATED 55 10^3/uL (150-450)
== END ==
LOC: M LABDRAWC 16:51
PROVIDERS: ATTEND Psychiatry & Neurology Neurology
DX: G35 Multiple sclerosis (principal); Z79.899 Other long term (current) drug therapy

== ENCOUNTER → 2024-09-20 | Outpatient (CLI) | payer MEDICARE, BC, OTHER | LOC: M SOG 07:57 | PROVIDERS: ATTEND Orthopaedic Surgery | DX: M25.511 Pain in right shoulder (principal); M19.011 Primary osteoarthritis, right shoulder ==

== ENCOUNTER → 2024-10-16 | Outpatient (REF) | payer MEDICARE, BC ==
[2024-10-16 17:47] LABS: BASO % 0.5 % (0.0-1.0); HEMOGLOBIN 11.5 g/dl (12.0-15.5); LYMPH # 0.8 10^3/uL (1.5-5.0); LYMPH % 20.5 % (24.0-44.0); MEAN CORPUSCULAR HEMOGLOBIN 29.8 pg (27.0-33.0); MEAN CORPUSCULAR HGB CONC 32.9 g/dl (32.0-36.5); MEAN CORPUSCULAR VOLUME 90.7 fl (80.0-96.0); MONO # 0.2 10^3/uL (0.0-0.8); MONO % 5.2 % (2.0-8.0); NEUTROPHILS # 2.8 10^3/uL (1.5-8.5); NEUTROPHILS % 73.3 % (36.0-66.0); RED BLOOD COUNT 3.86 10^6/uL (4.00-5.40); WHITE BLOOD COUNT 3.9 10^3/uL (4.0-10.0)
[2024-10-16 17:57] LABS: ALBUMIN 3.6 G/DL (3.2-5.2); ALKALINE PHOSPHATASE 63 U/L (35-104); ALT/SGPT 34 U/L (7.0-40); AST/SGOT 41 U/L (<34); BILIRUBIN,TOTAL 0.4 MG/DL (0.3-1.2); BLOOD UREA NITROGEN 19 MG/DL (9-23); CALCIUM LEVEL 9.5 MG/DL (8.3-10.6); CARBON DIOXIDE LEVEL 27 MMOL/L (20-31); CHLORIDE LEVEL 105 MMOL/L (98-107); CREATININE FOR GFR 0.95 MG/DL (0.55-1.30); GLOMERULAR FILTRATION RATE > 60.0 (>39); GLUCOSE, FASTING 89 MG/DL (74-106); POTASSIUM SERUM 3.9 MMOL/L (3.5-5.1); SODIUM LEVEL 143 MMOL/L (136-145); TOTAL PROTEIN 6.7 G/DL (5.7-8.2)
[2024-10-16 17:58] LABS: PLATELET COUNT, AUTOMATED 52 10^3/uL (150-450)
== END ==
LOC: M SFHCCAPE 14:02
PROVIDERS: ATTEND Physician Assistant Medical
DX: R19.7 Diarrhea, unspecified (principal)

== ENCOUNTER → 2024-10-17 | Outpatient (REF) | payer MEDICARE, BC | LOC: M SFHCCAPE 10:59 | PROVIDERS: ATTEND Physician Assistant Medical | DX: R19.7 Diarrhea, unspecified (principal); Z53.9 Procedure and treatment not carried out, unspecified reason ==

== ENCOUNTER → 2024-10-25 | Outpatient (CLI) | payer MEDICARE, BC | LOC: M RAD 15:18 | PROVIDERS: ATTEND Orthopaedic Surgery | DX: M19.011 Primary osteoarthritis, right shoulder (principal); M67.813 Other specified disorders of tendon, right shoulder; S43.431A Superior glenoid labrum lesion of right shoulder, initial encounter; M25.411 Effusion, right shoulder ==

== ENCOUNTER → 2024-11-20 | Outpatient (REF) | payer MEDICARE, BC ==
[2024-11-20 17:51] LABS: BASO % 0.6 % (0.0-1.0); HEMATOCRIT 36.6 % (36.0-47.0); HEMOGLOBIN 11.8 g/dl (12.0-15.5); LYMPH # 0.6 10^3/uL (1.5-5.0); LYMPH % 12.3 % (24.0-44.0); MEAN CORPUSCULAR HEMOGLOBIN 29.8 pg (27.0-33.0); MEAN CORPUSCULAR HGB CONC 32.2 g/dl (32.0-36.5); MEAN CORPUSCULAR VOLUME 92.4 fl (80.0-96.0); MONO # 0.2 10^3/uL (0.0-0.8); MONO % 5.2 % (2.0-8.0); NEUTROPHILS # 3.8 10^3/uL (1.5-8.5); NEUTROPHILS % 81.5 % (36.0-66.0); RED BLOOD COUNT 3.96 10^6/uL (4.00-5.40); WHITE BLOOD COUNT 4.6 10^3/uL (4.0-10.0)
[2024-11-20 17:58] LABS: PLATELET COUNT, AUTOMATED 49 10^3/uL (150-450)
[2024-11-20 18:23] LABS: ALBUMIN 3.5 G/DL (3.2-5.2); BILIRUBIN,TOTAL 0.5 MG/DL (0.3-1.2); CALCIUM LEVEL 9.7 MG/DL (8.3-10.6); CREATININE FOR GFR 1.01 MG/DL (0.55-1.30); GLOMERULAR FILTRATION RATE 57.7 (>39); POTASSIUM SERUM 4.4 MMOL/L (3.5-5.1); TOTAL PROTEIN 6.8 G/DL (5.7-8.2)
== END ==
LOC: M SFHCCLAY 08:36
PROVIDERS: ATTEND Family Medicine
DX: D69.6 Thrombocytopenia, unspecified (principal); I10 Essential (primary) hypertension

== ENCOUNTER → 2024-11-21 | Outpatient (CLI) | payer MEDICARE, BC ==
[~2024-11-21] MED LIST changes: +ISOVUE-300 61% 100ML VIAL As Ordered ONE; +LIDOCAINE 1% MDV 20ML VIAL As Ordered ONE; +methylPREDNISolone SUSP 40MG/ML 1ML VIAL (DEPO MEDROL) As Ordered ONE
== END ==
LOC: M RAD 12:29
PROVIDERS: ATTEND Orthopaedic Surgery
DX: M25.511 Pain in right shoulder (principal); G35 Multiple sclerosis; M50.123 Cervical disc disorder at C6-C7 level with radiculopathy
CPT/HCPCS: 20610; 72141; 77002; J0665; J1010; Q9967

== ENCOUNTER → 2024-12-10 | Outpatient (REF) | payer MEDICARE, BC ==
[~2024-12-10] MED LIST changes: -ISOVUE-300 61% 100ML VIAL As Ordered ONE; -LIDOCAINE 1% MDV 20ML VIAL As Ordered ONE; -methylPREDNISolone SUSP 40MG/ML 1ML VIAL (DEPO MEDROL) As Ordered ONE
[2024-12-10 17:39] LABS: BASO # 0.1 10^3/uL (0.0-0.2); BASO % 1.3 % (0.0-1.0); HEMATOCRIT 37.9 % (36.0-47.0); HEMOGLOBIN 12.2 g/dl (12.0-15.5); LYMPH # 1.3 10^3/uL (1.5-5.0); LYMPH % 32.7 % (24.0-44.0); MEAN CORPUSCULAR HEMOGLOBIN 29.7 pg (27.0-33.0); MEAN CORPUSCULAR HGB CONC 32.2 g/dl (32.0-36.5); MEAN CORPUSCULAR VOLUME 92.2 fl (80.0-96.0); MONO # 0.3 10^3/uL (0.0-0.8); MONO % 6.8 % (2.0-8.0); NEUTROPHILS # 2.2 10^3/uL (1.5-8.5); NEUTROPHILS % 58.7 % (36.0-66.0); RED BLOOD COUNT 4.11 10^6/uL (4.00-5.40); WHITE BLOOD COUNT 3.8 10^3/uL (4.0-10.0)
[2024-12-10 18:04] LABS: ALBUMIN 3.7 G/DL (3.2-5.2); BILIRUBIN,TOTAL 0.4 MG/DL (0.3-1.2); CALCIUM LEVEL 9.4 MG/DL (8.3-10.6); CREATININE FOR GFR 1.04 MG/DL (0.55-1.30); GLOMERULAR FILTRATION RATE 57.8 (>39); POTASSIUM SERUM 4.3 MMOL/L (3.5-5.1); TOTAL PROTEIN 6.8 G/DL (5.7-8.2)
[2024-12-10 18:07] LABS: THYROID STIMULATING HORMONE 0.52 uIU/ML (0.55-4.78)
[2024-12-10 18:21] LABS: PLATELET COUNT, AUTOMATED 54 10^3/uL (150-450)
== END ==
LOC: M SFHCCLAY 09:47
PROVIDERS: ATTEND Family Medicine
DX: D69.6 Thrombocytopenia, unspecified (principal); I10 Essential (primary) hypertension; E03.9 Hypothyroidism, unspecified

== ENCOUNTER 2025-01-04 14:20 | Observation (INO) | payer MEDICARE, BC ==
[~2025-01-04] VITALS: Ht 167.6 cm; Wt 60.9 kg
[~2025-01-04 14:20] MED LIST changes: -VIBE75TA; +VIBE75TA PO
[2025-01-04] MEDS: diphenhydrAMINE 50MG/ML VIAL IV STA (16:31)
[2025-01-04] MEDS: methylPREDNISolone 125MG 2ML VIAL IV ONE (16:31)
[2025-01-04 16:57] LABS: BASO # 0.1 10^3/uL (0.0-0.2); HEMATOCRIT 39.4 % (36.0-47.0); HEMOGLOBIN 12.9 g/dl (12.0-15.5); LYMPH % 20.1 % (24.0-44.0); MEAN CORPUSCULAR HEMOGLOBIN 29.9 pg (27.0-33.0); MEAN CORPUSCULAR HGB CONC 32.7 g/dl (32.0-36.5); MEAN CORPUSCULAR VOLUME 91.4 fl (80.0-96.0); MONO # 0.5 10^3/uL (0.0-0.8); MONO % 10.8 % (2.0-8.0); NEUTROPHILS # 3.3 10^3/uL (1.5-8.5); NEUTROPHILS % 67.1 % (36.0-66.0); RED BLOOD COUNT 4.31 10^6/uL (4.00-5.40); WHITE BLOOD COUNT 4.9 10^3/uL (4.0-10.0)
[2025-01-04] MEDS ORDERED: ISOVUE-370 76% 100ML VIAL As Ordered ONE (16:59)
[2025-01-04 17:15] LABS: PLATELET COUNT, AUTOMATED 53 10^3/uL (150-450)
[2025-01-04 17:19] LABS: INR 1.11; PARTIAL THROMBOPLASTIN TIME 52.7 SECONDS (24.8-34.2); PROTHROMBIN TIME 14.6 SECONDS (12.5-14.5)
[2025-01-04] MEDS: ASPIRIN 81MG CHEW TABLET PO ONE (18:45)
[2025-01-04] MEDS: CLOPIDOGREL 300 MG TAB (PLAVIX) PO STA (18:45)
[2025-01-04] MEDS ORDERED: NITR4TASL SL (19:21)
[2025-01-04] MEDS ORDERED: BAYE325T PO (19:21)
[2025-01-04] MEDS ORDERED: MIRT-11 PO (19:21)
[2025-01-04] MEDS ORDERED: IPRA6SP (19:21)
[2025-01-04] MEDS ORDERED: AMLO2.5T3 PO (19:21)
[2025-01-04] MEDS ORDERED: LYRI150C PO (19:21)
[2025-01-04] MEDS ORDERED: HOME MED LIST COMPLETE! XX SCH (19:25)
[2025-01-04] MEDS: IPRATROPIUM 0.06% NASAL SPRAY 15 ML (ATROVENT) SCH (20:53)
[2025-01-04] MEDS ORDERED: LORazepam 1 MG TAB PO PRN (21:35)
[2025-01-04] MEDS ORDERED: NITROGLYCERIN 0.4MG SUBL TABLET SL SCH (21:35)
[2025-01-04 21:54] LABS: CALCIUM LEVEL 8.9 MG/DL (8.3-10.6); CREATININE FOR GFR 0.89 MG/DL (0.55-1.30); GLOMERULAR FILTRATION RATE 69.7 (>39); POTASSIUM SERUM 3.9 MMOL/L (3.5-5.1)
[2025-01-04] MEDS ORDERED: NITROGLYCERIN 0.4MG SUBL TABLET SL PRN (22:05)
[2025-01-04 22:31] LABS: MAGNESIUM LEVEL 1.8 MG/DL (1.8-2.4)
[2025-01-04] MEDS: PREGABALIN 75 MG CAP PO SCH (22:35)
[2025-01-04] MEDS: busPIRone 5 MG TAB PO SCH (22:35)
[2025-01-04] MEDS: MIRTAZAPINE 15 MG TAB PO SCH (22:36)
[2025-01-05 05:32] LABS: HEMATOCRIT 35.9 % (36.0-47.0); HEMOGLOBIN 11.9 g/dl (12.0-15.5); MEAN CORPUSCULAR HEMOGLOBIN 29.8 pg (27.0-33.0); MEAN CORPUSCULAR HGB CONC 33.1 g/dl (32.0-36.5); MEAN CORPUSCULAR VOLUME 89.8 fl (80.0-96.0); PLATELET COUNT, AUTOMATED 67 10^3/uL (150-450); WHITE BLOOD COUNT 5.1 10^3/uL (4.0-10.0)
[2025-01-05 05:54] LABS: CREATININE FOR GFR 0.97 MG/DL (0.55-1.30); GLOMERULAR FILTRATION RATE 62.9 (>39); MAGNESIUM LEVEL 1.9 MG/DL (1.8-2.4)
[2025-01-05] MEDS: LEVOTHYROXINE 50MCG TABLET (0.05MG) PO SCH (07:27)
[2025-01-05 07:56] LABS: CHOLESTEROL RISK RATIO 3.87 (<5); HDL CHOLESTEROL 67.7 MG/DL (>40); LDL CHOLESTEROL 174.3 MG/DL (<100); NON-HDL-C 194.3 MG/DL
[2025-01-05] MEDS: SERTRALINE 100 MG TAB PO SCH (08:40)
[2025-01-05] MEDS: ASPIRIN 325 MG TAB PO SCH (08:41)
[2025-01-05] MEDS ORDERED: **PLEASE UPDATE HEIGHT/WEIGHT XX SCH (09:00)
[2025-01-05] MEDS: DOXYCYCLINE HYCLATE 100MG TABLET PO SCH (09:38)
[2025-01-05] MEDS: ENOXAPARIN 40MG/0.4ML SYRINGE (J1650 PER 10MG) SC SCH (09:39)
[2025-01-05 09:56] LABS: HEMOGLOBIN A1c 5.1 % (4.0-6.0)
[2025-01-05] MEDS: VANCOMYCIN 125MG CAPSULE PO SCH (10:31)
[2025-01-05 10:46] LABS: INR 1.13; PARTIAL THROMBOPLASTIN TIME 50.7 SECONDS (24.8-34.2); PROTHROMBIN TIME 14.8 SECONDS (12.5-14.5)
[2025-01-05 10:48] VITALS: BP_SYST 153; BP_SYST 162; BP_SYST 166; BP_DIAS 60; BP_DIAS 62; BP_DIAS 64; TEMP 98.1; O2SAT 93
[2025-01-05 11:54] VITALS: BP 153/51; TEMP 96.8; O2SAT 98
[2025-01-05] MEDS ORDERED: XALA0.007 OU (12:25)
[2025-01-05] MEDS: LOTEPREDNOL 0.2% OU SCH (12:37)
[2025-01-05] MEDS: ACETAMINOPHEN 325 MG TAB PO PRN (12:51)
[2025-01-05 15:26] LABS: ALBUMIN 3.2 G/DL (3.2-5.2); BILIRUBIN,TOTAL 0.4 MG/DL (0.3-1.2); CALCIUM LEVEL 9.4 MG/DL (8.3-10.6); CREATININE FOR GFR 1.3 MG/DL (0.55-1.30); GLOMERULAR FILTRATION RATE 44.2 (>39); POTASSIUM SERUM 3.7 MMOL/L (3.5-5.1)
[2025-01-05 16:06] LABS: HEPATITIS C VIRUS ABY INDEX 0.14 INDEX (<0.8)
[2025-01-05 20:45] VITALS: BP 156/64; TEMP 97.3; O2SAT 94
[2025-01-06 03:10] VITALS: BP 160/62; TEMP 97.7; O2SAT 95
[2025-01-06 03:24] LABS: KETONE, URINE AUTO RFX NEGATIVE (NEGATIVE); NITRITE, URINE AUTO RFX NEGATIVE (NEGATIVE); RBC, URINE AUTO RFX 1 /HPF (0-3); SQUAM EPITHELIAL CELL UR AURFX 0 /HPF (0-6)
[2025-01-06 03:25] LABS: LEUKOCYTE ESTERASE UR AUTO RFX 2+ (NEGATIVE); WBC, URINE AUTO RFX 20 /HPF (0-3)
[2025-01-06 04:35] VITALS: BP 162/64
[2025-01-06 05:59] LABS: HEMATOCRIT 34.2 % (36.0-47.0); HEMOGLOBIN 10.9 g/dl (12.0-15.5); MEAN CORPUSCULAR HEMOGLOBIN 29.3 pg (27.0-33.0); MEAN CORPUSCULAR HGB CONC 31.9 g/dl (32.0-36.5); MEAN CORPUSCULAR VOLUME 91.9 fl (80.0-96.0); PLATELET COUNT, AUTOMATED 58 10^3/uL (150-450); RED BLOOD COUNT 3.72 10^6/uL (4.00-5.40); WHITE BLOOD COUNT 3.8 10^3/uL (4.0-10.0)
[2025-01-06 06:17] LABS: CALCIUM LEVEL 8.8 MG/DL (8.3-10.6); CREATININE FOR GFR 1.09 MG/DL (0.55-1.30); GLOMERULAR FILTRATION RATE 54.7 (>39); POTASSIUM SERUM 3.9 MMOL/L (3.5-5.1)
[2025-01-06 08:39] VITALS: BP 170/68
[2025-01-06 10:14] VITALS: BP 142/52
[2025-01-06] MEDS ORDERED: DOXY100C3 PO (10:35)
[2025-01-08 10:46] LABS: HEPATITIS B SURF AB QUANT < 5 mIU/mL (> OR = 10)
[2025-01-08 12:38] LABS: HEPATITIS A IgG TOTAL REACTIVE (NON-REACTIVE)
[2025-01-09 11:04] LABS: COPPER PLASMA 70 mcg/dL (70-175)
[2025-01-09 14:52] LABS: LYME TOTAL ANTIBODY CIA <= 0.90 Index (<=0.90)
[2025-01-10 04:48] LABS: VITAMIN E(ALPHA TOCOPHEROL) 24.3 mg/L (5.7-19.9); VITAMIN E(GAMMA TOCOPHEROL) < 1.0 mg/L (<=4.3)
[2025-01-10 16:53] LABS: VITAMIN B6,PYRIDOXAL PHOSPHATE 14.1 ng/mL (2.1-21.7)
[2025-01-11 05:53] LABS: Anaplasma phagocytophilum NOT DETECTED (NOT DETECT); BORRELIA SPECIES DNA NOT DETECTED (NOT DETECT); Babesia microti NOT DETECTED (NOT DETECT); Ehrlichia chaffeensis NOT DETECTED (NOT DETECT)
[2025-01-15] MEDS ORDERED: DOXY100C3 PO (19:53)
== END 2025-01-06 12:19 | disposition home or self-care (01) ==
LOC: EDBD 14:20 → M ED 14:20 → M ED INP 14:21 → M MSPAV 01-05 10:53
PROVIDERS: ADMIT Student in an Organized Health Care Education/Training Program; ATTEND Internal Medicine
DX: R55 Syncope and collapse (principal); R53.1 Weakness; R20.2 Paresthesia of skin; G35 Multiple sclerosis; I35.1 Nonrheumatic aortic (valve) insufficiency; S30.861A Insect bite (nonvenomous) of abdominal wall, initial encounter; W57.XXXA Bitten or stung by nonvenomous insect and other nonvenomous arthropods, initial encounter; Y92.9 Unspecified place or not applicable; D47.2 Monoclonal gammopathy; G81.91 Hemiplegia, unspecified affecting right dominant side; R29.810 Facial weakness; R29.701 NIHSS score 1; N18.30 Chronic kidney disease, stage 3 unspecified; E03.9 Hypothyroidism, unspecified; I16.1 Hypertensive emergency; Z86.19 Personal history of other infectious and parasitic diseases; F41.9 Anxiety disorder, unspecified; F32.A Depression, unspecified; Z86.73 Personal history of transient ischemic attack (TIA), and cerebral infarction without residual deficits; Z96.643 Presence of artificial hip joint, bilateral; Z94.7 Corneal transplant status; Z90.49 Acquired absence of other specified parts of digestive tract; Z90.79 Acquired absence of other genital organ(s); Z82.49 Family history of ischemic heart disease and other diseases of the circulatory system; Z80.7 Family history of other malignant neoplasms of lymphoid, hematopoietic and related tissues; Z79.899 Other long term (current) drug therapy; Z79.82 Long term (current) use of aspirin; Z79.890 Hormone replacement therapy; Z91.040 Latex allergy status; Z91.041 Radiographic dye allergy status; Z88.8 Allergy status to other drugs, medicaments and biological substances
CPT/HCPCS: 36415; 70450; 70496; 70498; 70551; 71045; 80047; 80048; 80053; 80061; 81001; 82525; 82607; 83036; 83735; 84207; 84425; 84446; 85025; 85027; 85049; 85055; 85610; 85730; 86317; 86618; 86708; 86711; 86803; 87088; 87186; 87468; 87469; 87478; 87484; 87486; 87581; 87633; 87798; 87801; 93005; 93041; 93306; 94760; 96372; 96374; 96375; 97161; 99285; G0378; J1200; J1650; J2919; Q9967

== ENCOUNTER → 2025-03-07 | Outpatient (REF) | payer MEDICARE, BC ==
[~2025-03-07] MED LIST changes: +AMLO1TAB24 PO; +AMLO2.5T3 PO; +BAYE325T PO; +DOXY100C3 PO; +HYDR25TA87 PO; +IPRA6SP; +LYRI150C PO; +MIRT-11 PO; +NITR4TASL SL; +XALA0.007 OU
== END ==
LOC: M SFHCCLAY 10:46
PROVIDERS: ATTEND Physician Assistant
DX: R30.0 Dysuria (principal)

== ENCOUNTER → 2025-04-12 | Outpatient (REF) | payer MEDICARE, BC | LOC: M SFHCCLAY 07:56 | PROVIDERS: ATTEND Family Medicine | DX: R19.7 Diarrhea, unspecified (principal) ==

== ENCOUNTER → 2025-04-12 | Outpatient (CLI) | payer MEDICARE, BC ==
[~2025-04-12] MED LIST changes: +FAMO10TA50 PO; +PRED50TA57 PO
== END ==
LOC: M CLY 08:03
PROVIDERS: ATTEND Family Medicine
DX: M79.662 Pain in left lower leg (principal)

== ENCOUNTER → 2025-06-03 | Outpatient (REF) | payer MEDICARE, BC ==
[2025-06-03 19:18] LABS: ALT/SGPT 11.0 U/L (7.0-40); AST/SGOT 22.0 U/L (<34); CALCIUM LEVEL 9.4 MG/DL (8.3-10.6); CARBON DIOXIDE LEVEL 27.0 MMOL/L (20-31); CHLORIDE LEVEL 109.0 MMOL/L (98-107); CREATININE FOR GFR 1.06 MG/DL (0.55-1.30); GLOMERULAR FILTRATION RATE 56.2 (>39); POTASSIUM SERUM 4.6 MMOL/L (3.5-5.1); SODIUM LEVEL 146.0 MMOL/L (136-145)
== END ==
LOC: M SFHCCLAY 09:22
PROVIDERS: ATTEND Family Medicine
DX: I12.9 Hypertensive chronic kidney disease with stage 1 through stage 4 chronic kidney disease, or unspecified chronic kidney disease (principal)